=== PATIENT | male | born 1945 | race Caucasian/White ===

== ENCOUNTER 2017-04-23 07:45 | Day surgery (SDC) | payer MEDICARE, OTHER ==
[~2017-04-23] VITALS: Ht 177.8 cm; Wt 103.9 kg
[~2017-04-23 07:45] MED LIST: ADDE20XR PO; CLON1 PO; CYAN100017 PO; CYCL-36 PO; D31000CA PO; LAMI200T PO; LORTA5 PO; NORT1CAP53 PO; SERT-129 PO; VITA10004 PO
[2017-04-23] MEDS ORDERED: IOHEXOL 350 MG/ML 50 ML BTL (for Cath Lab) OTHER ONE (07:46)
[2017-04-23] MEDS ORDERED: NS 1000P @30 MLS/HR (KVO) IV SCH (08:00)
[2017-04-23 08:51] VITALS: BP 134/82; PULSE 73; RESP 17; TEMP 97.9; O2SAT 98
[2017-04-23] MEDS ORDERED: LAMO200T54 PO (08:59)
[2017-04-23] MEDS ORDERED: CLON1TAB PO (08:59)
[2017-04-23] MEDS ORDERED: AMPH1TAB66 PO (08:59)
[2017-04-23] MEDS ORDERED: SERT-129 PO (08:59)
[2017-04-23] MEDS ORDERED: PRIM50TA5 PO (08:59)
[2017-04-23] MEDS ORDERED: VITA1000 PO (08:59)
[2017-04-23] MEDS ORDERED: PROS5TAB PO (08:59)
[2017-04-23] MEDS ORDERED: OXYB5TAB PO (08:59)
[2017-04-23 09:20] LABS: AUTOMATED NEUTROPHIL # 4.8 TH/MM3 (1.8-7.7); BASOPHIL % 0.4 % (0.0-2.0); EOSINOPHIL # 0.1 TH/MM3 (0-0.4); EOSINOPHIL % 1.6 % (0.0-4.0); HEMATOCRIT 47.6 % (39.0-51.0); HEMO FLAGS DIFF FINAL; LYMPH % 25.9 % (9.0-44.0); LYMPHOCYTE # 1.9 TH/MM3 (1.0-4.8); MEAN CELL VOLUME 92.2 FL (80.0-100.0); MEAN CORPUSCULAR HEMOGLOBIN 30.5 PG (27.0-34.0); MEAN CORPUSCULAR HGB CONC 33.1 % (32.0-36.0); MONO % 7.9 % (0.0-8.0); NEUT % 64.2 % (16.0-70.0); PLATELET COUNT 167 TH/MM3 (150-450); RED BLOOD COUNT 5.16 MIL/MM3 (4.50-5.90); RED CELL DISTRIBUTION WIDTH 13.5 % (11.6-17.2); WHITE BLOOD COUNT 7.4 TH/MM3 (4.0-11.0)
[2017-04-23 09:37] LABS: APTT (PATIENT) 25.4 SEC (24.3-30.1); INTERNATIONAL NORMALIZED RATIO 0.9 RATIO; PROTHROMBIN TIME - PATIENT 10.2 SEC (9.8-11.6)
[2017-04-23] MEDS ORDERED: HEPARIN-NS/PF INJ 1,000 ML ONE (09:48)
[2017-04-23] MEDS ORDERED: MIDAZOLAM HCL 2 MG/2 ML VIAL ONE ×2 (09:54→10:20)
[2017-04-23] MEDS ORDERED: HEPARIN SODIUM - IV 10,000 UNITS/10 ML VIAL ONE (09:55)
[2017-04-23 10:01] LABS: BICARBONATE 27.9 MEQ/L (21.0-32.0); POTASSIUM 4.1 MEQ/L (3.5-5.1)
[2017-04-23] MEDS ORDERED: oxyCODONE/ACETAMINOPHEN 5 MG/325 MG TAB PO PRN ×2 (10:30)
--- NOTE | 2017-04-23 10:33 | CATHPROC ---
ExtendEvent HIS Report Study Information Study Number Admission Scheduled Start Study Start [id number] Apr 23 2017 7:45AM 04/23/2017 Apr 23 2017 9:39AM [place] Service Cardiac Catheterization Admit Source Facility Department Emergency department [facility] - Pharmacy Billing Adjudicator Physician and Clinical Staff Initial Froy Estrella Hydrodynamics Teacher Guy Harris,STANLEY Hydrodynamics Teacher Kylee Medina RN Recorder Sky French,RT(R) ScrGisela NorrisRT(R) (BS) Procedures Performed Procedure Location (Site) Vessel Name Coronary Angiograms RCA Right Coronary Equipment Time Mail Processing Associate Description Size Mfg Part Number Used/Scraped [id number] 10:13 [employer] MEDICAL WIRE, NITONOL 80CM 80CM Used *[id number] TRANSDUCER, TRUWAVE [id number] 10:15 CESPEDES ROE * Used W/STOCKCOCK *[id number] *[id number] [id number] *[id number] 10:15 [employer] PACK, CCL CUSTOM * Used *[id number] 10:15 [employer] SUPPORT, ARTERIAL ADULT 40546 *[id number] Used [id number] 10:15 Marqui PACER PEN, SKIN DUAL W/ RULER * Used *[id number] BAND, RADIAL COMPRESSION TR [id number] 10:30 Medialive 29CM Used LARGE 29 *[id number] SHEATH, FR6 RADIAL PRELUDE 10:15 Medialive FR 6 [id number] Used EASE 11CM [id number] 10:15 Medialive WIRE, EXCHANGE 260CM 3MMJ 260CM Used *[id number] 10:15 [employer] OMNIPAQUE, 350 MG, 150ML 150ML [id number] Used [id number] 10:15 [employer] BLANKET,WARM AIR CCL * Used *[id number] Equipment Model, Serial, Lot Number and Expiration Data Description Model Number Serial Number Lot Number Expiration Date WIRE, NITONOL 80CM [id number] 07-07-2021 History: Allergies Allergy Reaction No Known Allergies History: Risk Factors Family History of Hypertension Dyslipidemia Previous OK Previous Heart Failure Premature CAD No No No No No Prior Valve Prior PCI Prior CABG Surgery No No No Cerebrovascular Peripheral Artery Chronic Lung On Dialysis Diabetes Diabetes Therapy Disease Disease Disease No No No No Yes Oral History: Stress Tests Stress or Imaging Studies Performed Yes Standard Exercise Stress Test No Stress Echo No Stress Test SPECT Stress Test SPECT Result Stress Test SPECT Ischemia Risk/Extent Yes Positive High Stress Test CMR No Cardiac CTA Coronary Calcium Score No No History: Other Current Smoker No Labs Hgb (g/dl) Hct (%) WBC (l/cumm) Platelets (thousands) 11.60-17.00 35.00-51.00 4.00-11.00 150.00-450.00 15.8 47.6 7.4 167 Glucose (mg/dl) BUN (mg/dl) Creatinine (mg/dl) BUN:Creatinine (1:x) 74.00-106.00 7.00-18.00 0.50-1.30 10.00-20.00 141 15 0.9 16.7 Na (meq/l) K (meq/l) 136.00-145.00 3.50-5.10 139 4.1 INR (PTT:PT) 0.90-1.10 0.9 CPK-MB (ng/ML) 0.50-3.60 Not Drawn Medication Medication Total Dose (Bolus/Oral) Medication Total Dosage/Unit 1% XYLOCAINE 5 mL FENTANYL 50 mcg HEPARIN 3000 units NTG (IC) 200 mcg OXYGEN 2 l/min VERSED 3 mg Medications (Bolus/Oral) Medication Time Given Dosage/Unit Administered By Reason VERSED 04/23/2017 10:08:45 AM 2 mg Froy Garza 2 mg VERSED given in lab by Froy Garza in Left Forearm via Peripheral IV. Ordered by Alice Garza. FENTANYL 04/23/2017 10:09:45 AM 50 mcg Froy Garza 50 mcg FENTANYL given in lab by Froy Garza in Left Forearm via Peripheral IV. Ordered by Yariel Garza. 1% XYLOCAINE 04/23/2017 10:13:27 AM 5 mL Froy Garza 5 mL 1% XYLOCAINE given in lab by Froy Garza in Right Radial via Subcutaneous. Ordered by Froy Garza. NTG (IC) 04/23/2017 10:15:07 AM 200 mcg Froy Garza 200 mcg NTG (IC) given in lab by Froy Garza via Intra-arterial. Ordered by Froy Garza. HEPARIN 04/23/2017 10:15:20 AM 3000 units Froy Garza 3000 units HEPARIN given in lab by Froy Garza in Left Forearm via Peripheral IV. Ordered by Froy Garza. OXYGEN 04/23/2017 10:17:27 AM 2 l/min Froy Garza 2 l/min OXYGEN given in lab by Froy Garza via Nasal. Ordered by Froy Garza. VERSED 04/23/2017 10:21:11 AM 1 mg Froy Garza 1 mg VERSED given in lab by Froy Garza in Left Forearm via Peripheral IV. Ordered by Alice Garza enYakelin Medication (Drip) Medication Time Given Dosage/Unit Concentration/Unit Diluent (ml) Solution IV Solutions 04/23/2017 9:46:21 AM 0 mL (IV) 500 NaCl .9 Patient arrived on IV Solutions given by Froy Garza in Left Forearm via Peripheral IV. Pump/Drip Flow = 20 ml/hr using NaCl .9. Ordered by Froy Garza. Initial Case Assessment Cardiovascular HR Rhythm NIBP Chest Pain 80 sr 132/66 0 Edema Present Skin color Skin None Normal Warm Dry Circulatory - Right Pulses Dorsalis Pedis Femoral Radial 2 2 2 Scale (0,1,2,3,4,d) Scale (0,1,2,3,4,d) Neurological State Oriented to time-place- Alert Moves all extremities person Respiration - General Respiration Rate SpO2 (%) O2 (lpm) (B/min) 18 96 0 Final Case Assessment Cardiovascular HR Rhythm NIBP Chest Pain 65 sr 133/70 0 Edema Present Skin color Skin None Normal Warm Dry Circulatory - Right Pulses Dorsalis Pedis Femoral Radial 2 2 2 Scale (0,1,2,3,4,d) Scale (0,1,2,3,4,d) Neurological State Oriented to time-place- Alert Moves all extremities person Respiration - General Respiration Rate SpO2 (%) O2 (lpm) (B/min) 18 99 2 Chronological Log Time Study Chronological Log 9:40:06 Patient arrived via Bed. 9:40:08 Consent signed by the physician and the patient and verified by the Pharmacy Billing Adjudicator staff. 9:40:09 Pre-op and post- op instructions given; patient acknowledges understanding of instructions. 9:40:11 Verbal Stimulation=2 Physical Stimulation=2 Airway=2 Respiration=2 TOTAL=8. (0=absent, 1=martin ited, 2=present) 9:40:32 Presedation assessment performed by Pharmacy Billing Adjudicator RN. 9:40:34 Patient has been NPO for More than 6Hrs. 9:40:53 Skin Breakdown-bilateral scabs on lower legs. 9:45:32 A # 20 IV was noted in the Forearm (left). Grade = 0 Patient arrived on IV Solutions given by Froy Garza in Left Forearm via Peripheral IV. Pump /Drip Flow = 20 ml/hr 9:46:21 using NaCl .9. Ordered by Froy Garza. 9:46:40 History and physical on the chart or being dictated. Vitals capture started with the following parameters, Patient=Adult, Interval=5 min, Initial Pr bztmzw=278 mmHg, 9:46:42 Deflation Rate=5 mmHg, Cuff placed on Left Arm 9:47:27 [place]=189 bpm, QOAA=516/66 mmhg, SpO2=92.0 %, Resp=12 B/min, Briseno=2 9:47:51 Reference ECG taken Assessment: Initial Case, HR=80 BPM, Rhythm=sr, OYQP=772/66 mmhg, Chest Pain=0, Edema=None, Col or=Normal, Skin = Warm, Dry 9:47:53 Right Pulses: Van Ped=2, Femoral=2, Radial=2 Neurological: State=Alert, Ox3, [place] Respiration: Resp=18 B/min, SpO2=96 %, O2=0 lpm 9:52:20 HR=71 bpm, MFEO=854/74 mmhg, SpO2=92.0 %, Resp=21 B/min 9:58:00 HR=73 bpm, FOAA=047/75 mmhg, SpO2=96.0 %, Resp=19 B/min, Briseno=2 10:00:45 MD paged 10:02:22 HR=69 bpm, UCMI=612/69 mmhg, SpO2=92.0 %, Resp=24 B/min, Briseno=2 10:02:49 Pressure channel 1 zeroed. 10:06:51 MD arrived. 10:07:21 HR=71 bpm, PWPU=168/71 mmhg, SpO2=91.0 %, Resp=22 B/min, Briseno=2 10:08:45 2 mg VERSED given in lab by Froy Garza in Left Forearm via Peripheral IV. Ordered by Froy Rutledge. 10:09:45 50 mcg FENTANYL given in lab by Froy Garza in Left Forearm via Peripheral IV. Ordered b Froy Quinteros. Time Out. Correct patient, correct procedure,correct physician, ,power injector not loaded with contrast with surgical 10:10:54 team present. Time Out Concurred by MD, individual staff and CATERING CHEF in procedure 10:12:22 HR=71 bpm, KIYS=555/72 mmhg, SpO2=90.0 %, Resp=20 B/min, Briseno=2 10:13:17 Presedation re-assessment performed by Pharmacy Billing Adjudicator RN. 10:13:18 Case Start 10:13:20 Verbal Stimulation=2 Physical Stimulation=2 Airway=2 Respiration=2 TOTAL=8. (0=absent, 1=li mited, 2=present) 10:13:27 5 mL 1% XYLOCAINE given in lab by Froy Garza in Right Radial via Subcutaneous. Ordered by Froy Garza. 10:14:00 Access site was Radial Artery. right radial A SHEATH, FR6 RADIAL PRELUDE EASE 11CM FR 6 was advanced into the Radial (right) using the Perc utaneous 10:14:46 technique. 10:15:07 200 mcg NTG (IC) given in lab by Froy Garza via Intra-arterial. Ordered by Alice Garza en. 10:15:20 3000 units HEPARIN given in lab by Froy Garza in Left Forearm via Peripheral IV. Ordere d by Froy Garza. 10:17:24 HR=71 bpm, SSWK=133/76 mmhg, SpO2=89.0 %, Resp=32 B/min, Briseno=2 10:17:27 2 l/min OXYGEN given in lab by Froy Garza via Nasal. Ordered by Froy Garza. A JR 5.0 INFINITI CATHETER FR 6 was advanced over a wire. OMNIPAQUE, 350 MG, 150ML 150ML was us ed for 10:17:42 injections. Recorded Pressure: LV, HR=73, Condition=Condition 1 10:19:00 (Left Ventricle) LV 118/11/18 Recorded Pressure: LV, Ao, HR=76, Condition=Condition 1 10:19:09 (Left Ventricle) LV 128/11/16, (Aorta) Ao 122/68/91 10:19:28 The RCA was injected and visualized at various angles. OMNIPAQUE, 350 MG, 150ML 150ML use d. After removing the current catheter a JL 3.5 INFINITI CATHETER FR 6 was advanced over a WIRE, EXCHANGE 260CM 10:20:05 3MMJ 260CM. 10:21:11 1 mg VERSED given in lab by Froy Garza in Left Forearm via Peripheral IV. Ordered by Froy Reeves. Recorded Pressure: Ao, HR=69, Condition=Condition 1 10:21:59 (Aorta) Ao 129/72/96 10:23:08 HR=70 bpm, MSRK=947/65 mmhg, SpO2=93.0 %, Resp=27 B/min, Briseno=2 10:23:53 Catheter was removed otw. 10:26:12 Case End 10:27:26 HR=70 bpm, ZLVD=927/70 mmhg, SpO2=93.0 %, Resp=55 B/min, Briseno=2 Assessment: Final Case, HR=65 BPM, Rhythm=sr, TNPZ=206/70 mmhg, Chest Pain=0, Edema=None, [place] r=Normal, Skin = Warm, Dry 10:29:26 Right Pulses: Van Ped=2, Femoral=2, Radial=2 Neurological: State=Alert, Ox3, [place] Respiration: Resp=18 B/min, SpO2=99 %, O2=2 lpm 10:29:47 Vitals capture stopped. 10:29:50 Catheter(s) removed without difficulty Radial Compression Device Used. 11 mLs of air placed in BAND, RADIAL COMPRESSION TR LARGE 29 2 9CM. Affected 10:29:56 hand 94 % O2 saturation. 10:30:19 No case complications noted. 10:30:21 Cine recording checked. 10:30:33 Contrast Scanned 10:31:39 Patient moved to stretcher End Study - Contrast Media Used In Study Contrast Total Opened (mL) Total Used (mL) Total Wasted (mL) Omnipaque 45 45 0 End Study - Maximum Contrast Load Max Contrast Load (mL) 577.3 End Study - Radiation Exposure Fluoro Time (minutes) 2.0 End Study - Patient Disposition Complications Transferred To No Outpatient Bed
[2017-04-23] MEDS ORDERED: CARV3.125 PO (10:37)
--- NOTE | 2017-04-23 11:25 | MA ---
cc: TEAGAN AVILEZ DATE 04/23/2017 PROCEDURE PERFORMED 1. Fluoroscopy with interpretation 2. Left heart catheterization 3. Coronary angiography METHOD The risks, benefits and alternatives discussed with the patient. The patient understood and consented to the procedure. PROCEDURE The patient brought into the catheterization lab, placed on the catheterization table. The right wrist was prepped and draped in a sterile fashion. The right wrist was anesthetized with 2% lidocaine. The right radial artery was cannulated. A 6-Scottish 7 cm sheath was placed without difficulty. 2.0 mcg intra-arterial nitroglycerin, 3000 inches of intravenous heparin was administered. Left heart catheterization; 6-Scottish JR-5 catheter was advanced across the aortic valve without difficulty. Intraventricular hemodynamics measured at 120/10 mmHg. No aortic stenosis by transaortic valve or pullback gradient. Coronary angiography: 1. Left main coronary angiographically normal. 2. Left anterior descending coronary has mild calcium present, but no significant obstruction. There is a small diagonal branch that has minor luminal irregularities. 3. Left circumflex gives rise to a large first obtuse marginal branches. There is a subbranch bursa which had minor luminal irregularities. 4. Right coronary artery is a dominant vessel giving rise to a posterior descending coronary. The right coronary has 30% stenosis ostially and in the mid to distal segment. CONCLUSIONS 1. Mild nonobstructive coronary disease. 2. Normal left-sided filling pressures. PLAN The patient will be monitored closely for any post procedural complications. The patient does have some PVCs and chest pains. The stress test showed a reduced ejection fraction. We will start on a low dose of Coreg. Blood pressure likely will tolerate PRAKASH inhibitor in addition to that. We will have to have a follow-up echocardiogram for his nonischemic cardiomyopathy to see if it shows improvement. If not, then he may be a consideration for a defibrillator. MD CONNIE Landis/PATRICK /10:44 AM /11:14 AM
[2017-04-23] MEDS ORDERED: BACITRACIN OINT 0.9 GM PKT TOP ONE (11:30)
[2017-04-23] MEDS ORDERED: MISC INFORMATION XX ONE (11:30)
[2017-04-23] MEDS ORDERED: CARVEDILOL 3.125 MG TAB PO SCH (21:00)
== END 2017-04-23 14:55 | disposition home or self-care (01) ==
LOC: HDOC 07:45 → HDIC 07:45 → HDOC 14:55
PROVIDERS: ATTEND Internal Medicine
DX: I25.10 Atherosclerotic heart disease of native coronary artery without angina pectoris (principal); I25.5 Ischemic cardiomyopathy; I49.3 Ventricular premature depolarization; R07.9 Chest pain, unspecified; R53.82 Chronic fatigue, unspecified; F33.1 Major depressive disorder, recurrent, moderate; E11.9 Type 2 diabetes mellitus without complications; N40.0 Benign prostatic hyperplasia without lower urinary tract symptoms; L40.0 Psoriasis vulgaris; E55.9 Vitamin D deficiency, unspecified; Z79.899 Other long term (current) drug therapy
CPT/HCPCS: 80048; 85025; 85610; 85730; 86850; 86900; 86901; 93458; C1769; C1893; J1644; J2250; J3010; 93454; Q9967

== ENCOUNTER 2017-09-10 04:22 | Emergency (ER) | payer MEDICARE, OTHER ==
[~2017-09-10] VITALS: Ht 167.6 cm; Wt 90.0 kg
[~2017-09-10 04:22] MED LIST changes: -ADDE20XR PO; +AMPH1TAB66 PO; +CARV3.125 PO; -CLON1 PO; +CLON1TAB PO; -CYAN100017 PO; -CYCL-36 PO; -D31000CA PO; -LAMI200T PO; +LAMO200T54 PO; -LORTA5 PO; -NORT1CAP53 PO; +OXYB5TAB PO; +PRIM50TA5 PO; +PROS5TAB PO; +VITA1000 PO; -VITA10004 PO
[2017-09-10 04:25] VITALS: BP 141/70; PULSE 85; RESP 18; TEMP 99.1; O2SAT 97
[2017-09-10] MEDS ORDERED: ACETAMINOPHEN 500 MG CPLT PO ONE (04:45)
[2017-09-10] MEDS ORDERED: FURO20TA PO (04:51)
[2017-09-10] MEDS ORDERED: LISI2.5T3 PO (04:51)
[2017-09-10] MEDS ORDERED: METF500T PO (04:51)
--- NOTE | 2017-09-10 04:51 | PD ---
HPI Chief Complaint: Fall Time Seen by Provider: 04:42 Travel History International Travel<30 days: No Contact w/Intl Traveler<30days: No Traveled to known affect area: No History of Present Illness HPI Patient is a 72-year-old male presents emergency department for a fall yesterday which left him with left hip pain which is been gradually worsening since the fall yesterday. Patient states he tripped and fell forwards and landed on his left side. He states his been able to ambulate after his daughter helped into his feet yesterday. Patient states he has a history of cardiomyopathy and constantly feels weak. He states that he has fallen several times in the past always backwards and hitting his head but adamantly denies hitting his head with this episode. Denies any chest pain shortness of breath abdominal pain nausea vomiting or other extremity pain. He states the pain is Severe to the Point Where It Is Keeping Him from Getting up Out Of Bed. Has Not Taken Anything to Try and Relieve His Pain. He Is Also Trying to Get Placed into an Assisted Living Facility in the near Future. [facility] Past Medical History Anxiety: Yes Depression: Yes Cancer: Yes (SKIN) Chest Pain: No Diabetes: Yes (BOARDERLINE) Patient Takes Glucophage: No Diminished Hearing: No Gastrointestinal Disorders: No Glaucoma: No Hepatitis: No Hiatal Hernia: No Hypertension: No Kidney Stones: Yes Respiratory: Yes (SOB) Integumentary: No Immunizations Current: Yes Thyroid Disease: No ?: Not Past Surgical History Genitourinary Surgery: Yes (LITHOTRIPSY X 2) Other Surgery: Yes (SEPTOPLASTY) Social History Alcohol Use: Yes (SEVERAL X WEEKLY) Tobacco Use: No (NEVER) Substance Use: No Allergies-Medications (Allergen,Severity, Reaction): Coded Allergies: No Known Allergies (Verified Adverse Reaction, Unknown, 09/10/17) Reported Meds & Prescriptions Reported Meds & Active Scripts Active Reported Lisinopril 2.5 Mg Tab 2.5 Mg PO DAILY Metformin (Metformin HCl) 500 Mg Tab 500 Mg PO BIDPC Furosemide 20 Mg Tab 20 Mg PO DAILY Sertraline (Sertraline HCl) 100 Mg Tab 100 Mg PO DAILY Primidone 50 Mg Tab 200 Mg PO BID Oxybutynin ER 24 HR (Oxybutynin Chloride) 5 Mg Tab 5 Mg PO DAILY Lamotrigine ER (Lamotrigine) 200 Mg Anatoly 200 Mg PO DAILY Proscar (Finasteride) 5 Mg Tab 5 Mg PO DAILY Do not crush. Clonazepam 1 Mg Tab 1 Mg PO BID Amphetamine-Dextroamphetamine 20 Mg Tab 20 Mg PO BID Avoid late evening doses. Space doses at least 4 to 6 hours if more than once/day dosing. Review of Systems Except as stated in HPI: all other systems reviewed are Neg Physical Exam Narrative GENERAL: Well-developed well-nourished elderly male in no obvious distress. SKIN: Focused skin assessment warm/dry. HEAD: Atraumatic. Normocephalic. EYES: Pupils equal and round. No scleral icterus. No injection or drainage. ENT: No nasal bleeding or discharge. Mucous membranes pink and moist. NECK: Trachea midline. No JVD. CARDIOVASCULAR: Regular rate and rhythm. No murmur appreciated. RESPIRATORY: No accessory muscle use. Clear to auscultation. Breath sounds equal bilaterally. GASTROINTESTINAL: Abdomen soft, non-tender, nondistended. Hepatic and splenic margins not palpable. MUSCULOSKELETAL: No obvious deformities. No clubbing. No cyanosis. No edema. There is no tenderness with internal/external rotation of the hip, patient is able to range his hip in flexion and extension and internal and external rotation. No tenderness at the knee or ankle. The remainder of the extremity exams are unremarkable. 2+ bilateral equal pulses in all 4 extremities, pulse motor and sensory intact distally in all 4 extremities, pulses are soft. No contusions or bruises seen on his person.. NEUROLOGICAL: Awake and alert. No obvious cranial nerve deficits. Motor grossly within normal limits. Normal speech. PSYCHIATRIC: Appropriate mood and affect; insight and judgment normal. Data Data Last Documented VS Vital Signs Date Time Temp Pulse Resp B/P (MAP) Pulse Ox O2 Delivery O2 Flow Rate FiO2 09/10/17 06:27 82 18 109/65 (80) 93 09/10/17 05:29 Room Air 09/10/17 04:25 99.1 Orders Orders Acetaminophen (Tylenol) (09/10/17 04:45) Hip, Uni(Ap&Lat) W Ap Pelvis (09/10/17 ) Ed Discharge Order (09/10/17 06:29) [facility] Medical Decision Making Medical Screen Exam Complete: Yes Emergency Medical Condition: Yes Differential Diagnosis Hip contusion, hip fracture, hip strain, sprain, fall. Narrative Course Patient roomed emergency department, x-rays negative. Is able to ambulate in the emergency department, he is currently pursuing placement into assisted living facility. He was offered pain medicine and declined but ultimately accepted dose of Tylenol. This time is no indication further workup. He has safe ride home and some checks up on him fairly regularly at home. He stable for discharge. Diagnosis Primary Impression: Left hip pain Patient Instructions: General Instructions, Musculoskeletal Pain (ED) Disposition: 01 DISCHARGE HOME Condition: Stable Lucien Delaney MD Sep 10, 2017 04:51
--- NOTE | 2017-09-10 05:28 | RADRPT ---
EXAM DATE/TIME: 09/10/2017 04:57 [facility] COMPARISON: No previous studies available for comparison. INDICATIONS : Left hip pain post fall yesterday MEDICAL HISTORY : None. SURGICAL HISTORY : None. ENCOUNTER: Initial ACUITY: 1 day PAIN SCORE: 5/10 LOCATION: Left entire hip FINDINGS: Examination of the left hip was performed with AP Pelvis. The primary and secondary trabecular patte rn of the femoral neck is intact. The hip joint is of normal width without significant sclerosis or bony hypertrophy. The acetabulum is grossly intact. CONCLUSION: No acute fracture or joint dislocation. Chava Graham MD on September 10, 2017 at 5:25 Board Certified Radiologist. This report was verified electronically.
[2017-09-10 05:29] VITALS: BP 135/65; PULSE 83; RESP 18; O2SAT 98
[2017-09-10 06:26] VITALS: RESP 18
[2017-09-10 06:27] VITALS: BP 109/65
== END 2017-09-10 06:45 | disposition home or self-care (01) ==
LOC: PHED 04:22
DX: M25.552 Pain in left hip (principal); R73.03 Prediabetes; F41.8 Other specified anxiety disorders; Z79.84 Long term (current) use of oral hypoglycemic drugs; Z87.442 Personal history of urinary calculi; Z85.828 Personal history of other malignant neoplasm of skin; W01.0XXA Fall on same level from slipping, tripping and stumbling without subsequent striking against object, initial encounter
CPT/HCPCS: 73502

== ENCOUNTER 2017-10-07 19:35 | Inpatient (IN) | payer MEDICARE, OTHER ==
[~2017-10-07 19:35] MED LIST changes: -CARV3.125 PO; +FURO20TA PO; +LISI2.5T3 PO; +METF500T PO; -VITA1000 PO
[2017-10-07 20:45] VITALS: BP 139/82; PULSE 70; RESP 16
[2017-10-07] MEDS ORDERED: SODIUM CHLORIDE 0.9% FLUSH 10 ML FLUSH IVF PRN (20:45)
[2017-10-07 20:50] VITALS: O2SAT 100
[2017-10-07 20:58] VITALS: BP_SYST 134; BP_SYST 139; BP_DIAS 79; BP_DIAS 82
--- NOTE | 2017-10-07 21:23 | RADRPT ---
EXAM DATE/TIME: 10/07/2017 21:11 [facility] COMPARISON: No previous studies available for comparison. INDICATIONS : General weakness for 1 month. MEDICAL HISTORY : Hypertension. Diabetes mellitus type II. SURGICAL HISTORY : None. ENCOUNTER: Initial ACUITY: 1 month PAIN SCORE: 0/10 LOCATION: Bilateral chest FINDINGS: A single view of the chest demonstrates the lungs to be symmetrically aerated without evidence of mas s, infiltrate or effusion. The cardiomediastinal contours are unremarkable. Osseous structures are intact. CONCLUSION: No evidence of acute cardiopulmonary disease. Samuel Clemons MD on October 07, 2017 at 21:21 Board Certified Radiologist. This report was verified electronically.
[2017-10-07 22:04] LABS: INTERNATIONAL NORMALIZED RATIO 1.1 RATIO; PROTHROMBIN TIME - PATIENT 10.7 SEC (9.8-11.6)
[2017-10-07 22:06] LABS: ALBUMIN 3.8 GM/DL (3.4-5.0); AST (GOT) 20 U/L (15-37); BICARBONATE 23.8 MEQ/L (21.0-32.0); BLOOD UREA NITROGEN 17 MG/DL (7-18); CALCIUM 8.5 MG/DL (8.5-10.1); CHLORIDE 104 MEQ/L (98-107); CREATININE 0.69 MG/DL (0.60-1.30); GLOMERULAR FILTRATION RATE 113 ML/MIN (>89); GLUCOSE,RANDOM 81 MG/DL (74-106); MAGNESIUM 1.7 MG/DL (1.5-2.5); SODIUM (NA) 137 MEQ/L (136-145)
[2017-10-07 22:07] LABS: ALKALINE PHOSPHATASE 102 U/L (45-117); ALT (GPT) 17 U/L (12-78); TOTAL BILIRUBIN ADULT 0.4 MG/DL (0.2-1.0); TOTAL PROTEIN 6.7 GM/DL (6.4-8.2); TROPONIN I LESS THAN 0.02 NG/ML (0.02-0.05)
[2017-10-07 22:29] LABS: BASOPHIL % 0.5 % (0.0-2.0); EOSINOPHIL # 0.1 TH/MM3 (0-0.4); HEMATOCRIT 42.3 % (39.0-51.0); HEMOGLOBIN 15.6 GM/DL (13.0-17.0); LYMPHOCYTE # 1.3 TH/MM3 (1.0-4.8); MEAN CELL VOLUME 89.5 FL (80.0-100.0); MEAN PLATELET VOLUME 8.6 FL (7.0-11.0); MONO % 6.5 % (0.0-8.0); MONOCYTE # 0.5 TH/MM3 (0-0.9); PLATELET COUNT 155 TH/MM3 (150-450); RED BLOOD COUNT 4.73 MIL/MM3 (4.50-5.90); RED CELL DISTRIBUTION WIDTH 13.3 % (11.6-17.2); WHITE BLOOD COUNT 7.9 TH/MM3 (4.0-11.0)
[2017-10-07 22:36] LABS: MEAN CORPUSCULAR HGB CONC 36.9 % (32.0-36.0)
[2017-10-08] VITALS (7 sets, daily range): BP systolic 120–158; BP diastolic 62–79; PULSE 67–82; RESP 16–20; TEMP 97.2–98.4; O2SAT 96–100
--- NOTE | 2017-10-08 01:02 | RADRPT ---
EXAM DATE/TIME: 10/08/2017 00:33 [facility] COMPARISON: No previous studies available for comparison. INDICATIONS : Weakness. Repeated head trauma. RADIATION DOSE: 56.35 CTDIvol (mGy) MEDICAL HISTORY : Hypertension. Normal pressure hydrocephalus. SURGICAL HISTORY : None. ENCOUNTER: Initial ACUITY: 1 day PAIN SCALE: 0/10 LOCATION: cranial TECHNIQUE: Multiple contiguous axial images were obtained of the head. Using automated exposure control and adj ustment of the mA and/or kV according to patient size, radiation dose was kept as low as reasonably a chievable to obtain optimal diagnostic quality images. DICOM format image data is available electro nically for review and comparison. FINDINGS: CEREBRUM: The ventricles are normal for age. No evidence of midline shift, mass lesion, hemorrhage or acute in farction. No extra-axial fluid collections are seen. POSTERIOR FOSSA: The cerebellum and brainstem are intact. The 4th ventricle is midline. The cerebellopontine angle i s unremarkable. EXTRACRANIAL: The visualized portion of the orbits is intact. SKULL: The calvaria is intact. No evidence of skull fracture. CONCLUSION: 1. No acute intracranial abnormalities. Kenneth Carlos MD on October 08, 2017 at 0:57 Board Certified Radiologist. This report was verified electronically.
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
[2017-10-08] MEDS ORDERED: ONDANSETRON HCL 4 MG/2 ML VIAL IVP PRN (03:45)
[2017-10-08] MEDS ORDERED: LACTULOSE SYRUP 20 GM/30 ML CUP PO PRN (03:45)
[2017-10-08] MEDS ORDERED: SODIUM CHLORIDE 0.9% FLUSH 10 ML FLUSH IV FLUSH PRN ×2 (03:45→15:45)
[2017-10-08] MEDS ORDERED: BISACODYL 10 MG SUPP RECTAL PRN (03:45)
[2017-10-08] MEDS ORDERED: NALOXONE HCL 0.4 MG/ML AMP IV PUSH PRN (03:45)
[2017-10-08] MEDS ORDERED: SENNOSIDES 8.6 MG TAB PO PRN (03:45)
[2017-10-08] MEDS ORDERED: ACETAMINOPHEN 325 MG TAB PO PRN (03:45)
[2017-10-08] MEDS ORDERED: MAGNESIUM HYDROXIDE SUSP 30 ML CUP PO PRN (03:45)
[2017-10-08] MEDS ORDERED: GLUCAGON 1 MG/ML VIAL OTHER PRN ×2 (04:00→15:45)
[2017-10-08] MEDS ORDERED: DEXTROSE 50% IN WATER 50 ML VIAL(D50) IV PUSH PRN ×2 (04:00→15:45)
--- NOTE | 2017-10-08 04:02 | HHI.HP ---
[facility] Primary Care Physician Sherita Ramos MD Admission Diagnosis Weakness Diagnoses: Travel History International Travel<30 Days: No Contact w/Intl Traveler <30 Da: No Traveled to Known Affected Are: No History of Present Illness 72-year-old male with a past medical history significant for diabetes mellitus, depression, BPH and essential tremor presents to the emergency department complaining of a 6 month - 1 year history of progressive weakness. The patient reports that he has had an unsteady gait that waxes and wanes. He complains of weekly falls and difficulty getting out of bed and chairs. Patient reports on Wednesday he fell in his kitchen and spent 6 hours on the ground before his [id number] was able to come help him get up. He is very concerned about his safety. He denies any chest pain or shortness of breath. Denies any focal or lateralizing weakness. Denies any dysarthria or slurred speech. No nausea/ vomiting/diarrhea. Review of Systems Except as stated in HPI: all other systems reviewed are Neg Past Family Social History Past Medical History Diabetes mellitus Depression BPH Essential tremor Past Surgical History Right knee replacement Laminectomy Lithotripsy Trigger finger release Reported Medications Reported Meds & Active Scripts Active Reported Lisinopril 2.5 Mg Tab 2.5 Mg PO DAILY Metformin (Metformin HCl) 500 Mg Tab 500 Mg PO BIDPC Furosemide 20 Mg Tab 20 Mg PO DAILY Sertraline (Sertraline HCl) 100 Mg Tab 100 Mg PO DAILY Primidone 50 Mg Tab 200 Mg PO BID Oxybutynin ER 24 HR (Oxybutynin Chloride) 5 Mg Tab 5 Mg PO DAILY Lamotrigine ER (Lamotrigine) 200 Mg Anatoly 200 Mg PO DAILY Proscar (Finasteride) 5 Mg Tab 5 Mg PO DAILY Do not crush. Clonazepam 1 Mg Tab 1 Mg PO BID Amphetamine-Dextroamphetamine 20 Mg Tab 20 Mg PO BID Avoid late evening doses. Space doses at least 4 to 6 hours if more than once/day dosing. Allergies: Coded Allergies: No Known Allergies (Verified Adverse Reaction, Unknown, 10/07/17) Family History Negative for CAD/DM Social History Denies tobacco. Drinks approximately 1 drink per day. Denies illicit drugs. Physical Exam Vital Signs Vital Signs Date Time Temp Pulse Resp B/P (MAP) Pulse Ox O2 Delivery O2 Flow Rate FiO2 10/07/17 21:00 16 100 Room Air 10/07/17 20:58 139/82 (101) 134/79 (97) 10/07/17 20:50 100 Room Air 10/07/17 20:45 70 16 139/82 (101) Physical Exam GENERAL: male lying in bed SKIN: No rashes, ecchymoses or lesions. Cool and dry. HEAD: Atraumatic. Normocephalic. No temporal or scalp tenderness. EYES: Pupils equal round and reactive. Extraocular motions intact. No scleral icterus. No injection or drainage. ENT: Nose without bleeding, purulent drainage or septal hematoma. Throat without erythema, tonsillar hypertrophy or exudate. Uvula midline. Airway patent. NECK: Trachea midline. No JVD or lymphadenopathy. Supple, nontender, no meningeal signs. CARDIOVASCULAR: Regular rate and rhythm without murmurs, gallops, or rubs. RESPIRATORY: Clear to auscultation. Breath sounds equal bilaterally. No wheezes , rales, or rhonchi. GASTROINTESTINAL: Abdomen soft, non-tender, nondistended. No hepato-splenomegaly , or palpable masses. No guarding. MUSCULOSKELETAL: Extremities without clubbing, cyanosis, or edema. No joint tenderness, effusion, or edema noted. No calf tenderness. Negative Homans sign bilaterally. NEUROLOGICAL: Awake and alert. Cranial nerves II through XII intact. Motor and sensory grossly within normal limits. Five out of 5 muscle strength in all muscle groups. Normal speech. Alert and oriented 4. Laboratory Laboratory Tests Test 10/07/17 21:00 White Blood Count 7.9 Red Blood Count 4.73 Hemoglobin 15.6 Hematocrit 42.3 Mean Corpuscular Volume 89.5 Mean Corpuscular Hemoglobin 33.0 Mean Corpuscular Hemoglobin Concent 36.9 Red Cell Distribution Width 13.3 Platelet Count 155 Mean Platelet Volume 8.6 Neutrophils (%) (Auto) 75.0 Lymphocytes (%) (Auto) 17.0 Monocytes (%) (Auto) 6.5 Eosinophils (%) (Auto) 1.0 Basophils (%) (Auto) 0.5 Neutrophils # (Auto) 6.0 Lymphocytes # (Auto) 1.3 Monocytes # (Auto) 0.5 Eosinophils # (Auto) 0.1 Basophils # (Auto) 0.0 CBC Comment AUTO DIFF Differential Comment AUTO DIFF CONFIRMED Platelet Estimate NORMAL Platelet Morphology Comment NORMAL Red Cell Morphology Comment NORMAL Prothrombin Time 10.7 Prothromb Time International Ratio 1.1 Activated Partial Thromboplast Time 22.2 Blood Urea Nitrogen 17 Creatinine 0.69 Random Glucose 81 Total Protein 6.7 Albumin 3.8 Calcium Level 8.5 Magnesium Level 1.7 Alkaline Phosphatase 102 Aspartate Amino Transf (AST/SGOT) 20 Alanine Aminotransferase (ALT/SGPT) 17 Total Bilirubin 0.4 Sodium Level 137 Potassium Level 4.0 Chloride Level 104 Carbon Dioxide Level 23.8 Anion Gap 9 Estimat Glomerular Filtration Rate 113 Total Creatine Kinase 60 Troponin I LESS THAN 0.02 Result Diagram: 10/07/17209910/07/172099 Rebecca VTE Risk Assessment Rebecca VTE Risk Assessment: Mod/High Risk (score >= 2) Caprini Risk Assessment Model Point Value = 1 Point Value = 2 Point Value = 3 Point Value = 5 Age 41-60 Minor surgery BMI > 25 kg/m2 Swollen legs Varicose veins or History of unexplained or recurrent spontaneous Oral contraceptives or hormone replacement Sepsis (< 1 month) Serious lung disease, including pneumonia (< 1 month) Abnormal pulmonary function Acute myocardial infarction Congestive heart failure (< 1 month) History of inflammatory bowel disease Medical patient at bed rest Age 61-74 Arthroscopic surgery Major open surgery (> 45 min) Laparoscopic surgery (> 45 min) Malignancy Confined to bed (> 72 hours) Immobilizing plaster cast Central venous access Age >= 75 History of VTE Family history of VTE Factor V Leiden Prothrombin [id number] Lupus anticoagulant Anticardiolipin antibodies Elevated serum homocysteine Heparin-induced thrombocytopenia Other congenital or acquired thrombophilia Stroke (< 1 month) Elective arthroplasty Hip, pelvis, or leg fracture Acute spinal cord injury (< 1 month) Prophylaxis Regimen Total Risk Factor Score Risk Level Prophylaxis Regimen 0-1 Low Early ambulation 2 Moderate Order ONE of the following: *Sequential Compression Device (SCD) *Heparin 5000 units SQ BID 3-4 Higher Order ONE of the following medications: *Heparin 5000 units SQ TID *Enoxaparin/Lovenox 40 mg SQ daily (WT < 150 kg, CrCl > 30 mL/min) *Enoxaparin/Lovenox 30 mg SQ daily (WT < 150 kg, CrCl > 10-29 mL/min) *Enoxaparin/Lovenox 30 mg SQ BID (WT < 150 kg, CrCl > 30 mL/min) AND/OR *Sequential Compression Device (SCD) 5 or more Highest Order ONE of the following medications: *Heparin 5000 units SQ TID (Preferred with Epidurals) *Enoxaparin/Lovenox 40 mg SQ daily (WT < 150 kg, CrCl > 30 mL/min) *Enoxaparin/Lovenox 30 mg SQ daily (WT < 150 kg, CrCl > 10-29 mL/min) *Enoxaparin/Lovenox 30 mg SQ BID (WT < 150 kg, CrCl > 30 mL/min) AND *Sequential Compression Device (SCD) Assessment and Plan Assessment and Plan Assessment/plan: 1. Generalized weakness Unclear etiology No deficits on physical exam Head CT negative for acute intracranial process May be component of malingering Physical therapy consulted, appreciate recommendations Case management consulted to assist in discharge planning 2. Essential tremor Neurologist is Dr. Prabhakar Continue primidone 3. Diabetes mellitus Holding home metformin Sliding scale insulin Monitor blood glucose 4. Hypertension Continue home lisinopril and Lasix 5. Depression Continue home Zoloft and Lamictal 6. BPH Continue oxybutynin and Proscar FEN Heart healthy diet Electrolytes: Replete when necessary Heparin Anticipate discharge later today after physical therapy evaluation Bindu Quinones MD Oct 08, 2017 04:02
[2017-10-08] MEDS: INSULIN ASPART SUPPLEMENTAL SCALE SQ SCH ×6 (08:00→21:00)
[2017-10-08] MEDS ORDERED: LAMICTAL 200 MG PO SCH (09:00)
[2017-10-08] MEDS: DOCUSATE SODIUM 50 MG/SENNA 8.6 MG TAB PO SCH ×3 (09:00→22:23)
[2017-10-08] MEDS: SERTRALINE HCL 100 MG TAB PO SCH (09:31)
[2017-10-08] MEDS: LISINOPRIL 5 MG TAB PO SCH (09:31)
[2017-10-08] MEDS: FUROSEMIDE 20 MG TAB PO SCH (09:31)
[2017-10-08] MEDS: FINASTERIDE 5 MG TAB PO SCH (09:31)
[2017-10-08] MEDS: TOLTERODINE TARTRATE 2 MG CAP LA PO SCH (09:31)
[2017-10-08] MEDS: SODIUM CHLORIDE 0.9% FLUSH 10 ML FLUSH IV FLUSH SCH ×3 (09:32→22:03)
--- NOTE | 2017-10-08 12:00 | HHI.PR ---
Subjective Remarks 72-year-old male with a past medical history significant for diabetes mellitus, depression, BPH and essential tremor presents to the emergency department complaining of a 6 month - 1 year history of progressive weakness. The patient reports that he has had an unsteady gait that waxes and wanes. He complains of weekly falls and difficulty getting out of bed and chairs. Patient reports on Wednesday he fell in his kitchen and spent 6 hours on the ground before his [id number] was able to come help him get up. He is very concerned about his safety. He denies any chest pain or shortness of breath. Denies any focal or lateralizing weakness. Denies any dysarthria or slurred speech. No nausea/ vomiting/diarrhea. 2-9 states he's been having diarrhea for the past month had previously been treated with some minocycline Send stool for C. difficile toxin colitis Await PT and OT Both PT and OT recommend SNF versus inpatient rehabilitation Patient is having neuro deficits. Will need neuro checks. We'll need aggressive physical therapy and occupational therapy Objective Vitals Vital Signs Date Time Temp Pulse Resp B/P (MAP) Pulse Ox O2 Delivery O2 Flow Rate FiO2 10/08/17 08:48 98.0 70 16 137/63 (87) 97 10/08/17 04:25 98.4 71 16 158/75 (102) 99 10/08/17 04:23 10/08/17 04:06 82 16 129/79 (96) 100 Room Air 10/07/17 21:00 16 100 Room Air 10/07/17 20:58 139/82 (101) 134/79 (97) 10/07/17 20:50 100 Room Air 10/07/17 20:45 70 16 139/82 (101) I/O 10/07/17 10/07/17 10/07/17 10/08/17 10/08/17 10/08/17 07:00 15:00 23:00 07:00 15:00 23:00 Intake Total 440 ml Balance 440 ml Intake Oral 440 ml Result Diagram: 10/07/17209910/07/172099 Other Results Laboratory Tests Test 10/07/17 21:00 10/08/17 10:05 White Blood Count 7.9 TH/MM3 Red Blood Count 4.73 MIL/MM3 Hemoglobin 15.6 GM/DL Hematocrit 42.3 % Mean Corpuscular Volume 89.5 FL Mean Corpuscular Hemoglobin 33.0 PG Mean Corpuscular Hemoglobin Concent 36.9 % Red Cell Distribution Width 13.3 % Platelet Count 155 TH/MM3 Mean Platelet Volume 8.6 FL Neutrophils (%) (Auto) 75.0 % Lymphocytes (%) (Auto) 17.0 % Monocytes (%) (Auto) 6.5 % Eosinophils (%) (Auto) 1.0 % Basophils (%) (Auto) 0.5 % Neutrophils # (Auto) 6.0 TH/MM3 Lymphocytes # (Auto) 1.3 TH/MM3 Monocytes # (Auto) 0.5 TH/MM3 Eosinophils # (Auto) 0.1 TH/MM3 Basophils # (Auto) 0.0 TH/MM3 CBC Comment AUTO DIFF Differential Comment AUTO DIFF CONFIRMED Platelet Estimate NORMAL Platelet Morphology Comment NORMAL Red Cell Morphology Comment NORMAL Prothrombin Time 10.7 SEC Prothromb Time International Ratio 1.1 RATIO Activated Partial Thromboplast Time 22.2 SEC Blood Urea Nitrogen 17 MG/DL Creatinine 0.69 MG/DL Random Glucose 81 MG/DL Total Protein 6.7 GM/DL Albumin 3.8 GM/DL Calcium Level 8.5 MG/DL Magnesium Level 1.7 MG/DL Alkaline Phosphatase 102 U/L Aspartate Amino Transf (AST/SGOT) 20 U/L Alanine Aminotransferase (ALT/SGPT) 17 U/L Total Bilirubin 0.4 MG/DL Sodium Level 137 MEQ/L Potassium Level 4.0 MEQ/L Chloride Level 104 MEQ/L Carbon Dioxide Level 23.8 MEQ/L Anion Gap 9 MEQ/L Estimat Glomerular Filtration Rate 113 ML/MIN Total Creatine Kinase 60 U/L Troponin I LESS THAN 0.02 NG/ML Imaging Last Impressions Chest X-Ray 10/07/172043 Signed Impressions: Service Date/Time: September 21:11 - CONCLUSION: No evidence of acute cardiopulmonary disease. Samuel Clemons MD Head CT 10/07/17 0000 Signed Impressions: Service Date/Time: Sunday, October 08, 2017 00:33 - CONCLUSION: 1. No acute intracranial abnormalities. Kenneth Carlos MD Objective Remarks GENERAL: Awake alert oriented talkative and cooperative moves all 4 extremities SKIN: Warm and dry. HEAD: Atraumatic. Normocephalic. EYES: Pupils equal and round. No scleral icterus. No injection or drainage. Extraocular muscles intact ENT: No nasal bleeding or discharge. Mucous membranes pink and moist. Tongue is midline NECK: Trachea midline. No JVD. Supple CARDIOVASCULAR: Regular rate and rhythm. S1 and S2 no S3 or S4 RESPIRATORY: No accessory muscle use. Clear to auscultation. Breath sounds equal bilaterally. GASTROINTESTINAL: Abdomen soft, non-tender, nondistended. Hepatic and splenic margins not palpable. MUSCULOSKELETAL: Extremities without clubbing, cyanosis, or edema. No obvious deformities. NEUROLOGICAL: Awake and alert. No obvious cranial nerve deficits. Motor grossly within normal limits. 4 out of 5 muscle strength in the arms and legs. Normal speech. Generalized weakness and lower extremity PSYCHIATRIC: Appropriate mood and affect; insight and judgment normal. Procedures NONE Medications and IVs Current Medications Sodium Chloride (NS Flush) 2 ml UNSCH PRN IVF FLUSH AFTER USING IV ACCESS Last administered on 10/07/17at 22:30; Start 10/07/17 at 20:45; Stop 10/08/17 at 03:52; Status DC Sodium Chloride (NS Flush) 2 ml UNSCH PRN IV FLUSH FLUSH AFTER USING IV ACCESS ; Start 10/08/17 at 03:45 Sodium Chloride (NS Flush) 2 ml BID IV FLUSH Last administered on 10/08/17at 09: 32; Start 10/08/17 at 09:00 Acetaminophen (Tylenol) 650 mg Q4H PRN PO TEMP > 100.4; Start 10/08/17 at 03:45 Ondansetron HCl (Zofran Inj) 4 mg Q6H PRN IVP NAUSEA OR VOMITING; Start at 03:45 Naloxone HCl (Narcan Inj) 0.4 mg UNSCH PRN IV PUSH SEE LABEL COMMENTS; Start at 03:45 Senna/Docusate Sodium (Ivelisse-Colace) 1 tab BID PO ; Start 10/08/17 at 09:00 Magnesium Hydroxide (Milk Of Magnesia Liq) 30 ml Q12H PRN PO Mild constipation ; Start 10/08/17 at 03:45 Sennosides (Senokot) 17.2 mg Q12H PRN PO Moderate constipation; Start 10/08/17 at 03:45 Bisacodyl (Dulcolax Supp) 10 mg DAILY PRN RECTAL SEVERE CONSITIPATION; Start at 03:45 Lactulose (Lactulose Liq) 30 ml DAILY PRN PO SEVERE CONSITIPATION; Start at 03:45 Dextrose (D50w (Vial) Inj) 50 ml UNSCH PRN IV PUSH HYPOGLYCEMIA-SEE COMMENTS; Start 10/08/17 at 04:00 Glucagon (Glucagon Inj) 1 mg UNSCH PRN OTHER HYPOGLYCEMIA-SEE COMMENTS; Start 10/08/17 at 04:00 Insulin Aspart (NovoLOG SUPPLEMENTAL SCALE) 1 ACHS SLIDING SCALE SQ ; Start 10/08/17 at 08:00 Finasteride (Proscar) 5 mg DAILY PO Last administered on 10/08/17at 09:31; Start 10/08/17 at 09:00 Furosemide (Lasix) 20 mg DAILY PO Last administered on 10/08/17at 09:31; Start at 09:00 Primidone (Mysoline) 200 mg BID PO ; Start 10/08/17 at 09:00 Sertraline HCl (Zoloft) 100 mg DAILY PO Last administered on 10/08/17at 09:31; Start 10/08/17 at 09:00 Patient Own Medication PT OWN MED: Tab... DAILY PO ; Start 10/08/17 at 09:00; Status Future hold Lisinopril (Prinivil) 2.5 mg DAILY PO Last administered on 10/08/17at 09:31; Start 10/08/17 at 09:00 Tolterodine Tartrate (Detrol La) 2 mg DAILY PO Last administered on 10/08/17at 09 :31; Start 10/08/17 at 09:00 A/P Assessment and Plan Assessment/plan: 1. Generalized weakness Unclear etiology No deficits on physical exam Head CT negative for acute intracranial process Physical therapy consulted, appreciate recommendations occupational therapy consult with the recommendations Case management consulted to assist in discharge planning PT and OT to eval and treat 2. Essential tremor Neurologist is Dr. Prabhakar Continue primidone 3. Diabetes mellitus Holding home metformin Sliding scale insulin Monitor blood glucose 4. Hypertension Continue home lisinopril and Lasix 5. Depression Continue home Zoloft and Lamictal 6. BPH Continue oxybutynin and Proscar Neuro deficits. Will Continue with neuro checks and check an MRI FEN Heart healthy diet Electrolytes: Replete when necessary Heparin Discuss with physical therapy and occupational therapy as well as case management we'll make patient full admission for at least 2 night stay and will continue aggressive physical therapy and occupational therapy Patient more than likely will need SNF and or inpatient rehabilitation Discharge Planning Pending physical therapy and occupational therapy evaluation needs full admission Pierce Serrano DO Oct 08, 2017 12:00
[2017-10-08] MEDS: PRIMIDONE 50 MG TAB PO SCH ×2 (12:46→22:23)
--- NOTE | 2017-10-08 14:29 | EKG ---
Date Performed: 10/07/2017 Time Performed: 20:48:25 PTAGE: 72 years EKG: Sinus rhythm POSSIBLE LEFT ATRIAL ENLARGEMENT NONSPECIFIC T-WAVE ABNORMALITY BORDERLINE ECG NO PREVIOUS TRACING DOCTOR: Lona Johnson Interpretating Date/Time 10/08/2017 14:26:26
--- NOTE | 2017-10-08 16:19 | HHI.FF ---
Face to Face Verification Diagnosis: (1) Generalized weakness (2) Weakness Physical Therapy Order: Evaluate and Treat, Improve ambulation, Strength and gait training Occupational Therapy Order: Evaluate and Treat, Improve ADL, Gross motor coordination, Fine motor coordination Home Health Nursing Order: Signs/symptoms of disease process Nursing assessment with vital signs Home Health Aide Order: To Assist In: Bathing and personal care, rouge mixer and meal prep I have seen patient Lucien Berry on 10/08/17. My clinical findings support the need for the requested home health care services because: Ltd mobility - disease progression Deconditioned w/ increased weakness Limited ability to care for self High risk of falls I certify that my clinical findings support that this patient is homebound because: Unsteady gait/balance Unsafe to leave home unassisted Pierce Serrano DO Oct 08, 2017 16:19
[2017-10-08] MEDS: ENOXAPARIN SODIUM 40 MG/0.4 ML SYRINGE SQ SCH (18:07)
[2017-10-08] MEDS ORDERED: LAMO100T PO (18:36)
[2017-10-08 19:50] LABS: TROPONIN I 0.02 NG/ML (0.02-0.05)
--- NOTE | 2017-10-08 21:00 | RADRPT ---
EXAM DATE/TIME: 10/08/2017 19:30 [facility] COMPARISON: No previous studies available for comparison. INDICATIONS : Cerebrovascular accident. MEDICAL HISTORY : Hypertension. Glasses. Kidney stones. SURGICAL HISTORY : Lumbar kyphoplasty x2. Lithotripsy. Laminectomy. Right knee arthroscopy. Bilateral hadn surgery. ENCOUNTER: Initial ACUITY: 1 day PAIN SCORE: 0/10 LOCATION: Bilateral neck PEAK SYSTOLIC VELOCITIES (cm/sec): ICA/CCA RATIO: Right: 0.9 Left: 0.8 ICA: Right: 82.5 Left: 78.7 CCA: Right: 96.5 Left: 96.8 ECA: Right: 90.5 Left: 76.2 VERTEBRAL: Right: 59.2 antegrade Left: 57.8 antegrade Elevated flow velocities and ICA/CCA ratios have been found to correlate with increased degrees of vessel stenosis, calculated as percentage of diameter relative to a normal segment of distal ICA/CCA FINDINGS: RIGHT CAROTID: Mild atherosclerotic plaquing at the bifurcation. No significant stenosis is visualized. The wavefor ms are within normal limits. LEFT CAROTID: Mild atherosclerotic plaquing at the bifurcation. No significant stenosis is visualized. The wavefor ms are within normal limits. VERTEBRAL ARTERIES: Antegrade flow is seen in both vertebral arteries. MISCELLANEOUS: None. CONCLUSION: Mild bilateral atherosclerotic plaquing at the bifurcations. Otherwise, no focal high-grade or hemody namically significant stenosis. Chava Graham MD on October 08, 2017 at 20:56 Board Certified Radiologist. This report was verified electronically.
[2017-10-09] VITALS: BP 144/67; PULSE 68; RESP 18; TEMP 97.1; O2SAT 100
[2017-10-09 02:16] LABS: TROPONIN I 0.02 NG/ML (0.02-0.05)
[2017-10-09 04:00] VITALS: BP 149/63; PULSE 60; RESP 17; TEMP 95.9; O2SAT 95
[2017-10-09 07:24] LABS: AUTOMATED NEUTROPHIL # 3.7 TH/MM3 (1.8-7.7); BASOPHIL % 0.6 % (0.0-2.0); EOSINOPHIL # 0.1 TH/MM3 (0-0.4); HEMATOCRIT 43.6 % (39.0-51.0); HEMOGLOBIN 15.4 GM/DL (13.0-17.0); LYMPH % 31.7 % (9.0-44.0); LYMPHOCYTE # 2.1 TH/MM3 (1.0-4.8); MEAN CELL VOLUME 90.9 FL (80.0-100.0); MEAN CORPUSCULAR HGB CONC 35.2 % (32.0-36.0); MEAN PLATELET VOLUME 8.7 FL (7.0-11.0); MONO % 8.9 % (0.0-8.0); MONOCYTE # 0.6 TH/MM3 (0-0.9); NEUT % 56.8 % (16.0-70.0); PLATELET COUNT 173 TH/MM3 (150-450); RED CELL DISTRIBUTION WIDTH 13.3 % (11.6-17.2); WHITE BLOOD COUNT 6.5 TH/MM3 (4.0-11.0)
[2017-10-09 07:41] LABS: BICARBONATE 28.7 MEQ/L (21.0-32.0); CREATININE 0.85 MG/DL (0.60-1.30)
[2017-10-09 07:45] LABS: CHOLESTEROL/ HDL RATIO 9.27 RATIO; HDL CHOLESTEROL 28.8 MG/DL (40.0-60.0)
[2017-10-09 07:46] LABS: TROPONIN I 0.03 NG/ML (0.02-0.05)
[2017-10-09 08:00] VITALS: BP 113/59; PULSE 64; RESP 17; TEMP 95.8; O2SAT 96
[2017-10-09] MEDS: INSULIN ASPART SUPPLEMENTAL SCALE SQ SCH ×8 (08:00→21:17)
[2017-10-09] MEDS: SODIUM CHLORIDE 0.9% FLUSH 10 ML FLUSH IV FLUSH SCH ×4 (09:00→21:13)
[2017-10-09] MEDS: FUROSEMIDE 20 MG TAB PO SCH (10:04)
[2017-10-09] MEDS: SERTRALINE HCL 100 MG TAB PO SCH (10:04)
[2017-10-09] MEDS: FINASTERIDE 5 MG TAB PO SCH (10:05)
[2017-10-09] MEDS: DOCUSATE SODIUM 50 MG/SENNA 8.6 MG TAB PO SCH ×2 (10:05→21:11)
[2017-10-09] MEDS: LISINOPRIL 5 MG TAB PO SCH (10:05)
--- NOTE | 2017-10-09 10:31 | RADRPT ---
EXAM DATE/TIME: 10/09/2017 09:35 [facility] COMPARISON: MRI BRAIN W/O CONTRAST, October 09, 2017, 9:35. INDICATIONS : Frequent falls. Generalized weakness. MEDICAL HISTORY : Hypertension. Diabetes mellitus type 2. SURGICAL HISTORY : Discectomy, lumbar. Total knee replacement, right. Bilateral hand tendon release. ENCOUNTER: Initial ACUITY: 2 weeks PAIN SCORE: 0/10 LOCATION: cranial Please note a normal MRA of the brain does not entirely exclude the possibility of a small aneurysm, nor the possibility of distal intracranial vessel disease. TECHNIQUE: 3D time of flight MRA was performed. Source images, multiplanar STS MIP, and 3D volume MIP reconstru ctions were reviewed. FINDINGS: There is excellent visualization of the major intracranial arteries out to the second-order branch ve ssels. There is no evidence for aneurysm, vessel truncation or stenosis, and no evidence for vascula r malformation. CONCLUSION: Normal examination. Olinda Ortega MD on October 09, 2017 at 10:24 Board Certified Radiologist. This report was verified electronically.
--- NOTE | 2017-10-09 10:34 | RADRPT ---
EXAM DATE/TIME: 10/09/2017 09:35 [facility] COMPARISON: CT BRAIN W/O CONTRAST, October 08, 2017, 0:33. INDICATIONS : Frequent falls. Generalized weakness. MEDICAL HISTORY : Hypertension. Diabetes mellitus type 2. SURGICAL HISTORY : Discectomy, lumbar. Total knee replacement, right. Bilateral hand tendon release. ENCOUNTER: Initial ACUITY: 1 day PAIN SCORE: 0/10 LOCATION: cranial TECHNIQUE: Multiplanar, multisequence MRI of the brain was performed without contrast. FINDINGS: CEREBRUM: There is dominance of the bilateral lateral ventricles greater than expected for the patient's age. T here is widening of the sulci identified within the left parietal lobe as compared to the right and t hinning of the left external capsule. There is no evidence of intra-axial or extra axial fluid collec tion. No mass effect or midline shift. WHITE MATTER: There is abnormal heterogeneous increased T2 signal identified within the midbrain and joy as well a s periventricular areas of increased T2 signal. The periventricular areas are consistent with chronic small vessel ischemic change. POSTERIOR FOSSA: The cerebellum and brainstem are intact. The 4th ventricle is midline. The cerebellopontine angle is unremarkable. The cerebellar tonsils are normal in position. DIFFUSION IMAGING: No focal areas of restricted diffusion are seen. No evidence of acute infarction. EXTRACRANIAL: The visualized portions of the orbits and paranasal sinuses are unremarkable. CONCLUSION: Diffuse white matter atrophic change is identified anomaly within the left parietal l obe. The abnormal increased T2 signal identified within the joy and midbrain may be secondary to the encephalomalacia seen within the left parietal lobe versus secondary to a metabolic disorder. Olinda Ortega MD on October 09, 2017 at 10:29 Board Certified Radiologist. This report was verified electronically.
--- NOTE | 2017-10-09 11:10 | MB ---
cc: RALPH SOTO M.D. DATE OF CONSULTATION: 10/09/2017. REASON FOR CONSULTATION: Trouble with gait, weakness. HISTORY OF PRESENT ILLNESS: This is a 72-year-old man with history diabetes, depression, benign prostate hypertrophy, tremor essential type who has been having trouble walking for at least the year to the point where he stumbles and falls and always falls backwards, it sounds like retropulsion and hits his head but has not ever passed out. He may be a little dizzy at times. He apparently fell in the kitchen recently and was on the ground for six hours before somebody found him. He does not have any overt weakness in the arms. His legs just will not support him. He has chronic back issues with a laminectomy in the past. CURRENT MEDICATIONS: 1. Lisinopril. 2. Metformin. 3. Furosemide. 4. Sertraline. 5. Primidone. 6. Oxybutynin. 7. Lamotrigine. 8. Proscar. 9. Clonazepam. 10. Amphetamines / dextra-amphetamine. ALLERGIES: None reported. FAMILY HISTORY: Negative. SOCIAL HISTORY: Drinks maybe one drink per day. No illicit drugs. Apparently lives alone. PHYSICAL EXAMINATION: VITAL SIGNS: Temperature 95.8, pulse 64, respiratory rate 17, blood pressure 113/59. NECK: The neck is supple. No appreciable bruits. HEART: Regular. NEUROLOGICAL EXAMINATION: He is awake and alert. Fluent. Pupils reactive. Face symmetrical. Tongue midline. Motor-katz the upper extremities are fairly intact, maybe a little bit of increased tone at the elbows. Mild tremor but not at rest with intention. Lower extremity strength at best is a 4/5. He has right knee surgery. Cannot elicit any reflexes in the right patellar nor can I elicit any in the left. He has some diffuse muscle atrophy in the legs. Sensory - position sense is normal. Pain is intact as well. Toes - withdraws bilaterally. Gait is withheld. I am going to defer to physical therapy. LABS: Reviewed. C. difficile is negative. Coag panel - PTT 22.2. Chemistries: Triglycerides 242, cholesterol 267, LDL 190, HDL 28.8. His CK is low at 35. CBC is really unremarkable today. RADIOLOGICAL STUDIES: He just came back from MRI. The report for the MRI just came back. There is no acute stroke but he has diffuse white matter atrophic change, abnormal signal in the joy, midbrain may be due to encephalomalacia. There may be an anomaly in the left parietal lobe. MRA [place] normal. Carotid ultrasound shows some mild disease but nothing significant. IMPRESSION: Diffuse leg weakness, unsteady gait. At this point, let me get some enzymes, vitamin levels B1, B6, B12, check his thyroid as well. Have physical therapy work with him. He is going to need evaluation by physical therapy for his gait. He is going to need some strengthening as well. He will also need to be placed on a statin as well as a baby aspirin and likely will need at some point an outpatient EMG. Further recommendations to be made. MD LULY Goodson/KAYLENE /10:39 AM /10:49 AM
[2017-10-09 11:11] LABS: HEMOGLOBIN A1C 5.7 % (4.3-6.0)
[2017-10-09] MEDS: PRIMIDONE 50 MG TAB PO SCH ×2 (11:23→21:14)
--- NOTE | 2017-10-09 11:54 | HHI.PR ---
Subjective Remarks In the bed, says she is still weak in his legs however able to ambulate with a walker. No pain . NO focal deficit. No n/v/d/c. Objective Vitals Vital Signs Date Time Temp Pulse Resp B/P (MAP) Pulse Ox O2 Delivery O2 Flow Rate FiO2 10/09/17 08:00 95.8 64 17 113/59 (77) 96 10/09/17 04:00 95.9 60 17 149/63 (91) 95 10/09/17 00:00 97.1 68 18 144/67 (92) 100 10/08/17 22:45 97.2 67 16 143/66 (91) 100 10/08/17 19:55 98.0 70 18 131/69 (89) 97 10/08/17 18:08 97.8 75 18 127/71 (89) 96 I/O 10/08/17 10/08/17 10/08/17 10/09/17 10/09/17 10/09/17 07:00 15:00 23:00 07:00 15:00 23:00 Intake Total 440 ml 1335 ml Balance 440 ml 1335 ml Intake Oral 440 ml 1335 ml # Voids 8 1 # Bowel Movements 2 Result Diagram: 10/09/17 0633 10/09/17 0633 Imaging Last Impressions Head Magnetic Resonance Angiography 10/09/17 0000 Signed Impressions: Service Date/Time: Monday, October 09, 2017 09:35 - CONCLUSION: Normal examination. Olinda Ortega MD Brain MRI 10/09/17 0000 Signed Impressions: Service Date/Time: Monday, October 09, 2017 09:35 - CONCLUSION: Diffuse white matter atrophic change is identified anomaly within the left parietal lobe. The abnormal increased T2 signal identified within the joy and midbrain may be secondary to the encephalomalacia seen within the left parietal lobe versus secondary to a metabolic disorder. Olinda Ortega MD Carotid Artery Ultrasound 10/08/17 0000 Signed Impressions: Service Date/Time: Sunday, October 08, 2017 19:30 - CONCLUSION: Mild bilateral atherosclerotic plaquing at the bifurcations. Otherwise, no focal high-grade or hemodynamically significant stenosis. Chava Graham MD Chest X-Ray 10/07/172043 Signed Impressions: Service Date/Time: September 21:11 - CONCLUSION: No evidence of acute cardiopulmonary disease. Samuel Clemons MD Head CT 10/07/17 0000 Signed Impressions: Service Date/Time: Sunday, October 08, 2017 00:33 - CONCLUSION: 1. No acute intracranial abnormalities. Kenneth Carlos MD Objective Remarks GENERAL: Awake alert oriented talkative and cooperative moves all 4 extremities CARDIOVASCULAR: Regular rate and rhythm. S1 and S2 no S3 or S4 RESPIRATORY: No accessory muscle use. Clear to auscultation. Breath sounds equal bilaterally. GASTROINTESTINAL: Abdomen soft, non-tender, nondistended. Hepatic and splenic margins not palpable. MUSCULOSKELETAL: Extremities without clubbing, cyanosis, or edema. No obvious deformities. NEUROLOGICAL: Awake and alert. No obvious cranial nerve deficits. Motor grossly within normal limits. 4 out of 5 muscle strength in the arms and legs. Normal speech. Generalized weakness and lower extremity PSYCHIATRIC: Appropriate mood and affect; insight and judgment normal. Procedures NONE A/P Assessment and Plan 1. Generalized weakness Unclear etiology No deficits on physical exam Head CT negative for acute intracranial process Neurology ff Plan for MRI Will also check B12 Physical therapy consulted, appreciate recommendations occupational therapy consult with the recommendations Case management consulted to assist in discharge planning PT and OT to eval and treat 2. Essential tremor Neurologist is Dr. Prabhakar Continue primidone 3. Diabetes mellitus Holding home metformin Sliding scale insulin Monitor blood glucose 4. Hypertension Continue home lisinopril and Lasix 5. Depression Continue home Zoloft and Lamictal 6. BPH Continue oxybutynin and Proscar Neuro deficits. Will Continue with neuro checks and check an MRI FEN Heart healthy diet Electrolytes: Replete when necessary Heparin Discuss with physical therapy and occupational therapy as well as case management we'll make patient full admission for at least 2 night stay and will continue aggressive physical therapy and occupational therapy Patient more than likely will need SNF and or inpatient rehabilitation Discharge Planning Pending physical therapy and occupational therapy evaluation needs full admission, leann kurtz in 1-2 days Em Guerra MD Oct 09, 2017 11:53
[2017-10-09 11:56] VITALS: BP 150/65; PULSE 61; RESP 17; TEMP 97.3; O2SAT 96; O2SAT 98
[2017-10-09] MEDS: TOLTERODINE TARTRATE 2 MG CAP LA PO SCH (12:47)
[2017-10-09 14:15] LABS: FREE T4 0.77 NG/DL (0.76-1.46)
[2017-10-09 16:00] VITALS: BP 137/65; PULSE 66; RESP 17; TEMP 95.7; O2SAT 98
[2017-10-09] MEDS: ENOXAPARIN SODIUM 40 MG/0.4 ML SYRINGE SQ SCH (16:55)
[2017-10-09 19:15] VITALS: BP 121/66; PULSE 82; RESP 22; TEMP 97.6; O2SAT 96
[2017-10-10] MEDS ORDERED: SERT-129 PO (06:57)
[2017-10-10 07:28] VITALS: BP 133/71; PULSE 64; RESP 18; TEMP 96; O2SAT 98
[2017-10-10] MEDS: INSULIN ASPART SUPPLEMENTAL SCALE SQ SCH ×6 (08:00→21:00)
[2017-10-10] MEDS: lamoTRIgine 100 MG TAB PO SCH (08:06)
[2017-10-10] MEDS: SERTRALINE HCL 100 MG TAB PO SCH (08:06)
[2017-10-10] MEDS: TOLTERODINE TARTRATE 2 MG CAP LA PO SCH (08:06)
[2017-10-10] MEDS: FUROSEMIDE 20 MG TAB PO SCH (08:06)
[2017-10-10] MEDS: DOCUSATE SODIUM 50 MG/SENNA 8.6 MG TAB PO SCH ×2 (08:07→21:00)
[2017-10-10] MEDS: PRIMIDONE 50 MG TAB PO SCH ×2 (08:07→21:09)
[2017-10-10] MEDS: LISINOPRIL 5 MG TAB PO SCH (08:07)
[2017-10-10] MEDS: FINASTERIDE 5 MG TAB PO SCH (08:07)
[2017-10-10] MEDS: SODIUM CHLORIDE 0.9% FLUSH 10 ML FLUSH IV FLUSH SCH ×3 (08:07→16:35)
--- NOTE | 2017-10-10 10:22 | ECHRPT ---
Indication: CVA/TIA CONCLUSIONS The left ventricular systolic function is severely reduced with an estimated ejection fraction in th e range of 25-30%. Normal left ventricular size. Wall thickness is normal. There is global left ventricular dysfunction. Trace mitral valve regurgitation. Trace aortic valve regurgitation. There is trace tricuspid valve regurgitation. The estimated pulmonary arterial pressure is 35 mmHg. The pulmonary valve is not well visualized. BP: 149 / 63 HR: 91 Rhythm: Sinus MEASUREMENTS (Male / Female) Normal Values Technical Quality:Fair 2D ECHO LV Diastolic Diameter PLAX 5.1 cm 4.2 - 5.9 / 3.9 - 5.3 cm LV Systolic Diameter PLAX 4.3 cm IVS Diastolic Thickness 1.1 cm 0.6 - 1.0 / 0.6 - 0.9 cm LVPW Diastolic Thickness 1.2 cm 0.6 - 1.0 / 0.6 - 0.9 cm LV Relative Wall Thickness 0.5 RV Internal Dim ED PLAX 3.1 cm LVOT Diameter 2.1 cm LA Systolic Diameter LX 3.9 cm 3.0 - 4.0 / 2.7 - 3.8 cm LV Ejection Fraction MOD 4C 28.5 % LV Cardiac Index MOD 4C 2913.5 cm/minm LV Ejection Fraction 4C AL 28.0 % LV Cardiac Index 4C AL 2973.2 cm/minm M-MODE LV Diastolic Diameter MM 5.5 cm 4.2 - 5.9 / 3.9 - 5.3 cm LV Systolic Diameter MM 5.0 cm LV Ejection Fraction MM Teich 19.6 % LV Cardiac Index MM Teich 1191.7 cm/minm IVS Diastolic Thickness MM 1.0 cm 0.6 - 1.0 / 0.6 - 0.9 cm LVPW Diastolic Thickness MM 0.9 cm 0.6 - 1.0 / 0.6 - 0.9 cm LV Relative Wall Thickness MM 0.3 0.24 - 0.42 / 0.22 - 0.42 LV Mass Index MM 90.5 g/m 49 - 115 / 43 - 95 g/m Aortic Root Diameter MM 2.9 cm LA Systolic Diameter MM 3.4 cm LA Ao Ratio MM 1.2 AV Cusp Separation MM 1.6 cm DOPPLER AV Peak Velocity 105.0 cm/s AV Peak Gradient 4.4 mmHg LVOT Peak Velocity 82.9 cm/s LVOT Peak Gradient 2.7 mmHg AV Area Cont Eq pk 2.7 cm MV Area PHT 2.7 cm Mitral E Point Velocity 53.3 cm/s Mitral A Point Velocity 68.1 cm/s Mitral E to A Ratio 0.8 LV E' Lateral Velocity 6.8 cm/s Mitral E to LV E' Lateral Ratio 7.8 LV E' Septal Velocity 4.8 cm/s Mitral E to LV E' Septal Ratio 11.2 TR Peak Velocity 250.0 cm/s TR Peak Gradient 25.0 mmHg Right Atrial Pressure 10.0 mmHg Pulmonary Artery Systolic Pressu 35.0 mmHg Right Ventricular Systolic Press 35.0 mmHg PV Peak Velocity 115.0 cm/s PV Peak Gradient 5.3 mmHg FINDINGS LEFT VENTRICLE The left ventricular systolic function is severely reduced with an estimated ejection fraction in th e range of 25-30%. Normal left ventricular size. Wall thickness is normal. There is global left ventricular dysfunction. RIGHT VENTRICLE Normal right ventricular size and systolic function. LEFT ATRIUM The left atrial size is normal. RIGHT ATRIUM The right atrial size is normal. ATRIAL SEPTUM Normal atrial septal thickness without atrial level shunting by limited color doppler interrogation. AORTA The aortic root and proximal ascending aorta are normal in size on limited imaging. MITRAL VALVE Structurally normal mitral valve. Trace mitral valve regurgitation. AORTIC VALVE Trileaflet aortic valve. Trace aortic valve regurgitation. TRICUSPID VALVE Structurally normal tricuspid valve. There is trace tricuspid valve regurgitation. The estimated pulmonary arterial pressure is 35 mmHg. PULMONARY VALVE The pulmonary valve is not well visualized. VESSELS The inferior vena cava was not well visualized. PERICARDIUM No pericardial effusion. Pamela Maurer MD (Electronically Signed) Final Date:10 October 2017 10:21
[2017-10-10 12:00] VITALS: BP 131/57; PULSE 54; RESP 18; TEMP 96.7; O2SAT 94
--- NOTE | 2017-10-10 12:38 | HHI.PR ---
Subjective Remarks In the chair, says he feels tired. No cp or sob. With generalized weakness. No focal deficit. EF of 20-25 % follows with Dr Araujoor will consult Dr Garza. Objective Vitals Vital Signs Date Time Temp Pulse Resp B/P (MAP) Pulse Ox O2 Delivery O2 Flow Rate FiO2 10/10/17 12:00 96.7 54 18 131/57 (81) 94 10/10/17 07:28 96.0 64 18 133/71 (91) 98 10/09/17 19:15 97.6 82 22 121/66 (84) 96 10/09/17 16:00 95.7 66 17 137/65 (89) 98 I/O 10/09/17 10/09/17 10/09/17 10/10/17 10/10/17 10/10/17 07:00 15:00 23:00 07:00 15:00 23:00 Intake Total 480 ml 480 ml 480 ml Balance 480 ml 480 ml 480 ml Intake Oral 480 ml 480 ml 480 ml # Voids 1 4 2 1 # Bowel Movements 2 1 0 Result Diagram: 10/09/1733 10/09/17 0633 Objective Remarks GENERAL: Awake alert oriented talkative and cooperative moves all 4 extremities CARDIOVASCULAR: Regular rate and rhythm. S1 and S2 no S3 or S4 RESPIRATORY: No accessory muscle use. Clear to auscultation. Breath sounds equal bilaterally. GASTROINTESTINAL: Abdomen soft, non-tender, nondistended. Hepatic and splenic margins not palpable. MUSCULOSKELETAL: Extremities without clubbing, cyanosis, or edema. No obvious deformities. NEUROLOGICAL: Awake and alert. No obvious cranial nerve deficits. Motor grossly within normal limits. 4 out of 5 muscle strength in the arms and legs. Normal speech. Generalized weakness and lower extremity PSYCHIATRIC: Appropriate mood and affect; insight and judgment normal. Procedures NONE A/P Assessment and Plan Generalized weakness Likely 2/2 CHF with low EF 20-25 % No deficits on physical exam Head CT negative for acute intracranial process Neurology ff Had MRI reviewed check B12 Physical therapy consulted, appreciate recommendations occupational therapy consult with the recommendations Case management consulted to assist in discharge planning PT and OT to eval and treat ECHO reviewed with EF 20-25 % consult his cardiology Dr Garza CHF with low EF 20-25 % patient not sure if he has a h/o CHF, say she follows with Dr Garza. Consut Dr Dye his cardiology Dr Garza. Continue lisinopril, add small dose of metoprolol, add statin Essential tremor Neurologist is Dr. Prabhakar Continue primidone Diabetes mellitus Holding home metformin Sliding scale insulin Monitor blood glucose Hypertension Continue home lisinopril and Lasix Depression Continue home Zoloft and Lamictal BPH Continue oxybutynin and Proscar Neuro deficits. Will Continue with neuro checks and check an MRI FEN Heart healthy diet Electrolytes: Replete when necessary Heparin Discuss with physical therapy and occupational therapy as well as case management we'll make patient full admission for at least 2 night stay and will continue aggressive physical therapy and occupational therapy Patient more than likely will need SNF and or inpatient rehabilitation Discharge Planning With low Ef 20-25 % consult cardiology Pending work up and improvement Em Guerra MD Oct 10, 2017 12:37
[2017-10-10] MEDS ORDERED: PILL SPLITTER OTHER PRN (13:15)
[2017-10-10 16:00] VITALS: BP 100/66; PULSE 68; RESP 18; TEMP 96; O2SAT 94
[2017-10-10] MEDS: ENOXAPARIN SODIUM 40 MG/0.4 ML SYRINGE SQ SCH (17:00)
[2017-10-10 19:10] VITALS: BP 143/62; PULSE 70; RESP 18; TEMP 96.7; O2SAT 97
[2017-10-10] MEDS ORDERED: ATORVASTATIN 40 MG TAB PO SCH (21:00)
[2017-10-10] MEDS: METOPROLOL TARTRATE 25 MG TAB PO SCH (21:10)
[2017-10-10 23:00] VITALS: BP 125/61; PULSE 64; RESP 17; TEMP 97.2; O2SAT 97
[2017-10-11 02:20] VITALS: O2SAT 97
--- NOTE | 2017-10-11 07:50 | PD.CONS ---
HPI Consult Requested By Primary Care Physician Sherita Ramos MD History of Present Illness 72-year-old male with past medical history of CHF EF 30%, DM, depression, BPH, essential tremor who presented with progressive generalized weakness. The patient follows with us in our office, most recently last month when he was there to discuss possible AICD placement with EF persistently 30%. The patient denies any chest pain, shortness breath, palpitations, lower extremity swelling. His only complaint at this time is feeling generally weak and primary team is arranging for home PT versus rehabilitation. (Nader Lara) Consult Requested By (Greg,Froy Clarke MD) Review of Systems Negative except as stated in history of present illness (Nader Lara) Past Family Social History Allergies: Coded Allergies: No Known Allergies (Verified Adverse Reaction, Unknown, 10/07/17) Past Medical History Chronic systolic CHF Diabetes mellitus Depression BPH Essential tremor Past Surgical History Right knee replacement Laminectomy Lithotripsy Trigger finger release Reported Medications Reported Meds & Active Scripts Active Reported Sertraline (Sertraline HCl) 100 Mg Tab 100 Mg PO BID Lamotrigine 100 Mg Tab 100 Mg PO DAILY Lisinopril 2.5 Mg Tab 2.5 Mg PO DAILY Metformin (Metformin HCl) 500 Mg Tab 500 Mg PO BIDPC Furosemide 20 Mg Tab 20 Mg PO DAILY Primidone 50 Mg Tab 200 Mg PO BID Oxybutynin ER 24 HR (Oxybutynin Chloride) 5 Mg Tab 5 Mg PO DAILY Proscar (Finasteride) 5 Mg Tab 5 Mg PO DAILY Do not crush. Clonazepam 1 Mg Tab 1 Mg PO BID Amphetamine-Dextroamphetamine 20 Mg Tab 20 Mg PO BID Avoid late evening doses. Space doses at least 4 to 6 hours if more than once/day dosing. Active Ordered Medications Current Medications Medications (Trade) Dose Ordered Sig/Regino Route Start Time Stop Time Status Last Admin (Tylenol) 650 mg Q4H PRN PO 10/08/17 03:45 (Zofran Inj) 4 mg Q6H PRN IVP 10/08/17 03:45 (Narcan Inj) 0.4 mg UNSCH PRN IV PUSH 10/08/17 03:45 (Ivelisse-Colace) 1 tab BID PO 10/08/17 09:00 10/09/17 10:05 (Milk Of Magnesia Liq) 30 ml Q12H PRN PO 10/08/17 03:45 (Senokot) 17.2 mg Q12H PRN PO 10/08/17 03:45 (Dulcolax Supp) 10 mg DAILY PRN RECTAL 10/08/17 03:45 (Lactulose Liq) 30 ml DAILY PRN PO 10/08/17 03:45 (Proscar) 5 mg DAILY PO 10/08/17 09:00 10/10/17 08:07 (Lasix) 20 mg DAILY PO 10/08/17 09:00 10/10/17 08:06 (Mysoline) 200 mg BID PO 10/08/17 09:00 10/10/17 21:09 (Zoloft) 100 mg DAILY PO 10/08/17 09:00 10/10/17 08:06 Patient Own Medication PT OWN MED: Tab... DAILY PO 10/08/17 09:00 Future hold (Prinivil) 2.5 mg DAILY PO 10/08/17 09:00 10/10/17 08:07 (Detrol La) 2 mg DAILY PO 10/08/17 09:00 10/10/17 08:06 (NS Flush) 2 ml BID IV FLUSH 10/08/17 21:00 (NS Flush) 2 ml UNSCH PRN IV FLUSH 10/08/17 15:45 (NovoLOG SUPPLEMENTAL SCALE) 1 ACHS SQ 10/08/17 17:00 (D50w (Vial) Inj) 50 ml UNSCH PRN IV PUSH 10/08/17 15:45 (Glucagon Inj) 1 mg UNSCH PRN OTHER 10/08/17 15:45 (Lovenox Inj) 40 mg Q24H SQ 10/08/17 16:00 10/10/17 17:00 (LaMICtal) 100 mg DAILY PO 10/10/17 09:00 10/10/17 08:06 (Lopressor) 12.5 mg Q12HR PO 10/10/17 21:00 10/10/17 21:10 (Lipitor) 40 mg HS PO 10/10/17 21:00 10/10/17 21:10 (Pill Splitter) 1 ea UNSCH PRN OTHER 10/10/17 13:15 Family History Negative for CAD/DM Social History Denies tobacco. Drinks approximately 1 drink per day. Denies illicit drugs. (Nader Lara) Physical Exam Vital Signs Vital Signs Date Time Temp Pulse Resp B/P (MAP) Pulse Ox O2 Delivery O2 Flow Rate FiO2 10/11/17 02:20 97 10/10/17 23:00 97.2 64 17 125/61 (82) 97 10/10/17 19:10 96.7 70 18 143/62 (89) 97 10/10/17 16:00 96.0 68 18 100/66 (77) 94 10/10/17 12:00 96.7 54 18 131/57 (81) 94 Physical Exam GENERAL: Well-developed well-nourished. In no acute distress. NECK: No carotid bruits. No JVD. CARDIOVASCULAR: Regular rate and rhythm. No murmur appreciated. RESPIRATORY: No accessory muscle use. Clear to auscultation. Breath sounds equal bilaterally. MUSCULOSKELETAL: No clubbing or cyanosis. No edema. NEUROLOGICAL: Awake and alert. Normal speech. Laboratory Date/Time Source Procedure Growth Status 10/08/17 10:05 Stool Stool Stool Occult Blood (CHIQUITA) - Final HEMOCCULT NEGATIVE Complete (Nader Lara) Result Diagram: 10/09/1733 10/09/1733 Imaging Last Impressions Head Magnetic Resonance Angiography 10/09/17 0000 Signed Impressions: Service Date/Time: Monday, October 09, 2017 09:35 - CONCLUSION: Normal examination. Olinda Ortega MD Brain MRI 10/09/17 0000 Signed Impressions: Service Date/Time: Monday, October 09, 2017 09:35 - CONCLUSION: Diffuse white matter atrophic change is identified anomaly within the left parietal lobe. The abnormal increased T2 signal identified within the joy and midbrain may be secondary to the encephalomalacia seen within the left parietal lobe versus secondary to a metabolic disorder. Olinda Ortega MD Carotid Artery Ultrasound 10/08/17 0000 Signed Impressions: Service Date/Time: Sunday, October 08, 2017 19:30 - CONCLUSION: Mild bilateral atherosclerotic plaquing at the bifurcations. Otherwise, no focal high-grade or hemodynamically significant stenosis. Chava Graham MD Chest X-Ray 10/07/172043 Signed Impressions: Service Date/Time: September 21:11 - CONCLUSION: No evidence of acute cardiopulmonary disease. Samuel Clemons MD Head CT 10/07/17 0000 Signed Impressions: Service Date/Time: Sunday, October 08, 2017 00:33 - CONCLUSION: 1. No acute intracranial abnormalities. Kenneth Carlos MD (Nader Lara) Assessment and Plan Assessment and Plan 72-year-old male with past medical history of CHF EF 30%, DM, depression, BPH, essential tremor who presented with progressive generalized weakness. The patient follows with us in our office, most recently last month when he was there to discuss possible AICD placement with EF persistently 30%. The patient denies any chest pain, shortness breath, palpitations, lower extremity swelling. His only complaint at this time is feeling generally weak. Chronic systolic CHF: EF 30% at baseline, stable on echocardiogram done during this admission. Patient currently not interested in AICD as it will not improve his weakness. Appears well compensated at this time. Continue lisinopril. (Ndaer Lara) Assessment and Plan Known cardiomyopathy generalized weakness Not interested in ICD DC BB to allow higher HR and may be contributing to fatigue. cont PRAKASH and lasix DC planning will sign off call with further questions (Froy Garza MD) Nader Lara Oct 11, 2017 07:50 Froy Garza MD Oct 11, 2017 11:25
[2017-10-11 08:00] VITALS: BP 136/87; PULSE 55; RESP 18; TEMP 96.5; O2SAT 99
[2017-10-11] MEDS: INSULIN ASPART SUPPLEMENTAL SCALE SQ SCH ×2 (08:00→12:00)
[2017-10-11] MEDS: DOCUSATE SODIUM 50 MG/SENNA 8.6 MG TAB PO SCH (09:00)
[2017-10-11] MEDS: SODIUM CHLORIDE 0.9% FLUSH 10 ML FLUSH IV FLUSH SCH (09:49)
[2017-10-11] MEDS: SERTRALINE HCL 100 MG TAB PO SCH (09:50)
[2017-10-11] MEDS: METOPROLOL TARTRATE 25 MG TAB PO SCH (09:50)
[2017-10-11] MEDS: LISINOPRIL 5 MG TAB PO SCH (09:50)
[2017-10-11] MEDS: FUROSEMIDE 20 MG TAB PO SCH (09:50)
[2017-10-11] MEDS: FINASTERIDE 5 MG TAB PO SCH (09:50)
[2017-10-11] MEDS: PRIMIDONE 50 MG TAB PO SCH (10:32)
[2017-10-11] MEDS: TOLTERODINE TARTRATE 2 MG CAP LA PO SCH (10:33)
[2017-10-11] MEDS: lamoTRIgine 100 MG TAB PO SCH (10:33)
[2017-10-11 12:00] VITALS: BP 105/57; PULSE 64; RESP 18; TEMP 96.9; O2SAT 94
--- NOTE | 2017-10-11 13:50 | HHI.DS ---
Discharge Summary Admission Date Oct 08, 2017 at 15:34 Discharge Date: Oct 11, 2017 Admitting Diagnosis Weakness (1) Generalized weakness ICD Code: R53.1 - Weakness (2) CHF (congestive heart failure) ICD Code: I50.9 - Heart failure, unspecified (3) Hyperlipidemia ICD Code: E78.5 - Hyperlipidemia, unspecified (4) Weakness ICD Code: R53.1 - Weakness Status: Acute (5) Hypertension ICD Code: I10 - Essential (primary) hypertension Procedures NONE Brief History - From Admission 72-year-old male with a past medical history significant for diabetes mellitus, depression, BPH and essential tremor presents to the emergency department complaining of a 6 month - 1 year history of progressive weakness. The patient reports that he has had an unsteady gait that waxes and wanes. He complains of weekly falls and difficulty getting out of bed and chairs. Patient reports on Wednesday he fell in his kitchen and spent 6 hours on the ground before his [id number] was able to come help him get up. He is very concerned about his safety. He denies any chest pain or shortness of breath. Denies any focal or lateralizing weakness. Denies any dysarthria or slurred speech. No nausea/ vomiting/diarrhea. CBC/BMP: 10/09/17 0633 10/09/17 0633 Significant Findings Laboratory Tests Test 10/08/17 18:00 10/09/17 01:12 10/09/17 06:33 10/09/17 13:01 Total Creatine Kinase 37 U/L (39-308) 34 U/L (39-308) 35 U/L (39-308) Monocytes (%) (Auto) 8.9 % (0.0-8.0) Triglycerides Level 242 MG/DL (42-150) Cholesterol Level 267 MG/DL (120-200) LDL Cholesterol 190 MG/DL (0-99) HDL Cholesterol 28.8 MG/DL (40.0-60.0) Imaging Last Impressions Head Magnetic Resonance Angiography 10/09/17 0000 Signed Impressions: Service Date/Time: Monday, October 09, 2017 09:35 - CONCLUSION: Normal examination. Olinda Ortega MD Brain MRI 10/09/17 0000 Signed Impressions: Service Date/Time: Monday, October 09, 2017 09:35 - CONCLUSION: Diffuse white matter atrophic change is identified anomaly within the left parietal lobe. The abnormal increased T2 signal identified within the joy and midbrain may be secondary to the encephalomalacia seen within the left parietal lobe versus secondary to a metabolic disorder. Olinda Ortega MD Carotid Artery Ultrasound 10/08/17 0000 Signed Impressions: Service Date/Time: Sunday, October 08, 2017 19:30 - CONCLUSION: Mild bilateral atherosclerotic plaquing at the bifurcations. Otherwise, no focal high-grade or hemodynamically significant stenosis. Chava Graham MD Chest X-Ray 10/07/172043 Signed Impressions: Service Date/Time: September 21:11 - CONCLUSION: No evidence of acute cardiopulmonary disease. Samuel Clemons MD Head CT 10/07/17 Signed Impressions: Service Date/Time: Sunday, October 08, 2017 00:33 - CONCLUSION: 1. No acute intracranial abnormalities. Kenneth Carlos MD PE at Discharge GENERAL: Awake alert oriented talkative and cooperative moves all 4 extremities CARDIOVASCULAR: Regular rate and rhythm. S1 and S2 no S3 or S4 RESPIRATORY: No accessory muscle use. Clear to auscultation. Breath sounds equal bilaterally. GASTROINTESTINAL: Abdomen soft, non-tender, nondistended. Hepatic and splenic margins not palpable. MUSCULOSKELETAL: Extremities without clubbing, cyanosis, or edema. No obvious deformities. NEUROLOGICAL: Awake and alert. No obvious cranial nerve deficits. Motor grossly within normal limits. 4 out of 5 muscle strength in the arms and legs. Normal speech. Generalized weakness and lower extremity PSYCHIATRIC: Appropriate mood and affect; insight and judgment normal. Hospital Course Generalized weakness Likely 2/2 CHF with low EF 20-25 % No deficits on physical exam Head CT negative for acute intracranial process Neurology ff Had MRI reviewed check B12 Physical therapy consulted, appreciate recommendations occupational therapy consult with the recommendations Case management consulted to assist in discharge planning PT and OT to eval and treat ECHO reviewed with EF 20-25 % consult his cardiology Dr Garza CHF with low EF 20-25 % patient not sure if he has a h/o CHF, say she follows with Dr Garza. Consult Dr Garza his cardiology Dr Garza. Continue lisinopril, add small dose of metoprolol, add statin. However patient with low HR and DC BB. Patient was on BB before and did not tolerate BB. Essential tremor Neurologist is Dr. Prabhakar Continue primidone Diabetes mellitus Holding home metformin Sliding scale insulin Monitor blood glucose Hypertension Continue home lisinopril and Lasix Depression Continue home Zoloft and Lamictal BPH Continue oxybutynin and Proscar Neuro deficits. Will Continue with neuro checks and check an MRI FEN Heart healthy diet Electrolytes: Replete when necessary Heparin Discuss with physical therapy and occupational therapy as well as case management we'll make patient full admission for at least 2 night stay and will continue aggressive physical therapy and occupational therapy. Patient wants to go home with home health and not to rehab. However will sign [id number] if patient will not do good at home he might hgo to rehab. Also to follow up as OO with PCP, cardio and neurology. Pt Condition on Discharge: Stable Discharge Disposition: Disch w/ Home Health Serv Discharge Time: > 30 minutes Discharge Instructions DIET: Follow Instructions for: Heart Healthy Diet, Diabetic Diet Activities you can perform: Regular-No Restrictions Follow up Referrals: Cardiology - 1 Week with Froy Garza MD Neurology - 2 Weeks with Jo-Ann Davidson MD PCP Follow-up - 2-3 Days New Medications: Atorvastatin (Atorvastatin) 40 Mg Tab 40 MG PO HS for Cholesterol Management, #30 TAB Sennosides-Docusate Sodium (Gnp Senna Plus 8.6-50 mg) 8.6 Mg-50 Mg Tab 1 TAB PO BID for Constipation, #60 TAB Continued Medications: Amphetamine-Dextroamphetamine (Amphetamine-Dextroamphetamine) 20 Mg Tab 20 MG PO BID for Hyperactivity Control, #60 TAB 0 Refills Avoid late evening doses. Space doses at least 4 to 6 hours if more than once/day dosing. Clonazepam (Clonazepam) 1 Mg Tab 1 MG PO BID, #60 TAB 0 Refills Finasteride (Proscar) 5 Mg Tab 5 MG PO DAILY for Manage Prostate Problems, #30 TAB 0 Refills Do not crush. Furosemide (Furosemide) 20 Mg Tab 20 MG PO DAILY, #30 TAB 0 Refills Lamotrigine (Lamotrigine) 100 Mg Tab 100 MG PO DAILY for Control Seizures, #30 TAB 0 Refills Lisinopril (Lisinopril) 2.5 Mg Tab 2.5 MG PO DAILY, #30 TAB 0 Refills Metformin (Metformin) 500 Mg Tab 500 MG PO BIDPC for Blood Sugar Management, #60 TAB 0 Refills Oxybutynin ER 24 HR (Oxybutynin ER 24 HR) 5 Mg Tab 5 MG PO DAILY for Overactive Bladder, TAB 0 Refills Primidone (Primidone) 50 Mg Tab 200 MG PO BID for Control Seizures, #120 TAB 0 Refills Sertraline (Sertraline) 100 Mg Tab 100 MG PO BID, #30 TAB 0 Refills Em Guerra MD Oct 11, 2017 13:50
[2017-10-11] MEDS ORDERED: ATOR40TA16 PO (13:53)
[2017-10-11] MEDS ORDERED: PERI PO (13:53)
--- NOTE | 2017-10-11 13:58 | HHI.FF ---
Face to Face Verification Diagnosis: (1) Hyperlipidemia (2) Hypertension (3) Generalized weakness (4) CHF (congestive heart failure) (5) Weakness Physical Therapy Order: Evaluate and Treat Occupational Therapy Order: Evaluate and Treat Home Health Nursing Order: Medical education Signs/symptoms of disease process CHF education Medication education-adverse effect Nursing assessment with vital signs I have seen patient Lucien Berry on 10/11/17. My clinical findings support the need for the requested home health care services because: Ltd mobility - disease progression Patient has SOB Deconditioned w/ increased weakness I certify that my clinical findings support that this patient is homebound because: Post-op weakness Unsteady gait/balance Em Guerra MD Oct 11, 2017 13:58
--- NOTE | 2017-10-11 14:10 | HHI.PR ---
Subjective Remarks In the bed appears in nad. Says she was walking with PT feel tired. No cp, sob, n/v/d/c. Says she wants to go home and not to the rehab say she has PT at home. Objective Vitals Vital Signs Date Time Temp Pulse Resp B/P (MAP) Pulse Ox O2 Delivery O2 Flow Rate FiO2 10/11/17 12:00 96.9 64 18 105/57 (73) 94 10/11/17 08:00 96.5 55 18 136/87 (103) 99 10/11/17 02:20 97 10/10/17 23:00 97.2 64 17 125/61 (82) 97 10/10/17 19:10 96.7 70 18 143/62 (89) 97 10/10/17 16:00 96.0 68 18 100/66 (77) 94 I/O 10/10/17 10/10/17 10/10/17 10/11/17 10/11/17 10/11/17 06:59 14:59 22:59 06:59 14:59 22:59 Intake Total 480 ml 600 ml 360 ml 480 ml Balance 480 ml 600 ml 360 ml 480 ml Intake Oral 480 ml 600 ml 360 ml 480 ml # Voids 1 2 2 3 # Bowel Movements 0 1 0 0 Result Diagram: 10/09/1763210/09/1733 Imaging Last Impressions Head Magnetic Resonance Angiography 10/09/17 0000 Signed Impressions: Service Date/Time: Monday, October 09, 2017 09:35 - CONCLUSION: Normal examination. Olinda Ortega MD Brain MRI 10/09/17 0000 Signed Impressions: Service Date/Time: Monday, October 09, 2017 09:35 - CONCLUSION: Diffuse white matter atrophic change is identified anomaly within the left parietal lobe. The abnormal increased T2 signal identified within the joy and midbrain may be secondary to the encephalomalacia seen within the left parietal lobe versus secondary to a metabolic disorder. Olinda Ortega MD Carotid Artery Ultrasound 10/08/17 0000 Signed Impressions: Service Date/Time: Sunday, October 08, 2017 19:30 - CONCLUSION: Mild bilateral atherosclerotic plaquing at the bifurcations. Otherwise, no focal high-grade or hemodynamically significant stenosis. Chava Graham MD Chest X-Ray 10/07/172043 Signed Impressions: Service Date/Time: September 21:11 - CONCLUSION: No evidence of acute cardiopulmonary disease. Samuel Clemons MD Head CT 10/07/17 0000 Signed Impressions: Service Date/Time: Sunday, October 08, 2017 00:33 - CONCLUSION: 1. No acute intracranial abnormalities. Kenneth Carlos MD Objective Remarks GENERAL: Awake alert oriented talkative and cooperative moves all 4 extremities CARDIOVASCULAR: Regular rate and rhythm. S1 and S2 no S3 or S4 RESPIRATORY: No accessory muscle use. Clear to auscultation. Breath sounds equal bilaterally. GASTROINTESTINAL: Abdomen soft, non-tender, nondistended. Hepatic and splenic margins not palpable. MUSCULOSKELETAL: Extremities without clubbing, cyanosis, or edema. No obvious deformities. NEUROLOGICAL: Awake and alert. No obvious cranial nerve deficits. Motor grossly within normal limits. 4 out of 5 muscle strength in the arms and legs. Normal speech. Generalized weakness and lower extremity PSYCHIATRIC: Appropriate mood and affect; insight and judgment normal. Procedures NONE A/P Assessment and Plan Generalized weakness Likely 2/2 CHF with low EF 20-25 % No deficits on physical exam Head CT negative for acute intracranial process Neurology ff Had MRI reviewed check B12 Physical therapy consulted, appreciate recommendations occupational therapy consult with the recommendations Case management consulted to assist in discharge planning PT and OT to eval and treat ECHO reviewed with EF 20-25 % consult his cardiology Dr Garza CHF with low EF 20-25 % patient not sure if he has a h/o CHF, say she follows with Dr Garza. Consult Dr Garza his cardiology Dr Garza. Continue lisinopril, add small dose of metoprolol, add statin. However patient with low HR and DC BB. Patient was on BB before and did not tolerate BB. Essential tremor Neurologist is Dr. Prabhakar Continue primidone Diabetes mellitus Holding home metformin Sliding scale insulin Monitor blood glucose Hypertension Continue home lisinopril and Lasix Depression Continue home Zoloft and Lamictal BPH Continue oxybutynin and Proscar Neuro deficits. Will Continue with neuro checks and check an MRI FEN Heart healthy diet Electrolytes: Replete when necessary Heparin Discuss with physical therapy and occupational therapy as well as case management we'll make patient full admission for at least 2 night stay and will continue aggressive physical therapy and occupational therapy. Patient wants to go home with home health and not to rehab. However will sign [id number] if patient will not do good at home he might hgo to rehab. Also to follow up as OO with PCP, cardio and neurology. Em Guerra MD Oct 11, 2017 14:10
[2017-10-11 16:00] VITALS: BP 108/56; PULSE 53; RESP 18; TEMP 97.5; O2SAT 93
== END 2017-10-11 16:41 | disposition home health service (06) | DRG 293 ==
LOC: NEPE 19:35 → NEDA 10-08 03:23 → NEPGCP 10-08 04:35 → OBSVTOIN 10-08 15:34 → N06A 10-08 22:46
PROVIDERS: ADMIT Hospitalist; ATTEND Hospitalist
DX: I11.0 Hypertensive heart disease with heart failure (principal); I42.9 Cardiomyopathy, unspecified; E11.9 Type 2 diabetes mellitus without complications; F32.9 Major depressive disorder, single episode, unspecified; G25.0 Essential tremor; I50.22 Chronic systolic (congestive) heart failure; Z96.651 Presence of right artificial knee joint; R29.6 Repeated falls; N40.0 Benign prostatic hyperplasia without lower urinary tract symptoms; R53.1 Weakness; E78.5 Hyperlipidemia, unspecified; F41.9 Anxiety disorder, unspecified; R19.7 Diarrhea, unspecified; Z79.84 Long term (current) use of oral hypoglycemic drugs; Z91.81 History of falling
CPT/HCPCS: 70450; 70544; 70551; 71045; 80048; 80053; 80061; 82272; 82550; 82607; 82948; 83036; 83735; 84207; 84425; 84439; 84443; 84484; 85025; 85610; 85730; 87493; 93005; 93306; 93880; 94150; G8987-GO; G8987-GP; G8988-GO; G8988-GP; J1650

== ENCOUNTER 2017-10-30 12:42 | Emergency (ER) | payer MEDICARE, OTHER ==
[~2017-10-30 12:42] MED LIST changes: +ATOR40TA16 PO; +LAMO100T PO; -LAMO200T54 PO; +PERI PO
[2017-10-30 12:56] VITALS: BP 122/58; PULSE 62; RESP 16; TEMP 97.7; O2SAT 98
[2017-10-30 13:23] LABS: AUTOMATED NEUTROPHIL # 3.7 TH/MM3 (1.8-7.7); BASOPHIL % 0.5 % (0.0-2.0); EOSINOPHIL # 0.1 TH/MM3 (0-0.4); EOSINOPHIL % 1.8 % (0.0-4.0); HEMATOCRIT 41.3 % (39.0-51.0); LYMPH % 22.6 % (9.0-44.0); LYMPHOCYTE # 1.2 TH/MM3 (1.0-4.8); MEAN CELL VOLUME 90.9 FL (80.0-100.0); MEAN PLATELET VOLUME 8.2 FL (7.0-11.0); MONO % 7.1 % (0.0-8.0); MONOCYTE # 0.4 TH/MM3 (0-0.9); PLATELET COUNT 169 TH/MM3 (150-450); RED BLOOD COUNT 4.54 MIL/MM3 (4.50-5.90); RED CELL DISTRIBUTION WIDTH 13.1 % (11.6-17.2); WHITE BLOOD COUNT 5.4 TH/MM3 (4.0-11.0)
[2017-10-30 13:26] LABS: MEAN CORPUSCULAR HGB CONC 36.3 % (32.0-36.0)
[2017-10-30 13:34] LABS: BICARBONATE 27.4 MEQ/L (21.0-32.0); BLOOD UREA NITROGEN 12 MG/DL (7-18); CALCIUM 8.8 MG/DL (8.5-10.1); CHLORIDE 105 MEQ/L (98-107); CREATININE 0.68 MG/DL (0.60-1.30); GLOMERULAR FILTRATION RATE 115 ML/MIN (>89); GLUCOSE,RANDOM 109 MG/DL (74-106); SODIUM (NA) 139 MEQ/L (136-145)
[2017-10-30 13:38] LABS: TROPONIN I LESS THAN 0.02 NG/ML (0.02-0.05)
[2017-10-30 13:42] VITALS: BP 122/58; PULSE 56; RESP 18; O2SAT 99
--- NOTE | 2017-10-30 13:52 | RADRPT ---
EXAM DATE/TIME: 10/30/2017 13:37 [facility] COMPARISON: CHEST SINGLE AP, October 07, 2017, 21:11. INDICATIONS : General weakness and chest pain. MEDICAL HISTORY : Hypertension. Diabetes mellitus type 2. SURGICAL HISTORY : Discectomy, lumbar. Total knee replacement, right. Bilateral hand tendon release. ENCOUNTER: Initial ACUITY: >1 year PAIN SCORE: 0/10 LOCATION: Bilateral chest FINDINGS: A single view of the chest demonstrates the lungs to be symmetrically aerated without evidence of mas s, infiltrate or effusion. The cardiomediastinal contours are unremarkable. Osseous structures are intact. CONCLUSION: Normal examination. Froy Feliciano MD on October 30, 2017 at 13:51 Board Certified Radiologist. This report was verified electronically.
--- NOTE | 2017-10-30 14:02 | PD ---
HPI Chief Complaint: General Weakness Time Seen by Provider: 13:35 Travel History International Travel<30 days: No Contact w/Intl Traveler<30days: No Traveled to known affect area: No History of Present Illness HPI 72-year-old male presents emergency department with recent hospitalization for generalized weakness, with full workup including cardiac and patient reports neuro as well. Patient was offered to go to in-house rehab facility but declined. Patient states that she was discharged on Wednesday he is gotten progressively more weak, and unsteady. Patient states he was so weak last evening he could not roll over in his bed. Patient is normally able to ambulate with a walker but is unable to today. Patient denies fever, chills, pain, or other constitutional symptoms. Patient states she has has a history of this over the past 3 years. He was seen by his light coil winder on Wednesday, as he was diagnosed with a cardio myositis, but Dr. King did not feel that was the cause of his weakness at that time. Patient denies shortness of breath or chest pain or chest pressure. He denies any abdominal complaints. Patient has no known drug allergies. PFSH Past Medical History Asthma: No Blood Disorders: No Anxiety: No Depression: No Heart Rhythm Problems: No Cancer: No Cardiovascular Problems: No High Cholesterol: No Chemotherapy: No Chest Pain: No Congestive Heart Failure: No COPD: No Diabetes: No Diminished Hearing: No Endocrine: No Gastrointestinal Disorders: No Glaucoma: No Genitourinary: No Hepatitis: No Hiatal Hernia: No Hypertension: Yes Immune Disorder: No Implanted Vascular Access Dvce: Yes Kidney Stones: Yes Musculoskeletal: Yes (FALLS HX DIZZINESS AND WEAKNESS IN LEGS, RIGHT KNEE SURGERY) Neurologic: Yes (LUMBAR KYPHOPLASTY TWICE) Psychiatric: No Reproductive: No Respiratory: No Integumentary: No Immunizations Current: Yes Radiation Therapy: No Sleep Apnea: No Thyroid Disease: No Past Surgical History Body Medical Devices: WALKER, SPINAL SURGERY IN LUMBAR REGION TWICE Genitourinary Surgery: Yes (LITHOTRIPSY X 2) Other Surgery: Yes (BOTH HANDS TRIGGER FINGER SURGERY) Social History Alcohol Use: Yes (SEVERAL X WEEKLY) Tobacco Use: No (NEVER) Substance Use: No Allergies-Medications (Allergen,Severity, Reaction): Coded Allergies: No Known Allergies (Verified Adverse Reaction, Unknown, 10/07/17) Reported Meds & Prescriptions Reported Meds & Active Scripts Active Gnp Senna Plus 8.6-50 mg (Sennosides-Docusate Sodium) 8.6 Mg-50 Mg Tab 1 Tab PO BID Atorvastatin (Atorvastatin Calcium) 40 Mg Tab 40 Mg PO HS Reported Sertraline (Sertraline HCl) 100 Mg Tab 100 Mg PO BID Lamotrigine 100 Mg Tab 100 Mg PO DAILY Lisinopril 2.5 Mg Tab 2.5 Mg PO DAILY Metformin (Metformin HCl) 500 Mg Tab 500 Mg PO BIDPC Furosemide 20 Mg Tab 20 Mg PO DAILY Primidone 50 Mg Tab 200 Mg PO BID Oxybutynin ER 24 HR (Oxybutynin Chloride) 5 Mg Tab 5 Mg PO DAILY Proscar (Finasteride) 5 Mg Tab 5 Mg PO DAILY Do not crush. Review of Systems Except as stated in HPI: all other systems reviewed are Neg General / Constitutional: No: Fever Eyes: No: Visual changes HENT: No: Headaches Cardiovascular: No: Chest Pain or Discomfort Respiratory: No: Shortness of Breath Gastrointestinal: No: Abdominal Pain Genitourinary: No: Dysuria Musculoskeletal: No: Pain Skin: No Rash Neurologic: Positive: Weakness, Tremor (Mild right-handed tremor which is familial pain), No: Dizziness, Syncope, Focal Abnormalities, Coordination Problem, Ataxia, Headache, Change in Mentation, Slurred Speech, Paresthesia, Incontinence, Seizures, Sensory Disturbance Psychiatric: No: Depression Endocrine: No: Polydipsia Hematologic/Lymphatic: No: Easy Bruising Physical Exam Narrative GENERAL: Patient appears in no obvious distress per SKIN: Warm and dry. Normal color. Normal turgor. No rash HEAD: Atraumatic. Normocephalic. EYES: Pupils equal and round. No scleral icterus. No injection or drainage. ENT: No nasal bleeding or discharge. Mucous membranes pink and moist. Pharynx is clear. Airways patent NECK: Trachea midline. Supple and nontender. CARDIOVASCULAR: Regular rate and rhythm. No murmurs gallops or rubs. RESPIRATORY: No accessory muscle use. Clear to auscultation. Breath sounds equal bilaterally. GASTROINTESTINAL: Abdomen soft, non-tender, nondistended. Hepatic and splenic margins not palpable. MUSCULOSKELETAL: Extremities without clubbing, cyanosis, or edema. No obvious deformities. Patient has somewhat slow movements, but muscle strength seems to be intact by confrontation. It is maybe 4 out of 5 strength. He denies any numbness or tingling. Patient is not however able to ambulate NEUROLOGICAL: Awake and alert. No obvious cranial nerve deficits. Motor grossly within normal limits. 4 out of 5 muscle strength in the arms and legs. No ptosis, or facial droop. Normal speech. PSYCHIATRIC: Appropriate mood and affect; insight and judgment normal. Data Data Last Documented VS Vital Signs Date Time Temp Pulse Resp B/P (MAP) Pulse Ox O2 Delivery O2 Flow Rate FiO2 10/30/17 13:42 99 Room Air 10/30/17 13:42 56 18 122/58 (79) 10/30/17 12:56 97.7 Orders Orders Electrocardiogram (10/30/17 12:58) Complete Blood Count With Diff (10/30/17 12:58) Basic Metabolic Panel (Bmp) (10/30/17 12:58) Ckmb (Isoenzyme) Profile (10/30/17 12:58) Troponin I (10/30/17 12:58) Chest, Single Ap (10/30/17 12:58) Iv Access Insert/Monitor (10/30/17 12:58) Ecg Monitoring (10/30/17 12:58) Oxygen Administration (10/30/17 12:58) Oximetry (10/30/17 12:58) Diet Heart Healthy (10/30/17 Dinner) Labs Laboratory Tests Test 10/30/17 13:00 White Blood Count 5.4 TH/MM3 Red Blood Count 4.54 MIL/MM3 Hemoglobin 15.0 GM/DL Hematocrit 41.3 % Mean Corpuscular Volume 90.9 FL Mean Corpuscular Hemoglobin 33.0 PG Mean Corpuscular Hemoglobin Concent 36.3 % Red Cell Distribution Width 13.1 % Platelet Count 169 TH/MM3 Mean Platelet Volume 8.2 FL Neutrophils (%) (Auto) 68.0 % Lymphocytes (%) (Auto) 22.6 % Monocytes (%) (Auto) 7.1 % Eosinophils (%) (Auto) 1.8 % Basophils (%) (Auto) 0.5 % Neutrophils # (Auto) 3.7 TH/MM3 Lymphocytes # (Auto) 1.2 TH/MM3 Monocytes # (Auto) 0.4 TH/MM3 Eosinophils # (Auto) 0.1 TH/MM3 Basophils # (Auto) 0.0 TH/MM3 CBC Comment AUTO DIFF Differential Comment AUTO DIFF CONFIRMED Blood Urea Nitrogen 12 MG/DL Creatinine 0.68 MG/DL Random Glucose 109 MG/DL Calcium Level 8.8 MG/DL Sodium Level 139 MEQ/L Potassium Level 3.9 MEQ/L Chloride Level 105 MEQ/L Carbon Dioxide Level 27.4 MEQ/L Anion Gap 7 MEQ/L Estimat Glomerular Filtration Rate 115 ML/MIN Total Creatine Kinase 40 U/L Troponin I LESS THAN 0.02 NG/ML MDM Medical Decision Making Medical Screen Exam Complete: Yes Emergency Medical Condition: Yes Medical Record Reviewed: Yes Differential Diagnosis Worsening generalized weakness. Inability to ambulate. Question myasthenia gravis. Narrative Course Patient is medically stable at time of exam. Labs ordered and all are within normal limits. EKG is normal Chest x-ray is normal. Patient is evaluated by Dr. Saba and myself. Due to the patient's inability to get up out of bed or ambulate I feel this is a unsafe discharge as he only has 4 hours of in-house care. I feel workup for myasthenia gravis may be warranted. Calls placed to the hospitalist for admission. Patient was discussed with the hospitalist, who recommends trying to get the patient placed in a snf facility through case management, as he was just discharged with same complaints after 3 weeks in the hospital. Patient was discussed with emergency department case management, and they are trying to place the patient. Patient was accepted by local sn[facility]. Transition orders were written by Dr. Saba. Patient will follow up with the [facility] physicians. Diagnosis Primary Impression: Generalized weakness Additional Impression: Recurrent falls while walking Admitting Information Admitting Physician Requests: Observation Patient Instructions: General Instructions Additional Instructions: Labs ordered and all are within normal limits. EKG is normal Chest x-ray is normal. Patient is evaluated by Dr. aSba and myself. Due to the patient's inability to get up out of bed or ambulate I feel this is a unsafe discharge as he only has 4 hours of in-house care. I feel workup for myasthenia gravis may be warranted. Calls placed to the hospitalist for admission. Patient was discussed with the hospitalist, who recommends trying to get the patient placed in a snf facility through case management, as he was just discharged with same complaints after 3 weeks in the hospital. Patient was discussed with emergency department case management, and they are trying to place the patient. Patient was accepted by local sn[facility]. Transition orders were written by Dr. Saba. Patient will follow up with the [facility] physicians. Med/Other Pt SpecificInfo: No Change to Meds Disposition: 70 TRANSFER TO OTHER FACILITY Condition: Stable Marcos Marrero Oct 30, 2017 14:02
--- NOTE | 2017-10-30 14:28 | PD ---
Physical Exam Narrative I, Dr. Saba, have reviewed the advance practice practitioner's documentation and am in agreement, met with the patient face to face, made the diagnosis, and the medical decision making was done by me. *My assessment and Findings: Parkinson vs. myositis vs. failure to thrive 72yo M with generalized weakness for 3 years but worsen over last 1-2 days. Said he is unable to even turn in his bed. Pt has no focal neurologic deficits. Pt has extensive outpatient neurology work up with Dr. Prabhakar and they could not figure out the cause of his weakness. Pt only gets 4 hours of in house aid and lives by himself. Labs reviewed, no leukocytosis. H/H normal. Troponin negative. CK normal. Case management was consulted and found a fci that pt can go to since he will be an unsafe discharge. Data Data Last Documented VS Vital Signs Date Time Temp Pulse Resp B/P (MAP) Pulse Ox O2 Delivery O2 Flow Rate FiO2 10/30/17 13:42 99 Room Air 10/30/17 13:42 56 18 122/58 (79) 10/30/17 12:56 97.7 Orders Orders Electrocardiogram (10/30/17 12:58) Complete Blood Count With Diff (10/30/17 12:58) Basic Metabolic Panel (Bmp) (10/30/17 12:58) Ckmb (Isoenzyme) Profile (10/30/17 12:58) Troponin I (10/30/17 12:58) Chest, Single Ap (10/30/17 12:58) Iv Access Insert/Monitor (10/30/17 12:58) Ecg Monitoring (10/30/17 12:58) Oxygen Administration (10/30/17 12:58) Oximetry (10/30/17 12:58) Diet Heart Healthy (10/30/17 Dinner) Ed Discharge Order (10/30/17 18:28) Labs Laboratory Tests Test 10/30/17 13:00 White Blood Count 5.4 TH/MM3 Red Blood Count 4.54 MIL/MM3 Hemoglobin 15.0 GM/DL Hematocrit 41.3 % Mean Corpuscular Volume 90.9 FL Mean Corpuscular Hemoglobin 33.0 PG Mean Corpuscular Hemoglobin Concent 36.3 % Red Cell Distribution Width 13.1 % Platelet Count 169 TH/MM3 Mean Platelet Volume 8.2 FL Neutrophils (%) (Auto) 68.0 % Lymphocytes (%) (Auto) 22.6 % Monocytes (%) (Auto) 7.1 % Eosinophils (%) (Auto) 1.8 % Basophils (%) (Auto) 0.5 % Neutrophils # (Auto) 3.7 TH/MM3 Lymphocytes # (Auto) 1.2 TH/MM3 Monocytes # (Auto) 0.4 TH/MM3 Eosinophils # (Auto) 0.1 TH/MM3 Basophils # (Auto) 0.0 TH/MM3 CBC Comment AUTO DIFF Differential Comment AUTO DIFF CONFIRMED Blood Urea Nitrogen 12 MG/DL Creatinine 0.68 MG/DL Random Glucose 109 MG/DL Calcium Level 8.8 MG/DL Sodium Level 139 MEQ/L Potassium Level 3.9 MEQ/L Chloride Level 105 MEQ/L Carbon Dioxide Level 27.4 MEQ/L Anion Gap 7 MEQ/L Estimat Glomerular Filtration Rate 115 ML/MIN Total Creatine Kinase 40 U/L Troponin I LESS THAN 0.02 NG/ML MDM Supervised Visit with ANALI: Yes Diagnosis Primary Impression: Generalized weakness Janki Saba DO Oct 30, 2017 14:28
--- NOTE | 2017-10-31 11:13 | EKG ---
Date Performed: 10/30/2017 Time Performed: 13:07:55 PTAGE: 72 years EKG: Sinus rhythm WITH OCCASIONAL VENTRICULAR PREMATURE COMPLEXES NONSPECIFIC ST & T-WAVE ABNORMALITY BORDERLINE ECG PREVIOUS TRACING : 10/07/2017 20.48 DOCTOR: Froy Garza Interpretating Date/Time 10/31/2017 11:12:07
== END 2017-10-30 19:40 | disposition short-term general hospital (02) ==
LOC: NEPD 12:42
DX: R53.1 Weakness (principal); I10 Essential (primary) hypertension; R94.31 Abnormal electrocardiogram [ECG] [EKG]; Z79.899 Other long term (current) drug therapy
CPT/HCPCS: 71045; 80048; 82550; 84484; 85025; 93005; 99285

== ENCOUNTER 2017-12-03 20:10 | Inpatient (IN) | payer MEDICARE, OTHER ==
[~2017-12-03] VITALS: Ht 182.9 cm; Wt 78.5 kg
[~2017-12-03 20:10] MED LIST changes: -AMPH1TAB66 PO; -CLON1TAB PO
[2017-12-03 20:15] VITALS: BP 118/76; PULSE 84; RESP 16; TEMP 98.1; O2SAT 97
--- NOTE | 2017-12-03 20:46 | PD ---
HPI Chief Complaint: Back/ Neck Pain or Injury Time Seen by Provider: 20:46 Travel History International Travel<30 days: No Contact w/Intl Traveler<30days: No Traveled to known affect area: No History of Present Illness HPI 72-year-old male came to the emergency room with history of neck pain since this morning. Patient denies any trauma history. He cannot think of any cause of this pain. He says he woke up and noticed that he had neck pain which worsened anytime he tried to move his head either direction but more so on the left. As the day progressed the pain kept getting worse. Patient lives in an assisted living facility and when he mentioned about the pain to the staff patient was sent to the emergency room to be evaluated. He has never had this kind of pain in the past. Vital signs otherwise stable. Denies any fever or chills. He is awake and answering questions otherwise appropriately. Patient recently for past month or so has been having trouble ambulating. He has had extensive workup for that and so far he has not been given any specific diagnosis for this. Currently he ambulates with a walker. His pain radiates to the back of his head and causing some headache as well. [facility] Past Medical History Narrative Medical List of his past medical, surgical, social and family history reviewed from the nursing note. Asthma: No Blood Disorders: No Anxiety: No Depression: No Heart Rhythm Problems: No Cancer: No Cardiovascular Problems: No High Cholesterol: No Chemotherapy: No Chest Pain: No Congestive Heart Failure: No COPD: No Diabetes: No Diminished Hearing: No Endocrine: No Gastrointestinal Disorders: No Glaucoma: No Genitourinary: No Hepatitis: No Hiatal Hernia: No Hypertension: Yes Immune Disorder: No Implanted Vascular Access Dvce: Yes Kidney Stones: Yes Musculoskeletal: Yes (FALLS HX DIZZINESS AND WEAKNESS IN LEGS, RIGHT KNEE SURGERY) Neurologic: Yes (LUMBAR KYPHOPLASTY TWICE) Psychiatric: No Reproductive: No Respiratory: No Integumentary: No Immunizations Current: Yes Radiation Therapy: No Sleep Apnea: No Thyroid Disease: No Past Surgical History Body Medical Devices: WALKER, SPINAL SURGERY IN LUMBAR REGION TWICE Genitourinary Surgery: Yes (LITHOTRIPSY X 2) Other Surgery: Yes (BOTH HANDS TRIGGER FINGER SURGERY) Social History Alcohol Use: Yes (SEVERAL X WEEKLY) Tobacco Use: No (NEVER) Substance Use: No Allergies-Medications (Allergen,Severity, Reaction): Coded Allergies: No Known Allergies (Verified Adverse Reaction, Unknown, 10/07/17) Comments No known drug allergies. Reported Meds & Prescriptions Reported Meds & Active Scripts Active Gnp Senna Plus 8.6-50 mg (Sennosides-Docusate Sodium) 8.6 Mg-50 Mg Tab 1 Tab PO BID Atorvastatin (Atorvastatin Calcium) 40 Mg Tab 40 Mg PO HS Reported Sertraline (Sertraline HCl) 100 Mg Tab 100 Mg PO BID Lamotrigine 100 Mg Tab 100 Mg PO DAILY Lisinopril 2.5 Mg Tab 2.5 Mg PO DAILY Metformin (Metformin HCl) 500 Mg Tab 500 Mg PO BIDPC Furosemide 20 Mg Tab 20 Mg PO DAILY Primidone 50 Mg Tab 200 Mg PO BID Proscar (Finasteride) 5 Mg Tab 5 Mg PO DAILY Do not crush. Narrative Medication List of his home medications reviewed from the nursing note. Review of Systems Except as stated in HPI: all other systems reviewed are Neg Musculoskeletal: Positive: Pain Physical Exam Narrative GENERAL: Awake, alert, moderate distress SKIN: Focused skin assessment warm/dry. HEAD: Atraumatic. Normocephalic. EYES: Pupils equal and round. No scleral icterus. No injection or drainage. ENT: No nasal bleeding or discharge. Mucous membranes pink and moist. NECK: Trachea midline. No JVD. Decreased range of neck motion limited because of the pain. Left lateral flexion is worse than the right. CARDIOVASCULAR: Regular rate and rhythm. No murmur appreciated. RESPIRATORY: No accessory muscle use. Clear to auscultation. Breath sounds equal bilaterally. GASTROINTESTINAL: Abdomen soft, non-tender, nondistended. Hepatic and splenic margins not palpable. MUSCULOSKELETAL: No obvious deformities. No clubbing. No cyanosis. No edema. Some muscle dystrophy noted on the hand muscles. NEUROLOGICAL: Awake and alert. No obvious cranial nerve deficits. Motor grossly within normal limits. Normal speech. PSYCHIATRIC: Appropriate mood and affect; insight and judgment normal. Data Data Last Documented VS Vital Signs Date Time Temp Pulse Resp B/P (MAP) Pulse Ox O2 Delivery O2 Flow Rate FiO2 12/03/17 20:15 98.1 84 16 118/76 (90) [address] Brain W/O Iv Contrast(Rout) (12/03/17 ) Ct Cerv Spine W/O Contrast (12/03/17 ) Morphine Inj (Morphine Inj) (12/03/17 21:00) Ketorolac Inj (Toradol Inj) (12/03/17 21:00) Orphenadrine Inj (Norflex Inj) (12/03/17 21:00) Mri C Spine W/O Contrast (12/03/17 ) Complete Blood Count With Diff (12/03/17 21:52) Basic Metabolic Panel (Bmp) (12/03/17 21:52) ^ Saline Lock (12/03/17 21:52) Consult Neurosurgery (12/03/17 ) Place In Observation (12/03/17 ) Vital Signs (Adult) Q4H (12/03/17 21:59) Activity Oob With Assistance (12/03/17 21:59) Diet Regular Basic (12/04/17 Breakfast) Sodium Chloride 0.9% Flush (Ns Flush) (12/03/17 22:00) Sodium Chloride 0.9% Flush (Ns Flush) (12/04/17 09:00) Ondansetron Inj (Zofran Inj) (12/03/17 22:00) Comprehensive Metabolic Panel (12/04/17 06:00) Complete Blood Count With Diff (12/04/17 06:00) Pt Request For Service (12/03/17 21:59) Case Management Consult (12/03/17 21:59) Scd Bilateral/Knee High ANDER.BID (12/03/17 21:59) Emir Bilateral/Knee High ANDER.QSHIFT (12/03/17 22:00) Acetaminophen (Tylenol) (12/03/17 22:00) Acetamin-Hydrocod 325-5 Mg ([place] 5-325 (12/03/17 22:00) Morphine Inj (Morphine Inj) (12/03/17 22:00) Docusate Sodium-Senna (Ivelisse-Colace) (12/04/17 09:00) Magnesium Hydroxide Liq (Milk Of Magnesi (12/03/17 22:00) Sennosides (Senokot) (12/03/17 22:00) Bisacodyl Supp (Dulcolax Supp) (12/03/17 22:00) Lactulose Liq (Lactulose Liq) (12/03/17 22:00) Admit Order (Ed Use Only) (12/03/17 22:06) MDM Medical Decision Making Medical Screen Exam Complete: Yes Emergency Medical Condition: Yes Medical Record Reviewed: Yes Differential Diagnosis Torticollis, cervical radiculopathy, muscle spasm Narrative Course 9:[address] PM [address] CT to be done and resulted. Patient has been medicated for pain and muscle relaxation. I will reassess him in a bit. 9:54 PM there has been some interesting findings on the CAT scan of his brain and cervical spine. The CT head was read by the radiologist as enlarged ventricles, consider NPH. CT C-spine as per the radiologist shows severe cervical spinal stenosis from C4-C7 and he has recommended an MRI. I have ordered the MRI for this patient. However the possibility of NPH could explain his repeated falling and gait issues. At this point I would like to admit this patient so that he can be seen by neurologist and neurosurgeon for these issues. I have ordered some basic blood test as well. Awaiting for the hospitalist to call back. Procedures EKG Prior to Arrival: No Diagnosis Primary Impression: Cervical spinal stenosis Additional Impressions: Neck pain, acute NPH (normal pressure hydrocephalus) Recurrent falls Admitting Information Admitting Physician Requests: Admit Rani Vega MD Dec 03, 2017 20:46
[2017-12-03] MEDS ORDERED: MORPHINE SULFATE 8 MG/ML INJ IM ONE (21:00)
[2017-12-03] MEDS ORDERED: ORPHENADRINE INJ 60 MG/2 ML AMP IM ONE (21:00)
[2017-12-03] MEDS ORDERED: KETOROLAC TROMETHAMINE 60 MG/2 ML (IM) VIAL IM ONE (21:00)
--- NOTE | 2017-12-03 21:39 | RADRPT ---
EXAM DATE/TIME: 12/03/2017 21:19 [facility] COMPARISON: MRI BRAIN W/O CONTRAST, October 09, 2017, 9:35. CT BRAIN W/O CONTRAST, October 08, 2017, 0:33. INDICATIONS : Cephalgia. RADIATION DOSE: 66.34 CTDIvol (mGy) MEDICAL HISTORY : Hypertension. Diabetes mellitus type 2. SURGICAL HISTORY : None. ENCOUNTER: Initial ACUITY: 1 day PAIN SCALE: 5/10 LOCATION: cranial TECHNIQUE: Multiple contiguous axial images were obtained of the head. Using automated exposure control and adj ustment of the mA and/or kV according to patient size, radiation dose was kept as low as reasonably a chievable to obtain optimal diagnostic quality images. DICOM format image data is available electro nically for review and comparison. FINDINGS: Ventricles are prominent but stable. The amount of ventricular dilatation appears more prominent samir n one would suggest with cortical atrophy. Normal pressure hydrocephalus cannot be excluded. There is no palpable hemorrhage or acute infarction The posterior fossa is unremarkable Orbits and nasal sinuses appear normal. CONCLUSION: Prominent but stable ventricles. Normal pressure hydrocephalus should be excluded cl inically. Pierce Roche MD FACR on December 03, 2017 at 21:35 Board Certified Radiologist. This report was verified electronically.
--- NOTE | 2017-12-03 21:46 | RADRPT ---
EXAM DATE/TIME: 12/03/2017 21:19 [facility] COMPARISON: No previous studies available for comparison. INDICATIONS : Neck pain. RADIATION DOSE: 21.23 CTDIvol (mGy) MEDICAL HISTORY : Hypertension. Diabetes mellitus type 2. SURGICAL HISTORY : None. ENCOUNTER: Initial ACUITY: 1 day PAIN SCALE: 5/10 LOCATION: neck TECHNIQUE: Volumetric scanning of the cervical spine was performed. Multiplanar reconstructions in the sagittal, coronal and oblique axial planes were performed. Using automated exposure control and adjustment o f the mA and/or kV according to patient size, radiation dose was kept as low as reasonably achievable to obtain optimal diagnostic quality images. DICOM format image data is available electronically f or review and comparison. FINDINGS: VERTEBRAE: Normal vertebral body height. ALIGNMENT: No evidence of subluxation. C2-C3: Moderate facet disease is present with minimal bilateral neuroforamina encroachment. C3-C4: Moderate uncinate ridging with bilateral neural foramina encroachment. C4-C5: Moderate Spinal stenosis from significant uncinate ridging. Bilateral neural femoral stenosis. C5-C6: Moderately ridging is present the bilateral neural foramina encroachment. Small stenosis is moderate to severe. C6-C7: Moderate uncinate ridging is present with moderate to severe spinal stenosis. Bilateral foraminal en croachment. C7-T1: The bony spinal canal is normal in size. No evidence of disc bulge or herniation. The neural forami na are bilaterally patent. CONCLUSION: Significant degenerative changes and uncinate ridging. Spinal stenosis is severe fro m C4-C7. MRI may be of benefit. Pierce Roche MD FACR on December 03, 2017 at 21:41 Board Certified Radiologist. This report was verified electronically.
[2017-12-03] MEDS ORDERED: MAGNESIUM HYDROXIDE SUSP 30 ML CUP PO PRN (22:00)
[2017-12-03] MEDS ORDERED: SODIUM CHLORIDE 0.9% FLUSH 10 ML FLUSH IV FLUSH PRN (22:00)
[2017-12-03] MEDS ORDERED: ONDANSETRON HCL 4 MG/2 ML VIAL IVP PRN (22:00)
[2017-12-03] MEDS ORDERED: BISACODYL 10 MG SUPP RECTAL PRN (22:00)
[2017-12-03] MEDS ORDERED: SENNOSIDES 8.6 MG TAB PO PRN (22:00)
[2017-12-03] MEDS ORDERED: ACETAMINOPHEN 325 MG TAB PO PRN (22:00)
[2017-12-03] MEDS ORDERED: LACTULOSE SYRUP 20 GM/30 ML CUP PO PRN (22:00)
--- NOTE | 2017-12-03 22:04 | HHI.HP ---
HPI Service [facility] Primary Care Physician Sherita Ramos MD Admission Diagnosis Diagnoses: (1) Intractable pain Diagnosis: Principal (2) Hydrocephalus Diagnosis: Principal (3) Cervical spinal stenosis Diagnosis: Principal (4) DM (diabetes mellitus) Diagnosis: Principal Travel History International Travel<30 Days: No Contact w/Intl Traveler <30 Da: No Traveled to Known Affected Are: No History of Present Illness This is a 72-year-old male with a PMH of HTN, DM, CHF (Echo 10/10/2017 w/ EF 25- 30%) and Seizure Disorder who was sent to the ER from [facility] with complaints of neck pain starting earlier today. Denies any injury/trauma. Pain is severe, 10 /10, constant, non-radiating, no associated numbness or weakness. Of note, pt reports some gait instability and recurrent falls for which he is being evaluated, however no etiology uncovered. States he ambulates w/ walker at baseline, no recent changes. On arrival, BP 118/76, HR 84, O2 sat 97% on RA, Afebrile. CBC unremarkable. Chemistry essentially unremarkable. CT Head with prominent but stable ventricles, normal pressure hydrocephalus should be excluded. CT Cervical spine with significant degenerative changes, spinal stenosis severe from C4-C7, recommendation for MRI. MRI C-spine with moderate spinal stenosis, worse at C3-C4 and C4-C5. S/p Toradol, Morphine x2, Norflex and Zofran in ER w/ minimal improvement. Review of Systems Except as stated in HPI: all other systems reviewed are Neg ROS: 14 point review of systems otherwise negative. Past Family Social History Past Medical History PMH: HTN, DM, CHF (Echo 10/10/2017 w/ EF 25-30%) and Seizure Disorder Past Surgical History PAST SURGICAL HISTORY: Spinal Surgery, Lithotripsy, Trigger Finger Surgery Allergies: Coded Allergies: No Known Allergies (Verified Adverse Reaction, Unknown, 10/07/17) Family History PAST FAMILY HISTORY: Reviewed. No h/o DM or CAD Social History PAST SOCIAL HISTORY: Occasional alcohol. Negative for tobacco or drugs. Physical Exam Vital Signs Vital Signs Date Time Temp Pulse Resp B/P (MAP) Pulse Ox O2 Delivery O2 Flow Rate FiO2 18 20:15 98.1 84 16 118/76 (90 97 Physical Exam PE: GENERAL: Pleasant elderly male in no acute distress. HEENT: PERRLA, EOMI. No scleral icterus or conjunctival pallor. No lid lag or facial droop. CARDIOVASCULAR: Regular rate and rhythm. No obvious murmurs to auscultation. No chest tenderness to palpation. RESPIRATORY: No obvious rhonchi or wheezing. Clear to auscultation. Breath sounds equal bilaterally. GASTROINTESTINAL: Abdomen soft, non-tender, nondistended. BS normal. MUSCULOSKELETAL: Extremities without clubbing, cyanosis, or edema. No obvious deformities. Decreased ROM of c-spine due to pain. NEUROLOGICAL: Awake, alert and oriented x4. No focal neurologic deficits. Moving both upper and lower extremities spontaneously. Caprini VTE Risk Assessment Caprini VTE Risk Assessment: No/Low Risk (score <= 1) Caprini Risk Assessment Model Point Value = 1 Point Value = 2 Point Value = 3 Point Value = 5 Age 41-60 Minor surgery BMI > 25 kg/m2 Swollen legs Varicose veins or History of unexplained or recurrent spontaneous Oral contraceptives or hormone replacement Sepsis (< 1 month) Serious lung disease, including pneumonia (< 1 month) Abnormal pulmonary function Acute myocardial infarction Congestive heart failure (< 1 month) History of inflammatory bowel disease Medical patient at bed rest Age 61-74 Arthroscopic surgery Major open surgery (> 45 min) Laparoscopic surgery (> 45 min) Malignancy Confined to bed (> 72 hours) Immobilizing plaster cast Central venous access Age >= 75 History of VTE Family history of VTE Factor V Leiden Prothrombin [id number] Lupus anticoagulant Anticardiolipin antibodies Elevated serum homocysteine Heparin-induced thrombocytopenia Other congenital or acquired thrombophilia Stroke (< 1 month) Elective arthroplasty Hip, pelvis, or leg fracture Acute spinal cord injury (< 1 month) Prophylaxis Regimen Total Risk Factor Score Risk Level Prophylaxis Regimen 0-1 Low Early ambulation 2 Moderate Order ONE of the following: *Sequential Compression Device (SCD) *Heparin 5000 units SQ BID 3-4 Higher Order ONE of the following medications: *Heparin 5000 units SQ TID *Enoxaparin/Lovenox 40 mg SQ daily (WT < 150 kg, CrCl > 30 mL/min) *Enoxaparin/Lovenox 30 mg SQ daily (WT < 150 kg, CrCl > 10-29 mL/min) *Enoxaparin/Lovenox 30 mg SQ BID (WT < 150 kg, CrCl > 30 mL/min) AND/OR *Sequential Compression Device (SCD) 5 or more Highest Order ONE of the following medications: *Heparin 5000 units SQ TID (Preferred with Epidurals) *Enoxaparin/Lovenox 40 mg SQ daily (WT < 150 kg, CrCl > 30 mL/min) *Enoxaparin/Lovenox 30 mg SQ daily (WT < 150 kg, CrCl > 10-29 mL/min) *Enoxaparin/Lovenox 30 mg SQ BID (WT < 150 kg, CrCl > 30 mL/min) AND *Sequential Compression Device (SCD) Assessment and Plan Problem List: (1) Intractable pain ICD Code: R52 - Pain, unspecified (2) Cervical spinal stenosis ICD Code: M48.02 - Spinal stenosis, cervical region Status: Acute (3) Hydrocephalus ICD Code: G91.9 - Hydrocephalus, unspecified (4) DM (diabetes mellitus) ICD Code: E11.9 - Type 2 diabetes mellitus without complications Assessment and Plan A/P: 1. Intractable Pain: c/o severe neck pain, s/p Toradol, Morphine IV x2, Norflex and Zofran in ER w/ minimal improvement. Continue w/ analgesics/ antiemetics as needed. 2. Cervical Spine Stenosis: CT C-spine w/ significant spinal stenosis C4-C7, MRI C-spine with similar findings, stenosis most significant at C3-C4 and C4-C5 , images reviewed by me. In light of severe stenosis and intractable pain, will consult Neurosurgery for further evaluation/intervention. Analgesics/ antiemetics as needed. 3. Hydrocephalus: CT Head w/ prominent ventricles, possible normal pressure hydrocephalus, images reviewed by me. Does report gait instability w/ recurrent falls in the last few weeks. Consult NxSx as above. PT for eval/tx. 4. DM: Sliding scale w/ Accu-Cheks. 5. DVT Prophylaxis: SCD/Teds. 6. Social work for d/c planning as needed. 7. Case discussed w/ ER physician at length, labs/records/imaging reviewed by me. Arlene Russell MD Dec 03, 2017 22:04
[2017-12-03 22:37] LABS: AUTOMATED NEUTROPHIL # 5.8 TH/MM3 (1.8-7.7); BASOPHIL % 0.5 % (0.0-2.0); EOSINOPHIL % 0.6 % (0.0-4.0); HEMATOCRIT 41.6 % (39.0-51.0); HEMOGLOBIN 14.5 GM/DL (13.0-17.0); LYMPH % 14.4 % (9.0-44.0); LYMPHOCYTE # 1.1 TH/MM3 (1.0-4.8); MEAN CELL VOLUME 90.4 FL (80.0-100.0); MEAN CORPUSCULAR HEMOGLOBIN 31.6 PG (27.0-34.0); MEAN CORPUSCULAR HGB CONC 34.9 % (32.0-36.0); MEAN PLATELET VOLUME 8.3 FL (7.0-11.0); MONO % 8.2 % (0.0-8.0); MONOCYTE # 0.6 TH/MM3 (0-0.9); NEUT % 76.3 % (16.0-70.0); PLATELET COUNT 179 TH/MM3 (150-450); RED CELL DISTRIBUTION WIDTH 12.8 % (11.6-17.2); WHITE BLOOD COUNT 7.6 TH/MM3 (4.0-11.0)
[2017-12-03 22:51] LABS: BICARBONATE 26.6 MEQ/L (21.0-32.0); CALCIUM 8.5 MG/DL (8.5-10.1); CREATININE 0.71 MG/DL (0.60-1.30)
--- NOTE | 2017-12-03 23:14 | RADRPT ---
EXAM DATE/TIME: 12/03/2017 22:34 [facility] COMPARISON: No previous studies available for comparison. INDICATIONS : Pain. Abnormal CT scan. MEDICAL HISTORY : Renal calculi. SURGICAL HISTORY : Total knee replacement, right. Discectomy, lumbar. Lithotripsy ENCOUNTER: Initial ACUITY: 1 day PAIN SCORE: 10/10 LOCATION: Bilateral neck region. TECHNIQUE: Multiplanar, multisequence MRI examination of the cervical spine was performed. FINDINGS: VERTEBRAE: Normal vertebral body height. Homogeneous marrow signal. ALIGNMENT: No evidence of subluxation. CORD: Normal configuration and signal. POST FOSSA: The cerebellar tonsils are normal in position. C2-C3: The thecal sac has a normal configuration. There is no evidence of disc herniation or spinal canal s tenosis. The neural foramina are patent bilaterally. C3-C4: Moderate interspace ridging is present with minimal spinal stenosis and mild bilateral neural foramin a encroachment. C4-C5: Moderate interspace ridging is present obliterating the anterior thecal space compression or cord. T here is moderate bilateral neural foramina encroachment. This is worse on the right than the left. C5-C6: Mild to moderate uncinate ridging is present with moderate bilateral neural foramen encroachment. C6-C7: Moderate uncinate ridging is present with obliteration of the thecal space and bilateral neural kendra cami encroachment. C7-T1: The thecal sac has a normal configuration. There is no evidence of disc herniation or spinal canal s tenosis. The neural foramina are patent bilaterally. CONCLUSION: Moderate spinal stenosis as described above. The signal intensity in the cervical cord is normal. Th e most significant stenosis is at the C3-C4 and C4-C5 levels. Pierce Roche MD FACR on December 03, 2017 at 23:09 Board Certified Radiologist. This report was verified electronically.
[2017-12-04] MEDS ORDERED: DEXTROSE 50% IN WATER 50 ML VIAL(D50) IV PUSH PRN (00:15)
[2017-12-04] MEDS ORDERED: GLUCAGON 1 MG/ML VIAL OTHER PRN (00:15)
[2017-12-04 00:20] VITALS: BP 110/58; PULSE 66; RESP 16; TEMP 96.1; O2SAT 95
[2017-12-04] MEDS: ACETAMINOPHEN/HYDROcodone 325 MG/5 MG TAB PO PRN ×3 (01:00→23:51)
[2017-12-04 03:07] VITALS: BP 110/60; PULSE 65; RESP 17; TEMP 97.9; O2SAT 95
[2017-12-04 07:55] VITALS: BP 119/61; PULSE 52; RESP 16; TEMP 97.5; O2SAT 95
[2017-12-04] MEDS: INSULIN ASPART SUPPLEMENTAL SCALE SQ SCH ×2 (08:00→12:00)
[2017-12-04 08:22] LABS: AUTOMATED NEUTROPHIL # 3.9 TH/MM3 (1.8-7.7); BASOPHIL % 0.4 % (0.0-2.0); EOSINOPHIL # 0.1 TH/MM3 (0-0.4); EOSINOPHIL % 1.3 % (0.0-4.0); HEMATOCRIT 40.1 % (39.0-51.0); HEMOGLOBIN 14.1 GM/DL (13.0-17.0); LYMPH % 24.3 % (9.0-44.0); LYMPHOCYTE # 1.4 TH/MM3 (1.0-4.8); MEAN CELL VOLUME 90.6 FL (80.0-100.0); MEAN CORPUSCULAR HEMOGLOBIN 31.8 PG (27.0-34.0); MEAN CORPUSCULAR HGB CONC 35.1 % (32.0-36.0); MEAN PLATELET VOLUME 8.4 FL (7.0-11.0); MONO % 8.9 % (0.0-8.0); MONOCYTE # 0.5 TH/MM3 (0-0.9); NEUT % 65.1 % (16.0-70.0); PLATELET COUNT 169 TH/MM3 (150-450); RED BLOOD COUNT 4.43 MIL/MM3 (4.50-5.90); RED CELL DISTRIBUTION WIDTH 12.7 % (11.6-17.2); WHITE BLOOD COUNT 5.9 TH/MM3 (4.0-11.0)
[2017-12-04 08:49] LABS: ALBUMIN 3.2 GM/DL (3.4-5.0); ALT (GPT) 18 U/L (12-78); AST (GOT) 19 U/L (15-37); BICARBONATE 26.2 MEQ/L (21.0-32.0); BLOOD UREA NITROGEN 17 MG/DL (7-18); CALCIUM 8.7 MG/DL (8.5-10.1); CHLORIDE 105 MEQ/L (98-107); CREATININE 0.64 MG/DL (0.60-1.30); GLOMERULAR FILTRATION RATE 123 ML/MIN (>89); GLUCOSE,RANDOM 93 MG/DL (74-106); SODIUM (NA) 141 MEQ/L (136-145)
[2017-12-04 08:51] LABS: ALKALINE PHOSPHATASE 98 U/L (45-117); TOTAL BILIRUBIN ADULT 0.4 MG/DL (0.2-1.0); TOTAL PROTEIN 6.3 GM/DL (6.4-8.2)
[2017-12-04] MEDS: DOCUSATE SODIUM 50 MG/SENNA 8.6 MG TAB PO SCH ×2 (09:37→21:00)
[2017-12-04] MEDS: FUROSEMIDE 20 MG TAB PO SCH (09:37)
[2017-12-04] MEDS: FINASTERIDE 5 MG TAB PO SCH (09:37)
[2017-12-04] MEDS: lamoTRIgine 100 MG TAB PO SCH (09:38)
[2017-12-04] MEDS: PRIMIDONE 50 MG TAB PO SCH ×2 (09:38→23:30)
[2017-12-04] MEDS: TOLTERODINE TARTRATE 2 MG CAP LA PO SCH (09:38)
[2017-12-04] MEDS: SODIUM CHLORIDE 0.9% FLUSH 10 ML FLUSH IV FLUSH SCH ×2 (09:39→23:25)
[2017-12-04] MEDS: SERTRALINE HCL 100 MG TAB PO SCH ×2 (09:40→23:31)
[2017-12-04 11:31] VITALS: BP 117/57; PULSE 54; RESP 16; TEMP 97.7; O2SAT 94
--- NOTE | 2017-12-04 14:10 | PD.CONS ---
History of Present Illness Service Neurosurgery Consult Requested By [facility] Reason for Consult Possible normal-pressure hydrocephalus and cervical stenosis Primary Care Physician Sherita Ramos MD Diagnoses: History of Present Illness 72-year-old gentleman with a two-year history of unsteady gait with frequent falls along with the urinary urgency and incontinence. He denies any significant short-term memory loss her dementia. He relates that he was admitted a month ago for his unsteadiness and falls and went to rehabilitation and has been in assisted living facility for the last 3 days. Yesterday he had the severe neck pain and spasms prompting him to come to the emergency room for further evaluation. He has a chronic neck pain and low back pain with a remote history of a 2 lumbar laminectomies when he states his L3 to L5 levels. Workup included a CT scan of the head which reveals a moderate ventriculomegaly and concern for normal-pressure hydrocephalus. He also had a CT of cervical spine a subsequent MRI scan which reveals moderate cervical stenosis involving C3-4 and C4-5 level although no cord compression along with multilevel degenerative changes. Review of Systems Constitutional: DENIES: Diaphoretic episodes, Fatigue, Fever, Weight gain, Weight loss, Chills, Dizziness, Change in appetite, Night Sweats Endocrine: DENIES: Heat/cold intolerance, Polydipsia, Polyuria, Polyphagia Eyes: DENIES: Blurred vision, Diplopia, Eye inflammation, Eye pain, Vision loss , Photosensitivity, Double Vision Ears, nose, mouth, throat: DENIES: Tinnitus, Hearing loss, Vertigo, Nasal discharge, Oral lesions, Throat pain, Hoarseness, Ear Pain, Running Nose, Epistaxis, Sinus Pain, Toothache, Odynophagia Respiratory: DENIES: Apneas, Cough, Snoring, Wheezing, Hemoptysis, Sputum production, Shortness of breath Cardiovascular: DENIES: Chest pain, Palpitations, Syncope, Dyspnea on Exertion , PND, Lower Extremity Edema, Orthopnea, Claudication Gastrointestinal: DENIES: Abdominal pain, Black stools, Bloody stools, Constipation, Diarrhea, Nausea, Vomiting, Difficulty Swallowing, Anorexia Genitourinary: COMPLAINS OF: Urinary frequency, Urinary incontinence, Urgency, DENIES: Sexual dysfunction, Hematuria, Dysuria, Nocturia, Penile Discharge, Testicular Pain, Testicular Swelling Musculoskeletal: COMPLAINS OF: Joint pain, Muscle aches, Stiffness, Back pain, Neck pain, DENIES: Joint Swelling Integumentary: DENIES: Abnormal pigmentation, Nail changes, Pruritus, Rash Hematologic/lymphatic: DENIES: Bruising, Lymphadenopathy Immunologic/allergic: DENIES: Eczema, Urticaria Neurologic: COMPLAINS OF: Abnormal gait, Poor Balance, DENIES: Headache, Localized weakness, Paresthesias, Seizures, Speech Problems, Tremor Psychiatric: DENIES: Anxiety, Confusion, Mood changes, Depression, Hallucinations, Agitation, Suicidal Ideation, Homicidal Ideation, Delusions Except as stated in HPI: all other systems reviewed are Neg Past Family Social History Allergies: Coded Allergies: No Known Allergies (Verified Adverse Reaction, Unknown, 10/07/17) Past Medical History HTN, DM, CHF with the 25-30% ejection fraction on recent echocardiogram and followed by Dr. Garza from a cardiology, and Seizure Disorder Past Surgical History Right knee surgery, Spinal Surgeryx2 involving L3-5 laminectomies initially in the 1970s and subsequently , Lithotripsy, Trigger Finger Surgery bilaterally for Dupuytren's contractures Reported Medications Gnp Senna Plus 8.6-50 mg (Sennosides-Docusate Sodium) 8.6 Mg-50 Mg Tab 1 Tab PO BID Atorvastatin (Atorvastatin Calcium) 40 Mg Tab 40 Mg PO HS Sertraline (Sertraline HCl) 100 Mg Tab 100 Mg PO BID Lamotrigine 100 Mg Tab 100 Mg PO DAILY Lisinopril 2.5 Mg Tab 2.5 Mg PO DAILY Metformin (Metformin HCl) 500 Mg Tab 500 Mg PO BIDPC Furosemide 20 Mg Tab 20 Mg PO DAILY Primidone 50 Mg Tab 200 Mg PO BID Oxybutynin ER 24 HR (Oxybutynin Chloride) 5 Mg Tab 5 Mg PO DAILY Proscar (Finasteride) 5 Mg Tab 5 Mg PO DAILY Family History Noncontributory Social History He is and resides in assisted living facility. No smoking history and drinks alcohol on an occasional basis. Physical Exam Vital Signs Vital Signs Date Time Temp Pulse Resp B/P (MAP) Pulse Ox O2 Delivery O2 Flow Rate FiO2 12/04/17 11:31 97.7 54 16 117/57 (77) 94 12/04/17 07:55 97.5 52 16 119/61 (80) 95 12/04/17 03:07 97.9 65 17 110/60 (77) 95 12/04/17 00:20 96.1 66 16 110/58 (75) 95 12/03/17 20:15 98.1 84 16 118/76 (90) 97 Physical Exam GENERAL: This is a well-nourished, well-developed patient, in no apparent distress laying in stretcher in the emergency room eating lunch. SKIN: No rashes, ecchymoses or lesions. Cool and dry. HEAD: Atraumatic. Normocephalic. No temporal or scalp tenderness. EYES: Pupils equal round and reactive. Extraocular motions intact. No scleral icterus. No injection or drainage. ENT: Nose without bleeding, purulent drainage or septal hematoma. Throat without erythema, tonsillar hypertrophy or exudate. Uvula midline. Airway patent. NECK: Trachea midline. No JVD or lymphadenopathy. Restriction in range of motion especially with extension and rotation. CARDIOVASCULAR: Regular rate and rhythm without murmurs, gallops, or rubs. RESPIRATORY: Clear to auscultation. Breath sounds equal bilaterally. No wheezes , rales, or rhonchi. GASTROINTESTINAL: Abdomen soft, non-tender, nondistended. No hepato-splenomegaly , or palpable masses. No guarding. MUSCULOSKELETAL: Extremities without clubbing, cyanosis, or edema. No joint tenderness, effusion, or edema noted. No calf tenderness. Negative Homans sign bilaterally. He has Dupuytren's contractures in his hands bilaterally. NEUROLOGICAL: Awake and alert. Cranial nerves II through XII intact. Motor and sensory grossly within normal limits with contractures from Dinesh Broderick surgery in his hands and generalized weakness. Normal speech. His gait is very magnetic with very short shuffled steps and requires assistance to ambulate. Negative [facility] Laboratory Tests Test 12/03/17 22:20 12/04/17 07:25 White Blood Count 7.6 5.9 Red Blood Count 4.60 4.43 Hemoglobin 14.5 14.1 Hematocrit 41.6 40.1 Mean Corpuscular Volume 90.4 90.6 Mean Corpuscular Hemoglobin 31.6 31.8 Mean Corpuscular Hemoglobin Concent 34.9 35.1 Red Cell Distribution Width 12.8 12.7 Platelet Count 179 169 Mean Platelet Volume 8.3 8.4 Neutrophils (%) (Auto) 76.3 65.1 Lymphocytes (%) (Auto) 14.4 24.3 Monocytes (%) (Auto) 8.2 8.9 Eosinophils (%) (Auto) 0.6 1.3 Basophils (%) (Auto) 0.5 0.4 Neutrophils # (Auto) 5.8 3.9 Lymphocytes # (Auto) 1.1 1.4 Monocytes # (Auto) 0.6 0.5 Eosinophils # (Auto) 0.0 0.1 Basophils # (Auto) 0.0 0.0 CBC Comment DIFF FINAL DIFF FINAL Differential Comment Blood Urea Nitrogen 16 17 Creatinine 0.71 0.64 Random Glucose 114 93 Calcium Level 8.5 8.7 Sodium Level 140 141 Potassium Level 3.8 3.4 Chloride Level 105 105 Carbon Dioxide Level 26.6 26.2 Anion Gap 8 10 Estimat Glomerular Filtration Rate 109 123 Total Protein 6.3 Albumin 3.2 Alkaline Phosphatase 98 Aspartate Amino Transf (AST/SGOT) 19 Alanine Aminotransferase (ALT/SGPT) 18 Total Bilirubin 0.4 Result Diagram: 12/04/17 0725 12/04/17 0725 Imaging Last Impressions Head CT 12/03/17 0000 Signed Impressions: Service Date/Time: Sunday, December 03, 2017 21:19 - CONCLUSION: Prominent but stable ventricles. Normal pressure hydrocephalus should be excluded clinically. Pierce Roche MD FACR Cervical Spine MRI 12/03/17 0000 Signed Impressions: Service Date/Time: Sunday, December 03, 2017 22:34 - CONCLUSION: Moderate spinal stenosis as described above. The signal intensity in the cervical cord is normal. The most significant stenosis is at the C3-C4 and C4-C5 levels. Pierce Roche MD FACR Cervical Spine CT 12/03/17 0000 Signed Impressions: Service Date/Time: Sunday, December 03, 2017 21:19 - CONCLUSION: Significant degenerative changes and uncinate ridging. Spinal stenosis is severe from C4-C7. MRI may be of benefit. Pierce Roche MD FACR Assessment and Plan Assessment and Plan 1. 72 year-old gentleman with a 2 year history of progressively worsening gait with falls and urinary urgency and incontinence. CT scan of the head and clinical exam consistent with the possibility of normal pressure hydrocephalus. 2. Acute and chronic neck pain with a multilevel cervical stenosis and a moderate range although no myelopathy. 3. Congestive heart failure with the limited ejection fraction 25-30%. 4. Diabetes mellitus. 5. Hypertension. I would recommending obtaining cardiology opinion regarding suitability for any surgical intervention prior to undertaking further workup for his possible normal pressure hydrocephalus. If he is cleared from a cardiac standpoint and I would recommend that temporary lumbar spinal drainage per special procedures radiology. And if temporary lumbar spinal drainage does provide improvement particular his gait then he would be a candidate for ventriculoperitoneal shunt placement. Recommend pain management and physical therapy for the cervical spine stenosis and degenerative changes and associated neck pain for now. Tim Acharya MD Dec 04, 2017 14:10
--- NOTE | 2017-12-04 14:27 | HHI.PR ---
Subjective Remarks Deferred entry, the patient was seen earlier at 11:30 AM. Patient c/o neck pain 6/10 in intensity Neck pain started yesterday Denies cp/sob Denies arm or leg weakness states has had urinary incontinence and difficulty ambulating for some time. Objective Vitals Vital Signs Date Time Temp Pulse Resp B/P (MAP) Pulse Ox O2 Delivery O2 Flow Rate FiO2 12/04/17 11:31 97.7 54 16 117/57 (77) 94 12/04/17 07:55 97.5 52 16 119/61 (80) 95 12/04/17 03:07 97.9 65 17 110/60 (77) 95 12/04/17 00:20 96.1 66 16 110/58 (75) 95 12/03/17 20:15 98.1 84 16 118/76 (90) 97 Result Diagram: 12/04/17 0725 12/04/17 0725 Imaging Last Impressions Head CT 12/03/17 0000 Signed Impressions: Service Date/Time: Sunday, December 03, 2017 21:19 - CONCLUSION: Prominent but stable ventricles. Normal pressure hydrocephalus should be excluded clinically. Pierce Roche MD FACR Cervical Spine MRI 12/03/17 0000 Signed Impressions: Service Date/Time: Sunday, December 03, 2017 22:34 - CONCLUSION: Moderate spinal stenosis as described above. The signal intensity in the cervical cord is normal. The most significant stenosis is at the C3-C4 and C4-C5 levels. Pierce Roche MD FACR Cervical Spine CT 12/03/17 0000 Signed Impressions: Service Date/Time: Sunday, December 03, 2017 21:19 - CONCLUSION: Significant degenerative changes and uncinate ridging. Spinal stenosis is severe from C4-C7. MRI may be of benefit. Pierce Roche MD FACR Objective Remarks GENERAL: Pleasant elderly male in no acute distress. HEENT: PERRLA, EOMI. No scleral icterus or conjunctival pallor. No lid lag or facial droop. CARDIOVASCULAR: Regular rate and rhythm. No obvious murmurs to auscultation. No chest tenderness to palpation. RESPIRATORY: No obvious rhonchi or wheezing. Clear to auscultation. Breath sounds equal bilaterally. GASTROINTESTINAL: Abdomen soft, non-tender, nondistended. BS normal. MUSCULOSKELETAL: Extremities without clubbing, cyanosis, or edema. No obvious deformities. Decreased ROM of c-spine due to pain. NEUROLOGICAL: Awake, alert and oriented x4. No focal neurologic deficits. Moving both upper and lower extremities spontaneously. Medications and IVs Current Medications Medications (Trade) Dose Ordered Sig/Regino Route Start Time Stop Time Status Last Admin (NS Flush) 2 ml UNSCH PRN IV FLUSH 12/03/17 22:00 (NS Flush) 2 ml BID IV FLUSH 12/04/17 09:00 12/04/17 09:39 (Zofran Inj) 4 mg Q6H PRN IVP 12/03/17 22:00 (Tylenol) 650 mg Q6H PRN PO 12/03/17 22:00 ([place] 5-325 Mg) 1 tab Q4H PRN PO 12/03/17 22:00 12/04/17 09:38 (Morphine Inj) 2 mg Q3H PRN IV PUSH 12/03/17 22:00 (Ivelisse-Colace) 1 tab BID PO 12/04/17 09:00 12/04/17 09:37 (Milk Of Magnesia Liq) 30 ml Q12H PRN PO 12/03/17 22:00 (Senokot) 17.2 mg Q12H PRN PO 12/03/17 22:00 (Dulcolax Supp) 10 mg DAILY PRN RECTAL 12/03/17 22:00 (Lactulose Liq) 30 ml DAILY PRN PO 12/03/17 22:00 (D50w (Vial) Inj) 50 ml UNSCH PRN IV PUSH 12/04/17 00:15 (Glucagon Inj) 1 mg UNSCH PRN OTHER 12/04/17 00:15 (NovoLOG SUPPLEMENTAL SCALE) 1 ACHS SLIDING SCALE SQ 12/04/17 08:00 (Lipitor) 40 mg HS PO 12/04/17 21:00 (Proscar) 5 mg DAILY PO 12/04/17 09:00 12/04/17 09:37 (Lasix) 20 mg DAILY PO 12/04/17 09:00 12/04/17 09:37 (LaMICtal) 100 mg DAILY PO 12/04/17 09:00 12/04/17 09:38 (Mysoline) 200 mg BID PO 12/04/17 09:00 4/7/18 09:38 (Zoloft) 100 mg BID PO 12/04/17 09:00 12/04/17 09:40 (Detrol La) 2 mg DAILY PO 12/04/17 09:00 12/04/17 09:38 A/P Problem List: (1) Intractable pain ICD Code: R52 - Pain, unspecified (2) Cervical spinal stenosis ICD Code: M48.02 - Spinal stenosis, cervical region Status: Acute (3) Hydrocephalus ICD Code: G91.9 - Hydrocephalus, unspecified (4) DM (diabetes mellitus) ICD Code: E11.9 - Type 2 diabetes mellitus without complications Assessment and Plan 1. Intractable Pain: c/o severe neck pain, s/p Toradol, Morphine IV x2, Norflex and Zofran in ER w/ minimal improvement. Continue w/ analgesics/ antiemetics as needed. 12/04 pain is better controlled. Continue pain control as above. 2. Cervical Spine Stenosis: CT C-spine w/ significant spinal stenosis C4-C7, MRI C-spine with similar findings, stenosis most significant at C3-C4 and C4-C5 , images reviewed by me. In light of severe stenosis and intractable pain, will consult Neurosurgery for further evaluation/intervention. Analgesics/ antiemetics as needed. 12/04 neurosurgery consult pending. 3. Hydrocephalus: CT Head w/ prominent ventricles, possible normal pressure hydrocephalus, images reviewed by me. Does report gait instability w/ recurrent falls in the last few weeks. Consult NxSx as above. PT for eval/tx. 12/04 consult neurology. 4. DM: Sliding scale w/ Accu-Cheks. 5. DVT Prophylaxis: SCD/Teds. 6. Social work for d/c planning as needed. Discharge Planning pending neurosurgery and neurology consult Radames Chow MD Dec 04, 2017 14:27
[2017-12-04] MEDS ORDERED: PILL SPLITTER OTHER PRN (14:45)
[2017-12-04] MEDS ORDERED: POTASSIUM CHLORIDE 10 MEQ CONTROLLED RELEASE TAB PO ONE (15:00)
[2017-12-04 15:57] VITALS: BP 112/58; PULSE 69; RESP 18; TEMP 97.5; O2SAT 96
[2017-12-04 20:00] VITALS: BP 129/60; PULSE 70; RESP 17; TEMP 98; O2SAT 95
[2017-12-04] MEDS: ATORVASTATIN 40 MG TAB PO SCH (23:31)
[2017-12-05 00:08] VITALS: BP 113/67; PULSE 64; RESP 16; TEMP 96; O2SAT 95
[2017-12-05 04:45] VITALS: BP 120/60; PULSE 55; RESP 18; TEMP 97.3; O2SAT 97
[2017-12-05 08:00] VITALS: BP 116/72; PULSE 53; RESP 17; TEMP 97.6; O2SAT 99
[2017-12-05] MEDS: TOLTERODINE TARTRATE 2 MG CAP LA PO SCH (09:16)
[2017-12-05] MEDS: FUROSEMIDE 20 MG TAB PO SCH (09:16)
[2017-12-05] MEDS: lamoTRIgine 100 MG TAB PO SCH (09:17)
[2017-12-05] MEDS: FINASTERIDE 5 MG TAB PO SCH (09:17)
[2017-12-05] MEDS: SERTRALINE HCL 100 MG TAB PO SCH ×2 (09:17→23:30)
[2017-12-05] MEDS: LISINOPRIL 5 MG TAB PO SCH (09:17)
[2017-12-05] MEDS: DOCUSATE SODIUM 50 MG/SENNA 8.6 MG TAB PO SCH ×2 (09:17→23:30)
[2017-12-05] MEDS: SODIUM CHLORIDE 0.9% FLUSH 10 ML FLUSH IV FLUSH SCH ×2 (09:18→23:29)
[2017-12-05] MEDS: PRIMIDONE 50 MG TAB PO SCH ×2 (09:18→23:29)
--- NOTE | 2017-12-05 10:27 | HHI.PR ---
Subjective Remarks Patient states neck pain is better controlled however it is very bad when he moves. Denies upper or lower extremity weakness. vs stable Objective Vitals Vital Signs Date Time Temp Pulse Resp B/P (MAP) Pulse Ox O2 Delivery O2 Flow Rate FiO2 12/05/17 08:00 97.6 53 17 116/72 (87) 99 12/05/17 04:45 97.3 55 18 120/60 (80) 97 12/05/17 00:08 96.0 64 16 113/67 (82) 95 12/04/17 20:00 98.0 70 17 129/60 (83) 95 12/04/17 15:57 97.5 69 18 112/58 (76) 96 12/04/17 11:31 97.7 54 16 117/57 (77) 94 Result Diagram: 12/04/17 0725 12/04/17 0725 Imaging Last Impressions Head CT 12/03/17 0000 Signed Impressions: Service Date/Time: Sunday, December 03, 2017 21:19 - CONCLUSION: Prominent but stable ventricles. Normal pressure hydrocephalus should be excluded clinically. Pierce Roche MD FACR Cervical Spine MRI 12/03/17 0000 Signed Impressions: Service Date/Time: Sunday, December 03, 2017 22:34 - CONCLUSION: Moderate spinal stenosis as described above. The signal intensity in the cervical cord is normal. The most significant stenosis is at the C3-C4 and C4-C5 levels. Pierce Roche MD FACR Cervical Spine CT 12/03/17 0000 Signed Impressions: Service Date/Time: Sunday, December 03, 2017 21:19 - CONCLUSION: Significant degenerative changes and uncinate ridging. Spinal stenosis is severe from C4-C7. MRI may be of benefit. Pierce Roche MD FACR Objective Remarks GENERAL: Pleasant elderly male in no acute distress. HEENT: PERRLA, EOMI. No scleral icterus or conjunctival pallor. No lid lag or facial droop. CARDIOVASCULAR: Regular rate and rhythm. No obvious murmurs to auscultation. No chest tenderness to palpation. RESPIRATORY: No obvious rhonchi or wheezing. Clear to auscultation. Breath sounds equal bilaterally. GASTROINTESTINAL: Abdomen soft, non-tender, nondistended. BS normal. MUSCULOSKELETAL: Extremities without clubbing, cyanosis, or edema. No obvious deformities. Decreased ROM of c-spine due to pain. NEUROLOGICAL: Awake, alert and oriented x4. No focal neurologic deficits. Moving both upper and lower extremities spontaneously. Procedures none Medications and IVs Current Medications Medications (Trade) Dose Ordered Sig/Regino Route Start Time Stop Time Status Last Admin (NS Flush) 2 ml UNSCH PRN IV FLUSH 12/03/17 22:00 (NS Flush) 2 ml BID IV FLUSH 12/04/17 09:00 12/05/17 09:18 (Zofran Inj) 4 mg Q6H PRN IVP 12/03/17 22:00 (Tylenol) 650 mg Q6H PRN PO 12/03/17 22:00 ([place] 5-325 Mg) 1 tab Q4H PRN PO 12/03/17 22:00 12/04/17 23:51 (Morphine Inj) 2 mg Q3H PRN IV PUSH 12/03/17 22:00 (Ivelisse-Colace) 1 tab BID PO 12/04/17 09:00 12/05/17 09:17 (Milk Of Magnesia Liq) 30 ml Q12H PRN PO 12/03/17 22:00 (Senokot) 17.2 mg Q12H PRN PO 12/03/17 22:00 (Dulcolax Supp) 10 mg DAILY PRN RECTAL 12/03/17 22:00 (Lactulose Liq) 30 ml DAILY PRN PO 12/03/17 22:00 (Lipitor) 40 mg HS PO 12/04/17 21:00 12/04/17 23:31 (Proscar) 5 mg DAILY PO 12/04/17 09:00 12/05/17 09:17 (Lasix) 20 mg DAILY PO 12/04/17 09:00 12/05/17 09:16 (LaMICtal) 100 mg DAILY PO 12/04/17 09:00 12/05/17 09:17 (Mysoline) 200 mg BID PO 12/04/17 09:00 12/05/17 09:18 (Zoloft) 100 mg BID PO 12/04/17 09:00 12/05/17 09:17 (Detrol La) 2 mg DAILY PO 12/04/17 09:00 12/05/17 09:16 (Prinivil) 2.5 mg DAILY PO 12/05/17 09:00 12/05/17 09:17 (Pill Splitter) 1 ea UNSCH PRN OTHER 12/04/17 14:45 A/P Problem List: (1) Intractable pain ICD Code: R52 - Pain, unspecified (2) Cervical spinal stenosis ICD Code: M48.02 - Spinal stenosis, cervical region Status: Acute (3) Hydrocephalus ICD Code: G91.9 - Hydrocephalus, unspecified (4) DM (diabetes mellitus) ICD Code: E11.9 - Type 2 diabetes mellitus without complications (5) Hypokalemia ICD Code: E87.6 - Hypokalemia Assessment and Plan 1. Intractable Pain: c/o severe neck pain, s/p Toradol, Morphine IV x2, Norflex and Zofran in ER w/ minimal improvement. Continue w/ analgesics/ antiemetics as needed. 12/05 Pain is better controlled. Continue pain control as above. 2. Cervical Spine Stenosis: CT C-spine w/ significant spinal stenosis C4-C7, MRI C-spine with similar findings, stenosis most significant at C3-C4 and C4-C5 , images reviewed by me. In light of severe stenosis and intractable pain, will consult Neurosurgery for further evaluation/intervention. Analgesics/ antiemetics as needed. 12/05 neurosurgery recommends obtaining a cardiology opinion regarding suitability for any surgical intervention prior to undertaking further workup for his possible normal pressure hydrocephalus. If patient is cleared from medical standpoint then neurosurgery recommends that a temporary lumbar spinal drainage per special procedures radiology be placed. If temporary lumbar spinal drainage provides improvement in particular of his gait then he will be a candidate for ventricular peritoneal shunt placement. Recommend splint management for which the patient will be referred to. Consult PT as per neurosurgery recommendations. Patient sees Dr. Garza as an outpatient. We will consult him. 3. Hydrocephalus: CT Head w/ prominent ventricles, possible normal pressure hydrocephalus, images reviewed by me. Does report gait instability w/ recurrent falls in the last few weeks. Consult NxSx as above. PT for eval/tx. 12/05 as above. 4. DM: Sliding scale w/ Accu-Cheks. 5. DVT Prophylaxis: SCD/Teds. 6. Social work for d/c planning as needed. 10. Hypokalemia: Status post oral replacement. Check BMP. Replace as needed. 11. Hypertension: Continue lisinopril. BP stable. Monitor vital signs. 12. Seizure disorder: No seizures reported. Continue Lamictal. 13 chronic systolic heart failure. Not an exacerbation. Continue PRAKASH inhibitor and diuretics. 14. Depression: Seems to be stable. Continue Zoloft. Discharge Planning Pending cardiology consultation. Radames Chow MD Dec 05, 2017 10:27
[2017-12-05 11:44] LABS: BICARBONATE 28.2 MEQ/L (21.0-32.0); CALCIUM 8.7 MG/DL (8.5-10.1); CREATININE 0.72 MG/DL (0.60-1.30)
[2017-12-05 12:00] VITALS: BP 120/59; PULSE 64; RESP 16; TEMP 98.6; O2SAT 94
--- NOTE | 2017-12-05 12:31 | MB ---
cc: Froy Garza MD DATE: 12/05/2017 INDICATION: Cardiomyopathy. HISTORY OF PRESENT ILLNESS: This is a 72-year-old gentleman, history of hypertension, diabetes, congestive heart failure with reduced ejection fraction of 25% and seizure disorder, came from assisted living facility with neck pain. He also has associated gait disturbance and generalized weakness. Hemodynamically, seemed to do well. CT of the head did show prominent but stable ventricles with a concern for normal pressure hydrocephalus. Neurosurgery was consulted for further workup related to possibility for normal pressure hydrocephalus and wanted us to get involved for clearance for whether or not he would be a candidate for a ventriculoperitoneal shunt placement. PAST MEDICAL HISTORY: Hypertension, diabetes, nonischemic cardiomyopathy, ejection fraction 25%, seizure disorder. ALLERGIES: NO KNOWN DRUG ALLERGIES. FAMILY HISTORY: Denies any family history of early coronary artery disease or sudden cardiac . SOCIAL HISTORY: Denies any tobacco, alcohol or drug use. REVIEW OF SYSTEMS: A 12-point review of system was performed, negative unless otherwise noted in history of present illness. PHYSICAL EXAMINATION: VITAL SIGNS: Temperature 97, pulse of 53, blood pressure 116/72 mmHg. GENERAL: Alert and oriented x 3, no acute distress. HEENT: Shows pupils reactive to light and accomodation. Extraocular movements are intact. NECK: No elevation of jugular venous distention. No thyromegaly, no lymphadenopathy, no carotid bruits. LUNGS: Clear to auscultation bilaterally. CARDIOVASCULAR: Regular rate and rhythm without murmurs, rubs or gallops. ABDOMEN: Nontender, nondistended with good bowel sounds. No hepatosplenomegaly. EXTREMITIES: Show no clubbing, cyanosis or edema. Good peripheral pulses. NEUROLOGIC: Cranial nerves intact. Motor and sensory grossly intact. LABORATORY DATA: WBC 5.9, hemoglobin 14.1, platelet count is 169. Sodium 140, potassium 3.8, BUN is 14, creatinine 0.72. ASSESSMENT: 1. Neck pain, concern for normal pressure hydrocephalus. 2. History of cardiomyopathy. 3. Hypertension. PLAN: The patient from a cardiomyopathy and congestive heart failure standpoint is very well compensated. No signs or symptoms of overt heart failure. He is an intermediate risk, but cleared from a cardiac perspective to proceed with any necessary invasive procedures. Cardiac catheterization performed back in 03/2017 showed mild nonobstructive coronary disease and his cardiomyopathy is consistent with a nonischemic etiology. Monitor fluid balance and try to avoid aggressive hydration. The patient has slightly low heart rate but no AV juan r blocking agents and he is asymptomatic. Any further questions, please feel free to call. We will sign off. MD ASHWINI Mosher/SB , 11:54 AM , 12:30 PM
[2017-12-05] MEDS ORDERED: SODIUM CHLOR 0.45% 1000 ML INJ 1,000 ML IV SCH (12:46)
[2017-12-05] MEDS ORDERED: ceFAZolin 2 GM PREMIX 50 ML IV SCH (13:00)
[2017-12-05 15:48] LABS: PROTHROMBIN TIME - PATIENT 10.4 SEC (9.8-11.6)
[2017-12-05 16:00] VITALS: BP 115/58; PULSE 67; RESP 16; TEMP 98.6; O2SAT 96
--- NOTE | 2017-12-05 16:37 | HHI.NSPN ---
(Aftab Silverio) History Chief Complaint: Unsteady gait urinary urgency with incontinence. (Aftab Silverio) Interval History 72-year-old gentleman with a two-year history of unsteady gait with frequent falls along with the urinary urgency and incontinence. He denies any significant short-term memory loss her dementia. He relates that he was admitted a month ago for his unsteadiness and falls and went to rehabilitation and has been in assisted living facility for the last 3 days. Yesterday he had the severe neck pain and spasms prompting him to come to the emergency room for further evaluation. He has a chronic neck pain and low back pain with a remote history of a 2 lumbar laminectomies when he states his L3 to L5 levels. Workup included a CT scan of the head which reveals a moderate ventriculomegaly and concern for normal-pressure hydrocephalus. He also had a CT of cervical spine a subsequent MRI scan which reveals moderate cervical stenosis involving C3-4 and C4-5 level although no cord compression along with multilevel degenerative changes. 12/05/17: Pt awake and alert. Resting in bed. We discussed a temporary lumbar spinal drain and he agrees with that. He complains of unsteady gait and urinary urgency and incontinence but no terrell incontinence. (Aftab Silverio) Review of Systems General: Negative for: fever, chills, insomnia Respiratory: Negative for: shortness of breath, cough, sputum Cardiovascular: Negative for: chest pain Gastrointestinal: Negative for: nausea, vomitting, diarrhea, constipation ( Aftab Silverio) Exam Results Vital Signs Date Time Temp Pulse Resp B/P (MAP) Pulse Ox O2 Delivery O2 Flow Rate FiO2 12/05/17 16:00 98.6 67 16 115/58 (77) 96 Intake and Output 12/05/17 12/05/17 12/05/17 07:59 15:59 23:59 Output Total 300 ml Balance -300 ml (Aftab Silverio) Physical Examination General: Pt resting in bed in NAD. Eyes: Pupils equal. Sclera anicteric Resp: CTA bilaterally Heart: NSR no murmurs Abd: Soft positive bs. Skin: No cyanosis or erythema. Muscle: Moves all 4 extremities with good strength Neuro: Pt awake and alert. Pupils 3mm bilaterally reactive bilaterally. Follows commands well. Speech clear and appropriate. (Aftab Silverio) Lab, Micro, Other Results Last Impressions Head CT 12/03/17 0000 Signed Impressions: Service Date/Time: Sunday, December 03, 2017 21:19 - CONCLUSION: Prominent but stable ventricles. Normal pressure hydrocephalus should be excluded clinically. Pierce Roche MD FACR Cervical Spine MRI 12/03/17 0000 Signed Impressions: Service Date/Time: Sunday, December 03, 2017 22:34 - CONCLUSION: Moderate spinal stenosis as described above. The signal intensity in the cervical cord is normal. The most significant stenosis is at the C3-C4 and C4-C5 levels. Pierce Roche MD FACR Cervical Spine CT 12/03/17 0000 Signed Impressions: Service Date/Time: Sunday, December 03, 2017 21:19 - CONCLUSION: Significant degenerative changes and uncinate ridging. Spinal stenosis is severe from C4-C7. MRI may be of benefit. Pierce Roche MD FACR Laboratory Tests Test 12/05/17 10:56 12/05/17 15:18 Blood Urea Nitrogen 14 MG/DL Creatinine 0.72 MG/DL Random Glucose 102 MG/DL Calcium Level 8.7 MG/DL Sodium Level 140 MEQ/L Potassium Level 3.8 MEQ/L Chloride Level 105 MEQ/L Carbon Dioxide Level 28.2 MEQ/L Anion Gap 7 MEQ/L Estimat Glomerular Filtration Rate 108 ML/MIN Prothrombin Time 10.4 SEC Prothromb Time International Ratio 1.0 RATIO Activated Partial Thromboplast Time 27.3 SEC 12/05/17 12/05/17 12/06/17 14:59 22:59 06:59 Output Total 300 ml Balance -300 ml Output Urine Total 300 ml (Aftab Silverio) Medical Decision Making Impression and Plan 1. 72 year-old gentleman with a 2 year history of progressively worsening gait with falls and urinary urgency and incontinence. CT scan of the head and clinical exam consistent with the possibility of normal pressure hydrocephalus. 2. Acute and chronic neck pain with a multilevel cervical stenosis and a moderate range although no myelopathy. 3. Congestive heart failure with the limited ejection fraction 25-30%. 4. Diabetes mellitus. 5. Hypertension. P: Temporary lumbar spinal drain placement. Discussed with pt and he understands the procedure. Procedure will be done by radiology special procedures. Order for drain have been written. (Aftab Silverio) Attending Statement The exam, history, and the medical decision-making described in the above note were completed with the assistance of the mid-level provider. I reviewed and agree with the findings presented. I attest that I had a [id number] encounter with the patient on the same day, and personally performed and documented my assessment and findings in the medical record. (Tim Acharya MD) Aftab Silverio Dec 05, 2017 16:37 Tim Acharya MD Dec 05, 2017 21:19
[2017-12-05] MEDS: ATORVASTATIN 40 MG TAB PO SCH (23:30)
[2017-12-05] MEDS: ACETAMINOPHEN/HYDROcodone 325 MG/5 MG TAB PO PRN (23:31)
[2017-12-05 23:49] VITALS: BP 118/61; PULSE 71; RESP 18; TEMP 98.4; O2SAT 93
[2017-12-06] VITALS (8 sets, daily range): BP systolic 116–131; BP diastolic 58–71; PULSE 56–73; RESP 16–20; TEMP 97.4–98; O2SAT 94–99
[2017-12-06] MEDS: PRIMIDONE 50 MG TAB PO SCH ×2 (10:28→20:53)
[2017-12-06] MEDS: SODIUM CHLORIDE 0.9% FLUSH 10 ML FLUSH IV FLUSH SCH ×2 (10:29→21:06)
[2017-12-06] MEDS: TOLTERODINE TARTRATE 2 MG CAP LA PO SCH (10:29)
[2017-12-06] MEDS: DOCUSATE SODIUM 50 MG/SENNA 8.6 MG TAB PO SCH ×2 (10:29→20:54)
[2017-12-06] MEDS: FUROSEMIDE 20 MG TAB PO SCH (10:29)
[2017-12-06] MEDS: lamoTRIgine 100 MG TAB PO SCH (10:29)
[2017-12-06] MEDS: SERTRALINE HCL 100 MG TAB PO SCH ×2 (10:30→20:54)
[2017-12-06] MEDS: FINASTERIDE 5 MG TAB PO SCH (10:30)
[2017-12-06] MEDS: LISINOPRIL 5 MG TAB PO SCH (10:30)
[2017-12-06] MEDS ORDERED: MIDAZOLAM HCL 2 MG/2 ML VIAL ONE (11:23)
--- NOTE | 2017-12-06 12:27 | RADRPT ---
EXAM DATE/TIME: 12/06/2017 11:42 [facility] COMPARISON: No previous studies available for comparison. INDICATIONS : Patient with a history of possible normal pressure hydrocephalus. MEDICAL HISTORY : HTN Diabetic Seizure disorder CHF SURGIAL HISTORY : Spinal surgery Lithotripsy Trigger finger surgery ENCOUNTER: Initial ACUITY: 2 days PAIN SCORE: 8/10 LOCATION: Neck LUMBAR PUNCTURE TIME: 1134 hours FLUORO TIME: 2.1 minutes IMAGE SERIES: 3 SEDATION TIME: 30 minutes LEVEL: Tip of lumbar drain was placed at T10 OPENING PRESSURE: 11.5 cm of water MEDICATION(S): 1.) 2 mg midazolam (Versed) IV 2.) 100 mcg fentanyl (Sublimaze) IV 3.) 2 g cefazolin (Ancef) IV Intra-procedural antibiotics were given as prescribed above. DEVICE(S): 1.) 5 Wolof lumbar drain catheter PROCEDURE : 1. Fluoroscopically guided lumbar drain placement. 2. Conscious sedation with continuous EKG and oximetry monitoring. The risks, benefits and alternatives to the procedure were explained and verbal and written consent w as obtained. The site was prepped in sterile fashion. Full sterile technique was used, including ca p, mask, sterile gloves and gown and a large sterile sheet. Hand hygiene and 2% chlorhexidine and/or betadine/alcohol prep was utilized per protocol for cutaneous antisepsis. The skin and subcutaneous tissues were infiltrated with local anesthetic solution. With fluoroscopic guidance the lumbar thecal sac was punctured with a 14 gauge Touhy needle and a lum bar drain was placed with its tip at the level as described above and the catheter was sutured in mauri ce. CSF was identified returning from the catheter at the termination of the procedure. Conscious sedation was performed with the prescribed dosages and duration as above in the presence of an independent trained radiology nurse to assist in the monitoring of the patient. EKG and oximetry remained stable throughout the procedure. The patient tolerated the procedure well and there were n o complications. The patient was sent to post anesthesia recovery in stable condition. CONCLUSION: 1. Uncomplicated lumbar drain placement as above. 2. Difficulty expressing CSF despite well-positioned needle at the L3-4 level. Suspect spinal stenosi s at this level. Consider lumbar MRI examination as clinically appropriate. Dennis Alegre MD on December 06, 2017 at 12:23 Board Certified Radiologist. This report was verified electronically.
[2017-12-06] MEDS: ACETAMINOPHEN/HYDROcodone 325 MG/5 MG TAB PO PRN ×2 (15:08→20:53)
--- NOTE | 2017-12-06 17:31 | HHI.PR ---
Subjective Remarks sp temporary lumbar drain placement c/o severe neck pain with movement - pain is 5/10 when lying still. Patient still concerned about his neck pain Objective Vitals Vital Signs Date Time Temp Pulse Resp B/P (MAP) Pulse Ox O2 Delivery O2 Flow Rate FiO2 12/06/17 16:18 97.4 64 18 117/58 (77) 98 12/06/17 16:14 18 12/06/17 13:15 57 16 118/63 (81) 95 12/06/17 12:45 56 18 122/63 (82) 94 12/06/17 12:15 58 18 117/62 (80) 94 12/06/17 12:00 64 18 128/71 (90) 96 12/06/17 07:20 97.7 69 16 131/69 (89) 99 12/06/17 03:54 97.4 61 18 116/71 (86) 96 12/05/17 23:49 98.4 71 18 118/61 (80) 93 I/O 12/05/17 12/05/17 12/05/17 12/06/17 12/06/17 12/06/17 07:00 15:00 23:00 07:00 15:00 23:00 Intake Total 50 ml Output Total 700 ml Balance -700 ml 50 ml Intake IV Total 50 ml Output Urine Total 700 ml # Voids 2 1 # Bowel Movements 1 Result Diagram: 12/04/17 0725 12/05/17 1056 Imaging Last Impressions Lumbar Puncture Fluoroscopy 12/06/17 0600 Signed Impressions: Service Date/Time: Wednesday, December 06, 2017 11:42 - CONCLUSION: 1. Uncomplicated lumbar drain placement as above. 2. Difficulty expressing CSF despite well-positioned needle at the L3-4 level. Suspect spinal stenosis at this level. Consider lumbar MRI examination as clinically appropriate. Dennis Alegre MD Head CT 12/03/17 0000 Signed Impressions: Service Date/Time: Sunday, December 03, 2017 21:19 - CONCLUSION: Prominent but stable ventricles. Normal pressure hydrocephalus should be excluded clinically. Pierce Roche MD FACR Cervical Spine MRI 12/03/17 0000 Signed Impressions: Service Date/Time: Sunday, December 03, 2017 22:34 - CONCLUSION: Moderate spinal stenosis as described above. The signal intensity in the cervical cord is normal. The most significant stenosis is at the C3-C4 and C4-C5 levels. Pierce Roche MD FACR Cervical Spine CT 12/03/17 0000 Signed Impressions: Service Date/Time: Sunday, December 03, 2017 21:19 - CONCLUSION: Significant degenerative changes and uncinate ridging. Spinal stenosis is severe from C4-C7. MRI may be of benefit. Pierce Roche MD FACR Objective Remarks GENERAL: Pleasant elderly male in no acute distress. HEENT: PERRLA, EOMI. No scleral icterus or conjunctival pallor. No lid lag or facial droop. CARDIOVASCULAR: Regular rate and rhythm. No obvious murmurs to auscultation. No chest tenderness to palpation. RESPIRATORY: No obvious rhonchi or wheezing. Clear to auscultation. Breath sounds equal bilaterally. GASTROINTESTINAL: Abdomen soft, non-tender, nondistended. BS normal. MUSCULOSKELETAL: Extremities without clubbing, cyanosis, or edema. No obvious deformities. Decreased ROM of c-spine due to pain. NEUROLOGICAL: Awake, alert and oriented x4. No focal neurologic deficits. Moving both upper and lower extremities spontaneously. Procedures none Medications and IVs Current Medications Medications (Trade) Dose Ordered Sig/Regino Route Start Time Stop Time Status Last Admin (NS Flush) 2 ml UNSCH PRN IV FLUSH 12/03/17 22:00 (NS Flush) 2 ml BID IV FLUSH 12/04/17 09:00 12/06/17 10:29 (Zofran Inj) 4 mg Q6H PRN IVP 12/03/17 22:00 (Tylenol) 650 mg Q6H PRN PO 12/03/17 22:00 ([place] 5-325 Mg) 1 tab Q4H PRN PO 12/03/17 22:00 12/06/17 15:08 (Morphine Inj) 2 mg Q3H PRN IV PUSH 12/03/17 22:00 (Ivelisse-Colace) 1 tab BID PO 12/04/17 09:00 12/06/17 10:29 (Milk Of Magnesia Liq) 30 ml Q12H PRN PO 12/03/17 22:00 (Senokot) 17.2 mg Q12H PRN PO 12/03/17 22:00 (Dulcolax Supp) 10 mg DAILY PRN RECTAL 12/03/17 22:00 (Lactulose Liq) 30 ml DAILY PRN PO 12/03/17 22:00 (Lipitor) 40 mg HS PO 12/04/17 21:00 12/05/17 23:30 (Proscar) 5 mg DAILY PO 12/04/17 09:00 12/06/17 10:30 (Lasix) 20 mg DAILY PO 12/04/17 09:00 12/06/17 10:29 (LaMICtal) 100 mg DAILY PO 12/04/17 09:00 12/06/17 10:29 (Mysoline) 200 mg BID PO 12/04/17 09:00 12/06/17 10:28 (Zoloft) 100 mg BID PO 12/04/17 09:00 12/06/17 10:30 (Detrol La) 2 mg DAILY PO 12/04/17 09:00 12/06/17 10:29 (Prinivil) 2.5 mg DAILY PO 12/05/17 09:00 12/06/17 10:30 (Pill Splitter) 1 ea UNSCH PRN OTHER 12/04/17 14:45 Sodium Chloride 1,000 ml @ 0 mls/hr Q0M IV 12/05/17 12:46 Cefazolin Sodium/ Dextrose 50 ml @ 100 mls/hr [employer] IV 12/05/17 13:00 12/09/17 12:59 12/06/17 11:34 A/P Problem List: (1) Intractable pain ICD Code: R52 - Pain, unspecified (2) Cervical spinal stenosis ICD Code: M48.02 - Spinal stenosis, cervical region Status: Acute (3) Hydrocephalus ICD Code: G91.9 - Hydrocephalus, unspecified (4) DM (diabetes mellitus) ICD Code: E11.9 - Type 2 diabetes mellitus without complications (5) Hypokalemia ICD Code: E87.6 - Hypokalemia Assessment and Plan 1. Intractable Pain: c/o severe neck pain, s/p Toradol, Morphine IV x2, Norflex and Zofran in ER w/ minimal improvement. Continue w/ analgesics/ antiemetics as needed. 12/06 Patient still c/o significant neck pain. I will start the patient on a fentanyl patch 25 mcg. Continue [facility] and morphine sulfate as needed. 2. Cervical Spine Stenosis: CT C-spine w/ significant spinal stenosis C4-C7, MRI C-spine with similar findings, stenosis most significant at C3-C4 and C4-C5 , images reviewed by me. In light of severe stenosis and intractable pain, will consult Neurosurgery for further evaluation/intervention. Analgesics/ antiemetics as needed. 12/06 appreciate cardiology consultation recommendations. The patient has been cleared for further procedures needed. The patient underwent temporary lumbar drain placement today. We will follow-up response. Will follow up neurosurgery recommendations. 3. Hydrocephalus: CT Head w/ prominent ventricles, possible normal pressure hydrocephalus, images reviewed by me. Does report gait instability w/ recurrent falls in the last few weeks. Consult NxSx as above. PT for eval/tx. 4. DM: Sliding scale w/ Accu-Cheks. 5. DVT Prophylaxis: SCD/Teds. 6. Social work for d/c planning as needed. 10. Hypokalemia: Status post oral replacement. Check BMP. Replace as needed. 11. Hypertension: Continue lisinopril. BP stable. Monitor vital signs. 12. Seizure disorder: No seizures reported. Continue Lamictal. 13 chronic systolic heart failure. Not an exacerbation. Continue PRAKASH inhibitor and diuretics. 14. Depression: Seems to be stable. Continue Zoloft. Discharge Planning Pending cardiology consultation. Radames Chow MD Dec 06, 2017 17:31
[2017-12-06] MEDS: fentaNYL 25 MCG/HR PATCH T-DERMAL SCH (18:33)
[2017-12-06] MEDS: ATORVASTATIN 40 MG TAB PO SCH (20:54)
[2017-12-07] VITALS: BP 123/67; PULSE 65; RESP 20; TEMP 98.6; O2SAT 97
[2017-12-07 04:00] VITALS: BP 143/67; PULSE 73; RESP 20; TEMP 97.8; O2SAT 96
[2017-12-07] MEDS: ACETAMINOPHEN/HYDROcodone 325 MG/5 MG TAB PO PRN ×2 (04:43→10:40)
[2017-12-07] MEDS: MORPHINE SULFATE 2 MG/ML SYRINGE IV PUSH PRN ×3 (05:42→20:28)
[2017-12-07] MEDS ORDERED: PRIM250T (08:02)
[2017-12-07] MEDS: TOLTERODINE TARTRATE 2 MG CAP LA PO SCH (08:03)
[2017-12-07] MEDS: PRIMIDONE 50 MG TAB PO SCH (08:04)
[2017-12-07] MEDS: SERTRALINE HCL 100 MG TAB PO SCH ×2 (08:04→20:29)
[2017-12-07] MEDS: LISINOPRIL 5 MG TAB PO SCH (08:05)
[2017-12-07] MEDS: lamoTRIgine 100 MG TAB PO SCH (08:05)
[2017-12-07] MEDS: FUROSEMIDE 20 MG TAB PO SCH (08:05)
[2017-12-07] MEDS: FINASTERIDE 5 MG TAB PO SCH (08:05)
[2017-12-07] MEDS: DOCUSATE SODIUM 50 MG/SENNA 8.6 MG TAB PO SCH ×2 (08:09→20:29)
[2017-12-07] MEDS: SODIUM CHLORIDE 0.9% FLUSH 10 ML FLUSH IV FLUSH SCH ×2 (08:11→20:28)
[2017-12-07 08:18] VITALS: BP 121/61; PULSE 78; RESP 18; TEMP 97.6; O2SAT 95
--- NOTE | 2017-12-07 10:52 | HHI.NSPN ---
(Aftab Silverio) History Chief Complaint: Unsteady gait urinary urgency with incontinence. (Aftab Silverio) Interval History 72-year-old gentleman with a two-year history of unsteady gait with frequent falls along with the urinary urgency and incontinence. He denies any significant short-term memory loss her dementia. He relates that he was admitted a month ago for his unsteadiness and falls and went to rehabilitation and has been in assisted living facility for the last 3 days. Yesterday he had the severe neck pain and spasms prompting him to come to the emergency room for further evaluation. He has a chronic neck pain and low back pain with a remote history of a 2 lumbar laminectomies when he states his L3 to L5 levels. Workup included a CT scan of the head which reveals a moderate ventriculomegaly and concern for normal-pressure hydrocephalus. He also had a CT of cervical spine a subsequent MRI scan which reveals moderate cervical stenosis involving C3-4 and C4-5 level although no cord compression along with multilevel degenerative changes. 12/05/17: Pt awake and alert. Resting in bed. We discussed a temporary lumbar spinal drain and he agrees with that. He complains of unsteady gait and urinary urgency and incontinence but no terrell incontinence. 12/07/17: Pt had lumbar spinal drain placed by radiology yesterday. He states he had headache last night but okay this morning. He states he is drinking fluids. No IV maintenance running. (Aftab Silverio) Review of Systems General: Negative for: fever, chills, insomnia Respiratory: Negative for: shortness of breath, cough, sputum Cardiovascular: Negative for: chest pain Gastrointestinal: Negative for: nausea, vomitting, diarrhea, constipation ( Aftab Silverio) Exam Results Vital Signs Date Time Temp Pulse Resp B/P (MAP) Pulse Ox O2 Delivery O2 Flow Rate FiO2 12/07/17 08:18 97.6 78 18 121/61 (81) 95 Intake and Output 12/07/17 12/07/17 12/08/17 08:00 16:00 00:00 Intake Total 60 ml Output Total 430 ml Balance -370 ml (Aftab Silverio) Physical Examination General: Pt resting in bed in NAD. Eyes: Pupils equal. Sclera anicteric Resp: CTA bilaterally Heart: NSR no murmurs Abd: Soft positive bs. Skin: No cyanosis or erythema. Muscle: Moves all 4 extremities with good strength Neuro: Pt awake and alert. Pupils 3mm bilaterally reactive bilaterally. Follows commands well. Speech clear and appropriate. (Aftab Silverio) Lab, Micro, Other Results Last Impressions Lumbar Puncture Fluoroscopy 12/06/17 0600 Signed Impressions: Service Date/Time: Wednesday, December 06, 2017 11:42 - CONCLUSION: 1. Uncomplicated lumbar drain placement as above. 2. Difficulty expressing CSF despite well-positioned needle at the L3-4 level. Suspect spinal stenosis at this level. Consider lumbar MRI examination as clinically appropriate. Dennis Alegre MD Head CT 12/03/17 0000 Signed Impressions: Service Date/Time: Sunday, December 03, 2017 21:19 - CONCLUSION: Prominent but stable ventricles. Normal pressure hydrocephalus should be excluded clinically. Pierce Roche MD FACR Cervical Spine MRI 12/03/17 0000 Signed Impressions: Service Date/Time: Sunday, December 03, 2017 22:34 - CONCLUSION: Moderate spinal stenosis as described above. The signal intensity in the cervical cord is normal. The most significant stenosis is at the C3-C4 and C4-C5 levels. Pierce Roche MD FACR Cervical Spine CT 12/03/17 0000 Signed Impressions: Service Date/Time: Sunday, December 03, 2017 21:19 - CONCLUSION: Significant degenerative changes and uncinate ridging. Spinal stenosis is severe from C4-C7. MRI may be of benefit. Pierce Roche MD FACR (Aftab Silverio) Medical Decision Making Impression and Plan 1. 72 year-old gentleman with a 2 year history of progressively worsening gait with falls and urinary urgency and incontinence. CT scan of the head and clinical exam consistent with the possibility of normal pressure hydrocephalus. 2. Acute and chronic neck pain with a multilevel cervical stenosis and a moderate range although no myelopathy. 3. Congestive heart failure with the limited ejection fraction 25-30%. 4. Diabetes mellitus. 5. Hypertension. P: Continue with lumbar spinal drain Start IVF maintenance at 60ml/hr PT oob assess gait. (Aftab Silverio) Attending Statement The exam, history, and the medical decision-making described in the above note were completed with the assistance of the mid-level provider. I reviewed and agree with the findings presented. I attest that I had a [id number] encounter with the patient on the same day, and personally performed and documented my assessment and findings in the medical record. (Tim Acharya MD) Aftab Silverio Dec 07, 2017 10:52 Tim Acharya MD Dec 07, 2017 13:45
--- NOTE | 2017-12-07 11:13 | HHI.PR ---
Subjective Remarks Follow-up cervical stenosis 12/07/17-patient seen and examined; reports some improvement of DIGGS or neck pain. Afebrile.Lumbar Drain with good output Objective Vitals Vital Signs Date Time Temp Pulse Resp B/P (MAP) Pulse Ox O2 Delivery O2 Flow Rate FiO2 12/07/17 08:18 97.6 78 18 121/61 (81) 95 12/07/17 04:00 97.8 73 20 143/67 (92) 96 12/07/17 00:00 98.6 65 20 123/67 (85) 97 12/07/17 00:00 98.6 65 20 123/67 (85) 97 12/06/17 20:00 98.0 73 20 120/70 (87) 96 12/06/17 20:00 98.0 73 20 120/70 (87) 96 12/06/17 16:18 97.4 64 18 117/58 (77) 98 12/06/17 16:14 18 12/06/17 13:15 57 16 118/63 (81) 95 12/06/17 12:45 56 18 122/63 (82) 94 12/06/17 12:15 58 18 117/62 (80) 94 12/06/17 12:00 64 18 128/71 (90) 96 I/O 12/06/17 12/06/17 12/06/17 12/07/17 12/07/17 12/07/17 07:00 15:00 23:00 07:00 15:00 23:00 Intake Total 50 ml 60 ml Output Total 480 ml 430 ml Balance 50 ml -480 ml -370 ml Intake Oral 60 ml IV Total 50 ml Output Urine Total 400 ml 350 ml Drainage Total 80 ml 80 ml # Voids 1 # Bowel Movements 1 0 Result Diagram: 12/04/17 0725 12/05/17 1056 Imaging Last Impressions Lumbar Puncture Fluoroscopy 12/06/17 0600 Signed Impressions: Service Date/Time: Wednesday, December 06, 2017 11:42 - CONCLUSION: 1. Uncomplicated lumbar drain placement as above. 2. Difficulty expressing CSF despite well-positioned needle at the L3-4 level. Suspect spinal stenosis at this level. Consider lumbar MRI examination as clinically appropriate. Dennis Alegre MD Head CT 12/03/17 0000 Signed Impressions: Service Date/Time: Sunday, December 03, 2017 21:19 - CONCLUSION: Prominent but stable ventricles. Normal pressure hydrocephalus should be excluded clinically. Pierce Roche MD FACR Cervical Spine MRI 12/03/17 0000 Signed Impressions: Service Date/Time: Sunday, December 03, 2017 22:34 - CONCLUSION: Moderate spinal stenosis as described above. The signal intensity in the cervical cord is normal. The most significant stenosis is at the C3-C4 and C4-C5 levels. Pierce Roche MD FACR Cervical Spine CT 12/03/17 0000 Signed Impressions: Service Date/Time: Sunday, December 03, 2017 21:19 - CONCLUSION: Significant degenerative changes and uncinate ridging. Spinal stenosis is severe from C4-C7. MRI may be of benefit. Pierce Roche MD FACR Objective Remarks GENERAL: NAD SKIN: Warm and dry. HEAD: Normocephalic. EYES: No scleral icterus. No injection or drainage. NECK: Supple, trachea midline. No JVD or lymphadenopathy. CARDIOVASCULAR: Regular rate and rhythm without murmurs, gallops, or rubs. RESPIRATORY: Breath sounds equal bilaterally. No accessory muscle use. GASTROINTESTINAL: Abdomen soft, non-tender, nondistended. MUSCULOSKELETAL: No cyanosis, or edema. BACK: Nontender without obvious deformity. No CVA tenderness. lumbar drain in place Procedures none A/P Problem List: (1) Intractable pain ICD Code: R52 - Pain, unspecified (2) Cervical spinal stenosis ICD Code: M48.02 - Spinal stenosis, cervical region Status: Acute (3) Hydrocephalus ICD Code: G91.9 - Hydrocephalus, unspecified (4) DM (diabetes mellitus) ICD Code: E11.9 - Type 2 diabetes mellitus without complications (5) Hypokalemia ICD Code: E87.6 - Hypokalemia Assessment and Plan 72-year-old man with 1. Intractable pain and Cervical Spine Stenosis: CT C-spine w/ significant spinal stenosis C4-C7, MRI C-spine with similar findings, stenosis most significant at C3-C4 and C4-C5, Temporary lumbar drain placement 12/06/17 and monitor output Management per NSG Continue w/ analgesics/antiemetics/pain as needed Continue with IVF hydration 2. Hydrocephalus: CT Head w/ prominent ventricles, possible normal pressure hydrocephalus Management as in above PT for eval/tx. 3. DM: Sliding scale w/ Accu-Cheks. 4. DVT Prophylaxis: SCD/Teds. 5. Hypokalemia:Resolved Status post oral replacement. 6. Hypertension: Continue lisinopril. Monitor vital signs. 7. Seizure disorder: Continue Lamictal. 8 chronic systolic heart failure. Not an exacerbation. Continue PRAKASH inhibitor and diuretics. 9. Depression: Seems to be stable. Continue Zoloft. Aftab Orellana MD Dec 07, 2017 11:13
[2017-12-07] MEDS: SODIUM CHLOR 0.9% 1000 ML INJ 1,000 ML IV SCH (11:23)
[2017-12-07 12:00] VITALS: BP 116/55; PULSE 66; RESP 18; TEMP 97.8; O2SAT 97
[2017-12-07 16:36] VITALS: BP 121/58; PULSE 64; RESP 18; TEMP 97.5; O2SAT 94
[2017-12-07 20:00] VITALS: BP 113/58; PULSE 61; RESP 18; TEMP 98.2; O2SAT 96
[2017-12-07] MEDS: PRIMIDONE 250 MG TAB PO SCH (20:28)
[2017-12-07] MEDS: ATORVASTATIN 40 MG TAB PO SCH (20:28)
[2017-12-08] MEDS: MORPHINE SULFATE 2 MG/ML SYRINGE IV PUSH PRN (00:05)
[2017-12-08 00:15] VITALS: BP 118/59; PULSE 63; RESP 18; TEMP 97.5; O2SAT 99
[2017-12-08] MEDS: SODIUM CHLOR 0.9% 1000 ML INJ 1,000 ML IV SCH ×2 (03:19→20:00)
[2017-12-08 04:00] VITALS: BP 123/57; PULSE 63; RESP 18; TEMP 97.5; O2SAT 96
[2017-12-08] MEDS: DOCUSATE SODIUM 50 MG/SENNA 8.6 MG TAB PO SCH ×2 (09:00→20:02)
[2017-12-08] MEDS: SODIUM CHLORIDE 0.9% FLUSH 10 ML FLUSH IV FLUSH SCH ×2 (09:00→20:02)
[2017-12-08] MEDS: TOLTERODINE TARTRATE 2 MG CAP LA PO SCH (09:06)
[2017-12-08] MEDS: lamoTRIgine 100 MG TAB PO SCH (09:06)
[2017-12-08] MEDS: PRIMIDONE 250 MG TAB PO SCH ×2 (09:07→20:02)
[2017-12-08] MEDS: SERTRALINE HCL 100 MG TAB PO SCH ×2 (09:07→20:02)
[2017-12-08] MEDS: FUROSEMIDE 20 MG TAB PO SCH (09:07)
[2017-12-08] MEDS: FINASTERIDE 5 MG TAB PO SCH (09:07)
[2017-12-08] MEDS: LISINOPRIL 5 MG TAB PO SCH (09:08)
[2017-12-08 09:22] VITALS: BP 119/59; PULSE 62; RESP 20; TEMP 97.3; O2SAT 97
--- NOTE | 2017-12-08 10:04 | HHI.PR ---
Subjective Remarks Follow-up cervical stenosis 12/07/17-patient seen and examined; reports some improvement of DIGGS or neck pain. Afebrile.Lumbar Drain with good output 12/08/17-patient seen and examined, stable and no complaints, and no acute event overnight Objective Vitals Vital Signs Date Time Temp Pulse Resp B/P (MAP) Pulse Ox O2 Delivery O2 Flow Rate FiO2 12/08/17 09:22 97.3 62 20 119/59 (79) 97 12/08/17 04:00 97.5 63 18 123/57 (79) 96 12/08/17 00:15 97.5 63 18 118/59 (78) 99 12/07/17 20:00 98.2 61 18 113/58 (76) 96 12/07/17 16:36 97.5 64 18 121/58 (79) 94 12/07/17 12:00 97.8 66 18 116/55 (75) 97 12/07/17 11:36 16 12/07/17 11:36 16 I/O 12/07/17 12/07/17 12/07/17 12/08/17 12/08/17 12/08/17 07:00 15:00 23:00 07:00 15:00 23:00 Intake Total 60 ml 921 ml Output Total 430 ml 330 ml 550 ml Balance -370 ml -330 ml -550 ml 921 ml Intake Oral 60 ml IV Total 921 ml Output Urine Total 350 ml 250 ml 550 ml Drainage Total 80 ml 80 ml # Bowel Movements 0 0 Result Diagram: 12/04/17 0725 12/05/17 1056 Objective Remarks GENERAL: NAD SKIN: Warm and dry. HEAD: Normocephalic. EYES: No scleral icterus. No injection or drainage. NECK: Supple, trachea midline. No JVD or lymphadenopathy. CARDIOVASCULAR: Regular rate and rhythm without murmurs, gallops, or rubs. RESPIRATORY: Breath sounds equal bilaterally. No accessory muscle use. GASTROINTESTINAL: Abdomen soft, non-tender, nondistended. MUSCULOSKELETAL: No cyanosis, or edema. BACK: Nontender without obvious deformity. No CVA tenderness. lumbar drain in place Procedures none A/P Problem List: (1) Intractable pain ICD Code: R52 - Pain, unspecified (2) Cervical spinal stenosis ICD Code: M48.02 - Spinal stenosis, cervical region Status: Acute (3) Hydrocephalus ICD Code: G91.9 - Hydrocephalus, unspecified (4) DM (diabetes mellitus) ICD Code: E11.9 - Type 2 diabetes mellitus without complications (5) Hypokalemia ICD Code: E87.6 - Hypokalemia Assessment and Plan 72-year-old man with 1. Intractable pain and Cervical Spine Stenosis: CT C-spine w/ significant spinal stenosis C4-C7, MRI C-spine with similar findings, stenosis most significant at C3-C4 and C4-C5, Temporary lumbar drain placement 12/06/17 Management per NSG Continue w/ analgesics/antiemetics/pain as needed Continue with IVF hydration 2. Hydrocephalus: CT Head w/ prominent ventricles, possible normal pressure hydrocephalus Management as in above PT for eval/tx. 3. DM: Sliding scale w/ Accu-Cheks. 4. DVT Prophylaxis: SCD/Teds. 5. Hypokalemia:Resolved Status post oral replacement. 6. Hypertension: Continue lisinopril. Monitor vital signs. 7. Seizure disorder: Continue Lamictal. 8 chronic systolic heart failure. Not an exacerbation. Continue PRAKASH inhibitor and diuretics. 9. Depression: Continue Zoloft. Aftab Orellana MD Dec 08, 2017 10:04
[2017-12-08] MEDS: ACETAMINOPHEN/HYDROcodone 325 MG/5 MG TAB PO PRN (11:25)
[2017-12-08 12:12] VITALS: BP 158/69; PULSE 20; RESP 20; TEMP 98.1; O2SAT 96
[2017-12-08 15:35] VITALS: BP 121/57; PULSE 64; RESP 20; TEMP 98.1; O2SAT 99
--- NOTE | 2017-12-08 17:53 | HHI.NSPN ---
(Aftab Silverio) History Chief Complaint: Unsteady gait urinary urgency with incontinence. (Aftab Silverio) Interval History 72-year-old gentleman with a two-year history of unsteady gait with frequent falls along with the urinary urgency and incontinence. He denies any significant short-term memory loss her dementia. He relates that he was admitted a month ago for his unsteadiness and falls and went to rehabilitation and has been in assisted living facility for the last 3 days. Yesterday he had the severe neck pain and spasms prompting him to come to the emergency room for further evaluation. He has a chronic neck pain and low back pain with a remote history of a 2 lumbar laminectomies when he states his L3 to L5 levels. Workup included a CT scan of the head which reveals a moderate ventriculomegaly and concern for normal-pressure hydrocephalus. He also had a CT of cervical spine a subsequent MRI scan which reveals moderate cervical stenosis involving C3-4 and C4-5 level although no cord compression along with multilevel degenerative changes. 12/05/17: Pt awake and alert. Resting in bed. We discussed a temporary lumbar spinal drain and he agrees with that. He complains of unsteady gait and urinary urgency and incontinence but no terrell incontinence. 12/07/17: Pt had lumbar spinal drain placed by radiology yesterday. He states he had headache last night but okay this morning. He states he is drinking fluids. No IV maintenance running. 12/08/17: Pt with lumbar drain in place. He states he felt a little more steady with walking today with PT. He states his headaches are improved. (Aftab Silverio) Review of Systems General: Negative for: fever, chills, insomnia Respiratory: Negative for: shortness of breath, cough, sputum Cardiovascular: Negative for: chest pain Gastrointestinal: Negative for: nausea, vomitting, diarrhea, constipation ( Aftab Silverio) Exam Results Vital Signs Date Time Temp Pulse Resp B/P (MAP) Pulse Ox O2 Delivery O2 Flow Rate FiO2 12/08/17 15:35 98.1 64 20 121/57 (78) 99 Intake and Output 12/08/17 12/08/17 12/09/17 08:00 16:00 00:00 Intake Total 921 ml 600 ml Output Total 80 ml Balance 921 ml 520 ml (Aftab Silverio) Physical Examination General: Pt resting in bed in NAD. Eyes: Pupils equal. Sclera anicteric Resp: CTA bilaterally Heart: NSR no murmurs Abd: Soft positive bs. Skin: No cyanosis or erythema. Muscle: Moves all 4 extremities with good strength Neuro: Pt awake and alert. Pupils 3mm bilaterally reactive bilaterally. Follows commands well. Speech clear and appropriate. Lumbar spinal drain in place. (Aftab Silverio) Lab, Micro, Other Results Last Impressions Lumbar Puncture Fluoroscopy 12/06/17 0600 Signed Impressions: Service Date/Time: Wednesday, December 06, 2017 11:42 - CONCLUSION: 1. Uncomplicated lumbar drain placement as above. 2. Difficulty expressing CSF despite well-positioned needle at the L3-4 level. Suspect spinal stenosis at this level. Consider lumbar MRI examination as clinically appropriate. Dennis Alegre MD Head CT 12/03/17 0000 Signed Impressions: Service Date/Time: Sunday, December 03, 2017 21:19 - CONCLUSION: Prominent but stable ventricles. Normal pressure hydrocephalus should be excluded clinically. Pierce Roche MD FACR Cervical Spine MRI 12/03/17 0000 Signed Impressions: Service Date/Time: Sunday, December 03, 2017 22:34 - CONCLUSION: Moderate spinal stenosis as described above. The signal intensity in the cervical cord is normal. The most significant stenosis is at the C3-C4 and C4-C5 levels. Pierce Roche MD FACR Cervical Spine CT 12/03/17 0000 Signed Impressions: Service Date/Time: Sunday, December 03, 2017 21:19 - CONCLUSION: Significant degenerative changes and uncinate ridging. Spinal stenosis is severe from C4-C7. MRI may be of benefit. Pierce Roche MD FACR 12/08/17 12/08/17 12/09/17 15:00 23:00 07:00 Intake Total 600 ml Output Total 80 ml Balance -80 ml 600 ml Intake Oral 600 ml Drainage Total 80 ml # Voids 4 # Bowel Movements 0 (Aftab Silverio) Medical Decision Making Impression and Plan 1. 72 year-old gentleman with a 2 year history of progressively worsening gait with falls and urinary urgency and incontinence. CT scan of the head and clinical exam consistent with the possibility of normal pressure hydrocephalus. 2. Acute and chronic neck pain with a multilevel cervical stenosis and a moderate range although no myelopathy. 3. Congestive heart failure with the limited ejection fraction 25-30%. 4. Diabetes mellitus. 5. Hypertension. P: Continue with lumbar spinal drain Continue with IVF maintenance at 60ml/hr PT oob assess gait. (Aftab Silverio) Attending Statement The exam, history, and the medical decision-making described in the above note were completed with the assistance of the mid-level provider. I reviewed and agree with the findings presented. I attest that I had a [id number] encounter with the patient on the same day, and personally performed and documented my assessment and findings in the medical record. Patient relates improvement in his gait with lumbar drain. We'll discontinue drain tomorrow and he prefers to go home with home therapy rather than rehabilitation facility. (Tim Acharya MD) Aftab Silverio Dec 08, 2017 17:53 Tim Acharya MD Dec 08, 2017 18:30
[2017-12-08] MEDS: ATORVASTATIN 40 MG TAB PO SCH (20:02)
[2017-12-08 20:20] VITALS: BP 125/59; PULSE 69; RESP 16; TEMP 98.1; O2SAT 98
[2017-12-09] VITALS: BP 117/67; PULSE 66; RESP 17; TEMP 97; O2SAT 97
[2017-12-09 04:45] VITALS: BP 120/58; PULSE 64; RESP 16; TEMP 98; O2SAT 98
[2017-12-09 08:04] VITALS: BP 124/62; PULSE 61; RESP 20; TEMP 98.1; O2SAT 99
[2017-12-09] MEDS: PRIMIDONE 250 MG TAB PO SCH ×2 (08:27→21:17)
[2017-12-09] MEDS: SERTRALINE HCL 100 MG TAB PO SCH ×2 (08:27→21:17)
[2017-12-09] MEDS: FINASTERIDE 5 MG TAB PO SCH (08:27)
[2017-12-09] MEDS: TOLTERODINE TARTRATE 2 MG CAP LA PO SCH (08:27)
[2017-12-09] MEDS: lamoTRIgine 100 MG TAB PO SCH (08:27)
[2017-12-09] MEDS: DOCUSATE SODIUM 50 MG/SENNA 8.6 MG TAB PO SCH ×2 (08:28→21:00)
[2017-12-09] MEDS: LISINOPRIL 5 MG TAB PO SCH (08:28)
[2017-12-09] MEDS: FUROSEMIDE 20 MG TAB PO SCH (08:28)
[2017-12-09] MEDS: SODIUM CHLORIDE 0.9% FLUSH 10 ML FLUSH IV FLUSH SCH ×2 (08:30→21:00)
--- NOTE | 2017-12-09 10:13 | HHI.PR ---
Subjective Remarks Follow-up cervical stenosis 12/07/17-patient seen and examined; reports some improvement of DIGGS or neck pain. Afebrile.Lumbar Drain with good output 12/08/17-patient seen and examined, stable and no complaints, and no acute event overnight 12/09/17-patient seen and examined, reports improvement of back pain and patient did ambulate with assistance of PT yesterday in the hallway. Objective Vitals Vital Signs Date Time Temp Pulse Resp B/P (MAP) Pulse Ox O2 Delivery O2 Flow Rate FiO2 12/09/17 08:04 98.1 61 20 124/62 (82) 99 12/09/17 04:45 98.0 64 16 120/58 (78) 98 12/09/17 00:00 97.0 66 17 117/67 (84) 97 12/08/17 20:20 98.1 69 16 125/59 (81) 98 12/08/17 15:35 98.1 64 20 121/57 (78) 99 12/08/17 12:12 98.1 20 20 158/69 (98) 96 I/O 12/08/17 12/08/17 12/08/17 12/09/17 12/09/17 12/09/17 07:00 15:00 23:00 07:00 15:00 23:00 Intake Total 921 ml 1200 ml 800 ml Output Total 80 ml 80 ml 580 ml 780 ml 500 ml Balance 841 ml -80 ml 620 ml 20 ml -500 ml Intake Oral 1200 ml 800 ml IV Total 921 ml Output Urine Total 500 ml 700 ml 500 ml Drainage Total 80 ml 80 ml 80 ml 80 ml # Voids 4 # Bowel Movements 0 0 Result Diagram: 12/05/17 1056 Imaging Last Impressions Lumbar Puncture Fluoroscopy 12/06/17 0600 Signed Impressions: Service Date/Time: Wednesday, December 06, 2017 11:42 - CONCLUSION: 1. Uncomplicated lumbar drain placement as above. 2. Difficulty expressing CSF despite well-positioned needle at the L3-4 level. Suspect spinal stenosis at this level. Consider lumbar MRI examination as clinically appropriate. Dennis Alegre MD Head CT 12/03/17 0000 Signed Impressions: Service Date/Time: Sunday, December 03, 2017 21:19 - CONCLUSION: Prominent but stable ventricles. Normal pressure hydrocephalus should be excluded clinically. Pierce Roche MD FACR Cervical Spine MRI 12/03/17 0000 Signed Impressions: Service Date/Time: Sunday, December 03, 2017 22:34 - CONCLUSION: Moderate spinal stenosis as described above. The signal intensity in the cervical cord is normal. The most significant stenosis is at the C3-C4 and C4-C5 levels. Pierce Roche MD FACR Cervical Spine CT 12/03/17 0000 Signed Impressions: Service Date/Time: Sunday, December 03, 2017 21:19 - CONCLUSION: Significant degenerative changes and uncinate ridging. Spinal stenosis is severe from C4-C7. MRI may be of benefit. Pierce Roche MD FACR Objective Remarks GENERAL: NAD SKIN: Warm and dry. HEAD: Normocephalic. EYES: No scleral icterus. No injection or drainage. NECK: Supple, trachea midline. No JVD or lymphadenopathy. CARDIOVASCULAR: Regular rate and rhythm without murmurs, gallops, or rubs. RESPIRATORY: Breath sounds equal bilaterally. No accessory muscle use. GASTROINTESTINAL: Abdomen soft, non-tender, nondistended. MUSCULOSKELETAL: No cyanosis, or edema. BACK: Nontender without obvious deformity. No CVA tenderness. lumbar drain in place Procedures none A/P Problem List: (1) Intractable pain ICD Code: R52 - Pain, unspecified (2) Cervical spinal stenosis ICD Code: M48.02 - Spinal stenosis, cervical region Status: Acute (3) Hydrocephalus ICD Code: G91.9 - Hydrocephalus, unspecified (4) DM (diabetes mellitus) ICD Code: E11.9 - Type 2 diabetes mellitus without complications (5) Hypokalemia ICD Code: E87.6 - Hypokalemia Assessment and Plan 72-year-old man with 1. Intractable pain and Cervical Spine Stenosis: Improving CT C-spine w/ significant spinal stenosis C4-C7, MRI C-spine with similar findings, stenosis most significant at C3-C4 and C4-C5, Temporary lumbar drain placement 12/06/17 Management per NSG Continue w/ analgesics/antiemetics/pain as needed Continue with IVF hydration 2. Hydrocephalus: CT Head w/ prominent ventricles, possible normal pressure hydrocephalus Management as in above PT for eval/tx. 3. DM: Sliding scale w/ Accu-Cheks. 4. DVT Prophylaxis: SCD/Teds. 5. Hypokalemia:Resolved Status post oral replacement. 6. Hypertension: Continue lisinopril. 7. Seizure disorder: Continue Lamictal. 8 chronic systolic heart failure. Not an exacerbation. Continue PRAKASH inhibitor and diuretics. 9. Depression: Continue Zoloft. Aftab Orellana MD Dec 09, 2017 10:13
--- NOTE | 2017-12-09 10:35 | HHI.NSPN ---
(Aftab Silverio) History Chief Complaint: Unsteady gait urinary urgency with incontinence. (Aftab Silverio) Interval History 72-year-old gentleman with a two-year history of unsteady gait with frequent falls along with the urinary urgency and incontinence. He denies any significant short-term memory loss her dementia. He relates that he was admitted a month ago for his unsteadiness and falls and went to rehabilitation and has been in assisted living facility for the last 3 days. Yesterday he had the severe neck pain and spasms prompting him to come to the emergency room for further evaluation. He has a chronic neck pain and low back pain with a remote history of a 2 lumbar laminectomies when he states his L3 to L5 levels. Workup included a CT scan of the head which reveals a moderate ventriculomegaly and concern for normal-pressure hydrocephalus. He also had a CT of cervical spine a subsequent MRI scan which reveals moderate cervical stenosis involving C3-4 and C4-5 level although no cord compression along with multilevel degenerative changes. 12/05/17: Pt awake and alert. Resting in bed. We discussed a temporary lumbar spinal drain and he agrees with that. He complains of unsteady gait and urinary urgency and incontinence but no terrell incontinence. 12/07/17: Pt had lumbar spinal drain placed by radiology yesterday. He states he had headache last night but okay this morning. He states he is drinking fluids. No IV maintenance running. 12/08/17: Pt with lumbar drain in place. He states he felt a little more steady with walking today with PT. He states his headaches are improved. 12/09/17: Pt denies headache. No n/v. (Aftab Silverio) Review of Systems General: Negative for: fever, chills, insomnia Respiratory: Negative for: shortness of breath, cough, sputum Cardiovascular: Negative for: chest pain Gastrointestinal: Negative for: nausea, vomitting, diarrhea, constipation ( Aftab Silverio) Exam Results Vital Signs Date Time Temp Pulse Resp B/P (MAP) Pulse Ox O2 Delivery O2 Flow Rate FiO2 12/09/17 08:04 98.1 61 20 124/62 (82) 99 Intake and Output 12/09/17 12/09/17 12/10/17 08:00 16:00 00:00 Intake Total 800 ml Output Total 780 ml 500 ml Balance 20 ml -500 ml (Aftab Silverio) Physical Examination General: Pt resting in bed in NAD. Eyes: Pupils equal. Sclera anicteric Resp: CTA bilaterally Heart: NSR no murmurs Abd: Soft positive bs. Skin: No cyanosis or erythema. Muscle: Moves all 4 extremities with good strength Neuro: Pt awake and alert. Pupils 3mm bilaterally reactive bilaterally. Follows commands well. Speech clear and appropriate. Lumbar spinal drain in place. (Aftab Silverio) Lab, Micro, Other Results Last Impressions Lumbar Puncture Fluoroscopy 12/06/17 0600 Signed Impressions: Service Date/Time: Wednesday, December 06, 2017 11:42 - CONCLUSION: 1. Uncomplicated lumbar drain placement as above. 2. Difficulty expressing CSF despite well-positioned needle at the L3-4 level. Suspect spinal stenosis at this level. Consider lumbar MRI examination as clinically appropriate. Dennis Alegre MD Head CT 12/03/17 0000 Signed Impressions: Service Date/Time: Sunday, December 03, 2017 21:19 - CONCLUSION: Prominent but stable ventricles. Normal pressure hydrocephalus should be excluded clinically. Pierce Roche MD FACR Cervical Spine MRI 12/03/17 0000 Signed Impressions: Service Date/Time: Sunday, December 03, 2017 22:34 - CONCLUSION: Moderate spinal stenosis as described above. The signal intensity in the cervical cord is normal. The most significant stenosis is at the C3-C4 and C4-C5 levels. Pierce Roche MD FACR Cervical Spine CT 12/03/17 0000 Signed Impressions: Service Date/Time: Sunday, December 03, 2017 21:19 - CONCLUSION: Significant degenerative changes and uncinate ridging. Spinal stenosis is severe from C4-C7. MRI may be of benefit. Pierce Roche MD FACR 12/09/17 12/09/17 12/10/17 15:00 23:00 07:00 Output Total 500 ml Balance -500 ml Output Urine Total 500 ml (Aftab Silverio) Medical Decision Making Impression and Plan 1. 72 year-old gentleman with a 2 year history of progressively worsening gait with falls and urinary urgency and incontinence. CT scan of the head and clinical exam consistent with the possibility of normal pressure hydrocephalus. 2. Acute and chronic neck pain with a multilevel cervical stenosis and a moderate range although no myelopathy. 3. Congestive heart failure with the limited ejection fraction 25-30%. 4. Diabetes mellitus. 5. Hypertension. P: D/C lumbar drain after PT this morning. Discussed with PT and RN. Place steri strip at exit site of drain. Pt will be on bedrest for 6 hours after drain removed. (Aftab Silverio) Attending Statement The exam, history, and the medical decision-making described in the above note were completed with the assistance of the mid-level provider. I reviewed and agree with the findings presented. I attest that I had a [id number] encounter with the patient on the same day, and personally performed and documented my assessment and findings in the medical record. (Tim Acharya MD) Aftab Silverio Dec 09, 2017 10:35 Tim Acharya MD Dec 09, 2017 18:59
[2017-12-09 11:33] VITALS: BP 106/59; PULSE 70; RESP 20; TEMP 98.4; O2SAT 95
[2017-12-09] MEDS: SODIUM CHLOR 0.9% 1000 ML INJ 1,000 ML IV SCH (12:55)
[2017-12-09 15:01] VITALS: BP 109/56; PULSE 60; RESP 20; TEMP 98.5; O2SAT 96
[2017-12-09] MEDS: fentaNYL 25 MCG/HR PATCH T-DERMAL SCH (17:25)
[2017-12-09 20:00] VITALS: BP 122/63; PULSE 62; RESP 18; TEMP 98.1; O2SAT 98
[2017-12-09] MEDS: ATORVASTATIN 40 MG TAB PO SCH (21:17)
[2017-12-10] VITALS: BP 119/59; PULSE 64; RESP 18; TEMP 97.8; O2SAT 97
[2017-12-10 04:00] VITALS: BP 134/66; PULSE 56; RESP 18; TEMP 97.2; O2SAT 97
[2017-12-10] MEDS: SODIUM CHLOR 0.9% 1000 ML INJ 1,000 ML IV SCH (05:40)
[2017-12-10 08:00] VITALS: BP 121/58; PULSE 55; RESP 18; TEMP 97.3; O2SAT 98
[2017-12-10] MEDS: FINASTERIDE 5 MG TAB PO SCH (08:33)
[2017-12-10] MEDS: TOLTERODINE TARTRATE 2 MG CAP LA PO SCH (08:33)
[2017-12-10] MEDS: PRIMIDONE 250 MG TAB PO SCH (08:33)
[2017-12-10] MEDS: lamoTRIgine 100 MG TAB PO SCH (08:33)
[2017-12-10] MEDS: LISINOPRIL 5 MG TAB PO SCH (08:33)
[2017-12-10] MEDS: FUROSEMIDE 20 MG TAB PO SCH (08:34)
[2017-12-10] MEDS: DOCUSATE SODIUM 50 MG/SENNA 8.6 MG TAB PO SCH (08:34)
[2017-12-10] MEDS: SODIUM CHLORIDE 0.9% FLUSH 10 ML FLUSH IV FLUSH SCH (08:34)
[2017-12-10] MEDS: SERTRALINE HCL 100 MG TAB PO SCH (08:34)
--- NOTE | 2017-12-10 10:00 | HHI.NSPN ---
(Aftab Silverio) History Chief Complaint: Unsteady gait urinary urgency with incontinence. (Aftab Silverio) Interval History 72-year-old gentleman with a two-year history of unsteady gait with frequent falls along with the urinary urgency and incontinence. He denies any significant short-term memory loss her dementia. He relates that he was admitted a month ago for his unsteadiness and falls and went to rehabilitation and has been in assisted living facility for the last 3 days. Yesterday he had the severe neck pain and spasms prompting him to come to the emergency room for further evaluation. He has a chronic neck pain and low back pain with a remote history of a 2 lumbar laminectomies when he states his L3 to L5 levels. Workup included a CT scan of the head which reveals a moderate ventriculomegaly and concern for normal-pressure hydrocephalus. He also had a CT of cervical spine a subsequent MRI scan which reveals moderate cervical stenosis involving C3-4 and C4-5 level although no cord compression along with multilevel degenerative changes. 12/05/17: Pt awake and alert. Resting in bed. We discussed a temporary lumbar spinal drain and he agrees with that. He complains of unsteady gait and urinary urgency and incontinence but no terrell incontinence. 12/07/17: Pt had lumbar spinal drain placed by radiology yesterday. He states he had headache last night but okay this morning. He states he is drinking fluids. No IV maintenance running. 12/08/17: Pt with lumbar drain in place. He states he felt a little more steady with walking today with PT. He states his headaches are improved. 12/09/17: Pt denies headache. No n/v. 12/10/17: Pt denies headache. He states he is ready to go home. States gait has some improvement. (Aftab Silverio) Review of Systems General: Negative for: fever, chills, insomnia Respiratory: Negative for: shortness of breath, cough, sputum Cardiovascular: Negative for: chest pain Gastrointestinal: Negative for: nausea, vomitting, diarrhea, constipation ( Aftab Silverio) Exam Results Vital Signs Date Time Temp Pulse Resp B/P (MAP) Pulse Ox O2 Delivery O2 Flow Rate FiO2 12/10/17 08:00 97.3 55 18 121/58 (79) 98 Intake and Output 12/10/17 12/10/17 12/11/17 08:00 16:00 00:00 Intake Total 702 ml Balance 702 ml (Aftab Silverio) Physical Examination General: Pt resting in bed in NAD. Eyes: Pupils equal. Sclera anicteric Resp: CTA bilaterally Heart: NSR no murmurs Abd: Soft positive bs. Skin: No cyanosis or erythema. Muscle: Moves all 4 extremities with good strength Neuro: Pt awake and alert. Pupils 3mm bilaterally reactive bilaterally. Follows commands well. Speech clear and appropriate. (Aftab Silverio) Lab, Micro, Other Results Last Impressions Lumbar Puncture Fluoroscopy 12/06/17 0600 Signed Impressions: Service Date/Time: Wednesday, December 06, 2017 11:42 - CONCLUSION: 1. Uncomplicated lumbar drain placement as above. 2. Difficulty expressing CSF despite well-positioned needle at the L3-4 level. Suspect spinal stenosis at this level. Consider lumbar MRI examination as clinically appropriate. Dennis Alegre MD Head CT 12/03/17 0000 Signed Impressions: Service Date/Time: Sunday, December 03, 2017 21:19 - CONCLUSION: Prominent but stable ventricles. Normal pressure hydrocephalus should be excluded clinically. Pierce Roche MD FACR Cervical Spine MRI 12/03/17 0000 Signed Impressions: Service Date/Time: Sunday, December 03, 2017 22:34 - CONCLUSION: Moderate spinal stenosis as described above. The signal intensity in the cervical cord is normal. The most significant stenosis is at the C3-C4 and C4-C5 levels. Pierce Roche MD FACR Cervical Spine CT 12/03/17 0000 Signed Impressions: Service Date/Time: Sunday, December 03, 2017 21:19 - CONCLUSION: Significant degenerative changes and uncinate ridging. Spinal stenosis is severe from C4-C7. MRI may be of benefit. Pierce Roche MD FACR 12/10/17 12/10/17 12/11/17 15:00 23:00 07:00 Intake Total 702 ml Balance 702 ml IV Total 702 ml # Voids 1 # Bowel Movements 1 (Aftab Silverio) Medical Decision Making Impression and Plan 1. 72 year-old gentleman with a 2 year history of progressively worsening gait with falls and urinary urgency and incontinence. CT scan of the head and clinical exam consistent with the possibility of normal pressure hydrocephalus. 2. Acute and chronic neck pain with a multilevel cervical stenosis and a moderate range although no myelopathy. 3. Congestive heart failure with the limited ejection fraction 25-30%. 4. Diabetes mellitus. 5. Hypertension. P: Neurosurgically stable to discharge home and follow up in 4 weeks. Encouraged ambulation short distance. Pt will focus on if his gait worsens over next few weeks also if improvement in his urinary urgency. discussed not heavy lifting, pushing, or pulling. Pt has rolling walker at home. (Aftab Silverio) Attending Statement The exam, history, and the medical decision-making described in the above note were completed with the assistance of the mid-level provider. I reviewed and agree with the findings presented. I attest that I had a [id number] encounter with the patient on the same day, and personally performed and documented my assessment and findings in the medical record. (Tim Acharya MD) Aftab Silverio Dec 10, 2017 10:00 Tim Acharya MD Dec 10, 2017 13:24
--- NOTE | 2017-12-10 10:01 | HHI.PR ---
Subjective Remarks Follow-up cervical stenosis 12/07/17-patient seen and examined; reports some improvement of DIGGS or neck pain. Afebrile.Lumbar Drain with good output 12/08/17-patient seen and examined, stable and no complaints, and no acute event overnight 12/09/17-patient seen and examined, reports improvement of back pain and patient did ambulate with assistance of PT yesterday in the hallway. 12/10/17-patient seen and examined, lumbar drain was removed yesterday patient able to ambulate without any back pain. Denies any headache this morning. States he is looking for discharge to [facility]. Objective Vitals Vital Signs Date Time Temp Pulse Resp B/P (MAP) Pulse Ox O2 Delivery O2 Flow Rate FiO2 12/10/17 08:00 97.3 55 18 121/58 (79) 98 12/10/17 04:00 97.2 56 18 134/66 (88) 97 12/10/17 00:00 97.8 64 18 119/59 (79) 97 12/09/17 20:00 98.1 62 18 122/63 (82) 98 12/09/17 15:01 98.5 60 20 109/56 (73) 96 12/09/17 11:33 98.4 70 20 106/59 (75) 95 I/O 12/09/17 12/09/17 12/09/17 12/10/17 12/10/17 12/10/17 07:00 15:00 23:00 07:00 15:00 23:00 Intake Total 800 ml 720 ml 702 ml Output Total 780 ml 700 ml Balance 20 ml -700 ml 720 ml 702 ml Intake Oral 800 ml 720 ml IV Total 702 ml Output Urine Total 700 ml 700 ml Drainage Total 80 ml # Voids 1 # Bowel Movements 0 2 1 Imaging Last Impressions Lumbar Puncture Fluoroscopy 12/06/17 0600 Signed Impressions: Service Date/Time: Wednesday, December 06, 2017 11:42 - CONCLUSION: 1. Uncomplicated lumbar drain placement as above. 2. Difficulty expressing CSF despite well-positioned needle at the L3-4 level. Suspect spinal stenosis at this level. Consider lumbar MRI examination as clinically appropriate. Dennis Alegre MD Head CT 12/03/17 0000 Signed Impressions: Service Date/Time: Sunday, December 03, 2017 21:19 - CONCLUSION: Prominent but stable ventricles. Normal pressure hydrocephalus should be excluded clinically. Pierce Roche MD FACR Cervical Spine MRI 12/03/17 0000 Signed Impressions: Service Date/Time: Sunday, December 03, 2017 22:34 - CONCLUSION: Moderate spinal stenosis as described above. The signal intensity in the cervical cord is normal. The most significant stenosis is at the C3-C4 and C4-C5 levels. Pierce Roche MD FACR Cervical Spine CT 12/03/17 0000 Signed Impressions: Service Date/Time: Sunday, December 03, 2017 21:19 - CONCLUSION: Significant degenerative changes and uncinate ridging. Spinal stenosis is severe from C4-C7. MRI may be of benefit. Pierce Roche MD FACR Objective Remarks GENERAL: NAD SKIN: Warm and dry. HEAD: Normocephalic. EYES: No scleral icterus. No injection or drainage. NECK: Supple, trachea midline. No JVD or lymphadenopathy. CARDIOVASCULAR: Regular rate and rhythm without murmurs, gallops, or rubs. RESPIRATORY: Breath sounds equal bilaterally. No accessory muscle use. GASTROINTESTINAL: Abdomen soft, non-tender, nondistended. MUSCULOSKELETAL: No cyanosis, or edema. BACK: Nontender without obvious deformity. No CVA tenderness. Procedures none A/P Problem List: (1) Intractable pain ICD Code: R52 - Pain, unspecified (2) Cervical spinal stenosis ICD Code: M48.02 - Spinal stenosis, cervical region Status: Acute (3) Hydrocephalus ICD Code: G91.9 - Hydrocephalus, unspecified (4) DM (diabetes mellitus) ICD Code: E11.9 - Type 2 diabetes mellitus without complications (5) Hypokalemia ICD Code: E87.6 - Hypokalemia Assessment and Plan 72-year-old man with 1. Intractable pain and Cervical Spine Stenosis: Improved CT C-spine w/ significant spinal stenosis C4-C7, MRI C-spine with similar findings, stenosis most significant at C3-C4 and C4-C5, Temporary lumbar drain placement 12/06/17 and removed 12/09/17 Management per NSG Continue w/ analgesics/antiemetics/pain as needed d/c IVF hydration 2. Hydrocephalus: CT Head w/ prominent ventricles, possible normal pressure hydrocephalus Management as in above PT for eval/tx. 3. DM: Sliding scale w/ Accu-Cheks. 4. DVT Prophylaxis: SCD/Teds. 5. Hypokalemia:Resolved Status post oral replacement. 6. Hypertension: Continue lisinopril. 7. Seizure disorder: Continue Lamictal. 8 chronic systolic heart failure. Not an exacerbation. Continue PRAKASH inhibitor and diuretics. 9. Depression: Continue Zoloft. Aftab Orellana MD Dec 10, 2017 10:01
[2017-12-10] MEDS ORDERED: FENT25T T-DERMAL (10:03)
--- NOTE | 2017-12-10 10:06 | HHI.FF ---
Face to Face Verification Diagnosis: (1) Cervical spinal stenosis (2) Intractable pain (3) Recurrent falls Physical Therapy Order: Evaluate and Treat Home Health Nursing Order: Signs/symptoms of disease process I have seen patient Lucien Berry on 12/10/17. My clinical findings support the need for the requested home health care services because: Deconditioned w/ increased weakness I certify that my clinical findings support that this patient is homebound because: Unsteady gait/balance Poor cardiac reserve Aftab Orellana MD Dec 10, 2017 10:06
--- NOTE | 2017-12-10 10:09 | HHI.DS ---
Discharge Summary Admission Date Dec 06, 2017 at 11:42 Discharge Date: Dec 10, 2017 Admitting Diagnosis (1) Intractable pain ICD Code: R52 - Pain, unspecified (2) Cervical spinal stenosis ICD Code: M48.02 - Spinal stenosis, cervical region Status: Acute (3) Hydrocephalus ICD Code: G91.9 - Hydrocephalus, unspecified (4) DM (diabetes mellitus) ICD Code: E11.9 - Type 2 diabetes mellitus without complications (5) Hypokalemia ICD Code: E87.6 - Hypokalemia Procedures none Brief History - From Admission This is a 72-year-old male with a PMH of HTN, DM, CHF (Echo 10/10/2017 w/ EF 25- 30%) and Seizure Disorder who was sent to the ER from [facility] with complaints of neck pain starting earlier today. Denies any injury/trauma. Pain is severe, 10 /10, constant, non-radiating, no associated numbness or weakness. Of note, pt reports some gait instability and recurrent falls for which he is being evaluated, however no etiology uncovered. States he ambulates w/ walker at baseline, no recent changes. On arrival, BP 118/76, HR 84, O2 sat 97% on RA, Afebrile. CBC unremarkable. Chemistry essentially unremarkable. CT Head with prominent but stable ventricles, normal pressure hydrocephalus should be excluded. CT Cervical spine with significant degenerative changes, spinal stenosis severe from C4-C7, recommendation for MRI. MRI C-spine with moderate spinal stenosis, worse at C3-C4 and C4-C5. S/p Toradol, Morphine x2, Norflex and Zofran in ER w/ minimal improvement. Imaging Last Impressions Lumbar Puncture Fluoroscopy 12/06/17 0600 Signed Impressions: Service Date/Time: Wednesday, December 06, 2017 11:42 - CONCLUSION: 1. Uncomplicated lumbar drain placement as above. 2. Difficulty expressing CSF despite well-positioned needle at the L3-4 level. Suspect spinal stenosis at this level. Consider lumbar MRI examination as clinically appropriate. Dennis Alegre MD Head CT 12/03/17 0000 Signed Impressions: Service Date/Time: Sunday, December 03, 2017 21:19 - CONCLUSION: Prominent but stable ventricles. Normal pressure hydrocephalus should be excluded clinically. Pierce Roche MD FACR Cervical Spine MRI 12/03/17 0000 Signed Impressions: Service Date/Time: Sunday, December 03, 2017 22:34 - CONCLUSION: Moderate spinal stenosis as described above. The signal intensity in the cervical cord is normal. The most significant stenosis is at the C3-C4 and C4-C5 levels. Pierce Roche MD FACR Cervical Spine CT 12/03/17 0000 Signed Impressions: Service Date/Time: Sunday, December 03, 2017 21:19 - CONCLUSION: Significant degenerative changes and uncinate ridging. Spinal stenosis is severe from C4-C7. MRI may be of benefit. Pierce Roche MD FACR PE at Discharge GENERAL: NAD SKIN: Warm and dry. HEAD: Normocephalic. EYES: No scleral icterus. No injection or drainage. NECK: Supple, trachea midline. No JVD or lymphadenopathy. CARDIOVASCULAR: Regular rate and rhythm without murmurs, gallops, or rubs. RESPIRATORY: Breath sounds equal bilaterally. No accessory muscle use. GASTROINTESTINAL: Abdomen soft, non-tender, nondistended. MUSCULOSKELETAL: No cyanosis, or edema. BACK: Nontender without obvious deformity. No CVA tenderness. Hospital Course While in hospital, patient was treated for 1. Intractable pain and Cervical Spine Stenosis: Improved CT C-spine w/ significant spinal stenosis C4-C7, MRI C-spine with similar findings, stenosis most significant at C3-C4 and C4-C5, Temporary lumbar drain placement 12/06/17 and removed 12/09/17 Management per NSG Pain management was provided w/ analgesics/antiemetics/pain as needed 2. Hydrocephalus: CT Head w/ prominent ventricles, possible normal pressure hydrocephalus Management as in above PT for eval/tx. 3. DM: Sliding scale w/ Accu-Cheks. 4. DVT Prophylaxis: SCD/Teds. 5. Hypokalemia:Resolved Status post oral replacement. 6. Hypertension: Treated with lisinopril. 7. Seizure disorder: Treated with Lamictal. 8 chronic systolic heart failure. Not an exacerbation. Treated with PRAKASH inhibitor and diuretics. 9. Depression: Treated with Zoloft. Pt Condition on Discharge: Good Discharge Disposition: [facility] with [facility] Discharge Time: > 30 minutes Discharge Instructions DIET: Follow Instructions for: Heart Healthy Diet, Diabetic Diet Activities you can perform: Regular-No Restrictions Follow up Referrals: Neurosurgery with Tim Acharya MD PCP Follow-up - 2-3 Days New Medications: Fentanyl Patch 72 HR (Duragesic Patch 72 HR) 25 Mch/Hr Patch 1 PATCH T-DERMAL Q3D for Pain Management, #2 PATCH Continued Medications: Atorvastatin (Atorvastatin) 40 Mg Tab 40 MG PO HS for Cholesterol Management, #30 TAB Finasteride (Proscar) 5 Mg Tab 5 MG PO DAILY for Manage Prostate Problems, #30 TAB 0 Refills Do not crush. Furosemide (Furosemide) 20 Mg Tab 20 MG PO DAILY, #30 TAB 0 Refills Lamotrigine (Lamotrigine) 100 Mg Tab 100 MG PO DAILY for Control Seizures, #30 TAB 0 Refills Lisinopril (Lisinopril) 2.5 Mg Tab 2.5 MG PO DAILY, #30 TAB 0 Refills Metformin (Metformin) 500 Mg Tab 500 MG PO BIDPC for Blood Sugar Management, #60 TAB 0 Refills Primidone (Primidone) 250 Mg Tablet Sennosides-Docusate Sodium (Gnp Senna Plus 8.6-50 mg) 8.6 Mg-50 Mg Tab 1 TAB PO BID for Constipation, #60 TAB Sertraline (Sertraline) 100 Mg Tab 100 MG PO BID, #30 TAB 0 Refills Aftab Orellana MD Dec 10, 2017 10:09
[2017-12-10 12:00] VITALS: BP 107/53; PULSE 62; RESP 18; TEMP 98.2; O2SAT 94
== END 2017-12-10 15:35 | DRG 57 ==
LOC: NEPD 20:10 → NEDA 22:07 → INTOOBSV 22:07 → NEPGCP 22:40 → N05B 12-06 11:06 → OBSVTOIN 12-06 11:42 → N05A 12-06 14:21
PROVIDERS: ADMIT Hospitalist; ATTEND Hospitalist
PROC: 009U30Z Drainage of Spinal Canal with Drainage Device, Percutaneous Approach (ICD-10-PCS; principal; 2017-12-06)
PROC: B01BYZZ Fluoroscopy of Spinal Cord using Other Contrast (ICD-10-PCS; 2017-12-06)
DX: G91.2 (Idiopathic) normal pressure hydrocephalus (principal); I11.0 Hypertensive heart disease with heart failure; I50.22 Chronic systolic (congestive) heart failure; I42.9 Cardiomyopathy, unspecified; M48.02 Spinal stenosis, cervical region; E11.9 Type 2 diabetes mellitus without complications; N39.41 Urge incontinence; G40.909 Epilepsy, unspecified, not intractable, without status epilepticus; E87.6 Hypokalemia; E78.5 Hyperlipidemia, unspecified; R29.6 Repeated falls; F32.9 Major depressive disorder, single episode, unspecified; Z79.84 Long term (current) use of oral hypoglycemic drugs
CPT/HCPCS: 63741; 70450; 72125; 72141; 77003; 80048; 80053; 82948; 85025; 85610; 85730; 96372; 96374; 96375; 99152; 99153; C1755; G0378; G8987-GP; G8988-GP; J0690; J1885; J2250; J2270; J2360; J3010; J7030

== ENCOUNTER 2017-12-22 12:19 | Inpatient (IN) | payer MEDICARE, OTHER ==
[2017-12-22] VITALS (9 sets, daily range): BP systolic 98–143; BP diastolic 54–90; PULSE 54–83; RESP 16–21; TEMP 97.5; O2SAT 96–100
[~2017-12-22] VITALS: Ht 177.8 cm; Wt 83.5 kg
[~2017-12-22 12:19] MED LIST changes: +FENT25T T-DERMAL; -OXYB5TAB PO; +PRIM250T; -PRIM50TA5 PO
--- NOTE | 2017-12-22 12:34 | PD ---
HPI Chief Complaint: Syncope/Near-Syncope Time Seen by Provider: 12:31 Travel History International Travel<30 days: No Contact w/Intl Traveler<30days: No History of Present Illness HPI Patient is a 72-year-old male presenting to emergency department for evaluation of a near syncopal episode. Patient was attempting to have a bowel movement when he suddenly felt weak and as if he was going to pass out. Patient denies any chest pain but states he became nauseated and diaphoretic. He does report a dull headache, headache is consistent with what he has had in the past. He denies any visual changes, abdominal pain, vomiting, fever, chills. Patient states that he was recently in the hospital, and feels worse needed when he was discharged. He states he "feels wiped out". He reports that he had physical therapy in his home on Wednesday. Symptom onset was sudden, symptoms are moderate in nature. There are no alleviating factors. Patient symptoms are exacerbated with any activity. PFSH Past Medical History Depression: Yes Cardiovascular Problems: Yes (Nonischemic cardiomyopathy ) High Cholesterol: Yes Congestive Heart Failure: Yes COPD: Yes Diabetes: Yes Hypertension: Yes Kidney Stones: Yes Immunizations Current: Yes Seizures: Yes Past Surgical History Body Medical Devices: r/ knee replacement Genitourinary Surgery: Yes (LITHOTRIPSY X 2) Other Surgery: Yes (BOTH HANDS TRIGGER FINGER SURGERY) Social History Alcohol Use: Yes (SEVERAL X WEEKLY) Tobacco Use: No (NEVER) Substance Use: No Allergies-Medications (Allergen,Severity, Reaction): Coded Allergies: No Known Allergies (Verified Adverse Reaction, Unknown, 12/22/17) Reported Meds & Prescriptions Reported Meds & Active Scripts Active Gnp Senna Plus 8.6-50 mg (Sennosides-Docusate Sodium) 8.6 Mg-50 Mg Tab 1 Tab PO BID Reported Amphetamine-Dextroamphetamine 20 Mg Tab 20 Mg PO BID Avoid late evening doses. Space doses at least 4 to 6 hours if more than once/day dosing. Clonazepam 1 Mg Tab 1 Mg PO HS Primidone 250 Mg Tablet Sertraline (Sertraline HCl) 100 Mg Tab 100 Mg PO BID Lamotrigine 100 Mg Tab 100 Mg PO DAILY Lisinopril 2.5 Mg Tab 2.5 Mg PO DAILY Metformin (Metformin HCl) 500 Mg Tab 500 Mg PO BIDPC Furosemide 20 Mg Tab 20 Mg PO DAILY Proscar (Finasteride) 5 Mg Tab 5 Mg PO DAILY Do not crush. Review of Systems Except as stated in HPI: all other systems reviewed are Neg HENT: Positive: Headaches, Lightheadedness, No: Neck Pain Cardiovascular: Positive: Diaphoresis, No: Chest Pain or Discomfort Respiratory: No: Shortness of Breath Gastrointestinal: Positive: Nausea, No: Vomiting, Abdominal Pain Musculoskeletal: No: Myalgias Neurologic: Positive: Weakness, Dizziness, Syncope (Near-syncope), Headache Psychiatric: No: Suicidal Ideations Physical Exam Narrative GENERAL: Well-developed, well-nourished, alert elderly gentleman. Presenting in no acute distress. SKIN: Warm and dry. Pale HEAD: Atraumatic. Normocephalic. EYES: Pupils equal and round. No scleral icterus. No injection or drainage. ENT: No nasal bleeding or discharge. Mucous membranes pink and moist. NECK: Trachea midline. No JVD. CARDIOVASCULAR: Regular rate and rhythm. RESPIRATORY: No accessory muscle use. Clear to auscultation. Breath sounds equal bilaterally. GASTROINTESTINAL: Abdomen soft, non-tender, nondistended. Hepatic and splenic margins not palpable. MUSCULOSKELETAL: Extremities without clubbing, cyanosis, or edema. No obvious deformities. NEUROLOGICAL: Awake and alert. No obvious cranial nerve deficits. Motor grossly within normal limits. Five out of 5 muscle strength in the arms and legs. Normal speech. PSYCHIATRIC: Appropriate mood and affect; insight and judgment normal. Data Data Last Documented VS Vital Signs Date Time Temp Pulse Resp B/P (MAP) Pulse Ox O2 Delivery O2 Flow Rate FiO2 12/22/17 14:23 91 18 98/54 (69) 12/22/17 12:27 97.5 100 Orders Orders Electrocardiogram (12/22/17 12:31) Complete Blood Count With Diff (12/22/17 12:31) Comprehensive Metabolic Panel (12/22/17 12:31) Magnesium (Mg) (12/22/17 12:31) Ckmb (Isoenzyme) Profile (12/22/17 12:31) Troponin I (12/22/17 12:31) Urinalysis - C+S If Indicated (12/22/17 12:31) Ecg Monitoring (12/22/17 12:31) Iv Access Insert/Monitor (12/22/17 12:31) Oximetry (12/22/17 12:31) Sodium Chloride 0.9% Flush (Ns Flush) (12/22/17 12:45) Lamictal (Lamotrigine) (12/22/17 12:31) Ct Brain W/O Iv Contrast(Rout) (12/22/17 ) Orthostatic Vital Signs (12/22/17 13:42) Urine Culture (12/22/17 14:05) Ceftriaxone Inj (Rocephin Inj) (12/22/17 15:45) Place In Observation (12/22/17 ) Vital Signs (Adult) Q4H (12/22/17 15:38) Activity Oob With Assistance (12/22/17 15:38) Auto Driver / Telemetry .CONTINUOUS (12/22/17 15:38) Diet 1800 Ada Cons Carb (12/22/17 Dinner) Diet Heart Healthy (12/22/17 Dinner) Sodium Chloride 0.9% Flush (Ns Flush) (12/22/17 15:45) Sodium Chloride 0.9% Flush (Ns Flush) (12/22/17 21:00) Basic Metabolic Panel (Bmp) (12/23/17 06:00) Complete Blood Count With Diff (12/23/17 06:00) Pt Request For Service (12/22/17 15:38) Case Management Consult (12/22/17 15:38) Naloxone Inj (Narcan Inj) (12/22/17 15:45) Ceftriaxone Inj (Rocephin Inj) (12/22/17 15:45) Bedside Glucose ANDER.CSUGAR (12/22/17 15:40) Blood Glucose Goal (Criteria) (12/22/17 15:40) Hypoglycemia 70 Mg/Dl Or < (12/22/17 15:40) Notify Dr: Other (12/22/17 15:40) Dextrose 50% In Argelia (Vial) Inj (D50w (Vi (12/22/17 15:45) Glucagon Inj (Glucagon Inj) (12/22/17 15:45) Insulin Aspart Supplemtl Scale (Novolog (12/22/17 17:00) Admit Order (Ed Use Only) (12/22/17 15:39) Labs Laboratory Tests Test 12/22/17 12:50 12/22/17 13:25 12/22/17 14:05 White Blood Count 7.6 TH/MM3 Red Blood Count 4.87 MIL/MM3 Hemoglobin 15.2 GM/DL Hematocrit 44.2 % Mean Corpuscular Volume 90.7 FL Mean Corpuscular Hemoglobin 31.2 PG Mean Corpuscular Hemoglobin Concent 34.4 % Red Cell Distribution Width 12.8 % Platelet Count 201 TH/MM3 Mean Platelet Volume 8.8 FL Neutrophils (%) (Auto) 78.4 % Lymphocytes (%) (Auto) 13.7 % Monocytes (%) (Auto) 6.5 % Eosinophils (%) (Auto) 0.8 % Basophils (%) (Auto) 0.6 % Neutrophils # (Auto) 5.9 TH/MM3 Lymphocytes # (Auto) 1.0 TH/MM3 Monocytes # (Auto) 0.5 TH/MM3 Eosinophils # (Auto) 0.1 TH/MM3 Basophils # (Auto) 0.0 TH/MM3 CBC Comment DIFF FINAL Differential Comment Blood Urea Nitrogen 14 MG/DL Creatinine 0.81 MG/DL Random Glucose 144 MG/DL Total Protein 6.8 GM/DL Albumin 3.6 GM/DL Calcium Level 8.7 MG/DL Magnesium Level 1.8 MG/DL Alkaline Phosphatase 108 U/L Aspartate Amino Transf (AST/SGOT) 33 U/L Alanine Aminotransferase (ALT/SGPT) 28 U/L Total Bilirubin 0.5 MG/DL Sodium Level 139 MEQ/L Potassium Level 5.2 MEQ/L Chloride Level 104 MEQ/L Carbon Dioxide Level 26.2 MEQ/L Anion Gap 9 MEQ/L Estimat Glomerular Filtration Rate 94 ML/MIN Total Creatine Kinase 80 U/L Troponin I LESS THAN 0.02 NG/ML Urine Color YELLOW Urine Turbidity HAZY Urine pH 5.5 Urine Specific [place] 1.013 Urine Protein NEG mg/dL Urine Glucose (UA) NEG mg/dL Urine Ketones NEG mg/dL Urine Occult Blood NEG Urine Nitrite POS Urine Bilirubin NEG Urine Urobilinogen LESS THAN 2.0 MG/DL Urine Leukocyte Esterase LARGE Urine RBC 8 /hpf Urine WBC 47 /hpf Urine Bacteria OCC /hpf Urine Hyaline Casts 5 /lpf Microscopic Urinalysis Comment CULTURE INDICATED MDM Medical Decision Making Medical Screen Exam Complete: Yes Emergency Medical Condition: Yes Medical Record Reviewed: Yes Interpretation(s) Last Impressions Head CT 12/22/17 0000 Signed Impressions: Service Date/Time: Friday, December 22, 2017 12:53 - CONCLUSION: Persistent ventriculomegaly. No evidence of hemorrhage, edema, mass or mass effect. No new lesion is seen since the 12/03/17 exam. Froy Feliciano MD Laboratory Tests Test 12/22/17 12:50 12/22/17 13:25 12/22/17 14:05 White Blood Count 7.6 TH/MM3 Red Blood Count 4.87 MIL/MM3 Hemoglobin 15.2 GM/DL Hematocrit 44.2 % Mean Corpuscular Volume 90.7 FL Mean Corpuscular Hemoglobin 31.2 PG Mean Corpuscular Hemoglobin Concent 34.4 % Red Cell Distribution Width 12.8 % Platelet Count 201 TH/MM3 Mean Platelet Volume 8.8 FL Neutrophils (%) (Auto) 78.4 % Lymphocytes (%) (Auto) 13.7 % Monocytes (%) (Auto) 6.5 % Eosinophils (%) (Auto) 0.8 % Basophils (%) (Auto) 0.6 % Neutrophils # (Auto) 5.9 TH/MM3 Lymphocytes # (Auto) 1.0 TH/MM3 Monocytes # (Auto) 0.5 TH/MM3 Eosinophils # (Auto) 0.1 TH/MM3 Basophils # (Auto) 0.0 TH/MM3 CBC Comment DIFF FINAL Differential Comment Blood Urea Nitrogen 14 MG/DL Creatinine 0.81 MG/DL Random Glucose 144 MG/DL Total Protein 6.8 GM/DL Albumin 3.6 GM/DL Calcium Level 8.7 MG/DL Magnesium Level 1.8 MG/DL Alkaline Phosphatase 108 U/L Aspartate Amino Transf (AST/SGOT) 33 U/L Alanine Aminotransferase (ALT/SGPT) 28 U/L Total Bilirubin 0.5 MG/DL Sodium Level 139 MEQ/L Potassium Level 5.2 MEQ/L Chloride Level 104 MEQ/L Carbon Dioxide Level 26.2 MEQ/L Anion Gap 9 MEQ/L Estimat Glomerular Filtration Rate 94 ML/MIN Total Creatine Kinase 80 U/L Troponin I LESS THAN 0.02 NG/ML Urine Color YELLOW Urine Turbidity HAZY Urine pH 5.5 Urine Specific [place] 1.013 Urine Protein NEG mg/dL Urine Glucose (UA) NEG mg/dL Urine Ketones NEG mg/dL Urine Occult Blood NEG Urine Nitrite POS Urine Bilirubin NEG Urine Urobilinogen LESS THAN 2.0 MG/DL Urine Leukocyte Esterase LARGE Urine RBC 8 /hpf Urine WBC 47 /hpf Urine Bacteria OCC /hpf Urine Hyaline Casts 5 /lpf Microscopic Urinalysis Comment CULTURE INDICATED Vital Signs Date Time Temp Pulse Resp B/P (MAP) Pulse Ox O2 Delivery O2 Flow Rate FiO2 12/22/17 14:23 91 18 98/54 (69) 12/22/17 14:11 79 20 111/66 (81) 12/22/17 14:09 72 16 135/69 (91) 12/22/17 12:27 97.5 70 16 126/57 (80) 100 Vital Signs Date Time Temp Pulse Resp B/P (MAP) Pulse Ox O2 Delivery O2 Flow Rate FiO2 12/22/17 12:27 97.5 70 16 126/57 (80) 100 Differential Diagnosis Vasovagal syncope versus cardiogenic syncope versus metabolic abnormality versus deconditioning versus medication side effects versus arrhythmia versus other Narrative Course Patient is a 72-year-old male presenting for evaluation of a near syncopal episode. Patient's vital signs are stable, he is alert and oriented, he has no focal deficits. Labs and imaging ordered and pending. Upon review of medical records patient was admitted from 12/03/17 until 12/10/17 during that time. He was admitted due to weakness and falls, he was evaluated by Dr. Acharya. Patient underwent a lumbar drainage for likely normal pressure hydrocephalus. The drain was removed on 09 December. He was also evaluated by cardiology during that admission. Patient's ejection fraction between 25 and 30%. According to cardiology notes patient has well compensated nonischemic cardiomyopathy and was determined to be an intermediate risk for any surgical procedures. At this time we will repeat CT of the brain to assess for increased dilation of the ventricles despite the lumbar drain during his last admission. CT of the brain shows persistent ventriculomegaly. CBC with no acute findings Chemistry with potassium of 5.2, slight hemolysis noted. Cardiac enzymes are negative 1 set Urinalysis is nitrite positive, consistent with a urinary tract infection. Rocephin 2 g IV 1 dose ordered. Orthostatic vital signs are positive. Discussed findings as well as plan of care with my attending physician. Patient will be admitted at this time. Dr. Stratton accepted admission, admit orders placed. Patient and family advised on findings and are agreeable to plan of care. Diagnosis Primary Impression: Near syncope Additional Impressions: UTI (urinary tract infection) Qualified Codes: N39.0 - Urinary tract infection, site not specified; R31.9 - Hematuria, unspecified Generalized weakness Admitting Information Admitting Physician Requests: Admit Condition: Stable Caryn Cannon RATE INSERTER Dec 22, 2017 12:33
[2017-12-22] MEDS ORDERED: SODIUM CHLORIDE 0.9% FLUSH 10 ML FLUSH IVF PRN (12:45)
[2017-12-22] MEDS ORDERED: CLON1TAB PO (12:52)
[2017-12-22] MEDS ORDERED: AMPH1TAB66 PO (12:52)
[2017-12-22 13:08] LABS: AUTOMATED NEUTROPHIL # 5.9 TH/MM3 (1.8-7.7); BASOPHIL % 0.6 % (0.0-2.0); EOSINOPHIL # 0.1 TH/MM3 (0-0.4); EOSINOPHIL % 0.8 % (0.0-4.0); HEMATOCRIT 44.2 % (39.0-51.0); HEMOGLOBIN 15.2 GM/DL (13.0-17.0); LYMPH % 13.7 % (9.0-44.0); MEAN CELL VOLUME 90.7 FL (80.0-100.0); MEAN CORPUSCULAR HEMOGLOBIN 31.2 PG (27.0-34.0); MEAN CORPUSCULAR HGB CONC 34.4 % (32.0-36.0); MEAN PLATELET VOLUME 8.8 FL (7.0-11.0); MONO % 6.5 % (0.0-8.0); MONOCYTE # 0.5 TH/MM3 (0-0.9); NEUT % 78.4 % (16.0-70.0); PLATELET COUNT 201 TH/MM3 (150-450); RED BLOOD COUNT 4.87 MIL/MM3 (4.50-5.90); RED CELL DISTRIBUTION WIDTH 12.8 % (11.6-17.2); WHITE BLOOD COUNT 7.6 TH/MM3 (4.0-11.0)
--- NOTE | 2017-12-22 13:11 | RADRPT ---
EXAM DATE/TIME: 12/22/2017 12:53 [facility] COMPARISON: CT BRAIN W/O CONTRAST, December 03, 2017, 21:19. INDICATIONS : Near syncope with dizziness and lightheadedness. RADIATION DOSE: 37.42 CTDIvol (mGy) MEDICAL HISTORY : Cardiovascular disease. SURGICAL HISTORY : None. ENCOUNTER: Initial ACUITY: 1 day PAIN SCALE: 0/10 LOCATION: cranial TECHNIQUE: Multiple contiguous axial images were obtained of the head. Using automated exposure control and adj ustment of the mA and/or kV according to patient size, radiation dose was kept as low as reasonably a chievable to obtain optimal diagnostic quality images. DICOM format image data is available electro nically for review and comparison. FINDINGS: CEREBRUM: The ventricles remain enlarged.. No evidence of midline shift, mass lesion, hemorrhage or acute infa rction. No extra-axial fluid collections are seen. POSTERIOR FOSSA: The cerebellum and brainstem are intact. The 4th ventricle is midline. The cerebellopontine angle i s unremarkable. EXTRACRANIAL: The visualized portion of the orbits is intact. SKULL: The calvaria is intact. No evidence of skull fracture. CONCLUSION: Persistent ventriculomegaly. No evidence of hemorrhage, edema, mass or mass effect. No new lesion is seen since the 12/03/17 exam. Froy Feliciano MD on December 22, 2017 at 13:08 Board Certified Radiologist. This report was verified electronically.
[2017-12-22 13:32] LABS: ALBUMIN 3.6 GM/DL (3.4-5.0); ALKALINE PHOSPHATASE 108 U/L (45-117); ALT (GPT) 28 U/L (12-78); AST (GOT) 33 U/L (15-37); BICARBONATE 26.2 MEQ/L (21.0-32.0); BLOOD UREA NITROGEN 14 MG/DL (7-18); CALCIUM 8.7 MG/DL (8.5-10.1); CHLORIDE 104 MEQ/L (98-107); CREATININE 0.81 MG/DL (0.60-1.30); GLOMERULAR FILTRATION RATE 94 ML/MIN (>89); GLUCOSE,RANDOM 144 MG/DL (74-106); MAGNESIUM 1.8 MG/DL (1.5-2.5); SODIUM (NA) 139 MEQ/L (136-145); TOTAL BILIRUBIN ADULT 0.5 MG/DL (0.2-1.0); TOTAL PROTEIN 6.8 GM/DL (6.4-8.2); TROPONIN I LESS THAN 0.02 NG/ML (0.02-0.05)
[2017-12-22 15:23] LABS: BACTERIA, URINE OCC /hpf; BILIRUBIN, URINE NEG (NEG); BLOOD, URINE NEG (NEG); GLUCOSE,URINE NEG (NEG); HYALINE CAST, URINE 5 /lpf (RARE); KETONE, URINE NEG (NEG); NITRITE,URINE POS (NEG); PH, URINE 5.5 (5.0-8.5); URINE COLOR YELLOW (YELLW/STRAW); URINE LEUKOCYTE ESTERASE LARGE (NEG)
[2017-12-22] MEDS ORDERED: DEXTROSE 50% IN WATER 50 ML VIAL(D50) IV PUSH PRN ×2 (15:45→19:45)
[2017-12-22] MEDS ORDERED: GLUCAGON 1 MG/ML VIAL OTHER PRN ×2 (15:45→19:45)
[2017-12-22] MEDS ORDERED: cefTRIAXone INJ 2,000 MG in SODIUM CHLORIDE 0.9% INJ 100 ML IV ONE (15:45)
[2017-12-22] MEDS ORDERED: NALOXONE HCL 0.4 MG/ML AMP IV PUSH PRN (15:45)
[2017-12-22] MEDS ORDERED: SODIUM CHLORIDE 0.9% FLUSH 10 ML FLUSH IV FLUSH PRN (15:45)
[2017-12-22] MEDS: INSULIN ASPART SUPPLEMENTAL SCALE SQ SCH ×3 (17:00→21:00)
--- NOTE | 2017-12-22 19:42 | HHI.HP ---
[facility] Service [facility] Primary Care Physician Sherita Ramos MD Admission Diagnosis ORTHOSTATIC HYPOTENSION, NEAR SYNCOPE, UTI Diagnoses: Travel History International Travel<30 Days: No Contact w/Intl Traveler <30 Da: No Traveled to Known Affected Are: No Sepsis Criteria Criteria Outcome: Meets sepsis criteria History of Present Illness pt reported he almost passed out in his apt in his bathroom around 2p.m today he used his walker to get there stated he just has not been improving since he has been discharged whole body weak no premonitory symptoms no syncope had lumbar drain placed in last admission was told if no improvement, to come back for shunt in ER< significant orthostatic hypotension denies recent changes in meds lives at [facility] alone, has aide coming to help him a few hours a day, meals provided but reports decreased appetite since illness denies other sympotms on ROS Review of Systems Except as stated in HPI: all other systems reviewed are Neg Past Family Social History Past Medical History htn dm chf- ef 25% kidney stones NPH- s/p lumbar drain BPH Past Surgical History lithotripisies lumbar drain knee replacement right 2016 trigger finger sx duputrens contracture laminectomy Allergies: Coded Allergies: No Known Allergies (Verified Adverse Reaction, Unknown, 12/22/17) Family History father- skin cancer- ear mother- heart murmur grandmother from mother side - cardiomyopathy- at 100 Social History never smoked no etoh abuse or drug abuse lives at [facility] Physical Exam Vital Signs Vital Signs Date Time Temp Pulse Resp B/P (MAP) Pulse Ox O2 Delivery O2 Flow Rate FiO2 12/22/17 17:00 73 21 143/65 (91) 97 12/22/17 16:00 69 18 127/90 (102) 98 12/22/17 14:23 91 18 98/54 (69) 12/22/17 14:11 79 20 111/66 (81) 12/22/17 14:09 72 16 135/69 (91) 12/22/17 12:27 97.5 70 16 126/57 (80) 100 Physical Exam GENERAL: This is a well-nourished, well-developed patient, in no apparent distress. SKIN: No rashes, ecchymoses or lesions. Cool and dry. HEAD: Atraumatic. Normocephalic. No temporal or scalp tenderness. EYES: No scleral icterus. No injection or drainage. ENT: Nose without bleeding, purulent drainage or septal hematoma. Airway patent. NECK: Trachea midline. No JVD . Supple, nontender, no meningeal signs. CARDIOVASCULAR: Regular rate and rhythm without murmurs, gallops, or rubs. RESPIRATORY: Clear to auscultation. Breath sounds equal bilaterally. No wheezes , rales, or rhonchi. GASTROINTESTINAL: Abdomen soft, non-tender, nondistended. No guarding. MUSCULOSKELETAL: Extremities without clubbing, cyanosis, or edema. No joint tenderness, effusion, or edema noted. No calf tenderness. NEUROLOGICAL: Awake and alert. Motor and sensory grossly within normal limitsNormal speech. Laboratory Laboratory Tests Test 12/22/17 12:50 12/22/17 14:05 12/22/17 16:40 White Blood Count 7.6 Red Blood Count 4.87 Hemoglobin 15.2 Hematocrit 44.2 Mean Corpuscular Volume 90.7 Mean Corpuscular Hemoglobin 31.2 Mean Corpuscular Hemoglobin Concent 34.4 Red Cell Distribution Width 12.8 Platelet Count 201 Mean Platelet Volume 8.8 Neutrophils (%) (Auto) 78.4 Lymphocytes (%) (Auto) 13.7 Monocytes (%) (Auto) 6.5 Eosinophils (%) (Auto) 0.8 Basophils (%) (Auto) 0.6 Neutrophils # (Auto) 5.9 Lymphocytes # (Auto) 1.0 Monocytes # (Auto) 0.5 Eosinophils # (Auto) 0.1 Basophils # (Auto) 0.0 CBC Comment DIFF FINAL Differential Comment Blood Urea Nitrogen 14 Creatinine 0.81 Random Glucose 144 Total Protein 6.8 Albumin 3.6 Calcium Level 8.7 Magnesium Level 1.8 Alkaline Phosphatase 108 Aspartate Amino Transf (AST/SGOT) 33 Alanine Aminotransferase (ALT/SGPT) 28 Total Bilirubin 0.5 Sodium Level 139 Potassium Level 5.2 Chloride Level 104 Carbon Dioxide Level 26.2 Anion Gap 9 Estimat Glomerular Filtration Rate 94 Total Creatine Kinase 80 Troponin I LESS THAN 0.02 Urine Color YELLOW Urine Turbidity HAZY Urine pH 5.5 Urine Specific [place] 1.013 Urine Protein NEG Urine Glucose (UA) NEG Urine Ketones NEG Urine Occult Blood NEG Urine Nitrite POS Urine Bilirubin NEG Urine Urobilinogen LESS THAN 2.0 Urine Leukocyte Esterase LARGE Urine RBC 8 Urine WBC 47 Urine Bacteria OCC Urine Hyaline Casts 5 Microscopic Urinalysis Comment CULTURE INDICATED Date/Time Source Procedure Growth Status 12/22/17 14:05 Urine Clean Catch Urine Culture Pending Received Result Diagram: 12/22/17 1250 12/22/17 1250 Caprini VTE Risk Assessment Caprini VTE Risk Assessment: Mod/High Risk (score >= 2) Caprini Risk Assessment Model Point Value = 1 Point Value = 2 Point Value = 3 Point Value = 5 Age 41-60 Minor surgery BMI > 25 kg/m2 Swollen legs Varicose veins or History of unexplained or recurrent spontaneous Oral contraceptives or hormone replacement Sepsis (< 1 month) Serious lung disease, including pneumonia (< 1 month) Abnormal pulmonary function Acute myocardial infarction Congestive heart failure (< 1 month) History of inflammatory bowel disease Medical patient at bed rest Age 61-74 Arthroscopic surgery Major open surgery (> 45 min) Laparoscopic surgery (> 45 min) Malignancy Confined to bed (> 72 hours) Immobilizing plaster cast Central venous access Age >= 75 History of VTE Family history of VTE Factor V Leiden Prothrombin [id number] Lupus anticoagulant Anticardiolipin antibodies Elevated serum homocysteine Heparin-induced thrombocytopenia Other congenital or acquired thrombophilia Stroke (< 1 month) Elective arthroplasty Hip, pelvis, or leg fracture Acute spinal cord injury (< 1 month) Prophylaxis Regimen Total Risk Factor Score Risk Level Prophylaxis Regimen 0-1 Low Early ambulation 2 Moderate Order ONE of the following: *Sequential Compression Device (SCD) *Heparin 5000 units SQ BID 3-4 Higher Order ONE of the following medications: *Heparin 5000 units SQ TID *Enoxaparin/Lovenox 40 mg SQ daily (WT < 150 kg, CrCl > 30 mL/min) *Enoxaparin/Lovenox 30 mg SQ daily (WT < 150 kg, CrCl > 10-29 mL/min) *Enoxaparin/Lovenox 30 mg SQ BID (WT < 150 kg, CrCl > 30 mL/min) AND/OR *Sequential Compression Device (SCD) 5 or more Highest Order ONE of the following medications: *Heparin 5000 units SQ TID (Preferred with Epidurals) *Enoxaparin/Lovenox 40 mg SQ daily (WT < 150 kg, CrCl > 30 mL/min) *Enoxaparin/Lovenox 30 mg SQ daily (WT < 150 kg, CrCl > 10-29 mL/min) *Enoxaparin/Lovenox 30 mg SQ BID (WT < 150 kg, CrCl > 30 mL/min) AND *Sequential Compression Device (SCD) Assessment and Plan Assessment and Plan Impression: orthostatic hypotension general weakness - partly secondary to above, but more likely due to NPH NPH not improving with lumbar drain UTI Plan: ct imaging reviewed po hydration hold bp meds consult neurosx for possible GRE[employer]ENDANT shunt ct rocephin for now for UTI will follow cx however , if true UTI, might not be a good time to place GREEN FEED ATTENDANT shunt yet- pt is explained of this resume home meds Discussed Condition With patient, ER Martita Gordon MD Dec 22, 2017 19:42
[2017-12-22] MEDS: DEXTROAMPHETAMINE/AMPHETAMINE 20 MG TAB PO SCH (21:00)
[2017-12-22] MEDS: SODIUM CHLORIDE 0.9% FLUSH 10 ML FLUSH IV FLUSH SCH (21:13)
[2017-12-22] MEDS: clonazePAM 1 MG TAB PO SCH (21:13)
[2017-12-22] MEDS: SERTRALINE HCL 100 MG TAB PO SCH (21:22)
[2017-12-23] VITALS (12 sets, daily range): BP systolic 98–136; BP diastolic 54–83; PULSE 48–78; RESP 16–18; TEMP 97.5–98.3; O2SAT 92–100
[2017-12-23 04:19] LABS: AUTOMATED NEUTROPHIL # 5.7 TH/MM3 (1.8-7.7); BASOPHIL # 0.1 TH/MM3 (0-0.2); BASOPHIL % 0.6 % (0.0-2.0); EOSINOPHIL # 0.1 TH/MM3 (0-0.4); EOSINOPHIL % 1.2 % (0.0-4.0); HEMATOCRIT 41.4 % (39.0-51.0); HEMOGLOBIN 14.3 GM/DL (13.0-17.0); LYMPH % 21.7 % (9.0-44.0); LYMPHOCYTE # 1.8 TH/MM3 (1.0-4.8); MEAN CELL VOLUME 90.3 FL (80.0-100.0); MEAN CORPUSCULAR HEMOGLOBIN 31.3 PG (27.0-34.0); MEAN CORPUSCULAR HGB CONC 34.6 % (32.0-36.0); MEAN PLATELET VOLUME 8.4 FL (7.0-11.0); MONO % 7.7 % (0.0-8.0); MONOCYTE # 0.6 TH/MM3 (0-0.9); NEUT % 68.8 % (16.0-70.0); PLATELET COUNT 171 TH/MM3 (150-450); RED BLOOD COUNT 4.58 MIL/MM3 (4.50-5.90); RED CELL DISTRIBUTION WIDTH 12.6 % (11.6-17.2); WHITE BLOOD COUNT 8.3 TH/MM3 (4.0-11.0)
[2017-12-23 04:33] LABS: BICARBONATE 25.6 MEQ/L (21.0-32.0); CALCIUM 8.7 MG/DL (8.5-10.1); CREATININE 0.7 MG/DL (0.60-1.30); MAGNESIUM 1.7 MG/DL (1.5-2.5)
[2017-12-23] MEDS: INSULIN ASPART SUPPLEMENTAL SCALE SQ SCH ×5 (08:00→19:47)
--- NOTE | 2017-12-23 09:57 | HHI.PR ---
Subjective Remarks Follow up on patient with NPH. Patient seen and examined. Patient states he is doing ok at present lying in bed. He denies any fever or chills. He denies any dizziness or headache. He denies any chest pain or dyspnea. He denies any nausea, vomiting or abdominal pain. He denies any dysuria or diarrhea. He states since he has been discharged he has gotten worse with increasing weakness and unsteadiness. He has fallen 3 times. He reports frequent urination. He denies any confusion. Objective Vitals Vital Signs Date Time Temp Pulse Resp B/P (MAP) Pulse Ox O2 Delivery O2 Flow Rate FiO2 12/23/17 07:53 97.5 50 18 136/54 (81) 96 12/23/17 05:18 98.3 73 18 115/61 (79) 97 12/23/17 04:16 78 12/23/17 01:34 97.6 78 16 107/66 (80) 98 12/23/17 00:28 78 12/22/17 22:26 83 12/22/17 22:16 78 12/22/17 21:45 12/22/17 20:00 75 16 113/85 (94) 96 Room Air 12/22/17 17:00 73 21 143/65 (91) 97 12/22/17 16:00 69 18 127/90 (102) 98 12/22/17 14:23 91 18 98/54 (69) 12/22/17 14:11 79 20 111/66 (81) 12/22/17 14:09 72 16 135/69 (91) 12/22/17 12:27 97.5 70 16 126/57 (80) 100 I/O 12/22/17 12/22/17 12/22/17 12/23/17 12/23/17 12/23/17 07:00 15:00 23:00 07:00 15:00 23:00 Intake Total 100 ml Output Total 300 ml 280 ml Balance -300 ml 100 ml -280 ml Intake IV Total 100 ml Output Urine Total 300 ml 280 ml # Voids 2 Result Diagram: 12/23/17 0405 12/23/17 0405 Imaging Last Impressions Head CT 12/22/17 0000 Signed Impressions: Service Date/Time: Friday, December 22, 2017 12:53 - CONCLUSION: Persistent ventriculomegaly. No evidence of hemorrhage, edema, mass or mass effect. No new lesion is seen since the 12/03/17 exam. Froy Feliciano MD Objective Remarks GENERAL: This is a well-nourished, well-developed elderly male patient , in no apparent distress. Awake and alert. Lying in bed. SKIN: No rashes, ecchymoses or lesions. Cool and dry. HEAD: Atraumatic. Normocephalic. No temporal or scalp tenderness. EYES: Pupils equal round and reactive. Extraocular motions intact. No scleral icterus. No injection or drainage. ENT: Nose without bleeding or purulent drainage. Airway patent. MMM. NECK: Trachea midline. No JVD or lymphadenopathy. CARDIOVASCULAR: Regular rate and rhythm without murmurs, gallops, or rubs. RESPIRATORY: Clear to auscultation. Breath sounds equal bilaterally. No wheezes , rales, or rhonchi. GASTROINTESTINAL: Abdomen soft, non-tender, nondistended. No hepato-splenomegaly , or palpable masses. No guarding. MUSCULOSKELETAL: Extremities without clubbing, cyanosis, or edema. No joint tenderness, effusion, or edema noted. No calf tenderness. NEUROLOGICAL: Awake and alert. Cranial nerves II through XII intact. Motor and sensory grossly within normal limits. Five out of 5 muscle strength in all muscle groups. Normal speech. Medications and IVs Current Medications Medications (Trade) Dose Ordered Sig/Regino Route Start Time Stop Time Status Last Admin (NS Flush) 2 ml UNSCH PRN IV FLUSH 12/22/17 15:45 (NS Flush) 2 ml BID IV FLUSH 12/22/17 21:00 12/22/17 21:13 (Narcan Inj) 0.4 mg UNSCH PRN IV PUSH 12/22/17 15:45 Ceftriaxone Sodium 1000 mg/ Sodium Chloride 100 ml @ 200 mls/hr Q24H IV 12/23/17 15:00 (D50w (Vial) Inj) 50 ml UNSCH PRN IV PUSH 12/22/17 15:45 (Glucagon Inj) 1 mg UNSCH PRN OTHER 12/22/17 15:45 (NovoLOG SUPPLEMENTAL SCALE) 1 ACHS SLIDING SCALE SQ 12/22/17 17:00 (D50w (Vial) Inj) 50 ml UNSCH PRN IV PUSH 12/22/17 19:45 (Glucagon Inj) 1 mg UNSCH PRN OTHER 12/22/17 19:45 (NovoLOG SUPPLEMENTAL SCALE) 1 ACHS SLIDING SCALE SQ 12/22/17 21:00 (Adderall) 20 mg BID PO 12/22/17 21:00 (KlonoPIN) 1 mg HS PO 12/22/17 21:00 12/22/17 21:13 (Proscar) 5 mg DAILY PO 12/23/17 09:00 (Lasix) 20 mg DAILY PO 12/23/17 09:00 (LaMICtal) 100 mg DAILY PO 12/23/17 09:00 (Zoloft) 100 mg BID PO 12/22/17 21:00 12/22/17 21:22 A/P Assessment and Plan 72yo male with HTN, DM, chronic neck pain 2/2 DDD cervical spine with ventriculomegaly and concern for NPH s/p lumbar drain last admission admitted with complaints of progressive weakness, recurrent falls and unsteady gait. NPH s/p lumbar drain, worsening with increased weakness, recurrent falls and unsteady gait CT head reveals persistent ventriculomegaly -Neurosurgery consulted, appreciate recommendations -fall precautions -PT eval/tx UTI, on IV Ceftriaxone -follow up on final urine cx results Orthostatic hypotension -orthostatic BP measurements dropped 37mmHg changing from supine to standing -ACEI on hold -discussed slow transitions -please apply JAVIER calvert on while in bed prior to getting patient up -fall precautions -only treat standing blood pressures Chronic systolic heart failure, not in acute exacerbation Echo 10/10/17 EF 25-30% Patient appears euvolemic -continue on po Lasix if standing BP allows -continue to monitor for signs of fluid overload Diabetes mellitus Blood sugars controlled -continue on heart healthy diabetic diet -continue to hold home Metformin -accuchecks and low dose ISS 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
[2017-12-23] MEDS: SERTRALINE HCL 100 MG TAB PO SCH ×2 (10:45→19:47)
[2017-12-23] MEDS: SODIUM CHLORIDE 0.9% FLUSH 10 ML FLUSH IV FLUSH SCH ×2 (10:45→19:48)
[2017-12-23] MEDS: DEXTROAMPHETAMINE/AMPHETAMINE 20 MG TAB PO SCH ×2 (10:45→19:47)
[2017-12-23] MEDS: lamoTRIgine 100 MG TAB PO SCH (10:45)
[2017-12-23] MEDS: FINASTERIDE 5 MG TAB PO SCH (10:45)
[2017-12-23] MEDS: FUROSEMIDE 20 MG TAB PO SCH (15:28)
[2017-12-23] MEDS: cefTRIAXone INJ 1,000 MG in SODIUM CHLORIDE 0.9% INJ 100 ML IV SCH (15:57)
--- NOTE | 2017-12-23 16:33 | EKG ---
Date Performed: 12/22/2017 Time Performed: 13:10:02 PTAGE: 72 years EKG: Sinus rhythm WITH FREQUENT VENTRICULAR PREMATURE COMPLEXES MODERATE INTRAVENTRICULAR CONDUCTION DELAY NONSPECIFIC T-WAVE ABNORMALITY ABNORMAL ECG PREVIOUS TRACING : 10/30/2017 13.07 Since the previous tracing, no significant change noted DOCTOR: Matthew Muller Interpretating Date/Time 12/23/2017 16:28:41
--- NOTE | 2017-12-23 17:10 | HHI.NSPN ---
History Interval History 72-year-old gentleman with a two-year history of unsteady gait with frequent falls along with the urinary urgency and incontinence. He denies any significant short-term memory loss her dementia. He relates that he was admitted a month ago for his unsteadiness and falls and went to rehabilitation and has been in assisted living facility for the last 3 days. Yesterday he had the severe neck pain and spasms prompting him to come to the emergency room for further evaluation. He has a chronic neck pain and low back pain with a remote history of a 2 lumbar laminectomies when he states his L3 to L5 levels. Workup included a CT scan of the head which reveals a moderate ventriculomegaly and concern for normal-pressure hydrocephalus. He also had a CT of cervical spine a subsequent MRI scan which reveals moderate cervical stenosis involving C3-4 and C4-5 level although no cord compression along with multilevel degenerative changes. 12/05/17: Pt awake and alert. Resting in bed. We discussed a temporary lumbar spinal drain and he agrees with that. He complains of unsteady gait and urinary urgency and incontinence but no terrell incontinence. 12/07/17: Pt had lumbar spinal drain placed by radiology yesterday. He states he had headache last night but okay this morning. He states he is drinking fluids. No IV maintenance running. 12/08/17: Pt with lumbar drain in place. He states he felt a little more steady with walking today with PT. He states his headaches are improved. 12/09/17: Pt denies headache. No n/v. 12/10/17: Pt denies headache. He states he is ready to go home. States gait has some improvement. 12/23/17: Presented to the emergency room with syncopal episodes and orthostatic hypotension along with bradycardia. He relates that he had some improvement of his gait with the temporary lumbar spinal drainage a couple weeks ago but then his symptoms recurred. Exam Results Vital Signs Date Time Temp Pulse Resp B/P (MAP) Pulse Ox O2 Delivery O2 Flow Rate FiO2 12/23/17 16:19 97.9 77 18 104/60 (75) 95 12/22/17 20:00 Room Air Intake and Output 12/23/17 12/23/17 12/24/17 08:00 16:00 00:00 Output Total 280 ml Balance -280 ml Physical Examination GENERAL: This is a well-nourished, well-developed patient, in no apparent distress. SKIN: No rashes, ecchymoses or lesions. Cool and dry. HEAD: Atraumatic. Normocephalic. No temporal or scalp tenderness. EYES: Pupils equal round and reactive. Extraocular motions intact. No scleral icterus. No injection or drainage. ENT: Nose without bleeding, purulent drainage or septal hematoma. Throat without erythema, tonsillar hypertrophy or exudate. Uvula midline. Airway patent. NECK: Trachea midline. No JVD or lymphadenopathy. Supple, nontender, no meningeal signs. CARDIOVASCULAR: Regular rate and rhythm without murmurs, gallops, or rubs. RESPIRATORY: Clear to auscultation. Breath sounds equal bilaterally. No wheezes , rales, or rhonchi. GASTROINTESTINAL: Abdomen soft, non-tender, nondistended. No hepato-splenomegaly , or palpable masses. No guarding. MUSCULOSKELETAL: Extremities without clubbing, cyanosis, or edema. No joint tenderness, effusion, or edema noted. No calf tenderness. Negative Homans sign bilaterally. NEUROLOGICAL: Awake and alert. Cranial nerves II through XII intact. Motor and sensory grossly within normal limits. Five out of 5 muscle strength in all muscle groups. Normal speech. Gait is very magnetic and wide-based and unsteady. Lab, Micro, Other Results Last Impressions Head CT 12/22/17 0000 Signed Impressions: Service Date/Time: Friday, December 22, 2017 12:53 - CONCLUSION: Persistent ventriculomegaly. No evidence of hemorrhage, edema, mass or mass effect. No new lesion is seen since the 12/03/17 exam. Froy Feliciano MD Laboratory Tests Test 12/22/17 23:09 12/23/17 04:05 White Blood Count 8.3 Red Blood Count 4.58 Hemoglobin 14.3 Hematocrit 41.4 Mean Corpuscular Volume 90.3 Mean Corpuscular Hemoglobin 31.3 Mean Corpuscular Hemoglobin Concent 34.6 Red Cell Distribution Width 12.6 Platelet Count 171 Mean Platelet Volume 8.4 Neutrophils (%) (Auto) 68.8 Lymphocytes (%) (Auto) 21.7 Monocytes (%) (Auto) 7.7 Eosinophils (%) (Auto) 1.2 Basophils (%) (Auto) 0.6 Neutrophils # (Auto) 5.7 Lymphocytes # (Auto) 1.8 Monocytes # (Auto) 0.6 Eosinophils # (Auto) 0.1 Basophils # (Auto) 0.1 CBC Comment DIFF FINAL Differential Comment Blood Urea Nitrogen 14 Creatinine 0.70 Random Glucose 114 Calcium Level 8.7 Magnesium Level 1.7 Sodium Level 138 Potassium Level 3.6 Chloride Level 103 Carbon Dioxide Level 25.6 Anion Gap 9 Estimat Glomerular Filtration Rate 111 Date/Time Source Procedure Growth Status 12/22/17 14:05 Urine Clean Catch Urine Culture - Preliminary IMMATURE GROWTH - REINCUBATE Resulted Medical Decision Making Impression and Plan Possible normal pressure hydrocephalus with some improvement of his gait with temporary lumbar spinal drainage. He may benefit from ventriculoperitoneal shunt placement once his bradycardia and orthostatic hypotension issues have resolved. Normal-pressure hydrocephalus does not contribute to syncope or orthostatic hypotension. He has been previously cleared by cardiology for any surgical intervention but I do not believe that the anesthesiologist will proceed with anesthesia for surgery unless the bradycardic and orthostatic hypotension issues are resolved. Perhaps a cardiology reevaluation would be of benefit the patient is certainly eager to speak with his tattooer Dr. Garza. Would also recommend physical therapy and rehabilitation to prevent further deconditioning along with gait training. Tim Acharya MD Dec 23, 2017 17:10
[2017-12-23] MEDS: clonazePAM 1 MG TAB PO SCH (19:47)
[2017-12-24] VITALS (8 sets, daily range): BP systolic 102–125; BP diastolic 58–70; PULSE 52–82; RESP 16–21; TEMP 97.5–98.8; O2SAT 94–97
[2017-12-24] MEDS: INSULIN ASPART SUPPLEMENTAL SCALE SQ SCH ×4 (08:00→21:00)
--- NOTE | 2017-12-24 09:19 | PD.CONS ---
HPI Service cardiology Consult Requested By Reason for Consult orthostatic hypotension and bradycardia Primary Care Physician Sheriat Ramos MD History of Present Illness 72 yo WM with non-ischemic cardiomyopathy (EF 25-30% in 10/17), diabetes, depression, BPH and recent diagnosis of normal pressure hydrocephalus with temporary lumbar drain in place who presents with progressive weakness, unsteady gait and near syncope. He lives alone in an [place] and has had progressive weakness and fatigue over the past 6 months with several hospitalizations. Last admission a temporary lumbar drain was placed which initially improved his symptoms but over this past week they have worsened. He denies chest pain, sob or palpitations. He does admit to frequent nausea. Cardiac catheterization in 03/2017 showed mild non-obstructing coronary artery disease. Review of telemetry reveals frequent PVCs, HRs have been between 50- 70bpm. Orthostatic BPs are positive. UA positive for UTI. (Thuy Vasquez) Review of Systems Consitutional: DENIES: Fever, Chills, Weight gain, Weight loss Respiratory: DENIES: Cough, Snoring, Shortness of breath, Wheezing, Sputum production Cardiovascular: DENIES: Chest pain, Palpitations, Tachycardia Gastrointestinal: DENIES: Vomiting, Change in bowel habits, Reflux, Bloody stools, Melena (Thuy Vasquez) Past Family Social History Allergies: Coded Allergies: No Known Allergies (Verified Adverse Reaction, Unknown, 12/22/17) Past Medical History htn dm chf- ef 25% kidney stones NPH- s/p lumbar drain BPH Past Surgical History lithotripisies lumbar drain knee replacement right 2016 trigger finger sx duputrens contracture laminectomy Reported Medications Reported Meds & Active Scripts Active Gnp Senna Plus 8.6-50 mg (Sennosides-Docusate Sodium) 8.6 Mg-50 Mg Tab 1 Tab PO BID Reported Amphetamine-Dextroamphetamine 20 Mg Tab 20 Mg PO BID Avoid late evening doses. Space doses at least 4 to 6 hours if more than once/day dosing. Clonazepam 1 Mg Tab 1 Mg PO HS Primidone 250 Mg Tablet Sertraline (Sertraline HCl) 100 Mg Tab 100 Mg PO BID Lamotrigine 100 Mg Tab 100 Mg PO DAILY Lisinopril 2.5 Mg Tab 2.5 Mg PO DAILY Metformin (Metformin HCl) 500 Mg Tab 500 Mg PO BIDPC Furosemide 20 Mg Tab 20 Mg PO DAILY Proscar (Finasteride) 5 Mg Tab 5 Mg PO DAILY Do not crush. Active Ordered Medications Current Medications Medications (Trade) Dose Ordered Sig/Regino Route Start Time Stop Time Status Last Admin (NS Flush) 2 ml UNSCH PRN IV FLUSH 12/22/17 15:45 (NS Flush) 2 ml BID IV FLUSH 12/22/17 21:00 12/23/17 19:48 (Narcan Inj) 0.4 mg UNSCH PRN IV PUSH 12/22/17 15:45 Ceftriaxone Sodium 1000 mg/ Sodium Chloride 100 ml @ 200 mls/hr Q24H IV 12/23/17 15:00 12/23/17 15:57 (D50w (Vial) Inj) 50 ml UNSCH PRN IV PUSH 12/22/17 19:45 (Glucagon Inj) 1 mg UNSCH PRN OTHER 12/22/17 19:45 (NovoLOG SUPPLEMENTAL SCALE) 1 ACHS SLIDING SCALE SQ 12/22/17 21:00 (Adderall) 20 mg BID PO 12/22/17 21:00 12/23/17 19:47 (KlonoPIN) 1 mg HS PO 12/22/17 21:00 12/23/17 19:47 (Proscar) 5 mg DAILY PO 12/23/17 09:00 12/23/17 10:45 (Lasix) 20 mg DAILY PO 12/23/17 09:00 (LaMICtal) 100 mg DAILY PO 12/23/17 09:00 12/23/17 10:45 (Zoloft) 100 mg BID PO 12/22/17 21:00 12/23/17 19:47 Family History father- skin cancer- ear mother- heart murmur grandmother from mother side - cardiomyopathy- at [facility] Social History never smoked no etoh abuse or drug abuse lives at [facility] (Thuy Vasquez) Physical Exam Vital Signs Vital Signs Date Time Temp Pulse Resp B/P (MAP) Pulse Ox O2 Delivery O2 Flow Rate FiO2 12/24/17 08:22 98.6 52 18 108/70 (83) 95 103/64 (77) 110/59 (76) 12/24/17 04:12 71 12/24/17 04:11 97.5 64 16 114/64 (81) 94 12/24/17 00:52 97.9 52 16 102/59 (73) 95 12/23/17 21:50 97.9 76 16 111/63 (79) 96 12/23/17 16:19 97.9 77 18 104/60 (75) 95 12/23/17 15:15 74 12/23/17 12:26 97.7 54 18 118/65 (82) 96 12/23/17 09:52 48 113/59 (77) 100 98/57 (71) 12/23/17 09:35 97.7 73 18 127/83 (98) 92 Physical Exam GENERAL: SKIN: Warm and dry. HEAD: Atraumatic. Normocephalic. EYES: Pupils equal and round. No scleral icterus. No injection or drainage. ENT: No nasal bleeding or discharge. NECK: Trachea midline. No JVD. CARDIOVASCULAR: Regular rate and rhythm. frequent ectopic beats, no murmur RESPIRATORY: No accessory muscle use. Clear to auscultation. Breath sounds equal bilaterally. GASTROINTESTINAL: Abdomen soft, non-tender, nondistended. Hepatic and splenic margins not palpable. MUSCULOSKELETAL: Extremities without clubbing, cyanosis, or edema. NEUROLOGICAL: Awake and alert. No obvious cranial nerve deficits. Normal speech. PSYCHIATRIC: Appropriate mood and affect; insight and judgment normal. Laboratory Date/Time Source Procedure Growth Status 12/22/17 14:05 Urine Clean Catch Urine Culture - Preliminary IMMATURE GROWTH - REINCUBATE Resulted (Thuy Vasquez) Result Diagram: 12/23/17 0405 12/23/17 0405 Imaging Last [address] 12/22/17 0000 Signed Impressions: Service Date/Time: Friday, December 22, 2017 12:53 - CONCLUSION: Persistent ventriculomegaly. No evidence of hemorrhage, edema, mass or mass effect. No new lesion is seen since the 12/03/17 exam. Froy Feliciano MD (Thuy Vasquez) Assessment and Plan Problem List: (1) CHF (congestive heart failure) ICD Codes: I50.9 - Heart failure, unspecified (2) Generalized weakness ICD Codes: R53.1 - Weakness (3) Orthostatic hypotension ICD Codes: I95.1 - Orthostatic hypotension (4) Cardiomyopathy ICD Codes: I42.9 - Cardiomyopathy, unspecified Assessment and Plan 72 yo WM with non-ischemic cardiomyopathy (EF 25-30% in 10/17), diabetes, depression, BPH and recent diagnosis of normal pressure hydrocephalus with temporary lumbar drain in place who presents with progressive weakness, unsteady gait and near syncope. He lives alone in an [facility] and has had progressive weakness and fatigue over the past 6 months with several hospitalizations. Cardiac catheterization in 03/2017 showed mild non-obstructing coronary artery disease. Review of telemetry reveals frequent PVCs, HRs have been between 50-70bpm. Orthostatic BPs are positive. UA positive for UTI. NICM- EF 25-30%, patient has refused ICD in the past but today says he's open to discussing it again. appears well compensated SBP and pulse will not allow addition of ACEi or bb orthostatic hypotension- encourage hydration. consider holding diuretic bradycardia- HR ranging 48-70bpm, review of tele shows frequent PVCs but no prolonged pauses. will continue to monitor. no AV juan r blocking agents. NPH- neurosurgery considering PUNCHER shunt UTI- antibiotic generalized weakness- will require PT/rehab for deconditioning and gait strengthening (Thuy Vasquez) Assessment and Plan presyncope - unclear etiology tele - PVCs and NSVT known NICM EP input +/- ICD (Froy Garza MD) Thuy Vasquez Dec 24, 2017 09:19 Froy Garza MD Dec 24, 2017 14:44
--- NOTE | 2017-12-24 09:23 | HHI.PR ---
Subjective Remarks Follow up on patient with NPH. Patient seen and examined. Patient's blood pressure is little bit better today. He is still very unsteady. He denies any fever chills. Denies any dizziness, headache or vision changes. Denies any chest pain or shortness of breath. Denies any nausea, vomiting or abdominal pain. PT is recommending rehab at discharge. Objective Vitals Vital Signs Date Time Temp Pulse Resp B/P (MAP) Pulse Ox O2 Delivery O2 Flow Rate FiO2 12/24/17 08:22 98.6 52 18 108/70 (83) 95 103/64 (77) 110/59 (76) 12/24/17 04:12 71 12/24/17 04:11 97.5 64 16 114/64 (81) 94 12/24/17 00:52 97.9 52 16 102/59 (73) 95 12/23/17 21:50 97.9 76 16 111/63 (79) 96 12/23/17 16:19 97.9 77 18 104/60 (75) 95 12/23/17 15:15 74 12/23/17 12:26 97.7 54 18 118/65 (82) 96 12/23/17 09:52 48 113/59 (77) 100 98/57 (71) 12/23/17 09:35 97.7 73 18 127/83 (98) 92 I/O 12/23/17 12/23/17 12/23/17 12/24/17 12/24/17 12/24/17 07:00 15:00 23:00 07:00 15:00 23:00 Output Total 280 ml Balance -280 ml Output Urine Total 280 ml Result Diagram: 12/23/17 0405 12/23/17 0405 Imaging Last Impressions Head CT 12/22/17 0000 Signed Impressions: Service Date/Time: Friday, December 22, 2017 12:53 - CONCLUSION: Persistent ventriculomegaly. No evidence of hemorrhage, edema, mass or mass effect. No new lesion is seen since the 12/03/17 exam. Froy Feliciano MD Objective Remarks GENERAL: This is a well-nourished, well-developed elderly male patient , in no apparent distress. Awake and alert. Appears unsteady sitting up in bed. SKIN: No rashes, ecchymoses or lesions. Cool and dry. HEAD: Atraumatic. Normocephalic. EYES: Pupils equal round and reactive. Extraocular motions intact. No scleral icterus. No injection or drainage. ENT: Nose without bleeding or purulent drainage. Airway patent. MMM. NECK: Trachea midline. No JVD or lymphadenopathy. CARDIOVASCULAR: Regular rate and rhythm without murmurs, gallops, or rubs. RESPIRATORY: Clear to auscultation. Breath sounds equal bilaterally. No wheezes , rales, or rhonchi. GASTROINTESTINAL: Abdomen soft, non-tender, nondistended. No hepato-splenomegaly , or palpable masses. No guarding. MUSCULOSKELETAL: Extremities without clubbing, cyanosis, or edema. No joint tenderness, effusion, or edema noted. No calf tenderness. NEUROLOGICAL: Awake and alert. Cranial nerves II through XII grossly intact. Motor and sensory grossly within normal limits. No focal neurologic findings appreciated. Normal speech. PSYCHIATRIC: Flat affect. Somewhat depressed mood. Medications and IVs Current Medications Medications (Trade) Dose Ordered Sig/Regino Route Start Time Stop Time Status Last Admin (NS Flush) 2 ml UNSCH PRN IV FLUSH 12/22/17 15:45 (NS Flush) 2 ml BID IV FLUSH 12/22/17 21:00 12/23/17 19:48 (Narcan Inj) 0.4 mg UNSCH PRN IV PUSH 12/22/17 15:45 Ceftriaxone Sodium 1000 mg/ Sodium Chloride 100 ml @ 200 mls/hr Q24H IV 12/23/17 15:00 12/23/17 15:57 (D50w (Vial) Inj) 50 ml UNSCH PRN IV PUSH 12/22/17 19:45 (Glucagon Inj) 1 mg UNSCH PRN OTHER 12/22/17 19:45 (NovoLOG SUPPLEMENTAL SCALE) 1 ACHS SLIDING SCALE SQ 12/22/17 21:00 (Adderall) 20 mg BID PO 12/22/17 21:00 12/23/17 19:47 (KlonoPIN) 1 mg HS PO 12/22/17 21:00 12/23/17 19:47 (Proscar) 5 mg DAILY PO 12/23/17 09:00 12/23/17 10:45 (Lasix) 20 mg DAILY PO 12/23/17 09:00 (LaMICtal) 100 mg DAILY PO 12/23/17 09:00 12/23/17 10:45 (Zoloft) 100 mg BID PO 12/22/17 21:00 12/23/17 19:47 A/P Assessment and Plan 72yo male with HTN, DM, chronic neck pain 2/2 DDD cervical spine with ventriculomegaly and concern for NPH s/p lumbar drain last admission admitted with complaints of progressive weakness, recurrent falls and unsteady gait. NPH s/p lumbar drain, worsening with increased weakness, recurrent falls and unsteady gait CT head reveals persistent ventriculomegaly Patient remains very unsteady, PT recommends rehab at discharge -Neurosurgery following, appreciate assistance. Patient could possibly benefit from ventriculoperitoneal shunt placement once his bradycardia and orthostatic hypotension resolved. -fall precautions -continue with PT UTI, on IV Ceftriaxone -Urine culture shows immature growth, re-incubate -Continue on IV ceftriaxone Orthostatic hypotension Orthostatic BP measurements dropped 37mmHg changing from supine to standing 12/24 BP improved but still low, orthostatics negative today -continue to hold ACEI -discussed slow transitions -please apply JAVIER hose on while in bed prior to getting patient up -fall precautions -only treat standing blood pressures Bradycardia TSH 2.970 10/09/17 -Consult patient's osteologist Dr. 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
[2017-12-24] MEDS: FUROSEMIDE 20 MG TAB PO SCH (09:53)
[2017-12-24] MEDS: lamoTRIgine 100 MG TAB PO SCH (09:53)
[2017-12-24] MEDS: SODIUM CHLORIDE 0.9% FLUSH 10 ML FLUSH IV FLUSH SCH ×2 (09:53→21:37)
[2017-12-24] MEDS: SERTRALINE HCL 100 MG TAB PO SCH ×2 (09:53→21:38)
[2017-12-24] MEDS: FINASTERIDE 5 MG TAB PO SCH (09:53)
[2017-12-24] MEDS: DEXTROAMPHETAMINE/AMPHETAMINE 20 MG TAB PO SCH ×2 (09:53→21:00)
[2017-12-24] MEDS: HEPARIN SODIUM - SQ 10,000 UNITS/ML VIAL SQ SCH ×2 (14:51→21:39)
[2017-12-24] MEDS: cefTRIAXone INJ 1,000 MG in SODIUM CHLORIDE 0.9% INJ 100 ML IV SCH (14:52)
--- NOTE | 2017-12-24 20:07 | MB ---
cc: Pamela Maurer MD, Hanscy MD Khanna,Tim Moore,Anant Moore,Sherita MILLER DATE: 12/24/2017 REASON FOR CONSULTATION: Nonsustained ventricular tachyarrhythmia, bradycardia and heart failure. I was called by Dr. Garza about Mr. Berry. HISTORY OF PRESENT ILLNESS: This is a 72-year-old gentleman with nonischemic cardiomyopathy, depression, normal pressure hydrocephalus, progressive weakness, episode of near syncope, EF low since the past couple of years who was admitted to the emergency room due to hypotension and bradycardia. During hospitalization, he developed some episode of nonsustained ventricular tachycardia and at the same time bradyarrhythmia. I was consulted for evaluation and management. The chart was reviewed. The patient was evaluated. HISTORY: None reported. SOCIAL HISTORY: Negative for smoking and drinking. FAMILY HISTORY: Noncontributory to his current medical condition. MEDICATIONS: 1. Clonazepam. 2. Primidone 250 mg a day. 3. Zoloft 100 mg twice a day. 4. Lisinopril 2.5 mg a day. 5. Metformin 500 mg twice a day. 6. Lasix 20 mg a day. 7. Proscar 5 mg a day. 8. Dextroamphetamine 20 mg twice a day. REVIEW OF SYSTEMS: He referred no chest pain currently, some shortness of breath and dizziness. No fever. PHYSICAL EXAMINATION: GENERAL: Alert, fully oriented. VITAL SIGNS: Blood pressure 122/65, pulse 74, respiratory rate 18 LUNGS: Ventilated. CARDIOVASCULAR: S1, S2. No gallop. No murmur. ABDOMEN: Soft. No mass. No bruits. EXTREMITIES: No edema. CARDIOLOGY STUDIES: Electrocardiogram indicated sinus rhythm and PVCs. Diffuse ST changes. LABORATORY DATA: Hemoglobin 14.2, white blood cell 8.3. Potassium 3.6, creatinine 0.70. Troponin less than 0.02. TSH 2.45. ASSESSMENT AND RECOMMENDATIONS: Mr. BERRY has ejection fraction of 25% for over a 6-month period. He has severe bradycardia. He had episode of nonsustained ventricular tachycardia also. I had a long conversation with Dr. Garza as well as the patient. The gentleman is going to need pacing support. Also, he will need sudden prevention. He will need a dual chamber defibrillator. The risks, the nature and the benefits of the procedure are clearly stated to him. Risks include pneumothorax, cardiac perforation, stroke and even . He understood and agreed to proceed. Procedure will be scheduled for Wednesday. Shared consent of the decision was taken to the patient. I explained to the patient the need and the indication for the pacemaker defibrillator. Procedure will be performed Wednesday. MD SERINA Miranda/ , 07:45 PM , 08:06 PM
[2017-12-24] MEDS: clonazePAM 1 MG TAB PO SCH (21:38)
[2017-12-25] VITALS (23 sets, daily range): BP systolic 105–127; BP diastolic 58–80; PULSE 68–85; RESP 16–21; TEMP 97.8–98.7; O2SAT 94–98
[2017-12-25] MEDS ORDERED: MELATONIN 5 MG TAB PO ONE (01:00)
[2017-12-25] MEDS: MORPHINE SULFATE 2 MG/ML SYRINGE IV PUSH PRN ×3 (01:14→08:58)
[2017-12-25] MEDS: HEPARIN SODIUM - SQ 10,000 UNITS/ML VIAL SQ SCH ×3 (05:54→20:54)
[2017-12-25] MEDS: INSULIN ASPART SUPPLEMENTAL SCALE SQ SCH ×2 (08:00→12:00)
[2017-12-25] MEDS: SODIUM CHLORIDE 0.9% FLUSH 10 ML FLUSH IV FLUSH SCH ×2 (09:00→20:54)
[2017-12-25] MEDS: FINASTERIDE 5 MG TAB PO SCH (09:01)
[2017-12-25] MEDS: FUROSEMIDE 20 MG TAB PO SCH (09:01)
[2017-12-25] MEDS: SERTRALINE HCL 100 MG TAB PO SCH ×2 (09:01→20:53)
[2017-12-25] MEDS: lamoTRIgine 100 MG TAB PO SCH (09:02)
[2017-12-25] MEDS ORDERED: ACETAMINOPHEN/HYDROcodone 325 MG/5 MG TAB PO PRN (12:00)
[2017-12-25] MEDS ORDERED: MORPHINE SULFATE 2 MG/ML SYRINGE IV PUSH PRN (12:15)
--- NOTE | 2017-12-25 12:15 | HHI.PR ---
Subjective Remarks The patient was resting comfortably in bed. He stated that his pain was not quite controlled. He has been constipated for a week. He is complaining of left sided rib pain. No other acute complaints. Discussed with nursing. Objective Vitals Vital Signs Date Time Temp Pulse Resp B/P (MAP) Pulse Ox O2 Delivery O2 Flow Rate FiO2 12/25/17 09:00 68 12/25/17 08:00 73 12/25/17 08:00 97.8 73 16 122/59 (80) 96 12/25/17 07:00 75 12/25/17 06:02 74 12/25/17 05:59 76 12/25/17 04:46 73 12/25/17 03:54 98.7 81 20 116/80 (92) 97 12/25/17 03:54 74 12/25/17 02:31 77 12/25/17 01:30 78 12/25/17 00:25 77 12/24/17 23:00 82 12/24/17 23:00 98.4 71 21 125/61 (82) 97 12/24/17 20:15 98.8 70 16 107/58 (74) 97 12/24/17 17:58 97.5 74 18 105/60 (75) 97 I/O 12/24/17 12/24/17 12/24/17 12/25/17 12/25/17 12/25/17 07:00 15:00 23:00 07:00 15:00 23:00 Intake Total 720 ml 240 ml Output Total 1200 ml 150 ml Balance -480 ml 90 ml Intake Oral 720 ml 240 ml Output Urine Total 1200 ml 150 ml # Voids 4 2 Result Diagram: 12/23/17 0405 12/23/17 0405 Imaging Last Impressions Head CT 12/22/17 0000 Signed Impressions: Service Date/Time: Friday, December 22, 2017 12:53 - CONCLUSION: Persistent ventriculomegaly. No evidence of hemorrhage, edema, mass or mass effect. No new lesion is seen since the 12/03/17 exam. Froy Feliciano MD Objective Remarks GENERAL: Resting in bed. SKIN: No rashes, ecchymoses or lesions. Cool and dry. HEAD: Atraumatic. Normocephalic. EYES: Pupils equal round and reactive. Extraocular motions intact. No scleral icterus. No injection or drainage. ENT: Nose without bleeding or purulent drainage. Airway patent. MMM. NECK: Trachea midline. No JVD or lymphadenopathy. CARDIOVASCULAR: Regular rate and rhythm without murmurs, gallops, or rubs. RESPIRATORY: Clear to auscultation. Breath sounds equal bilaterally. No wheezes , rales, or rhonchi. GASTROINTESTINAL: Abdomen soft, non-tender, nondistended. No hepato-splenomegaly , or palpable masses. No guarding. MUSCULOSKELETAL: Extremities without clubbing, cyanosis, or edema. No joint tenderness, effusion, or edema noted. No rib tenderness. NEUROLOGICAL: Awake and alert. Cranial nerves II through XII grossly intact. Motor and sensory grossly within normal limits. No focal neurologic findings appreciated. Normal speech. PSYCHIATRIC: Mood and affect appropriate. Medications and IVs Current Medications Medications (Trade) Dose Ordered Sig/Regino Route Start Time Stop Time Status Last Admin (NS Flush) 2 ml UNSCH PRN IV FLUSH 12/22/17 15:45 (NS Flush) 2 ml BID IV FLUSH 12/22/17 21:00 12/25/17 09:00 (Narcan Inj) 0.4 mg UNSCH PRN IV PUSH 12/22/17 15:45 Ceftriaxone Sodium 1000 mg/ Sodium Chloride 100 ml @ 200 mls/hr Q24H IV 12/23/17 15:00 12/24/17 14:52 (D50w (Vial) Inj) 50 ml UNSCH PRN IV PUSH 12/22/17 19:45 (Glucagon Inj) 1 mg UNSCH PRN OTHER 12/22/17 19:45 (NovoLOG SUPPLEMENTAL SCALE) 1 ACHS SLIDING SCALE SQ 12/22/17 21:00 (Adderall) 20 mg BID PO 12/22/17 21:00 12/24/17 09:53 (KlonoPIN) 1 mg HS PO 12/22/17 21:00 12/24/17 21:38 (Proscar) 5 mg DAILY PO 12/23/17 09:00 12/25/17 09:01 (Lasix) 20 mg DAILY PO 12/23/17 09:00 12/25/17 09:01 (LaMICtal) 100 mg DAILY PO 12/23/17 09:00 12/25/17 09:02 (Zoloft) 100 mg BID PO 12/22/17 21:00 12/25/17 09:01 (Heparin Inj) 5,000 units Q8HR SQ 12/24/17 14:00 12/25/17 05:54 (Morphine Inj) 2 mg Q3H PRN IV PUSH 12/25/17 01:00 12/25/17 08:58 (Ivelisse-Colace) 1 tab BID PO 12/25/17 12:00 (Miralax) 17 gm DAILY PO 12/25/17 12:00 A/P Assessment and Plan 72yo male with HTN, DM, chronic neck pain 2/2 DDD cervical spine with ventriculomegaly and concern for NPH s/p lumbar drain last admission admitted with complaints of progressive weakness, recurrent falls and unsteady gait. NPH s/p lumbar drain, worsening with increased weakness, recurrent falls and unsteady gait CT head reveals persistent ventriculomegaly Patient remains very unsteady, PT recommends rehab at discharge -Neurosurgery following, appreciate assistance. Patient could possibly benefit from ventriculoperitoneal shunt placement once his bradycardia and orthostatic hypotension resolved. -fall precautions -continue with PT UTI, on IV Ceftriaxone -Urine culture growing staph epidermidis -Continue on IV ceftriaxone Orthostatic hypotension Orthostatic BP measurements dropped 37mmHg changing from supine to standing 12/24 BP improved but still low, orthostatics negative today -continue to hold ACEI -discussed slow transitions -please apply JAVIER hose on while in bed prior to getting patient up -fall precautions Bradycardia TSH 2.970 10/09/17 -Consult patient's nursing support worker Dr. Garza, appreciate recommendations -EP consult appreciated. Plan for pacemaker placement on Wednesday. 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 - CXR pending. Constipation No bowel movement in about a week. - Pericolace and Miralax. DVT prophylaxis -bilateral SCD/JAVIER hose -Heparin sq Sayess,Ezequiel. DO Dec 25, 2017 12:15
--- NOTE | 2017-12-25 12:17 | RADRPT ---
EXAM DATE/TIME: 12/25/2017 11:59 [facility] COMPARISON: CHEST SINGLE AP, October 30, 2017, 13:37. INDICATIONS : Rib fracture. Patient states he fell and complains of left lower rib pain. MEDICAL HISTORY : Cardiovascular disease. SURGICAL HISTORY : None. ENCOUNTER: Subsequent ACUITY: 1 week PAIN SCORE: 9/10 LOCATION: Bilateral chest FINDINGS: A single view of the chest demonstrates the lungs to be symmetrically aerated without evidence of mas s, infiltrate or effusion. The cardiomediastinal contours are unremarkable. Osseous structures are intact. CONCLUSION: No acute disease. Christopher Plasencia MD on December 25, 2017 at 12:14 Board Certified Radiologist. This report was verified electronically.
[2017-12-25] MEDS: cefTRIAXone INJ 1,000 MG in SODIUM CHLORIDE 0.9% INJ 100 ML IV SCH (13:20)
[2017-12-25] MEDS: POLYETHYLENE GLYCOL 17 GM PKG PO SCH (13:21)
[2017-12-25] MEDS: DOCUSATE SODIUM 50 MG/SENNA 8.6 MG TAB PO SCH ×2 (13:21→20:53)
[2017-12-25] MEDS: DEXTROAMPHETAMINE/AMPHETAMINE 20 MG TAB PO SCH ×2 (13:22→20:56)
[2017-12-25] MEDS: ACETAMINOPHEN/HYDROcodone 325 MG/7.5 MG TAB PO PRN ×2 (13:22→20:53)
--- NOTE | 2017-12-25 19:09 | ECHRPT ---
Indication: CHEST PAIN CONCLUSIONS Moderately dilated left ventricle. Mild concentric left ventricular hypertrophy. The left ventricular systolic function is severely reduced with an estimated ejection fraction in th e range of 20-25%. The left atrial size is moderately dilated. The right atrial size is mildly dilated. [id number] mitral valve regurgitation. Aortic valve sclerosis is present. No tricuspid regurgitation. BP: 123 / 64 HR: 74 Rhythm: Sinus, PVCs, PACs MEASUREMENTS (Male / Female) Normal Values Technical Quality:Fair 2D ECHO LV Diastolic Diameter PLAX 7.0 cm 4.2 - 5.9 / 3.9 - 5.3 cm LV Systolic Diameter PLAX 6.5 cm IVS Diastolic Thickness 1.3 cm 0.6 - 1.0 / 0.6 - 0.9 cm LVPW Diastolic Thickness 1.0 cm 0.6 - 1.0 / 0.6 - 0.9 cm LV Relative Wall Thickness 0.3 LVOT Diameter 2.2 cm Aortic Root Diameter 3.0 cm LA Systolic Diameter LX 3.0 cm 3.0 - 4.0 / 2.7 - 3.8 cm DOPPLER AV Peak Velocity 95.1 cm/s AV Peak Gradient 3.6 mmHg AV Mean Gradient 2.0 mmHg AV Velocity Time Integral 18.0 cm LVOT Peak Velocity 53.4 cm/s LVOT Peak Gradient 1.1 mmHg LVOT Velocity Time Integral 10.2 cm AV Area Cont Eq vti 2.2 cm AV Area Cont Eq pk 2.1 cm Mitral E Point Velocity 25.2 cm/s Mitral A Point Velocity 42.7 cm/s Mitral E to A Ratio 0.6 LV E' Lateral Velocity 5.2 cm/s Mitral E to LV E' Lateral Ratio 4.9 LV E' Septal Velocity 4.9 cm/s Mitral E to LV E' Septal Ratio 5.2 PV Peak Velocity 43.6 cm/s PV Peak Gradient 0.8 mmHg FINDINGS LEFT VENTRICLE Moderately dilated left ventricle. Mild concentric left ventricular hypertrophy. The left ventricular systolic function is severely reduced with an estimated ejection fraction in th e range of 20-25%. RIGHT VENTRICLE Normal right ventricular size and systolic function. LEFT ATRIUM The left atrial size is moderately dilated. RIGHT ATRIUM The right atrial size is mildly dilated. ATRIAL SEPTUM The interatrial septum not well visualized. AORTA The aortic root and proximal ascending aorta are not well visualized. MITRAL VALVE [id number] mitral valve regurgitation. AORTIC VALVE Aortic valve sclerosis is present. TRICUSPID VALVE No tricuspid regurgitation. PULMONARY VALVE The pulmonary valve is not well visualized. VESSELS The inferior vena cava was not well visualized. PERICARDIUM No pericardial effusion. Matthew Muller MD, FACC, [facility] (Electronically Signed) Final Date:25 December 2017 19:08
[2017-12-25] MEDS: clonazePAM 1 MG TAB PO SCH (20:53)
[2017-12-26] VITALS (22 sets, daily range): BP systolic 110–138; BP diastolic 59–78; PULSE 66–90; RESP 18–20; TEMP 97.8–98.6; O2SAT 93–98
[2017-12-26] MEDS: HEPARIN SODIUM - SQ 10,000 UNITS/ML VIAL SQ SCH ×3 (05:51→20:33)
[2017-12-26] MEDS: POLYETHYLENE GLYCOL 17 GM PKG PO SCH (08:56)
[2017-12-26] MEDS: FINASTERIDE 5 MG TAB PO SCH (08:56)
[2017-12-26] MEDS: lamoTRIgine 100 MG TAB PO SCH (08:56)
[2017-12-26] MEDS: FUROSEMIDE 20 MG TAB PO SCH (08:57)
[2017-12-26] MEDS: DEXTROAMPHETAMINE/AMPHETAMINE 20 MG TAB PO SCH (08:57)
[2017-12-26] MEDS: SERTRALINE HCL 100 MG TAB PO SCH ×2 (08:57→20:33)
[2017-12-26] MEDS: DOCUSATE SODIUM 50 MG/SENNA 8.6 MG TAB PO SCH ×2 (09:00→20:33)
[2017-12-26] MEDS: SODIUM CHLORIDE 0.9% FLUSH 10 ML FLUSH IV FLUSH SCH ×2 (09:00→20:33)
--- NOTE | 2017-12-26 12:16 | HHI.PR ---
Subjective Remarks The pt had just had a bowel movement. He complains of chronic pain. He had a hard time sleeping last night. He says he can't have the procedure tomorrow because of his UTI. Discussed with nursing. Objective Vitals Vital Signs Date Time Temp Pulse Resp B/P (MAP) Pulse Ox O2 Delivery O2 Flow Rate FiO2 12/26/17 06:03 68 12/26/17 05:03 67 12/26/17 04:12 80 12/26/17 03:43 66 12/26/17 03:43 98.4 75 19 138/67 (90) 98 12/26/17 02:23 68 12/26/17 01:05 70 12/26/17 00:36 72 12/25/17 23:15 74 12/25/17 23:15 98.7 77 20 124/64 (84) 95 12/25/17 22:33 85 12/25/17 21:30 82 12/25/17 20:30 80 12/25/17 19:30 78 12/25/17 19:30 98.4 76 21 127/59 (81) 96 12/25/17 17:00 79 12/25/17 16:00 97.9 75 16 105/58 (74) 98 12/25/17 16:00 79 12/25/17 15:00 75 12/25/17 14:30 16 12/25/17 14:00 75 12/25/17 13:00 75 I/O 12/25/17 12/25/17 12/25/17 12/26/17 12/26/17 12/26/17 07:00 15:00 23:00 07:00 15:00 23:00 Intake Total 240 ml 100 ml 600 ml 240 ml Output Total 150 ml 125 ml Balance 90 ml 100 ml 600 ml 115 ml Intake Oral 240 ml 600 ml 240 ml IV Total 100 ml Output Urine Total 150 ml 125 ml # Voids 2 4 3 # Bowel Movements 0 0 Result Diagram: 12/23/1740412/23/17404 Imaging Last Impressions Chest X-Ray 12/25/17 0000 Signed Impressions: Service Date/Time: Monday, December 25, 2017 11:59 - CONCLUSION: No acute disease. Christopher Plasencia MD Head CT 12/22/17 0000 Signed Impressions: Service Date/Time: Friday, December 22, 2017 12:53 - CONCLUSION: Persistent ventriculomegaly. No evidence of hemorrhage, edema, mass or mass effect. No new lesion is seen since the 12/03/17 exam. Froy Feliciano MD Objective Remarks GENERAL: Resting in bed. SKIN: No rashes, ecchymoses or lesions. Cool and dry. HEAD: Atraumatic. Normocephalic. EYES: Pupils equal round and reactive. Extraocular motions intact. No scleral icterus. No injection or drainage. ENT: Nose without bleeding or purulent drainage. Airway patent. MMM. NECK: Trachea midline. No JVD or lymphadenopathy. CARDIOVASCULAR: Regular rate and rhythm without murmurs, gallops, or rubs. RESPIRATORY: Clear to auscultation. Breath sounds equal bilaterally. No wheezes , rales, or rhonchi. GASTROINTESTINAL: Abdomen soft, non-tender, nondistended. No hepato-splenomegaly , or palpable masses. No guarding. MUSCULOSKELETAL: Extremities without clubbing, cyanosis, or edema. No joint tenderness, effusion, or edema noted. No rib tenderness. NEUROLOGICAL: Awake and alert. Cranial nerves II through XII grossly intact. Motor and sensory grossly within normal limits. No focal neurologic findings appreciated. Normal speech. PSYCHIATRIC: Mood and affect appropriate. Medications and IVs Current Medications Medications (Trade) Dose Ordered Sig/Regino Route Start Time Stop Time Status Last Admin (NS Flush) 2 ml UNSCH PRN IV FLUSH 12/22/17 15:45 (NS Flush) 2 ml BID IV FLUSH 12/22/17 21:00 12/26/17 09:00 (Narcan Inj) 0.4 mg UNSCH PRN IV PUSH 12/22/17 15:45 Ceftriaxone Sodium 1000 mg/ Sodium Chloride 100 ml @ 200 mls/hr Q24H IV 12/23/17 15:00 12/25/17 13:20 (D50w (Vial) Inj) 50 ml UNSCH PRN IV PUSH 12/22/17 19:45 (Glucagon Inj) 1 mg UNSCH PRN OTHER 12/22/17 19:45 (Adderall) 20 mg BID PO 12/22/17 21:00 12/26/17 08:57 (KlonoPIN) 1 mg HS PO 12/22/17 21:00 12/25/17 20:53 (Proscar) 5 mg DAILY PO 12/23/17 09:00 12/26/17 08:56 (Lasix) 20 mg DAILY PO 12/23/17 09:00 12/26/17 08:57 (LaMICtal) 100 mg DAILY PO 12/23/17 09:00 12/26/17 08:56 (Zoloft) 100 mg BID PO 12/22/17 21:00 12/26/17 08:57 (Heparin Inj) 5,000 units Q8HR SQ 12/24/17 14:00 12/26/17 05:51 (Ivelisse-Colace) 1 tab BID PO 12/25/17 12:00 12/26/17 09:00 (Miralax) 17 gm DAILY PO 12/25/17 12:00 12/26/17 08:56 (Morphine Inj) 2 mg Q4H PRN IV PUSH 12/25/17 12:15 ([place] 5-325 Mg) 1 tab Q4H PRN PO 12/25/17 12:00 ([place] 7.5-325 Mg) 1 tab Q4H PRN PO 12/25/17 12:00 12/25/17 20:53 A/P Assessment and Plan 72yo male with HTN, DM, chronic neck pain 2/2 DDD cervical spine with ventriculomegaly and concern for NPH s/p lumbar drain last admission admitted with complaints of progressive weakness, recurrent falls and unsteady gait. NPH s/p lumbar drain, worsening with increased weakness, recurrent falls and unsteady gait CT head reveals persistent ventriculomegaly Patient remains very unsteady, PT recommends rehab at discharge -Neurosurgery following, appreciate assistance. Patient could possibly benefit from ventriculoperitoneal shunt placement once his bradycardia and orthostatic hypotension resolved. -fall precautions -continue with PT UTI, on IV Ceftriaxone -Urine culture growing staph epidermidis -Continue on IV ceftriaxone (started 12/22) Orthostatic hypotension Orthostatic BP measurements dropped 37mmHg changing from supine to standing 12/24 BP improved but still low, orthostatics negative today -continue to hold ACEI -discussed slow transitions -apply JAVIER hose -fall precautions Bradycardia TSH 2.970 10/09/17 -Consult patient's sales product manager Dr. Garza, appreciate recommendations -EP consult appreciated. Plan for pacemaker placement on Wednesday. May be postponed s/t UTI. Will follow with cardiology. Chronic systolic heart failure, not in acute exacerbation Echo 10/10/17 EF 25-30% Patient appears euvolemic -continue on po Lasix if standing BP allows -continue to monitor for signs of fluid overload. Euvolemic at this time. 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 CXR unremarkable. - pain control as needed. Constipation No bowel movement in about a week. - Pericolace and Miralax. Resolved. DVT prophylaxis -bilateral SCD/JAVIER hose -Heparin sq Anant Moore DO Dec 26, 2017 12:16
--- NOTE | 2017-12-26 12:21 | PD.CARD.PN ---
Subjective Subjective Remarks Follow up for Dr. Maurer No complaints other than weakness Objective Medications Current Medications Medications (Trade) Dose Ordered Sig/Regino Route Start Time Stop Time Status Last Admin (NS Flush) 2 ml UNSCH PRN IV FLUSH 12/22/17 15:45 (NS Flush) 2 ml BID IV FLUSH 12/22/17 21:00 12/26/17 09:00 (Narcan Inj) 0.4 mg UNSCH PRN IV PUSH 12/22/17 15:45 Ceftriaxone Sodium 1000 mg/ Sodium Chloride 100 ml @ 200 mls/hr Q24H IV 12/23/17 15:00 12/25/17 13:20 (D50w (Vial) Inj) 50 ml UNSCH PRN IV PUSH 12/22/17 19:45 (Glucagon Inj) 1 mg UNSCH PRN OTHER 12/22/17 19:45 (Adderall) 20 mg BID PO 12/22/17 21:00 12/26/17 08:57 (KlonoPIN) 1 mg HS PO 12/22/17 21:00 12/25/17 20:53 (Proscar) 5 mg DAILY PO 12/23/17 09:00 12/26/17 08:56 (Lasix) 20 mg DAILY PO 12/23/17 09:00 12/26/17 08:57 (LaMICtal) 100 mg DAILY PO 12/23/17 09:00 12/26/17 08:56 (Zoloft) 100 mg BID PO 12/22/17 21:00 12/26/17 08:57 (Heparin Inj) 5,000 units Q8HR SQ 12/24/17 14:00 12/26/17 05:51 (Ivelisse-Colace) 1 tab BID PO 12/25/17 12:00 12/26/17 09:00 (Miralax) 17 gm DAILY PO 12/25/17 12:00 12/26/17 08:56 (Morphine Inj) 2 mg Q4H PRN IV PUSH 12/25/17 12:15 ([place] 5-325 Mg) 1 tab Q4H PRN PO 12/25/17 12:00 ([place] 7.5-325 Mg) 1 tab Q4H PRN PO 12/25/17 12:00 12/25/17 20:53 (KCl) 20 meq ONCE ONCE PO 12/26/17 12:15 12/26/17 12:16 UNV (Ambien) 5 mg HS PRN PO 12/26/17 12:15 UNV Vital Signs / I&O Vital Signs Date Time Temp Pulse Resp B/P (MAP) Pulse Ox O2 Delivery O2 Flow Rate FiO2 12/26/17 06:03 68 12/26/17 05:03 67 12/26/17 04:12 80 12/26/17 03:43 66 12/26/17 03:43 98.4 75 19 138/67 (90) 98 12/26/17 02:23 68 12/26/17 01:05 70 12/26/17 00:36 72 12/25/17 23:15 74 12/25/17 23:15 98.7 77 20 124/64 (84) 95 12/25/17 22:33 85 12/25/17 21:30 82 12/25/17 20:30 80 12/25/17 19:30 78 12/25/17 19:30 98.4 76 21 127/59 (81) 96 12/25/17 17:00 79 12/25/17 16:00 97.9 75 16 105/58 (74) 98 12/25/17 16:00 79 12/25/17 15:00 75 12/25/17 14:30 16 12/25/17 14:00 75 12/25/17 13:00 75 I/O 12/25/17 12/25/17 12/25/17 12/26/17 12/26/17 12/26/17 07:00 15:00 23:00 07:00 15:00 23:00 Intake Total 240 ml 100 ml 600 ml 240 ml Output Total 150 ml 125 ml Balance 90 ml 100 ml 600 ml 115 ml Intake Oral 240 ml 600 ml 240 ml IV Total 100 ml Output Urine Total 150 ml 125 ml # Voids 2 4 3 # Bowel Movements 0 0 Physical Exam GENERAL: NAD, AAOx3 SKIN: Warm and dry. HEAD: Atraumatic. Normocephalic. EYES: Pupils equal and round. No scleral icterus. No injection or drainage. ENT: No nasal bleeding or discharge. Mucous membranes pink and moist. NECK: Trachea midline. No JVD. CARDIOVASCULAR: Regular rate and rhythm. RESPIRATORY: No accessory muscle use. Clear to auscultation. Breath sounds equal bilaterally. GASTROINTESTINAL: Abdomen soft, non-tender, nondistended. Hepatic and splenic margins not palpable. MUSCULOSKELETAL: Extremities without clubbing, cyanosis, or edema. No obvious deformities. NEUROLOGICAL: Awake and alert. No obvious cranial nerve deficits. Motor grossly within normal limits. Five out of 5 muscle strength in the arms and legs. Normal speech. PSYCHIATRIC: Appropriate mood and affect; insight and judgment normal. Assessment and Plan Problem List: (1) CHF (congestive heart failure) ICD Codes: I50.9 - Heart failure, unspecified (2) Generalized weakness ICD Codes: R53.1 - Weakness (3) Orthostatic hypotension ICD Codes: I95.1 - Orthostatic hypotension (4) Cardiomyopathy ICD Codes: I42.9 - Cardiomyopathy, unspecified Assessment and Plan 1) Chronic systolic heart failure, cardiomyopathy with EF of 20-25% Plan for ICD but await ID evaluation 2) UTI Evaluation by ID, once ok'd from their standpoint Dr. Maurer will consider ICD 3) Bradycardia As above 4) Dr. Maurer will follow up this week for further recommendations Michael Mccarthy DO Dec 26, 2017 12:21
[2017-12-26] MEDS ORDERED: POTASSIUM CHLORIDE 20 MEQ CONTROLLED RELEASE TAB PO ONE (13:00)
[2017-12-26] MEDS: cefTRIAXone INJ 1,000 MG in SODIUM CHLORIDE 0.9% INJ 100 ML IV SCH (15:36)
[2017-12-26] MEDS ORDERED: ONDANSETRON HCL 4 MG/2 ML VIAL ONE (15:44)
[2017-12-26] MEDS: clonazePAM 1 MG TAB PO SCH (20:33)
[2017-12-26] MEDS: ZOLPIDEM TARTRATE 5 MG TAB PO PRN (20:36)
--- NOTE | 2017-12-26 23:26 | PD.ID.CON ---
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 He is in need for a pacemeaker He was noted to have abnormal UA with + urine culture for Staph epi + h/ BPH, but according to pt is asymptomatic Review of Systems Except as stated in HPI: all other systems reviewed are Neg Past Family Social History Allergies: Coded Allergies: No Known Allergies (Verified Adverse Reaction, Unknown, 12/22/17) Past Medical History htn dm chf- ef 25% kidney stones NPH- s/p lumbar drain BPH Past Surgical History lithotripisies lumbar drain knee replacement right 2016 trigger finger sx duputrens contracture laminectomy Active Ordered Medications Medications where reviewed in EMR Antibiotics Include: CFTX Family History father- skin cancer- ear mother- heart murmur grandmother from mother side - cardiomyopathy- at 100 Social History never smoked no etoh abuse or drug abuse [facility] Physical Exam Vital Signs Vital Signs Date Time Temp Pulse Resp B/P (MAP) Pulse Ox O2 Delivery O2 Flow Rate FiO2 12/26/17 20:00 79 12/26/17 18:00 82 12/26/17 17:00 78 12/26/17 16:00 78 12/26/17 15:00 76 12/26/17 15:00 98.2 70 20 120/62 (81) 98 12/26/17 14:00 74 12/26/17 13:00 72 12/26/17 12:00 90 12/26/17 11:00 70 12/26/17 11:00 98.3 70 20 126/63 (84) 97 12/26/17 10:00 66 12/26/17 09:00 74 12/26/17 08:00 78 12/26/17 07:00 80 12/26/17 07:00 97.8 80 18 124/60 (81) 98 12/26/17 06:03 68 12/26/17 05:03 67 12/26/17 04:12 80 12/26/17 03:43 66 12/26/17 03:43 98.4 75 19 138/67 (90) 98 4/29/18 02:23 68 12/26/17 01:05 70 12/26/17 00:36 72 Physical Exam CONSTITUTIONAL/GENERAL: This is an adequately nourished patient, in no apparent distress. TUBES/LINES/DRAINS: SKIN: No jaundice, rashes, or lesions. Skin temperature appropriate. Not diaphoretic. HEAD: Atraumatic. Normocephalic. EYES: Pupils equal and round and reactive. Extraocular motions intact. No scleral icterus. No injection or drainage. Fundi not examined. ENT: Hearing grossly normal. Nose without bleeding or purulent drainage. Throat without visible erythema, exudates, masses, or lesions. NECK: Trachea midline. Supple, nontender. No palpable thyroid enlargement or nodularity. CARDIOVASCULAR: irregular rhythm, bradicardia without murmurs, gallops, or rubs. No JVD. Peripheral pulses symmetric. RESPIRATORY/CHEST: Symmetric, unlabored respirations. Clear to auscultation. Breath sounds equal bilaterally. No wheezes, rales, or rhonchi. GASTROINTESTINAL: Abdomen soft, non-tender, nondistended. No hepato-splenomegaly , or palpable masses. No guarding. Bowel sounds present. GENITOURINARY: Without palpable bladder distension. MUSCULOSKELETAL: Extremities without clubbing, cyanosis, or edema. No joint tenderness or effusion noted. No calf tenderness. No mottling or clubbing. LYMPHATICS: No palpable cervical or supraclavicular adenopathy. NEUROLOGICAL: Awake and alert. Motor and sensory grossly within normal limits. Follows commands. Clear speech. Moves all extremities. PSYCHIATRIC: No obvious anxiety/depression. no apparent hallucinations or other psychotic thought process. Laboratory Date/Time Source Procedure Growth Status 12/22/17 14:05 Urine Clean Catch Urine Culture - Final Staphylococcus Epidermidis Complete Result Diagram: 12/23/17 0405 12/23/17 0405 Imaging Last Impressions Chest X-Ray 12/25/17 0000 Signed Impressions: Service Date/Time: Monday, December 25, 2017 11:59 - CONCLUSION: No acute disease. Christopher Plasencia MD Head CT 12/22/17 0000 Signed Impressions: Service Date/Time: Friday, December 22, 2017 12:53 - CONCLUSION: Persistent ventriculomegaly. No evidence of hemorrhage, edema, mass or mass effect. No new lesion is seen since the 12/03/17 exam. Froy Feliciano MD Assessment and Plan Assessment and Plan Symptomatic bradicardia requiring pacemaker placement UTI vsStaph cristino bacteriuria - coag neg staph is unusual organsim for UTI and probably contaminantNo e/o systemic infection (normal WBC, no fver, no other c/o) - Staph epi is a normal coloniser of skin rechk UA, C+S OK to proceed with pacer placement from ID standpoint Discussed Condition With Dr Fabio Muller,Holley Garcia MD Dec 26, 2017 23:26
[2017-12-26] MEDS: ACETAMINOPHEN/HYDROcodone 325 MG/7.5 MG TAB PO PRN (23:46)
[2017-12-27] VITALS (22 sets, daily range): BP systolic 118–138; BP diastolic 61–76; PULSE 68–104; RESP 14–20; TEMP 97.5–98.5; O2SAT 95–99
[2017-12-27] MEDS: ACETAMINOPHEN/HYDROcodone 325 MG/7.5 MG TAB PO PRN ×3 (04:06→16:23)
[2017-12-27 04:21] LABS: BICARBONATE 29.9 MEQ/L (21.0-32.0); CREATININE 0.76 MG/DL (0.60-1.30)
[2017-12-27] MEDS: HEPARIN SODIUM - SQ 10,000 UNITS/ML VIAL SQ SCH ×3 (05:54→21:00)
[2017-12-27] MEDS: SERTRALINE HCL 100 MG TAB PO SCH ×2 (08:02→20:58)
[2017-12-27] MEDS: lamoTRIgine 100 MG TAB PO SCH (08:02)
[2017-12-27] MEDS: FUROSEMIDE 20 MG TAB PO SCH (08:02)
[2017-12-27] MEDS: FINASTERIDE 5 MG TAB PO SCH (08:02)
[2017-12-27] MEDS: DOCUSATE SODIUM 50 MG/SENNA 8.6 MG TAB PO SCH ×2 (08:02→20:59)
[2017-12-27] MEDS: DEXTROAMPHETAMINE/AMPHETAMINE 20 MG TAB PO SCH (08:03)
[2017-12-27] MEDS ORDERED: POVIDONE IODINE 5% (ANTISEPSIS KIT) 4 APPLICATIONS EACH NARE SCH (09:00)
[2017-12-27] MEDS ORDERED: MUPIROCIN 2% OINT 1 APPLIC/GM SYR NASAL SCH (09:00)
[2017-12-27] MEDS ORDERED: CHLORHEXIDINE GLUCONATE 2 % 1 PACK (2 CLOTHS) TOP SCH (09:00)
[2017-12-27] MEDS ORDERED: VANCOMYCIN INJ 1,000 MG in SODIUM CHLOR 0.9% 250 ML INJ 250 ML IV SCH (09:00)
[2017-12-27] MEDS ORDERED: ceFAZolin 2 GM PREMIX 50 ML IV SCH (09:00)
[2017-12-27] MEDS ORDERED: HEPARIN SODIUM - IV 10,000 UNITS/10 ML VIAL ONE (11:41)
[2017-12-27] MEDS ORDERED: VANCOMYCIN 500 MG VIAL ONE (11:41)
[2017-12-27] MEDS ORDERED: LIDOCAINE HCL 2% 20 ML VIAL ONE (11:41)
[2017-12-27] MEDS ORDERED: VANCOMYCIN HCL 1000 MG VIAL ONE (11:41)
[2017-12-27] MEDS ORDERED: ceFAZolin INJ 1,000 MG VIAL ONE (11:42)
[2017-12-27] MEDS ORDERED: SODIUM CHLOR 0.9% 250 ML INJ 250 ML ONE (11:42)
[2017-12-27] MEDS ORDERED: MIDAZOLAM HCL 2 MG/2 ML VIAL ONE (11:44)
[2017-12-27] MEDS ORDERED: LIDOCAINE HCL 1% PF 5 ML SYRINGE OTHER ONE (12:00)
[2017-12-27] MEDS ORDERED: ceFAZolin INJ 1,000 MG VIAL IV ONE (12:00)
[2017-12-27] MEDS ORDERED: PROPOFOL 200 MG/20 ML AMP IV ONE (12:00)
--- NOTE | 2017-12-27 12:22 | HHI.PR ---
Subjective Remarks The patient was working with physical therapy. He was very weak. He was anticipating his pacemaker placement later. He had a bowel movement yesterday. No acute concerns. Objective Vitals Vital Signs Date Time Temp Pulse Resp B/P (MAP) Pulse Ox O2 Delivery O2 Flow Rate FiO2 12/27/17 07:38 72 12/27/17 07:38 97.5 72 14 122/63 (82) 95 12/27/17 06:00 85 12/27/17 05:00 76 12/27/17 04:00 97.5 86 20 118/71 (87) 96 12/27/17 04:00 86 12/27/17 03:00 79 12/27/17 01:00 83 12/27/17 00:00 82 12/26/17 23:00 98.1 82 20 126/78 (94) 93 12/26/17 23:00 82 12/26/17 20:00 79 12/26/17 19:00 98.6 79 20 110/59 (76) 94 12/26/17 18:00 82 12/26/17 17:00 78 12/26/17 16:00 78 12/26/17 15:00 76 12/26/17 15:00 98.2 70 20 120/62 (81) 98 12/26/17 14:00 74 12/26/17 13:00 72 I/O 12/26/17 12/26/17 12/26/17 12/27/17 12/27/17 12/27/17 07:00 15:00 23:00 07:00 15:00 23:00 Intake Total 240 ml 820 ml 480 ml Output Total 125 ml 900 ml 800 ml Balance 115 ml -80 ml -320 ml Intake Oral 240 ml 720 ml 480 ml IV Total 100 ml Output Urine Total 125 ml 900 ml 800 ml # Voids 3 4 # Bowel Movements 0 1 0 Result Diagram: 12/23/17 0405 12/27/17 0357 Imaging Last Impressions Chest X-Ray 12/25/17 0000 Signed Impressions: Service Date/Time: Monday, December 25, 2017 11:59 - CONCLUSION: No acute disease. Christopher Plasencia MD Head CT 12/22/17 0000 Signed Impressions: Service Date/Time: Friday, December 22, 2017 12:53 - CONCLUSION: Persistent ventriculomegaly. No evidence of hemorrhage, edema, mass or mass effect. No new lesion is seen since the 12/03/17 exam. Froy Feliciano MD Objective Remarks GENERAL: Resting in a chair. SKIN: No rashes, ecchymoses or lesions. Cool and dry. HEAD: Atraumatic. Normocephalic. EYES: Pupils equal round and reactive. Extraocular motions intact. No scleral icterus. No injection or drainage. ENT: Nose without bleeding or purulent drainage. Airway patent. MMM. NECK: Trachea midline. No JVD or lymphadenopathy. CARDIOVASCULAR: Regular rate and rhythm without murmurs, gallops, or rubs. RESPIRATORY: Clear to auscultation. Breath sounds equal bilaterally. No wheezes , rales, or rhonchi. GASTROINTESTINAL: Abdomen soft, non-tender, nondistended. No hepato-splenomegaly , or palpable masses. No guarding. MUSCULOSKELETAL: Extremities without clubbing, cyanosis, or edema. No joint tenderness, effusion, or edema noted. No rib tenderness. NEUROLOGICAL: Awake and alert. Cranial nerves II through XII grossly intact. Motor and sensory grossly within normal limits. No focal neurologic findings appreciated. Normal speech. PSYCHIATRIC: Mood and affect appropriate. Medications and IVs Current Medications Medications (Trade) Dose Ordered Sig/Regino Route Start Time Stop Time Status Last Admin (NS Flush) 2 ml UNSCH PRN IV FLUSH 12/22/17 15:45 (NS Flush) 2 ml BID IV FLUSH 12/22/17 21:00 12/26/17 20:33 (Narcan Inj) 0.4 mg UNSCH PRN IV PUSH 12/22/17 15:45 Ceftriaxone Sodium 1000 mg/ Sodium Chloride 100 ml @ 200 mls/hr Q24H IV 12/23/17 15:00 12/26/17 15:36 (D50w (Vial) Inj) 50 ml UNSCH PRN IV PUSH 12/22/17 19:45 (Glucagon Inj) 1 mg UNSCH PRN OTHER 12/22/17 19:45 (KlonoPIN) 1 mg HS PO 12/22/17 21:00 12/26/17 20:33 (Proscar) 5 mg DAILY PO 12/23/17 09:00 12/27/17 08:02 (Lasix) 20 mg DAILY PO 12/23/17 09:00 12/27/17 08:02 (LaMICtal) 100 mg DAILY PO 12/23/17 09:00 12/27/17 08:02 (Zoloft) 100 mg BID PO 12/22/17 21:00 12/27/17 08:02 (Heparin Inj) 5,000 units Q8HR SQ 12/24/17 14:00 12/27/17 05:54 (Ivelisse-Colace) 1 tab BID PO 12/25/17 12:00 12/27/17 08:02 (Miralax) 17 gm DAILY PO 12/25/17 12:00 12/26/17 08:56 (Morphine Inj) 2 mg Q4H PRN IV PUSH 12/25/17 12:15 (Magdalena 5-325 Mg) 1 tab Q4H PRN PO 12/25/17 12:00 (Magdalena 7.5-325 Mg) 1 tab Q4H PRN PO 12/25/17 12:00 12/27/17 08:04 (Ambien) 5 mg HS PRN PO 12/26/17 12:15 12/26/17 20:36 (Adderall) 20 mg DAILY PO 12/27/17 09:00 12/27/17 08:03 Cefazolin Sodium/ Dextrose 50 ml @ 100 mls/hr FOOD QUALITY TECHNICIAN IV 12/27/17 09:00 12/30/17 08:59 12/27/17 12:03 Vancomycin HCl 1000 mg/Sodium Chloride 250 ml @ 250 mls/hr FOOD QUALITY TECHNICIAN IV 12/27/17 09:00 12/31/17 08:59 12/27/17 12:03 (Betadine 5% Antisepsis Kit) 1 applic FOOD QUALITY TECHNICIAN EACH NARE 12/27/17 09:00 12/31/17 08:59 12/27/17 11:15 (Bactroban Nasal 2% Oint) 1 applic FOOD QUALITY TECHNICIAN NASAL 12/27/17 09:00 12/31/17 08:59 (Chlorhexidine 2% Cloth) 3 pack FOOD QUALITY TECHNICIAN TOP 12/27/17 09:00 12/31/17 08:59 A/P Assessment and Plan 72yo male with HTN, DM, chronic neck pain 2/2 DDD cervical spine with ventriculomegaly and concern for NPH s/p lumbar drain last admission admitted with complaints of progressive weakness, recurrent falls and unsteady gait. NPH S/p lumbar drain, worsening with increased weakness, recurrent falls and unsteady gait, CT head reveals persistent ventriculomegaly. Patient remains very unsteady, PT recommends rehab at discharge - Neurosurgery following, appreciate assistance. Patient could possibly benefit from ventriculoperitoneal shunt placement once his bradycardia and orthostatic hypotension resolve. - fall precautions. - continue with PT. Add OT. UTI ID consult appreciated. Urine culture growing staph epidermidis. Likely contaminant. - Continue on IV ceftriaxone (started 12/22). - repeat UA. Orthostatic hypotension Orthostatic BP measurements dropped 37mmHg changing from supine to standing - continue to hold ACEI - discussed slow transitions - apply JAVIER hose - fall precautions Bradycardia TSH 2.970 10/09/17. Consulted patient's teacher adult education Dr. Garza, appreciate recommendations. EP consult appreciated. - Plan for pacemaker placement today. Chronic systolic heart failure, not in acute exacerbation Echo 10/10/17 EF 25-30% Patient appears euvolemic. - continue on po Lasix if standing BP allows. - continue to monitor for signs of fluid overload. Euvolemic at this time. 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 CXR unremarkable. - pain control as needed. Constipation No bowel movement in about a week. - Pericolace and Miralax. Resolved. DVT prophylaxis -bilateral SCD/JAVIER hose -Heparin sq Discharge Planning Needs cardiology clearance, possible neurosurgical intervention prior to d/c to SNF Anant Moore DO Dec 27, 2017 12:22
--- NOTE | 2017-12-27 12:58 | PD.CARD ---
DUAL CHAMBER DEFIB IMPLANT PROCEDURE DATE: Dec 27, 2017 NYHA Classification: Class II (Mild) Prevention: Primary Dual Chamber Defib Mr. Berry is a 72-year-old male with congestive heart failure, non ischemic cardiomyopathy, ejection fraction 25%, on medical management for over 6 months, refers dual-chamber defibrillator implantation and pacing support. The risks, the nature and the benefit of the procedure were clearly stated to his . The risks include pneumothorax, cardiac perforation, stroke, and even . He understood and agreed to proceed. PROCEDURE After written informed consent was obtained, the patient waxs brought to the EP lab he was prepared and draped in the usual sterile fashion. Conscious sedation was initiated and maintained throughout the procedure by the anesthesiologist. Once sedation was verified, the left infraclavicular area was anesthetized with 2% Xylocaine. Using modified Seldinger technique and simultaneous contrast injection via the left antecubital vein, the left subclavian vein was cannulated on two occasions and two guidewires were advanced. Peripheral venography showed minimal irregularity. Then, using #11 blade scalpel, a 3 centimeter incision was made two fingerbreadths below the clavicle. Dissection was then taken down to deep fascial layer using Bovie cautery and blunt dissection. Into the inferomedial direction, a device pocket was dissected. Then the wires were dissected into the pocket. A 2-0 Vicryl suture was placed around the wires to prevent back-bleeding. At this point, over the lateral wire, a 9-Samoan dilator and introducer was advanced. As the dilator and wire were removed, an active fixation right ventricular pacing, sensing and defibrillatory lead was advanced. After adequate pacing and sensing thresholds were obtained, the lead was secured in the pocket using #2 Ethibond suture. Then, over the remaining wire, a 7-Samoan dilator introducer was advanced. As the dilator and wire were removed, an active fixation right atrial pacing and sensing lead was advanced. After adequate pacing and sensing thresholds were obtained, the lead was secured in the pocket using #2 Ethibond suture. At that point, the pocket was copiously irrigated with antibiotic solution. The leads were connected to the generator and placed in the pocket I did proceed with wound closure. The deep fascial layer was approximated using 2-0 Vicryl suture in a continuous fashion. The subcutaneous layer was approximated using 2-0 Vicryl suture in a continuous fashion. The subcuticular layer was approximated with 2-0 Vicryl suture in a continuous fashion. Dermabond adhesive was applied to the wound followed by a sterile pressure dressing. There was no complication. The patient tolerated procedure. Blood loss minimal. IMPLANTED HARDWARE The implanted defibrillator generator is a Medtronic model number [id number], serial number [id number]. The right atrial pacing and sensing lead is a Med[employer]onic model number 4076-52, serial number [id number]. The right ventricular pacing, sensing defibrillatory lead is a Med[employer]onic model number 6935M-65. Serial # [id number]. THRESHOLDS The right atrial pacing threshold in bipolar mode was 1.5 volts at 0.4 milliseconds. Lead impedance 665 ohms and P wave at 3.4 millivolts. The right ventricular pacing threshold in bipolar mode was 0.75 volts at 0.4 milliseconds. Lead impedance 420 ohms and R wave at 5.9 millivolts. SETTINGS The device set in a DDD-600 upper limit 120 beats per minute. Defibrillatory portion for two zones, one zone for ventricular tachycardia between 160 to 240 beats per minute. Initial therapy consists of one burst of ATP, one ramp, 81%, 10 pulse, 10 second decremental, followed by a 20, then 25 and all subsequent shocks at 34-joules defibrillatory shock. The second zone for ventricular fibrillation above 240 beats, first therapy at 25 and all subsequent shocks at 35-joules defibrillatory shock. CONCLUSIONS Successful defibrillator implantation. COMMENT AND RECOMMENDATIONS The patient will be transferred to telemetry unit. He will be observed. Pamela Maurer MD Dec 27, 2017 12:58
[2017-12-27] MEDS ORDERED: SODIUM CHLORIDE 0.9% FLUSH 10 ML FLUSH IV FLUSH PRN (13:00)
[2017-12-27] MEDS ORDERED: TEMAZEPAM 15 MG CAP PO PRN (13:00)
--- NOTE | 2017-12-27 13:00 | CATHPROC ---
Patient Name: THONG TYLER Study #: [id number] Initial MD: Pamela Maurer Date of : 1945 Study Date: 12/27/2017 Cardiac Catheterization Report 12/27/2017 1:00:44 PM Financial #: [id number] 1 of 9 Patient Name: THONG TYLER Study #: [id number] Initial MD: Pamela Maurer Date of : 1945 Study Date: 12/27/2017 Entire Case Report Patient Information Patient Name THONG TYLER Date of 1945 Age 72 years Financial # [id number] Gender M AlternateID Lab Number 2 Room Number 460 Height (in) 46.4 Height (cm) 117.8 BSA 1.51 Weight (lbs) 187.0 Weight (kg) 85.0 Patient Address/Phone Number Home Address [facility] Home Phone Number [phone] [place] [id number] Study Information Study Number Admission Scheduled Start Study Start [id number] Dec 22 2017 3:44PM 12/27/2017 Dec 27 2017 11:33AM [facility] [facility] Cardiac Pacer/ICD Admit Source Facility Department Other [facility] - Water System Operator Physician and Clinical Staff Initial Pamela Kasper Other cathlab, cathlab Other Anesthesia, COOLER ROOM WORKER Recorder Jannet Bell ,BSN Recorder Kathie Huitron RN Scrub Georgina Colorado RT(R) Procedures Performed Procedure Lead Insertion 12/27/2017 1:00:44 PM Financial #: [id number] 2 of 9 Patient Name: THONG TYLER Study #: [id number] Initial MD: Pamela Maurer Date of : 1945 Study Date: 12/27/2017 Equipment Time Grinder Gear Description Size Mfg Part Number Used/Scraped DERMABOND, ADHESIVE SKIN [id number] 11:35 CORDIS/PACER * Used GLUE MINI *[id number] TP-1103 11:35 MEDLINE [employer] SUTURE, STRIP PLUS 1/2" * Used *[id number] 11:35 MEDLINE PACER DENSON, LIMB * 2530 *[id number] Used [id number] 11:35 MEDLINE PACER PACK, PACER CUSTOM * Used *[id number] 11:52 [employer] MEDICAL PACER SAFE SHEATH, FR7, 13CM FR 7 CLS-1007 Used 11:53 [employer] MEDICAL PACER SAFE SHEATH, FR9, 13CM FR 9 CLS-1009 Used 11:49 Needle Sponge Count 2 22 Used 11:55 Needle Sponge Count 30 1 Used 11:55 Needle Sponge Count 4 4 Used SUTURE, 0 ETHIBOND [CT1] (CX21D), 8pk SUTURE, 2-0 VICRYL [CT1] ([id number]) SUTURE, 2-0 VICRYL [CT1] (PJQ471Q) [id number] 11:35 [employer],WARM AIR CCL * Used *[id number] [facility], ELECTROSURGICAL 11:35 * [id number] *[id number] Used SURGICAL GROUNDING ORANGE DEFIBRILLATOR, EVERA MRI XT 12:47 [employer] DDE-DDDR [id number] Used DR LEAD, CAPSURE FIX NOVUS, 4076-52CM 12:35 [employer] 52CM Used 52CM *[id number] LEAD, SPRINT QUATTRO SECURE [id number] 12:32 [employer] 62CM Used S 62CM *[id number] [id number] 11:35 [employer]UL. / * Used *81331 Equipment Model, Serial, Lot Number and Expiration Data Description Model Number Serial Number Lot Number Expiration Date LEAD, CAPSURE FIX NOVUS, 52CM 4076-52 [id number] 07-29-2019 LEAD, SPRINT QUATTRO SECURE S 6935-62 [id number] 10-14-2019 62CM Insurance Information Insurance Payor Medicare Third Democrat Third Democrat Number MEDICARE A B MCRAB 12/27/2017 1:00:44 PM Financial #: [id number] Patient Name: THONG TYLER Study #: [id number] Initial MD: Pamela Maurer Date of : 1945 Study Date: 12/27/2017 History: Current Medications Medication Dosage/Unit Route Frequency Last Date/Time Taken LISINOPRIL Glucophage History: Allergies Allergy Reaction No Known Allergies History: Risk Factors Family History of Hypertension Dyslipidemia Previous AR Previous Heart Failure Premature CAD Yes Yes No No Yes Prior Valve Prior PCI Prior CABG Surgery No No No Cerebrovascular Peripheral Artery Chronic Lung On Dialysis Diabetes Diabetes Therapy Disease Disease Disease No No No No Yes Oral History: CV Disease Selection Items Cardiomyopathy nonischemic History: Stress Tests Stress or Imaging Studies Performed No History: Other Disease Selection Items CHF Depression HTN History: Other Current Smoker No Labs Hgb (g/dl) Hct (%) RBC (MIL/MM3) WBC (l/cumm) Platelets (thousands) 11.60-17.00 35.00-51.00 4.00-5.90 4.00-11.00 150.00-450.00 14.3 41.4 4.5 8.3 171 Glucose (mg/dl) BUN (mg/dl) Creatinine (mg/dl) BUN:Creatinine (1:x) 74.00-106.00 7.00-18.00 0.50-1.30 10.00-20.00 123 15 0.7 21.4 12/27/2017 1:00:44 PM Financial #: [id number] 4 of Patient Name: THONG TYLER Study #: [id number] Initial MD: Pamela Maurer Date of : 1945 Study Date: 8 Na (meq/l) K (meq/l) Cl (meq/l) CO2 (mmol/L) Ca (mg/dl) 136.00-145.00 3.50-5.10 98.00-107.00 21.00-32.00 8.50-10.10 138 4.3 103 29.9 9 Medication Medication Total Dose (Bolus/Oral) Medication Total Dosage/Unit 2% XYLOCAINE 50 mL Medications (Bolus/Oral) Medication Time Given Dosage/Unit Administered By Reason 2% XYLOCAINE 12/27/2017 12:23:46 PM 50 mL Pamela Maurer 50 mL 2% XYLOCAINE given in lab by Anesthesia, COOLER ROOM WORKER in Left Upper Chest via Subcutaneous. Ordered by Pamela Maurer. Medication (Drip) Medication Time Given Dosage/Unit Concentration/Unit Diluent (ml) Solution ANCEF 12/27/2017 12:03:04 PM 2 g 2 g ANCEF given in lab by Anesthesia, COOLER ROOM WORKER via Peripheral IV. Ordered by Pamela Maurer. IV Solutions 12/27/2017 11:33:18 AM 0 mL (IV) 500 NaCl .9 IV Solutions given in lab by Anesthesia, COOLER ROOM WORKER in Right Forearm via Peripheral IV. Pump/Drip Flow = 20 ml/hr using NaCl .9. Ordered by Pamela Maurer. IV Solutions 12/27/2017 11:33:19 AM 0 mL (IV) 500 NaCl .9 IV Solutions given in lab by Anesthesia, COOLER ROOM WORKER in Left Forearm via Peripheral IV. Pump/Drip Flow = 20 ml/hr using NaCl .9. Ordered by Pamela Maurer. VANCOMYCIN DRIP 12/27/2017 12:03:53 PM 1 g 1 g VANCOMYCIN DRIP given in lab by Anesthesia, COOLER ROOM WORKER via Peripheral IV. Ordered by Pamela Maurer. 12/27/2017 1:00:44 PM Financial #: [id number] 5 of 9 Patient Name: THONG TYLER Study #: [id number] Initial MD: Pamela Maurer Date of : 1945 Study Date: 12/27/2017 Initial Case Assessment Cardiovascular HR NIBP 80 122/75 Edema Present Skin color Skin None Normal Warm Dry Circulatory - Lower Extremities Color Lower Right Color Lower Left Normal Normal Neurological State Oriented to time-place- Alert Moves all extremities person Respiration - General Respiration Rate SpO2 (%) (B/min) 15 95 Final Case Assessment Cardiovascular HR NIBP Chest Pain 77 117/67 0 Edema Present Skin color Skin None Normal Warm Dry Circulatory - Lower Extremities Color Lower Right Color Lower Left Normal Normal Neurological State Lethargic Moves all extremities Respiration - General Respiration Rate SpO2 (%) O2 (lpm) (B/min) 16 100 4 Chronological Log Time Study Chronological Log 11:32:57 Patient arrived via Bed. 11:32:58 Patient Name, D.O.B, / Arm[place] Verified By R.N. 11:32:58 Consent signed by the physician and the patient and verified by the Water System Operator staff. 12/27/2017 1:00:44 PM Financial #: [id number] 6 of 9 Patient Name: THONG TYLER Study #: [id number] Initial MD: Pamela Maurer Date of : 1945 Study Date: 12/27/2017 11:33:05 Anesthesia at bedside. Assumes care of patient. 11:33:06 Presedation assessment performed by Water System Operator RN. 11:33:08 Patient has been NPO for More than 6Hrs. 11:33:08 NO Skin Breakdown- 11:33:12 Patient Warmer Placed on the Table. 11:33:13 Disposable Defibrillator Pads Placed On Patient. 11:33:14 Ray Prominences Protected 11:33:16 A # 20 IV was noted in the Forearm (right). Grade = 0 11:33:17 A # 20 IV was noted in the Forearm (left). Grade = 0 IV Solutions given in lab by Anesthesia, COOLER ROOM WORKER in Right Forearm via Peripheral IV. Pump/Drip Jose w = 20 ml/hr using 11:33:18 NaCl .9. Ordered by Pamela Maurer. IV Solutions given in lab by Anesthesia, COOLER ROOM WORKER in Left Forearm via Peripheral IV. Pump/Drip Flow = 20 ml/hr using NaCl 11:33:19 .9. Ordered by Pamela Maurer. 11:33:20 History and physical on the chart or being dictated. 11:33:24 Bovie ground pad applied to: RIGHT UPPER THIGH 11:33:43 2% CHLORHEXIDINE GLUCONATE WASH AND NASAL SWIPE DONE PRIOR TO PROCEDURE. 11:33:45 Pre-procedure assessment data was performed with the previous procedure. 11:35:59 Pre-op and post- op instructions given; patient acknowledges understanding of instructions. 11:46:14 Upper Chest Prepped Times Two. Assessment: Initial Case, HR=80 BPM, LJPE=737/75 mmhg, Edema=None, Color=Normal, Skin = Warm, D ry Lower Right Extremities: Color=Normal 11:46:52 Lower Left Extremities: Color=Normal Neurological: State=Alert, Ox3, [place] Respiration: Resp=15 B/min, SpO2=95 % First Sponge And Instrument Count Done by Georgina Colorado, RT(R). 11:48:34 Hypo's: 4, Sponges: 30, Bovie/scratch: 2 Sutures: 10, Blades: 1, Instruments: 26, Syveck Patches: 0 11:56:47 Anesthesiologist at bedside. LMA inserted 12:03:04 2 g ANCEF given in lab by Anesthesia, COOLER ROOM WORKER via Peripheral IV. Ordered by Pamela Maurer. 12:03:53 1 g VANCOMYCIN DRIP given in lab by Anesthesia, COOLER ROOM WORKER via Peripheral IV. Ordered by Angel Maurer. 12:08:23 MD arrived. 12:18:05 AM out. MM in. Time Out. Correct patient, procedure, procedure equipment, site and side verified with physicia n present. Time 12:23:00 concurred by MD, individual staff and COOLER ROOM WORKER. Time Out #2 - Consents verified, patient in correct position, all results are labled and displa yed, safety precautions 12::22 taken, antibiotics administered. Time out concurred by MD, individual staff and COOLER ROOM WORKER in procedu re 12:23:38 Case Start 50 mL 2% XYLOCAINE given in lab by Anesthesia, COOLER ROOM WORKER in Left Upper Chest via Subcutaneous. Order ed by Erasto, 12:23:46 Pamela. 12:26:23 Surgical Incision Made. 12:29:37 Vascular access was obtained in the Subclav. Vein (Lft. 12:29:46 A SAFE SHEATH, FR9, 13CM FR 9 was advanced into the Subclav. Vein (Lft using the Modified S eldinger technique. 12/27/2017 1:00:44 PM Financial #: [id number] Patient Name: THONG TYLER Study #: [id number] Initial MD: Pamela Maurer Date of : 1945 Study Date: 12/27/2017 12:30:07 A LEAD, SPRINT QUATTRO SECURE S 62CM 62CM was inserted and positioned in the RV. 12:31:47 Lead placement verified under fluoroscopy 12:32:00 The RV lead impedance and threshold being tested. 12:33:10 The RV lead was sutured to the fascia. 12:33:57 Vascular access was obtained in the Subclav. Vein (Lft. 12:34:01 A SAFE SHEATH, FR7, 13CM FR 7 was advanced into the Subclav. Vein (Lft using the Modified S eldinger technique. 12:34:58 A LEAD, CAPSURE FIX NOVUS, 52CM 52CM was inserted and positioned in the RA. 12:36:59 The Atrial lead impedance and threshold is being tested. 12:40:40 Pocket flushed with antibiotic solution 12:46:21 A DEFIBRILLATOR, EVERA MRI XT DR DDE-DDDR was connected and placed in the pocket. Second Sponge And Instrument Count Done by Georgina Colorado RT(R). 12:47:09 Hypo's: 4, Sponges: 30, Bovie/scratch: 2 Sutures: 10, Blades: 1, Instruments:, Syveck Patches: 12:47:58 The pocket was closed. 12:51:32 Implant Procedure was performed. 12:51:38 A ICD Implant . (Dual) 12:52:43 PACU called. Spoke to 12:52:52 PACU called. Spoke to Rabia 12:53:47 Bedside Report will be given. 12:54:06 Steri-strips and a sterile dressing applied to site. 12:54:31 Pt extubated. 12:54:51 Case End 12:54:58 No case complications noted. 12:54:59 Cine recording checked. Final Sponge And Instrument Count Done by Georgina Colorado RT(R). 12:55:21 Hypo's: 4, Sponges: 30, Bovie/scratch: 2 Sutures: 10, Blades: 1, Instruments: 26, Syveck Patches: 0 Assessment: Final Case, HR=77 BPM, GAVF=122/67 mmhg, Chest Pain=0, Edema=None, Color=Normal, Sk in = Warm, Dry Lower Right Extremities: Color=Normal 12:56:15 Lower Left Extremities: Color=Normal Neurological: State=Lethargic, [place] Respiration: Resp=16 B/min, OqW9=230 %, O2=4 lpm 12:58:25 Implantable Device card placed in patient's chart. 12:58:33 A sling was placed on the affected arm. 13:05:[address] [facility] 12/27/2017 1:00:44 PM Financial #: [id number] Patient Name: THONG TYLER Study #: [id number] Initial MD: Pamela Maurer Date of : 1945 Study Date: 12/27/2017 End Study - Contrast Media Used In Study Contrast Total Opened (mL) Total Used (mL) Total Wasted (mL) Omnipaque 0 0 0 End Study - Maximum Contrast Load Max Contrast Load (mL) 607.1 End Study - Radiation Exposure Fluoro Time (minutes) 3.6 End Study - Patient Disposition Complications Transferred To Interventional Outcome No Telemetry Bed successful 12/27/2017 1:00:44 PM Financial #: [id number]
[2017-12-27] MEDS ORDERED: DO NOT ADM ANY ANTICOAGULANT DRUGS PRN (13:14)
[2017-12-27] MEDS ORDERED: ONDANSETRON HCL 4 MG/2 ML VIAL IV PUSH PRN (14:00)
[2017-12-27] MEDS ORDERED: *morphine SULFATE 4 MG/ML PERIprocedure ONLY ONE (14:07)
--- NOTE | 2017-12-27 14:16 | RADRPT ---
EXAM DATE/TIME: 12/27/2017 14:31 [facility] COMPARISON: CHEST SINGLE AP, December 25, 2017, 11:59. INDICATIONS : Evaluate for pneumothorax. MEDICAL HISTORY : Cardiomyopathy. SURGICAL HISTORY : Total knee replacement, right. Lithotripsy, right. ENCOUNTER: Subsequent ACUITY: 4 - 6 days PAIN SCORE: 0/10 LOCATION: chest FINDINGS: Portable expiratory view of the chest demonstrates mildly enlarged cardiac silhouette. Left chest wal l cardiac pacing device size AICD remains present. Lungs are underinflated and with atelectasis at th e lung bases. No pleural effusion or pneumothorax is identified. The bones and soft tissues demonstra te no acute finding. CONCLUSION: 1. No pneumothorax is identified. 2. Stable mildly enlarged cardiac silhouette. Samuel Bruno MD on December 27, 2017 at 14:12 Board Certified Radiologist. This report was verified electronically.
[2017-12-27] MEDS: cefTRIAXone INJ 1,000 MG in SODIUM CHLORIDE 0.9% INJ 100 ML IV SCH (16:12)
--- NOTE | 2017-12-27 19:19 | EKG ---
Date Performed: 12/27/2017 Time Performed: 10:58:54 PTAGE: 72 years EKG: Sinus rhythm with frequent PVCs. POSSIBLE Inferior infarct - age undetermined Nonspecific T wave changes Abnorma l ECG No significant change from prior electrocardiogram. PREVIOUS TRACING : 12/22/2017 13.10 DOCTOR: Hussain Shah Interpretating Date/Time 12/27/2017 19:18:14
--- NOTE | 2017-12-27 20:16 | EKG ---
Date Performed: 12/27/2017 Time Performed: 13:52:02 PTAGE: 72 years EKG: Sinus rhythm WITH OCCASIONAL VENTRICULAR PREMATURE COMPLEXES MODERATE INTRAVENTRICULAR CONDUCTION DELAY NONSPECIF IC ST & T-WAVE ABNORMALITY BORDERLINE ECG PREVIOUS TRACING : 12/22/2017 13.10 Since the previous tracing, no significant change noted DOCTOR: Leroy Flowers Interpretating Date/Time 12/27/2017 20:14:33
[2017-12-27] MEDS ORDERED: MORPHINE SULFATE 4 MG/ML INJ IV PUSH PRN (20:45)
[2017-12-27] MEDS: ceFAZolin 2 GM PREMIX 50 ML IV SCH (20:58)
[2017-12-27] MEDS: clonazePAM 1 MG TAB PO SCH (20:58)
[2017-12-27] MEDS: ZOLPIDEM TARTRATE 5 MG TAB PO PRN (20:58)
[2017-12-27] MEDS: SODIUM CHLORIDE 0.9% FLUSH 10 ML FLUSH IV FLUSH SCH (20:59)
[2017-12-28] VITALS (25 sets, daily range): BP systolic 107–138; BP diastolic 57–77; PULSE 73–92; RESP 16–20; TEMP 97.9–98.3; O2SAT 94–98
[2017-12-28] MEDS: HEPARIN SODIUM - SQ 10,000 UNITS/ML VIAL SQ SCH ×3 (05:02→20:45)
[2017-12-28] MEDS: ceFAZolin 2 GM PREMIX 50 ML IV SCH ×2 (05:03→12:54)
[2017-12-28] MEDS: POLYETHYLENE GLYCOL 17 GM PKG PO SCH (09:00)
[2017-12-28] MEDS: DEXTROAMPHETAMINE/AMPHETAMINE 20 MG TAB PO SCH (09:18)
[2017-12-28] MEDS: FUROSEMIDE 20 MG TAB PO SCH (09:18)
[2017-12-28] MEDS: DOCUSATE SODIUM 50 MG/SENNA 8.6 MG TAB PO SCH ×2 (09:19→20:44)
[2017-12-28] MEDS: lamoTRIgine 100 MG TAB PO SCH (09:19)
[2017-12-28] MEDS: FINASTERIDE 5 MG TAB PO SCH (09:19)
[2017-12-28] MEDS: SERTRALINE HCL 100 MG TAB PO SCH ×2 (09:19→20:44)
[2017-12-28] MEDS: ACETAMINOPHEN/CODEINE 300 MG/30 MG TAB PO PRN ×2 (09:20→12:52)
[2017-12-28] MEDS: SODIUM CHLORIDE 0.9% FLUSH 10 ML FLUSH IV FLUSH SCH ×3 (09:20→20:45)
[2017-12-28] MEDS ORDERED: ACET1TAB94 PO (15:29)
[2017-12-28] MEDS ORDERED: AMBI5TAB PO (15:29)
[2017-12-28] MEDS ORDERED: POLY17S PO (15:29)
[2017-12-28] MEDS ORDERED: PERI PO (15:29)
[2017-12-28] MEDS ORDERED: AMPH1TAB66 PO (15:29)
[2017-12-28] MEDS ORDERED: CEFU1TAB18 PO (15:29)
[2017-12-28] MEDS ORDERED: CLON1TAB PO (15:29)
--- NOTE | 2017-12-28 15:34 | HHI.PR ---
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 AND PT NEEDS REHAB AT SNF HAS NOT BE ACCEPTED AT SNF CAN GO TO REHAB ONCE ACCEPTED AM LABS Objective Vitals Vital Signs Date Time Temp Pulse Resp B/P (MAP) Pulse Ox O2 Delivery O2 Flow Rate FiO2 12/28/17 07:16 73 12/28/17 07:16 98.1 73 16 138/64 (88) 98 12/28/17 06:00 76 12/28/17 05:00 80 12/28/17 04:00 98.3 76 16 128/60 (82) 96 12/28/17 04:00 76 12/28/17 03:00 80 12/28/17 02:00 82 12/28/17 01:00 87 12/28/17 00:00 98.2 86 16 118/61 (80) 95 12/28/17 00:00 86 12/27/17 23:00 76 12/27/17 22:00 78 12/27/17 21:00 80 12/27/17 21:00 98.5 68 16 130/61 (84) 99 12/27/17 20:00 68 12/27/17 18:00 77 12/27/17 17:00 76 12/27/17 16:00 76 12/27/17 15:32 71 12/27/17 15:32 97.8 71 16 135/65 (88) 98 12/27/17 15:30 138/71 (93) I/O 12/27/17 12/27/17 12/27/17 12/28/17 12/28/17 12/28/17 07:00 15:00 23:00 07:00 15:00 23:00 Intake Total 480 ml 10 ml 1490 ml 360 ml Output Total 800 ml 950 ml 500 ml Balance -320 ml 10 ml 540 ml -140 ml Intake Oral 480 ml 10 ml 440 ml 360 ml IV Total 1050 ml Output Urine Total 800 ml 950 ml 500 ml # Bowel Movements 0 0 0 Result Diagram: 12/27/17 0357 Other Results Laboratory Tests Test 12/27/17 03:57 Blood Urea Nitrogen 15 MG/DL Creatinine 0.76 MG/DL Random Glucose 123 MG/DL Calcium Level 9.0 MG/DL Magnesium Level 2.0 MG/DL Sodium Level 138 MEQ/L Potassium Level 4.3 MEQ/L Chloride Level 101 MEQ/L Carbon Dioxide Level 29.9 MEQ/L Anion Gap 7 MEQ/L Estimat Glomerular Filtration Rate 101 ML/MIN Imaging Last Impressions Chest X-Ray 12/27/17 0000 Signed Impressions: Service Date/Time: Wednesday, December 27, 2017 14:31 - CONCLUSION: 1. No pneumothorax is identified. 2. Stable mildly enlarged cardiac silhouette. Samuel Bruno MD Head CT 12/22/17 0000 Signed Impressions: Service Date/Time: Friday, December 22, 2017 12:53 - CONCLUSION: Persistent ventriculomegaly. No evidence of hemorrhage, edema, mass or mass effect. No new lesion is seen since the 12/03/17 exam. Froy Feliciano MD Objective Remarks GENERAL: SKIN: Warm and dry. HEAD: Atraumatic. Normocephalic. EYES: Pupils equal and round. No scleral icterus. No injection or drainage. ENT: No nasal bleeding or discharge. Mucous membranes pink and moist. NECK: Trachea midline. No JVD. CARDIOVASCULAR: Regular rate and rhythm. RESPIRATORY: No accessory muscle use. Clear to auscultation. Breath sounds equal bilaterally. GASTROINTESTINAL: Abdomen soft, non-tender, nondistended. Hepatic and splenic margins not palpable. MUSCULOSKELETAL: Extremities without clubbing, cyanosis, or edema. No obvious deformities. NEUROLOGICAL: Awake and alert. No obvious cranial nerve deficits. Motor grossly within normal limits. Five out of 5 muscle strength in the arms and legs. Normal speech. PSYCHIATRIC: Appropriate mood and affect; insight and judgment normal. Procedures DUAL CHAMBER DEFIB IMPLANT PROCEDURE DATE: Dec 27, 2017 NYHA Classification: Class II (Mild) Prevention: Primary Dual Chamber Defib Mr. Berry is a 72-year-old male with congestive heart failure, non ischemic cardiomyopathy, ejection fraction 25%, on medical management for over 6 months, refers dual-chamber defibrillator implantation and pacing support. The risks, the nature and the benefit of the procedure were clearly stated to his . The risks include pneumothorax, cardiac perforation, stroke, and even . He understood and agreed to proceed. PROCEDURE After written informed consent was obtained, the patient waxs brought to the EP lab he was prepared and draped in the usual sterile fashion. Conscious sedation was initiated and maintained throughout the procedure by the anesthesiologist. Once sedation was verified, the left infraclavicular area was anesthetized with 2% Xylocaine. Using modified Seldinger technique and simultaneous contrast injection via the left antecubital vein, the left subclavian vein was cannulated on two occasions and two guidewires were advanced. Peripheral venography showed minimal irregularity. Then, using #11 blade scalpel, a 3 centimeter incision was made two fingerbreadths below the clavicle. Dissection was then taken down to deep fascial layer using Bovie cautery and blunt dissection. Into the inferomedial direction, a device pocket was dissected. Then the wires were dissected into the pocket. A 2-0 Vicryl suture was placed around the wires to prevent back-bleeding. At this point, over the lateral wire, a 9-Malaysian dilator and introducer was advanced. As the dilator and wire were removed, an active fixation right ventricular pacing, sensing and defibrillatory lead was advanced. After adequate pacing and sensing thresholds were obtained, the lead was secured in the pocket using #2 Ethibond suture. Then, over the remaining wire, a 7-Malaysian dilator introducer was advanced. As the dilator and wire were removed, an active fixation right atrial pacing and sensing lead was advanced. After adequate pacing and sensing thresholds were obtained, the lead was secured in the pocket using #2 Ethibond suture. At that point, the pocket was copiously irrigated with antibiotic solution. The leads were connected to the generator and placed in the pocket I did proceed with wound closure. The deep fascial layer was approximated using 2-0 Vicryl suture in a continuous fashion. The subcutaneous layer was approximated using 2-0 Vicryl suture in a continuous fashion. The subcuticular layer was approximated with 2-0 Vicryl suture in a continuous fashion. Dermabond adhesive was applied to the wound followed by a sterile pressure dressing. There was no complication. The patient tolerated procedure. Blood loss minimal. IMPLANTED HARDWARE The implanted defibrillator generator is a Medtronic model number AMHM4Q1, serial number [id number]. The right atrial pacing and sensing lead is a Medtronic model number 4076-52, serial number [id number]. The right ventricular pacing, sensing defibrillatory lead is a Medtronic model number 6935M-65. Serial # [id number]. THRESHOLDS The right atrial pacing threshold in bipolar mode was 1.5 volts at 0.4 milliseconds. Lead impedance 665 ohms and P wave at 3.4 millivolts. The right ventricular pacing threshold in bipolar mode was 0.75 volts at 0.4 milliseconds. Lead impedance 420 ohms and R wave at 5.9 millivolts. SETTINGS The device set in a DDD-600 upper limit 120 beats per minute. Defibrillatory portion for two zones, one zone for ventricular tachycardia between 160 to 240 beats per minute. Initial therapy consists of one burst of ATP, one ramp, 81%, 10 pulse, 10 second decremental, followed by a 20, then 25 and all subsequent shocks at 34-joules defibrillatory shock. The second zone for ventricular fibrillation above 240 beats, first therapy at 25 and all subsequent shocks at 35-joules defibrillatory shock. CONCLUSIONS Successful defibrillator implantation. COMMENT AND RECOMMENDATIONS The patient will be transferred to telemetry unit. He will be observed. Medications and IVs Current Medications Sodium Chloride (NS Flush) 2 ml UNSCH PRN IVF FLUSH AFTER USING IV ACCESS Last administered on 12/22/17at 13:09; Start 12/22/17 at 12:45; Stop 12/22/17 at 16:02 ; Status DC Ceftriaxone Sodium 2000 mg/ Sodium Chloride 100 ml @ 200 mls/hr ONCE ONCE IV Last administered on 12/22/17at 16:32; Start 12/22/17 at 15:45; Stop 12/22/17 at 16:14; Status DC Sodium Chloride (NS Flush) 2 ml UNSCH PRN IV FLUSH FLUSH AFTER USING IV ACCESS ; Start 12/22/17 at 15:45 Sodium Chloride (NS Flush) 2 ml BID IV FLUSH Last administered on 12/28/17at 09: 20; Start 12/22/17 at 21:00 Naloxone HCl (Narcan Inj) 0.4 mg UNSCH PRN IV PUSH SEE LABEL COMMENTS; Start at 15:45 Ceftriaxone Sodium 1000 mg/ Sodium Chloride 100 ml @ 200 mls/hr Q24H IV Last administered on 12/27/17at 16:12; Start 12/23/17 at 15:00 Dextrose (D50w (Vial) Inj) 50 ml UNSCH PRN IV PUSH HYPOGLYCEMIA-SEE COMMENTS; Start 12/22/17 at 15:45; Stop 12/23/17 at 10:53; Status DC Glucagon (Glucagon Inj) 1 mg UNSCH PRN OTHER HYPOGLYCEMIA-SEE COMMENTS; Start 12/22/17 at 15:45; Stop 12/23/17 at 10:53; Status DC Insulin Aspart (NovoLOG SUPPLEMENTAL SCALE) 1 ACHS SLIDING SCALE SQ ; Start at 17:00; Stop 12/23/17 at 10:53; Status DC Dextrose (D50w (Vial) Inj) 50 ml UNSCH PRN IV PUSH HYPOGLYCEMIA-SEE COMMENTS; Start 12/22/17 at 19:45 Glucagon (Glucagon Inj) 1 mg UNSCH PRN OTHER HYPOGLYCEMIA-SEE COMMENTS; Start 12/22/17 at 19:45 Insulin Aspart (NovoLOG SUPPLEMENTAL SCALE) 1 ACHS SLIDING SCALE SQ ; Start at 21:00; Stop 12/25/17 at 16:02; Status DC Amphetamine/ Dextroamphetamine (Adderall) 20 mg BID PO Last administered on at 08:57; Start 12/22/17 at 21:00; Stop 12/26/17 at 14:26; Status DC Clonazepam (KlonoPIN) 1 mg HS PO Last administered on 12/27/17 20:58; Start at 21:00 Finasteride (Proscar) 5 mg DAILY PO Last administered on 12/28/17 09:19; Start 12/23/17 at 09:00 Furosemide (Lasix) 20 mg DAILY PO Last administered on 12/28/17 09:18; Start at 09:00 Lamotrigine (LaMICtal) 100 mg DAILY PO Last administered on 12/28/17 09:19; Start 12/23/17 at 09:00 Sertraline HCl (Zoloft) 100 mg BID PO Last administered on 12/28/17 09:19; Start 12/22/17 at 21:00 Heparin Sodium (Porcine) (Heparin Inj) 5,000 units Q8HR SQ Last administered on 12/28/17at 12:53; Start 12/24/17 at 14:00 Morphine Sulfate (Morphine Inj) 2 mg Q3H PRN IV PUSH pain>5 Last administered on 12/25/17at 08:58; Start 12/25/17 at 01:00; Stop 12/25/17 at 12:04; Status DC Melatonin (Melatonin) 5 mg ONCE ONCE PO Last administered on 12/25/17at 01:14; Start 12/25/17 at 01:00; Stop 12/25/17 at 01:02; Status DC Senna/Docusate Sodium (Ivelisse-Colace) 1 tab BID PO Last administered on 12/28/17at 09:19; Start 12/25/17 at 12:00 Polyethylene Glycol (Miralax) 17 gm DAILY PO Last administered on 12/26/17at 08: 56; Start 12/25/17 at 12:00 Morphine Sulfate (Morphine Inj) 2 mg Q4H PRN IV PUSH breakthrough pain; Start 12/25/17 at 12:15; Stop 12/27/17 at 20:32; Status DC Acetaminophen/ Hydrocodone Bitart ([place] 5-325 Mg) 1 tab Q4H PRN PO pain 3-5 ; Start 12/25/17 at 12:00; Stop 12/27/17 at 17:15; Status DC Acetaminophen/ Hydrocodone Bitart ([place] 7.5-325 Mg) 1 tab Q4H PRN PO pain 6- 10 Last administered on 12/27/17at 16:23; Start 12/25/17 at 12:00; Stop 12/27/17 at 17:15; Status DC Potassium Chloride (KCl) 20 meq ONCE ONCE PO Last administered on 12/26/17at 12 :55; Start 12/26/17 at 13:00; Stop 12/26/17 at 13:01; Status DC Zolpidem Tartrate (Ambien) 5 mg HS PRN PO insomnia Last administered on at 20:58; Start 12/26/17 at 12:15 Amphetamine/ Dextroamphetamine (Adderall) 20 mg DAILY PO Last administered on at 09:18; Start 12/27/17 at 09:00 Ondansetron HCl (Zofran Inj) 4 mg STK-MED ONCE .ROUTE ; Start 12/26/17 at 15:44 ; Stop 12/26/17 at 15:45; Status DC Cefazolin Sodium/ Dextrose 50 ml @ 100 mls/hr SOW FARM MANAGER IV Last administered on 12/27/17at 12:03; Start 12/27/17 at 09:00; Stop 12/30/17 at 08:59 Vancomycin HCl 1000 mg/Sodium Chloride 250 ml @ 250 mls/hr SOW FARM MANAGER IV Last administered on 12/27/17at 12:03; Start 12/27/17 at 09:00; Stop 12/31/17 at 08:59 Povidone Iodine (Betadine 5% Antisepsis Kit) 1 applic SOW FARM MANAGER EACH NARE Last administered on 12/27/17at 11:15; Start 12/27/17 at 09:00; Stop 12/31/17 at 08:59 Mupirocin (Bactroban Nasal 2% Oint) 1 applic SOW FARM MANAGER NASAL ; Start 12/27/17 at 09:00; Stop 12/31/17 at 08:59 Chlorhexidine Gluconate (Chlorhexidine 2% Cloth) 3 pack SOW FARM MANAGER TOP ; Start at 09:00; Stop 12/31/17 at 08:59 Lidocaine HCl (Xylocaine 2% Inj) 40 ml STK-MED ONCE .ROUTE ; Start 12/27/17 at 11:41; Stop 12/27/17 at 11:42; Status DC Vancomycin HCl (Vancomycin Inj) 1,000 mg STK-MED ONCE .ROUTE ; Start 12/27/17 at 11:41; Stop 12/27/17 at 11:42; Status DC Vancomycin HCl (Vancomycin Inj) 500 mg STK-MED ONCE .ROUTE ; Start 12/27/17 at 11:41; Stop 12/27/17 at 11:42; Status DC Heparin Sodium (Porcine) (Heparin Inj) 10,000 units STK-MED ONCE .ROUTE ; Start 12/27/17 at 11:41; Stop 12/27/17 at 11:42; Status DC Cefazolin Sodium (Ancef Inj) 2,000 mg STK-MED ONCE .ROUTE ; Start 12/27/17 at 11 :42; Stop 12/27/17 at 11:43; Status DC Sodium Chloride 250 ml @ As Directed STK-MED ONCE .ROUTE ; Start 12/27/17 at 11 :42; Stop 12/27/17 at 11:43; Status DC Fentanyl Citrate (fentaNYL INJ) 100 mcg STK-MED ONCE .ROUTE ; Start 12/27/17 at 11:44; Stop 12/27/17 at 11:45; Status DC Midazolam HCl (Versed Inj) 2 mg STK-MED ONCE .ROUTE ; Start 12/27/17 at 11:44; Stop 12/27/17 at 11:45; Status DC Cefazolin Sodium/ Dextrose 50 ml @ 100 mls/hr Q8H IV Last administered on at 12:54; Start 12/27/17 at 20:00; Stop 12/28/17 at 12:29; Status DC Temazepam (Restoril) 15 mg HS PRN PO SLEEP; Start 12/27/17 at 13:00 Ondansetron HCl (Zofran Inj) 4 mg Q4H PRN IV PUSH NAUSEA; Start 12/27/17 at 14: 00 Acetaminophen/ Codeine Phosphate (Tylenol-Codeine #3) 1 tab Q4H PRN PO PAIN SCALE 1 TO 5 Last administered on 12/28/17at 09:20; Start 12/27/17 at 13:00 Acetaminophen/ Codeine Phosphate (Tylenol-Codeine #3) 2 tab Q4H PRN PO PAIN SCALE 6 TO 10 Last administered on 12/28/17at 12:52; Start 12/27/17 at 13:00 Sodium Chloride (NS Flush) 2 ml BID IV FLUSH ; Start 12/27/17 at 21:00 Sodium Chloride (NS Flush) 2 ml UNSCH PRN IV FLUSH FLUSH AFTER USING IV ACCESS ; Start 12/27/17 at 13:00 Miscellaneous Information ([facility] Nursing Information) ALL NURSING DEPARTME... 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 NPH S/p lumbar drain, worsening with increased weakness, recurrent falls and unsteady gait, CT head reveals persistent ventriculomegaly. Patient remains very unsteady, PT recommends rehab at discharge - Neurosurgery following, appreciate assistance. Patient could possibly benefit from ventriculoperitoneal shunt placement once his bradycardia and orthostatic hypotension resolve. - fall precautions. - continue with PT. Add OT. UTI ID consult appreciated. Urine culture growing staph epidermidis. Likely contaminant. - Continue on IV ceftriaxone (started 12/22). - repeat UA. Orthostatic hypotension Orthostatic BP measurements dropped 37mmHg changing from supine to standing - continue to hold ACEI - discussed slow transitions - apply JAVIER hose - fall precautions Bradycardia TSH 2.970 10/09/17. Consulted patient's office services associate Dr. Garza, appreciate recommendations. EP consult appreciated. - Plan for pacemaker placement today. SP PACER/AICD 4-30 Chronic systolic heart failure, not in acute exacerbation Echo 10/10/17 EF 25-30% Patient appears euvolemic. - continue on po Lasix if standing BP allows. - continue to monitor for signs of fluid overload. Euvolemic at this time. 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 CXR unremarkable. - pain control as needed. Constipation No bowel movement in about a week. - Pericolace and Miralax. Resolved. DVT prophylaxis -bilateral SCD/JAVIER hose -Heparin sq Discharge Planning [facility] Pierce Serrano DO December 28, 2017 15:34
[2017-12-28] MEDS: cefTRIAXone INJ 1,000 MG in SODIUM CHLORIDE 0.9% INJ 100 ML IV SCH (16:17)
--- NOTE | 2017-12-28 16:30 | HHI.PR ---
Subjective Remarks Feeling ok Objective Vital Signs Date Time Temp Pulse Resp B/P (MAP) Pulse Ox O2 Delivery O2 Flow Rate FiO2 12/28/17 07:16 73 12/28/17 07:16 98.1 73 16 138/64 (88) 98 12/28/17 06:00 76 12/28/17 05:00 80 12/28/17 04:00 98.3 76 16 128/60 (82) 96 12/28/17 04:00 76 12/28/17 03:00 80 12/28/17 02:00 82 12/28/17 01:00 87 12/28/17 00:00 98.2 86 16 118/61 (80) 95 12/28/17 00:00 86 12/27/17 23:00 76 12/27/17 22:00 78 12/27/17 21:00 80 12/27/17 21:00 98.5 68 16 130/61 (84) 99 12/27/17 20:00 68 12/27/17 18:00 77 12/27/17 17:00 76 I/O 12/27/17 12/27/17 12/27/17 12/28/17 12/28/17 12/28/17 07:00 15:00 23:00 07:00 15:00 23:00 Intake Total 480 ml 10 ml 1490 ml 360 ml Output Total 800 ml 950 ml 500 ml Balance -320 ml 10 ml 540 ml -140 ml Intake Oral 480 ml 10 ml 440 ml 360 ml IV Total 1050 ml Output Urine Total 800 ml 950 ml 500 ml # Bowel Movements 0 0 0 Result Diagram: 12/27/17 0357 Imaging Alert, fully oriented lungs: ventilated heart: s1, S2 regular, no gallop abdomen: soft, no mass Ext: no edema Last Impressions Chest X-Ray 12/27/17 0000 Signed Impressions: Service Date/Time: Wednesday, December 27, 2017 14:31 - CONCLUSION: 1. No pneumothorax is identified. 2. Stable mildly enlarged cardiac silhouette. Samuel Bruno MD Head CT 12/22/17 0000 Signed Impressions: Service Date/Time: Friday, December 22, 2017 12:53 - CONCLUSION: Persistent ventriculomegaly. No evidence of hemorrhage, edema, mass or mass effect. No new lesion is seen since the 12/03/17 exam. Froy Feliciano MD Current Medications Medications (Trade) Dose Ordered Sig/Regino Route Start Time Stop Time Status Last Admin (NS Flush) 2 ml UNSCH PRN IV FLUSH 12/22/17 15:45 (NS Flush) 2 ml BID IV FLUSH 12/22/17 21:00 12/28/17 09:20 (Narcan Inj) 0.4 mg UNSCH PRN IV PUSH 12/22/17 15:45 Ceftriaxone Sodium 1000 mg/ Sodium Chloride 100 ml @ 200 mls/hr Q24H IV 12/23/17 15:00 12/28/17 16:17 (D50w (Vial) Inj) 50 ml UNSCH PRN IV PUSH 12/22/17 19:45 (Glucagon Inj) 1 mg UNSCH PRN OTHER 12/22/17 19:45 (KlonoPIN) 1 mg HS PO 12/22/17 21:00 12/27/17 20:58 (Proscar) 5 mg DAILY PO 12/23/17 09:00 12/28/17 09:19 (Lasix) 20 mg DAILY PO 12/23/17 09:00 12/28/17 09:18 (LaMICtal) 100 mg DAILY PO 12/23/17 09:00 12/28/17 09:19 (Zoloft) 100 mg BID PO 12/22/17 21:00 12/28/17 09:19 (Heparin Inj) 5,000 units Q8HR SQ 12/24/17 14:00 12/28/17 12:53 (Ivelisse-Colace) 1 tab BID PO 12/25/17 12:00 12/28/17 09:19 (Miralax) 17 gm DAILY PO 12/25/17 12:00 12/26/17 08:56 (Ambien) 5 mg HS PRN PO 12/26/17 12:15 12/27/17 20:58 (Adderall) 20 mg DAILY PO 12/27/17 09:00 12/28/17 09:18 Cefazolin Sodium/ Dextrose 50 ml @ 100 mls/hr SMALL CRAFT OPERATOR IV 12/27/17 09:00 12/30/17 08:59 12/27/17 12:03 Vancomycin HCl 1000 mg/Sodium Chloride 250 ml @ 250 mls/hr SMALL CRAFT OPERATOR IV 12/27/17 09:00 12/31/17 08:59 12/27/17 12:03 (Betadine 5% Antisepsis Kit) 1 applic SMALL CRAFT OPERATOR EACH NARE 12/27/17 09:00 12/31/17 08:59 12/27/17 11:15 (Bactroban Nasal 2% Oint) 1 applic SMALL CRAFT OPERATOR NASAL 12/27/17 09:00 12/31/17 08:59 (Chlorhexidine 2% Cloth) 3 pack SMALL CRAFT OPERATOR TOP 12/27/17 09:00 12/31/17 08:59 (Restoril) 15 mg HS PRN PO 12/27/17 13:00 (Zofran Inj) 4 mg Q4H PRN IV PUSH 12/27/17 14:00 (Tylenol-Codeine #3) 1 tab Q4H PRN PO 12/27/17 13:00 12/28/17 09:20 (Tylenol-Codeine #3) 2 tab Q4H PRN PO 12/27/17 13:00 12/28/17 12:52 (NS Flush) 2 ml BID IV FLUSH 12/27/17 21:00 (NS Flush) 2 ml UNSCH PRN IV FLUSH 12/27/17 13:00 (Morphine Inj) 2 mg Q4H PRN IV PUSH 12/27/17 20:45 Assessment and Plan Problem List: (1) Cardiac defibrillator in situ ICD Codes: Z95.810 - Presence of automatic (implantable) cardiac defibrillator Plan: SP dual ICd insertion Doing better In bed Clean surgical wound Can be DH when ok with the managing team Follow up with me in 3 weeks (2) CHF (congestive heart failure) ICD Codes: I50.9 - Heart failure, unspecified Plan: On optimal medical management (3) Near syncope ICD Codes: R55 - Syncope and collapse Status: Acute Plan: AV pacing No new episode reported Pamela Maurer MD December 28, 2017 16:30
[2017-12-28] MEDS: clonazePAM 1 MG TAB PO SCH (20:44)
[2017-12-29] VITALS (22 sets, daily range): BP systolic 103–123; BP diastolic 58–68; PULSE 68–86; RESP 16–18; TEMP 97.3–98.2; O2SAT 95–97
[2017-12-29 05:16] LABS: AUTOMATED NEUTROPHIL # 3.8 TH/MM3 (1.8-7.7); BASOPHIL % 0.4 % (0.0-2.0); EOSINOPHIL # 0.1 TH/MM3 (0-0.4); HEMATOCRIT 39.2 % (39.0-51.0); HEMOGLOBIN 13.6 GM/DL (13.0-17.0); LYMPH % 27.1 % (9.0-44.0); LYMPHOCYTE # 1.7 TH/MM3 (1.0-4.8); MEAN CELL VOLUME 89.8 FL (80.0-100.0); MEAN CORPUSCULAR HEMOGLOBIN 31.1 PG (27.0-34.0); MEAN CORPUSCULAR HGB CONC 34.7 % (32.0-36.0); MEAN PLATELET VOLUME 8.3 FL (7.0-11.0); MONO % 9.2 % (0.0-8.0); MONOCYTE # 0.6 TH/MM3 (0-0.9); NEUT % 61.3 % (16.0-70.0); PLATELET COUNT 164 TH/MM3 (150-450); RED BLOOD COUNT 4.37 MIL/MM3 (4.50-5.90); RED CELL DISTRIBUTION WIDTH 12.5 % (11.6-17.2); WHITE BLOOD COUNT 6.2 TH/MM3 (4.0-11.0)
[2017-12-29 05:42] LABS: ALBUMIN 3.1 GM/DL (3.4-5.0); ALT (GPT) 29 U/L (12-78); AST (GOT) 19 U/L (15-37); BICARBONATE 27.3 MEQ/L (21.0-32.0); BLOOD UREA NITROGEN 14 MG/DL (7-18); CALCIUM 8.9 MG/DL (8.5-10.1); CHLORIDE 103 MEQ/L (98-107); CREATININE 0.65 MG/DL (0.60-1.30); GLOMERULAR FILTRATION RATE 121 ML/MIN (>89); GLUCOSE,RANDOM 115 MG/DL (74-106); MAGNESIUM 1.9 MG/DL (1.5-2.5); SODIUM (NA) 138 MEQ/L (136-145)
[2017-12-29 05:51] LABS: ALKALINE PHOSPHATASE 98 U/L (45-117); TOTAL BILIRUBIN ADULT 0.3 MG/DL (0.2-1.0); TOTAL PROTEIN 6.5 GM/DL (6.4-8.2)
[2017-12-29] MEDS: HEPARIN SODIUM - SQ 10,000 UNITS/ML VIAL SQ SCH ×3 (06:18→21:35)
[2017-12-29] MEDS: POLYETHYLENE GLYCOL 17 GM PKG PO SCH (08:09)
[2017-12-29] MEDS: SERTRALINE HCL 100 MG TAB PO SCH ×2 (08:09→21:36)
[2017-12-29] MEDS: FINASTERIDE 5 MG TAB PO SCH (08:09)
[2017-12-29] MEDS: DOCUSATE SODIUM 50 MG/SENNA 8.6 MG TAB PO SCH ×2 (08:10→21:36)
[2017-12-29] MEDS: SODIUM CHLORIDE 0.9% FLUSH 10 ML FLUSH IV FLUSH SCH ×4 (08:10→21:00)
[2017-12-29] MEDS: FUROSEMIDE 20 MG TAB PO SCH (08:10)
[2017-12-29] MEDS: DEXTROAMPHETAMINE/AMPHETAMINE 20 MG TAB PO SCH (08:10)
[2017-12-29] MEDS: lamoTRIgine 100 MG TAB PO SCH (08:10)
[2017-12-29] MEDS: ACETAMINOPHEN/CODEINE 300 MG/30 MG TAB PO PRN ×2 (08:13→21:36)
[2017-12-29] MEDS: cefTRIAXone INJ 1,000 MG in SODIUM CHLORIDE 0.9% INJ 100 ML IV SCH (14:05)
[2017-12-29 15:31] LABS: HEMOGLOBIN A1C 5.3 % (4.3-6.0)
--- NOTE | 2017-12-29 18:53 | HHI.PR ---
Subjective Remarks Follow-up for UTI No fever, no overnight events, no suprapubic pain. No chest pain or shortness of breath. No further cardiac events. Objective Vitals Vital Signs Date Time Temp Pulse Resp B/P (MAP) Pulse Ox O2 Delivery O2 Flow Rate FiO2 12/29/17 18:05 78 12/29/17 17:01 71 12/29/17 16:14 81 12/29/17 15:09 98.2 68 18 113/58 (76) 95 12/29/17 15:09 83 12/29/17 14:22 86 12/29/17 13:02 85 12/29/17 12:11 85 12/29/17 11:25 97.7 74 18 112/68 (83) 96 12/29/17 11:25 86 12/29/17 10:09 77 12/29/17 09:10 84 12/29/17 09:09 16 12/29/17 08:23 97.8 74 18 103/68 (80) 95 12/29/17 08:23 86 12/29/17 06:00 77 12/29/17 05:48 77 12/29/17 04:00 80 12/29/17 03:30 98.0 74 16 120/68 (85) 95 12/29/17 03:00 75 12/29/17 02:00 78 12/29/17 01:00 82 12/29/17 00:00 80 12/28/17 23:00 80 12/28/17 23:00 98.3 78 16 113/69 (84) 96 12/28/17 22:00 82 12/28/17 21:00 82 12/28/17 20:00 82 12/28/17 19:30 98.3 82 17 115/57 (76) 94 12/28/17 19:00 78 I/O 12/28/17 12/28/17 12/28/17 12/29/17 12/29/17 12/29/17 07:00 15:00 23:00 07:00 15:00 23:00 Intake Total 360 ml 1240 ml 240 ml 460 ml Output Total 500 ml 600 ml 400 ml 550 ml Balance -140 ml 640 ml -160 ml -90 ml Intake Oral 360 ml 1040 ml 240 ml 360 ml IV Total 200 ml 100 ml Output Urine Total 500 ml 600 ml 400 ml 550 ml # Voids 1 # Bowel Movements 0 0 0 2 Result Diagram: 12/29/17 0445 12/29/17 0445 Objective Remarks SKIN: Warm and dry. CARDIOVASCULAR: Regular rate and rhythm. RESPIRATORY: No accessory muscle use. Clear to auscultation. Breath sounds equal bilaterally. GASTROINTESTINAL: Abdomen soft, non-tender, nondistended. Hepatic and splenic margins not palpable. MUSCULOSKELETAL: Extremities without clubbing, cyanosis, or edema. No obvious deformities. NEUROLOGICAL: Awake and alert. No obvious cranial nerve deficits. Procedures DUAL CHAMBER DEFIB IMPLANT PROCEDURE DATE: Dec 27, 2017 NYHA Classification: Class II (Mild) Prevention: Primary Dual Chamber Defib Mr. Berry is a 72-year-old male with congestive heart failure, non ischemic cardiomyopathy, ejection fraction 25%, on medical management for over 6 months, refers dual-chamber defibrillator implantation and pacing support. The risks, the nature and the benefit of the procedure were clearly stated to his . The risks include pneumothorax, cardiac perforation, stroke, and even . He understood and agreed to proceed. PROCEDURE After written informed consent was obtained, the patient waxs brought to the EP lab he was prepared and draped in the usual sterile fashion. Conscious sedation was initiated and maintained throughout the procedure by the anesthesiologist. Once sedation was verified, the left infraclavicular area was anesthetized with 2% Xylocaine. Using modified Seldinger technique and simultaneous contrast injection via the left antecubital vein, the left subclavian vein was cannulated on two occasions and two guidewires were advanced. Peripheral venography showed minimal irregularity. Then, using #11 blade scalpel, a 3 centimeter incision was made two fingerbreadths below the clavicle. Dissection was then taken down to deep fascial layer using Bovie cautery and blunt dissection. Into the inferomedial direction, a device pocket was dissected. Then the wires were dissected into the pocket. A 2-0 Vicryl suture was placed around the wires to prevent back-bleeding. At this point, over the lateral wire, a 9-Maldivian dilator and introducer was advanced. As the dilator and wire were removed, an active fixation right ventricular pacing, sensing and defibrillatory lead was advanced. After adequate pacing and sensing thresholds were obtained, the lead was secured in the pocket using #2 Ethibond suture. Then, over the remaining wire, a 7-Maldivian dilator introducer was advanced. As the dilator and wire were removed, an active fixation right atrial pacing and sensing lead was advanced. After adequate pacing and sensing thresholds were obtained, the lead was secured in the pocket using #2 Ethibond suture. At that point, the pocket was copiously irrigated with antibiotic solution. The leads were connected to the generator and placed in the pocket I did proceed with wound closure. The deep fascial layer was approximated using 2-0 Vicryl suture in a continuous fashion. The subcutaneous layer was approximated using 2-0 Vicryl suture in a continuous fashion. The subcuticular layer was approximated with 2-0 Vicryl suture in a continuous fashion. Dermabond adhesive was applied to the wound followed by a sterile pressure dressing. There was no complication. The patient tolerated procedure. Blood loss minimal. IMPLANTED HARDWARE The implanted defibrillator generator is a Medtronic model number [id number], serial number [id number]. The right atrial pacing and sensing lead is a Medtronic model number 4076-52, serial number [id number]. The right ventricular pacing, sensing defibrillatory lead is a Medtronic model number 6935M-65. Serial # [id number]. THRESHOLDS The right atrial pacing threshold in bipolar mode was 1.5 volts at 0.4 milliseconds. Lead impedance 665 ohms and P wave at 3.4 millivolts. The right ventricular pacing threshold in bipolar mode was 0.75 volts at 0.4 milliseconds. Lead impedance 420 ohms and R wave at 5.9 millivolts. SETTINGS The device set in a DDD-600 upper limit 120 beats per minute. Defibrillatory portion for two zones, one zone for ventricular tachycardia between 160 to 240 beats per minute. Initial therapy consists of one burst of ATP, one ramp, 81%, 10 pulse, 10 second decremental, followed by a 20, then 25 and all subsequent shocks at 34-joules defibrillatory shock. The second zone for ventricular fibrillation above 240 beats, first therapy at 25 and all subsequent shocks at 35-joules defibrillatory shock. CONCLUSIONS Successful defibrillator implantation. COMMENT AND RECOMMENDATIONS The patient will be transferred to telemetry unit. He will be observed. A/P Assessment and Plan 72yo male with HTN, DM, chronic neck pain 2/2 DDD cervical spine with ventriculomegaly and concern for NPH s/p lumbar drain last admission admitted with complaints of progressive weakness, recurrent falls and unsteady gait. NPH S/p lumbar drain, worsening with increased weakness, recurrent falls and unsteady gait, CT head reveals persistent ventriculomegaly. Patient remains very unsteady, PT recommends rehab at discharge - Neurosurgery following, appreciate assistance. Patient could possibly benefit from ventriculoperitoneal shunt placement once his bradycardia and orthostatic hypotension resolve. - fall precautions. - continue with PT. Add OT. UTI ID consult appreciated. Urine culture growing staph epidermidis. Likely contaminant. - Continue on IV ceftriaxone (started 12/22). Repeat urinalysis per infectious disease. Orthostatic hypotension Orthostatic BP measurements dropped 37mmHg changing from supine to standing - continue to hold ACEI - discussed slow transitions - apply JAVIER hose - fall precautions Bradycardia TSH 2.970 10/09/17. Consulted patient's inspector firearms Dr. Garza, appreciate recommendations. EP consult appreciated. -Status post pacemaker placement, follow-up with cardiology in 3 weeks. Chronic systolic heart failure, not in acute exacerbation Echo 10/10/17 EF 25-30% Patient appears euvolemic. - continue on po Lasix if standing BP allows. - continue to monitor for signs of fluid overload. Euvolemic at this time. 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 CXR unremarkable. - pain control as needed. Constipation No bowel movement in about a week. - Pericolace and Miralax. Resolved. DVT prophylaxis -bilateral SCD/JAVIER hose -Heparin sq Discharge Planning Discharge toSNF when ready Kamari Renee MD December 29, 2017 18:53
[2017-12-29] MEDS: clonazePAM 1 MG TAB PO SCH (21:36)
[2017-12-30] VITALS (19 sets, daily range): BP systolic 109–138; BP diastolic 52–65; PULSE 61–84; RESP 16–20; TEMP 97.3–98.7; O2SAT 0–98
[2017-12-30] MEDS: HEPARIN SODIUM - SQ 10,000 UNITS/ML VIAL SQ SCH ×3 (06:09→21:19)
[2017-12-30] MEDS: lamoTRIgine 100 MG TAB PO SCH (08:31)
[2017-12-30] MEDS: DEXTROAMPHETAMINE/AMPHETAMINE 20 MG TAB PO SCH (08:31)
[2017-12-30] MEDS: DOCUSATE SODIUM 50 MG/SENNA 8.6 MG TAB PO SCH ×2 (08:31→21:19)
[2017-12-30] MEDS: FINASTERIDE 5 MG TAB PO SCH (08:31)
[2017-12-30] MEDS: FUROSEMIDE 20 MG TAB PO SCH (08:31)
[2017-12-30] MEDS: SERTRALINE HCL 100 MG TAB PO SCH ×2 (08:31→21:19)
[2017-12-30] MEDS: POLYETHYLENE GLYCOL 17 GM PKG PO SCH (08:32)
[2017-12-30] MEDS: SODIUM CHLORIDE 0.9% FLUSH 10 ML FLUSH IV FLUSH SCH ×4 (08:32→21:18)
--- NOTE | 2017-12-30 09:53 | HHI.PR ---
Subjective Remarks Follow-up UTI, weakness. The patient states that he feels much weaker today than he did yesterday. Denies dyspnea. Reports pain "all over", but denies chest pain. Objective Vitals Vital Signs Date Time Temp Pulse Resp B/P (MAP) Pulse Ox O2 Delivery O2 Flow Rate FiO2 12/30/17 08:00 74 12/30/17 07:15 61 12/30/17 07:15 97.9 64 18 138/63 (88) 98 12/30/17 05:00 66 12/30/17 05:00 67 16 125/60 (81) 98 12/30/17 04:22 97.3 68 16 12/30/17 04:21 68 12/30/17 03:00 68 12/30/17 00:00 97.3 68 16 131/63 (85) 97 12/30/17 00:00 68 12/29/17 22:00 78 12/29/17 20:00 78 12/29/17 19:00 97.3 78 18 123/61 (81) 97 12/29/17 18:05 78 12/29/17 17:01 71 12/29/17 16:14 81 12/29/17 15:09 98.2 68 18 113/58 (76) 95 12/29/17 15:09 83 12/29/17 14:22 86 12/29/17 13:02 85 12/29/17 12:11 85 12/29/17 11:25 97.7 74 18 112/68 (83) 96 12/29/17 11:25 86 12/29/17 10:09 77 I/O 12/29/17 12/29/17 12/29/17 12/30/17 12/30/17 12/30/17 07:00 15:00 23:00 07:00 15:00 23:00 Intake Total 240 ml 460 ml 360 ml Output Total 400 ml 550 ml Balance -160 ml -90 ml 360 ml Intake Oral 240 ml 360 ml 360 ml IV Total 100 ml Output Urine Total 400 ml 550 ml # Voids 3 # Bowel Movements 0 2 0 Result Diagram: 12/29/17 0445 12/29/17 0445 Imaging Last Impressions Chest X-Ray 12/27/17 0000 Signed Impressions: Service Date/Time: Wednesday, December 27, 2017 14:31 - CONCLUSION: 1. No pneumothorax is identified. 2. Stable mildly enlarged cardiac silhouette. Samuel Bruno MD Head CT 12/22/17 0000 Signed Impressions: Service Date/Time: Friday, December 22, 2017 12:53 - CONCLUSION: Persistent ventriculomegaly. No evidence of hemorrhage, edema, mass or mass effect. No new lesion is seen since the 12/03/17 exam. Froy Feliciano MD Objective Remarks General: No acute distress. Sitting up in a chair. Heart: Regular rate and rhythm. No murmur. Lungs: Clear to auscultation bilaterally. No wheezes, rales, or rhonchi. Breathing is nonlabored. Abdomen: Soft, nontender, nondistended. Extremities: No lower extremity edema. Left upper extremity in sling. Psych: Alert and oriented. Neuro: Normal speech. No focal deficits noted. Procedures 12/27/17 AICD placement Urinary Catheter: No Vascular Central Line Catheter: No A/P Assessment and Plan 1. Bradycardia: Status post pacemaker placement. Appreciate cardiology recommendations. Follow-up as outpatient. 2. NPH: Status post lumbar drain. Patient having increased weakness, recurrent falls, and unsteady gait. Appreciate neurosurgery recommendations. May require EMBEDDER shunt placement. Continue PT/OT. Will request reevaluation by neurosurgery now that bradycardia and orthostatic hypotension have improved. 3. UTI: Appreciate infectious disease recommendations. Urine culture growing staph epidermidis, likely contaminant. Continue Rocephin. 4. Orthostatic hypotension: Improved. PRAKASH inhibitor on hold. Continue JAVIER hose, fall precautions. 5. Chronic systolic congestive heart failure: Echocardiogram from 10/10/17 shows ejection fraction of 25-30%. Continue Lasix. Monitor for signs of fluid overload. 6. Diabetes mellitus: Monitor Accu-Cheks and cover with sliding scale insulin. Metformin on hold. 7. Degenerative disc disease, cervical spine: Patient has chronic neck pain. This is stable. 8. Seizure disorder: Continue lamotrigine. Serum level is subtherapeutic. Seizure precautions. 9. Constipation: Continue bowel regimen. 10. DVT prophylaxis: SCDs, JAVIER hose, subcutaneous heparin. Discharge Planning Plan is for discharge to SNF when medically stable. Walter Dobbins MD December 30, 2017 09:53
[2017-12-30] MEDS: ACETAMINOPHEN/CODEINE 300 MG/30 MG TAB PO PRN (11:48)
[2017-12-30] MEDS: cefTRIAXone INJ 1,000 MG in SODIUM CHLORIDE 0.9% INJ 100 ML IV SCH (13:44)
[2017-12-30 17:11] LABS: BILIRUBIN, URINE NEG (NEG); BLOOD, URINE NEG (NEG); GLUCOSE,URINE NEG (NEG); KETONE, URINE NEG (NEG); MUCUS URINE FEW /lpf (OCC); NITRITE,URINE NEG (NEG); PH, URINE 5.5 (5.0-8.5); URINE COLOR YELLOW (YELLW/STRAW); URINE LEUKOCYTE ESTERASE NEG (NEG)
[2017-12-30] MEDS: clonazePAM 1 MG TAB PO SCH (21:19)
[2017-12-31] VITALS (9 sets, daily range): BP systolic 118–123; BP diastolic 59–65; PULSE 62–70; RESP 14–18; TEMP 97.5–97.7; O2SAT 97–98
[2017-12-31 04:39] LABS: BASOPHIL % 0.6 % (0.0-2.0); EOSINOPHIL # 0.2 TH/MM3 (0-0.4); EOSINOPHIL % 3.2 % (0.0-4.0); HEMOGLOBIN 13.6 GM/DL (13.0-17.0); LYMPH % 34.8 % (9.0-44.0); LYMPHOCYTE # 1.9 TH/MM3 (1.0-4.8); MEAN CELL VOLUME 89.4 FL (80.0-100.0); MEAN CORPUSCULAR HEMOGLOBIN 31.3 PG (27.0-34.0); MEAN PLATELET VOLUME 7.7 FL (7.0-11.0); MONO % 7.8 % (0.0-8.0); MONOCYTE # 0.4 TH/MM3 (0-0.9); NEUT % 53.6 % (16.0-70.0); PLATELET COUNT 176 TH/MM3 (150-450); RED BLOOD COUNT 4.36 MIL/MM3 (4.50-5.90); RED CELL DISTRIBUTION WIDTH 12.2 % (11.6-17.2); WHITE BLOOD COUNT 5.6 TH/MM3 (4.0-11.0)
[2017-12-31 05:09] LABS: BICARBONATE 27.1 MEQ/L (21.0-32.0); CALCIUM 8.8 MG/DL (8.5-10.1); CREATININE 0.7 MG/DL (0.60-1.30)
[2017-12-31] MEDS: HEPARIN SODIUM - SQ 10,000 UNITS/ML VIAL SQ SCH (06:29)
--- NOTE | 2017-12-31 08:03 | HHI.DCPOC ---
Discharge Care Plan Diagnosis: (1) Cardiac defibrillator in situ (2) Cardiomyopathy (3) CHF (congestive heart failure) (4) Orthostatic hypotension (5) Generalized weakness (6) Near syncope (7) UTI (urinary tract infection) (8) Hyperlipidemia (9) Hypertension (10) Hydrocephalus (11) DM (diabetes mellitus) (12) Intractable pain (13) Hypokalemia Goals to Promote Your Health * To prevent worsening of your condition and complications * To maintain your health at the optimal level Directions to Meet Your Goals Take your medications as prescribed Follow your dietary instruction Follow activity as directed Keep your appointments as scheduled Take your immunizations and boosters as scheduled If your symptoms worsen call your PCP, if no PCP go to Urgent Care Center or Emergency Room Smoking is Dangerous to Your Health. Avoid second hand smoke Call the 24-hour hour crisis hotline for domestic abuse at Walter Dobbins MD December 31, 2017 08:03
--- NOTE | 2017-12-31 08:05 | HHI.DS ---
cc: RichardSherita Discharge Summary Admission Date Dec 27, 2017 at 09:37 Discharge Date: December 31, 2017 Admitting Diagnosis ORTHOSTATIC HYPOTENSION, NEAR SYNCOPE, UTI (1) UTI (urinary tract infection) ICD Code: N39.0 - Urinary tract infection, site not specified Status: Acute (2) Near syncope ICD Code: R55 - Syncope and collapse Status: Acute (3) Generalized weakness ICD Code: R53.1 - Weakness (4) Orthostatic hypotension ICD Code: I95.1 - Orthostatic hypotension (5) CHF (congestive heart failure) ICD Code: I50.9 - Heart failure, unspecified (6) Cardiomyopathy ICD Code: I42.9 - Cardiomyopathy, unspecified (7) Cardiac defibrillator in situ ICD Code: Z95.810 - Presence of automatic (implantable) cardiac defibrillator (8) Hypokalemia ICD Code: E87.6 - Hypokalemia (9) Hydrocephalus ICD Code: G91.9 - Hydrocephalus, unspecified (10) Hyperlipidemia ICD Code: E78.5 - Hyperlipidemia, unspecified (11) Hypertension ICD Code: I10 - Essential (primary) hypertension (12) DM (diabetes mellitus) ICD Code: E11.9 - Type 2 diabetes mellitus without complications (13) Intractable pain ICD Code: R52 - Pain, unspecified Procedures 12/27/17 AICD placement Brief History - From Admission pt reported he almost passed out in his apt in his bathroom around 2p.m today he used his walker to get there stated he just has not been improving since he has been discharged whole body weak no premonitory symptoms no syncope had lumbar drain placed in last admission was told if no improvement, to come back for shunt in ER< significant orthostatic hypotension denies recent changes in meds lives at [facility] alone, has aide coming to help him a few hours a day, meals provided but reports decreased appetite since illness denies other sympotms on ROS CBC/BMP: 12/31/17 0417 12/31/17 0417 Significant Findings Laboratory Tests Test 12/29/17 04:45 12/30/17 16:30 12/31/17 04:17 Red Blood Count 4.37 MIL/MM3 (4.50-5.90) 4.36 MIL/MM3 (4.50-5.90) Monocytes (%) (Auto) 9.2 % (0.0-8.0) Random Glucose 115 MG/DL (74-106) 107 MG/DL (74-106) Albumin 3.1 GM/DL (3.4-5.0) Thyroid Stimulating Hormone 3rd Gen 4.210 uIU/ML (0.358-3.740) Urine Mucus FEW /lpf (OCC) Blood Urea Nitrogen 20 MG/DL (7-18) Imaging Last Impressions Chest X-Ray 12/27/17 0000 Signed Impressions: Service Date/Time: Wednesday, December 27, 2017 14:31 - CONCLUSION: 1. No pneumothorax is identified. 2. Stable mildly enlarged cardiac silhouette. Samuel Bruno MD Head CT 12/22/17 0000 Signed Impressions: Service Date/Time: Friday, December 22, 2017 12:53 - CONCLUSION: Persistent ventriculomegaly. No evidence of hemorrhage, edema, mass or mass effect. No new lesion is seen since the 12/03/17 exam. Froy Feliciano MD PE at Discharge General: No acute distress. Heart: Regular rate and rhythm. No murmur. Lungs: Clear to auscultation bilaterally. No wheezes, rales, or rhonchi. Breathing is nonlabored. Abdomen: Soft, nontender, nondistended. Extremities: No lower extremity edema. Left upper extremity in sling. Psych: Alert and oriented. Neuro: Normal speech. No focal deficits noted. Pt update on day of discharge The patient states that he feels much better today. Strength is a little better. No chest pain, dyspnea. Hospital Course Patient was admitted for further evaluation and management of orthostatic hypotension and generalized weakness. Neurosurgery was consulted for further evaluation of NPH. He was noted to have significant bradycardia. Cardiology was consulted. Pacemaker was placed. Patient remained weak, but heart rate improved and patient no longer had orthostatic hypotension. Physical therapy and Occupational Therapy worked with the patient during the hospitalization. He was cleared for discharge by cardiology and neurosurgery. He was felt to be stable for discharge to detention facility. Pt Condition on Discharge: Stable Discharge Disposition: Discharge to SNF Discharge Time: > 30 minutes Discharge Instructions DIET: Follow Instructions for: Heart Healthy Diet Activities you can perform: Weight Bearing as Jennifer Other Activity Instructions: PACEMAKER/AICD RESTRICTIONS Follow up Referrals: Cardiology - 1 Week with Pamela Maurer MD Neurosurgery with Tim Acharya MD PCP Follow-up - 1 Week New Medications: Cefuroxime (Ceftin) 250 Mg Tab 250 MG PO BID for Infection, #14 TAB Acetaminophen-Codeine (Acetaminophen-Codeine) 300-30 mg Tab 2 TAB PO Q4H PRN for PAIN SCALE 6 TO 10, #30 TAB Polyethylene Glycol 3350 Powder (Polyethylene Glycol 3350 Powder) 17 Gram Pow 17 GM PO DAILY for Bowel Management, #1 BOTTLE Zolpidem (Ambien) 5 Mg Tab 5 MG PO HS PRN for insomnia, #30 TAB Changed Medications: Sennosides-Docusate Sodium (Gnp Senna Plus 8.6-50 mg) 8.6 Mg-50 Mg Tab 2 TAB PO BID for Constipation, #120 TAB (Changed from: 1 TAB; 60) Continued Medications: Amphetamine-Dextroamphetamine (Amphetamine-Dextroamphetamine) 20 Mg Tab 20 MG PO BID for Hyperactivity Control, #60 TAB 0 Refills (This prescription has been renewed) Avoid late evening doses. Space doses at least 4 to 6 hours if more than once/day dosing. Clonazepam (Clonazepam) 1 Mg Tab 1 MG PO HS for Insomnia, #30 TAB 0 Refills (This prescription has been renewed) Finasteride (Proscar) 5 Mg Tab 5 MG PO DAILY for Manage Prostate Problems, #30 TAB 0 Refills Do not crush. Furosemide (Furosemide) 20 Mg Tab 20 MG PO DAILY, #30 TAB 0 Refills Lamotrigine (Lamotrigine) 100 Mg Tab 100 MG PO DAILY for Control Seizures, #30 TAB 0 Refills Lisinopril (Lisinopril) 2.5 Mg Tab 2.5 MG PO DAILY, #30 TAB 0 Refills Metformin (Metformin) 500 Mg Tab 500 MG PO BIDPC for Blood Sugar Management, #60 TAB 0 Refills Primidone (Primidone) 250 Mg Tablet Sertraline (Sertraline) 100 Mg Tab 100 MG PO BID, #30 TAB 0 Refills Walter Dobbins MD December 31, 2017 08:05
[2017-12-31] MEDS: SERTRALINE HCL 100 MG TAB PO SCH (09:40)
[2017-12-31] MEDS: lamoTRIgine 100 MG TAB PO SCH (09:40)
[2017-12-31] MEDS: FINASTERIDE 5 MG TAB PO SCH (09:40)
[2017-12-31] MEDS: FUROSEMIDE 20 MG TAB PO SCH (09:40)
[2017-12-31] MEDS: DOCUSATE SODIUM 50 MG/SENNA 8.6 MG TAB PO SCH (09:40)
[2017-12-31] MEDS: POLYETHYLENE GLYCOL 17 GM PKG PO SCH (09:40)
[2017-12-31] MEDS: DEXTROAMPHETAMINE/AMPHETAMINE 20 MG TAB PO SCH (09:40)
[2017-12-31] MEDS: SODIUM CHLORIDE 0.9% FLUSH 10 ML FLUSH IV FLUSH SCH (09:41)
== END 2017-12-31 14:24 | DRG 227 ==
LOC: NEPC 12:19 → INTOOBSV 15:44 → NEDA 15:44 → NEPHCDU 22:07 → HCPC 12-24 22:33 → OBSVTOIN 12-27 09:37
PROVIDERS: ADMIT Family Medicine; ATTEND Family Medicine
PROC: 02HK3KZ Insertion of Defibrillator Lead into Right Ventricle, Percutaneous Approach (ICD-10-PCS; 2017-12-27)
PROC: 02H63KZ Insertion of Defibrillator Lead into Right Atrium, Percutaneous Approach (ICD-10-PCS; 2017-12-27)
PROC: 0JH608Z Insertion of Defibrillator Generator into Chest Subcutaneous Tissue and Fascia, Open Approach (ICD-10-PCS; principal; 2017-12-27 12:00)
DX: I47.2 Ventricular tachycardia (principal); G91.2 (Idiopathic) normal pressure hydrocephalus; I42.9 Cardiomyopathy, unspecified; I11.0 Hypertensive heart disease with heart failure; I50.22 Chronic systolic (congestive) heart failure; M48.02 Spinal stenosis, cervical region; N39.0 Urinary tract infection, site not specified; J44.9 Chronic obstructive pulmonary disease, unspecified; E11.9 Type 2 diabetes mellitus without complications; G40.909 Epilepsy, unspecified, not intractable, without status epilepticus; R53.1 Weakness; I95.1 Orthostatic hypotension; Z96.651 Presence of right artificial knee joint; I25.10 Atherosclerotic heart disease of native coronary artery without angina pectoris; I49.3 Ventricular premature depolarization; E78.5 Hyperlipidemia, unspecified; E87.6 Hypokalemia; F32.9 Major depressive disorder, single episode, unspecified; G89.29 Other chronic pain; K59.00 Constipation, unspecified; M50.30 Other cervical disc degeneration, unspecified cervical region; N40.1 Benign prostatic hyperplasia with lower urinary tract symptoms; N39.41 Urge incontinence; R29.6 Repeated falls; M54.5 Low back pain; Z79.84 Long term (current) use of oral hypoglycemic drugs
CPT/HCPCS: 33249; 70450; 71045; 80048; 80053; 80175; 81001; 82550; 82948; 83036; 83735; 84100; 84439; 84443; 84484; 85025; 87077; 87086; 87186; 93005; 93306; 94150; C1721; C1777; C1898; J0690; J0696; J1644; J2250; J2270; J2405; J3010; J3370; J7050

== ENCOUNTER → 2018-02-08 | Outpatient (CLI) | payer MEDICARE, OTHER ==
[~2018-02-08] MED LIST changes: +ACET1TAB94 PO; +AMBI5TAB PO; +AMPH1TAB66 PO; -ATOR40TA16 PO; +CARV3.12 PO; +CEFU1TAB18 PO; +CLON1TAB PO; -FENT25T T-DERMAL; +GELFOAM SIZE 100 ONE; +GENTAMICIN SULFATE 80 MG/2 ML VIAL ONE; +POLY17S PO; -PRIM250T; +PRIM250T PO; +THROMBIN (TOPICAL) 5,000 UNIT VIAL ONE; +TRAZ50TA12 PO
[2018-02-08 13:03] LABS: AUTOMATED NEUTROPHIL # 5.6 TH/MM3 (1.8-7.7); BASOPHIL % 0.5 % (0.0-2.0); EOSINOPHIL # 0.2 TH/MM3 (0-0.4); EOSINOPHIL % 2.2 % (0.0-4.0); HEMATOCRIT 42.1 % (39.0-51.0); HEMOGLOBIN 14.8 GM/DL (13.0-17.0); LYMPH % 15.4 % (9.0-44.0); LYMPHOCYTE # 1.2 TH/MM3 (1.0-4.8); MEAN CELL VOLUME 87.1 FL (80.0-100.0); MEAN CORPUSCULAR HEMOGLOBIN 30.6 PG (27.0-34.0); MEAN CORPUSCULAR HGB CONC 35.1 % (32.0-36.0); MEAN PLATELET VOLUME 8.1 FL (7.0-11.0); MONO % 9.4 % (0.0-8.0); MONOCYTE # 0.7 TH/MM3 (0-0.9); NEUT % 72.5 % (16.0-70.0); PLATELET COUNT 199 TH/MM3 (150-450); RED BLOOD COUNT 4.83 MIL/MM3 (4.50-5.90); RED CELL DISTRIBUTION WIDTH 12.7 % (11.6-17.2); WHITE BLOOD COUNT 7.7 TH/MM3 (4.0-11.0)
[2018-02-08 13:13] LABS: PROTHROMBIN TIME - PATIENT 10.6 SEC (9.8-11.6)
[2018-02-08 13:27] LABS: ALT (GPT) 16 U/L (12-78); AST (GOT) 13 U/L (15-37); BICARBONATE 26.9 MEQ/L (21.0-32.0); BLOOD UREA NITROGEN 19 MG/DL (7-18); CALCIUM 9.2 MG/DL (8.5-10.1); CHLORIDE 100 MEQ/L (98-107); CREATININE 0.79 MG/DL (0.60-1.30); GLOMERULAR FILTRATION RATE 97 ML/MIN (>89); GLUCOSE,FASTING 100 MG/DL (74-99); SODIUM (NA) 136 MEQ/L (136-145)
[2018-02-08 13:29] LABS: ALKALINE PHOSPHATASE 156 U/L (45-117); TOTAL BILIRUBIN ADULT 0.5 MG/DL (0.2-1.0); TOTAL PROTEIN 7.4 GM/DL (6.4-8.2)
== END ==
LOC: CPRE 12:04
PROVIDERS: ATTEND Neurological Surgery
DX: Z01.812 Encounter for preprocedural laboratory examination (principal); R29.6 Repeated falls
CPT/HCPCS: 36415; 80053; 85025; 85610; 85730; J1580

== ENCOUNTER 2018-02-09 05:50 | Inpatient (IN) | payer MEDICARE, OTHER ==
[~2018-02-09] VITALS: Ht 177.8 cm; Wt 82.2 kg
[~2018-02-09 05:50] MED LIST changes: -GELFOAM SIZE 100 ONE; -GENTAMICIN SULFATE 80 MG/2 ML VIAL ONE; -THROMBIN (TOPICAL) 5,000 UNIT VIAL ONE
[2018-02-09] MEDS ORDERED: LACTATED RINGER'S 1000 ML IV PRN (06:30)
[2018-02-09] MEDS ORDERED: POVIDONE IODINE 5% (ANTISEPSIS KIT) 4 APPLICATIONS EACH NARE PRN (06:30)
[2018-02-09] MEDS ORDERED: CHLORHEXIDINE GLUCONATE 2 % 1 PACK (2 CLOTHS) TOPICAL PRN (06:30)
[2018-02-09] MEDS ORDERED: METOPROLOL TARTRATE 25 MG TAB PO PRN (06:30)
[2018-02-09] MEDS ORDERED: SODIUM CHLORID 0.9% 500 ML IV PRN (06:30)
[2018-02-09] MEDS ORDERED: VANCOMYCIN 1 GM/200 ML PREMIX ON-CALL IV SCH (06:30)
[2018-02-09] MEDS ORDERED: BUPIVACAINE/EPINEPHRINE 0.5% PF 30 ML VIAL ONE (06:59)
[2018-02-09] MEDS ORDERED: NS + KCL 20 MEQ INJ 1,000 ML IV SCH (10:50)
[2018-02-09] MEDS ORDERED: DO NOT ADM ANY ANTICOAGULANT DRUGS PRN (10:58)
[2018-02-09] MEDS ORDERED: MAGNESIUM HYDROXIDE SUSP 30 ML CUP PO PRN (11:00)
[2018-02-09] MEDS ORDERED: LACTULOSE SYRUP 20 GM/30 ML CUP PO PRN (11:00)
[2018-02-09] MEDS ORDERED: SENNOSIDES 8.6 MG TAB PO PRN (11:00)
[2018-02-09] MEDS ORDERED: LORazepam 2 MG/ML VIAL IV PUSH PRN (11:00)
[2018-02-09] MEDS ORDERED: POTASSIUM CHLOR 20 MEQ PREMIX 100 ML IV PRN (11:00)
[2018-02-09] MEDS ORDERED: GLUCAGON 1 MG/ML VIAL OTHER PRN ×2 (11:00→12:45)
[2018-02-09] MEDS ORDERED: SODIUM CHLORIDE 0.9% FLUSH 10 ML FLUSH IV FLUSH PRN (11:00)
[2018-02-09] MEDS ORDERED: MAGNESIUM SULFATE INJ 2 GM in SODIUM CHLORIDE 0.9% INJ 100 ML IV PRN (11:00)
[2018-02-09] MEDS ORDERED: MENTHOL LOZENGE BUCCAL PRN (11:00)
[2018-02-09] MEDS ORDERED: MORPHINE SULFATE 4 MG/ML INJ IV PUSH PRN (11:00)
[2018-02-09] MEDS ORDERED: ACETAMINOPHEN 325 MG TAB PO PRN (11:00)
[2018-02-09] MEDS ORDERED: RESP: ALBUTEROL 2.5 MG/3 ML NEB (PRN) NEB (11:00)
[2018-02-09] MEDS ORDERED: ZOLPIDEM TARTRATE 5 MG TAB PO PRN (11:00)
[2018-02-09] MEDS ORDERED: cloNIDine HCL 0.1 MG TAB PO PRN ×2 (11:00→12:45)
[2018-02-09] MEDS ORDERED: ALUMINUM/MAGNESIUM/SIMETH 30 ML CUP PO PRN (11:00)
[2018-02-09] MEDS ORDERED: PROMETHAZINE INJ 25 MG/ML VIAL IM PRN (11:00)
[2018-02-09] MEDS ORDERED: METOCLOPRAMIDE HCL 10 MG/2 ML VIAL IVS PRN (11:00)
[2018-02-09] MEDS ORDERED: BISACODYL 10 MG SUPP RECTAL PRN (11:00)
[2018-02-09] MEDS ORDERED: DEXTROSE 50% IN WATER 50 ML VIAL(D50) IV PUSH PRN ×2 (11:00→12:45)
--- NOTE | 2018-02-09 11:06 | PD.OP ---
Richard Magallon MD Stephen Minor, MD Operative Report Date of Surgery: Feb 09, 2018 Preoperative Diagnosis: Normal-pressure hydrocephalus Postoperative Diagnosis: Same Procedure: Right frontal ventriculoperitoneal shunt placement with Codman programmable valve Anesthesia: General endotracheal by Misty green Surgeon: Tim Acharya MD Fan Engine Engineer(s): Kylee Dixon Operation and Findings: Following administration of general endotracheal anesthesia, patient was placed in a supine position and a Wood catheter placed along with sequential compression devices. Vancomycin 1 g was and administered intravenously. The head secured in donut and turned 30 to the left side and a shoulder roll placed in the right side and all pressure points adequately padded. The right frontal parietal occipital anterior neck and chest and abdomen area was shaved and prepped with a Betadine solution and Chloraprep. Draping with Ioban also undertaken along with the usual sterile draping. Using landmarks of 11 cm behind the nasion and 3 cm right of the midline a curvilinear right frontal incision was made after infiltrating the skin was 0.5% Marcaine with epinephrine solution. A noni hole was made with an automatic operations consultant and the underlying dura cauterized with bipolar cautery and opened in a cruciate format. Right subcostal abdominal incision site was then infiltrated with 0.5% Marcaine with epinephrine solution and incision made extending down through the anterior fascia of the rectus sheath and then the posterior fascia also incised and the peritoneal wall identified and also incised in a 3-0 silk pursestring suture was been placed around the opening. A subcutaneous tunnel was then created between the frontal and the abdominal incision site with a small interim incision in the neck and the bactiseal Codman peritoneal catheter was then tunneled through. The catheter was connected to a Lexym Codman programmable valve set at 100 mm a water setting with the anti-siphon device. The ventricular catheter was then passed the 6 cm in depth and clear CSF encountered and this was then connected to the proximal reservoir valve with a 2 -0 silk tie. Good distal CSF flow run off was noted from the peritoneal catheter which was then dropped into the peritoneum and the pursestring suture was tied along with the approximation of the anterior rectus sheath with 3-0 Vicryl interposition and 3-0 Vicryl subcuticular cyst also place an interrupted fashion and final skin closure with yoshi. Incision sites were irrigated with the saline solution prior to closure. The right frontal and small neck incision areas were then also approximated with 3-0 Vicryl galeal stitches and yoshi. Sterile dressings then applied and the patient extubated and taken recovery room. There were no intraoperative complications and all sponge and needle, was correct at the end of the procedure. Estimated blood loss less than 25 cc. Tim Acharya MD Feb 09, 2018 11:06
[2018-02-09] MEDS: ACETAMINOPHEN/HYDROcodone 325 MG/10 MG TAB PO PRN ×3 (11:52→20:24)
[2018-02-09] MEDS ORDERED: PROPOFOL 200 MG/20 ML AMP IV ONE (12:00)
[2018-02-09] MEDS ORDERED: LIDOCAINE HCL 1% PF 5 ML SYRINGE OTHER ONE (12:00)
[2018-02-09] MEDS ORDERED: INSULIN NovoLIN REGULAR SUPPLEMENTAL SCALE SQ SCH (12:00)
[2018-02-09] MEDS ORDERED: ROCURONIUM INJ 50 MG/5 ML SYRINGE IV PUSH ONE (12:00)
[2018-02-09] MEDS ORDERED: CALCIUM GLUCONATE INJ 1 GM in SODIUM CHLORIDE 0.9% INJ 100 ML IV PRN (12:00)
[2018-02-09] MEDS ORDERED: NEOSTIGMINE 5 MG/5 ML SYRINGE IV PUSH ONE (12:00)
[2018-02-09] MEDS ORDERED: GLYCOPYRROLATE 1 MG/5 ML SYRINGE IV PUSH ONE (12:00)
[2018-02-09] MEDS ORDERED: ONDANSETRON HCL 4 MG/2 ML VIAL IV ONE (12:00)
[2018-02-09] MEDS ORDERED: PHENYLEPH/NS 1000 MCG/10 ML SYR IV ONE (12:00)
[2018-02-09] MEDS ORDERED: LACTATED RINGER'S 1000 ML INJ 1,000 ML IV ONE (12:00)
[2018-02-09 12:35] LABS: AUTOMATED NEUTROPHIL # 3.6 TH/MM3 (1.8-7.7); BASOPHIL % 0.5 % (0.0-2.0); EOSINOPHIL # 0.1 TH/MM3 (0-0.4); EOSINOPHIL % 2.6 % (0.0-4.0); HEMATOCRIT 37.1 % (39.0-51.0); HEMOGLOBIN 12.7 GM/DL (13.0-17.0); LYMPH % 22.2 % (9.0-44.0); LYMPHOCYTE # 1.2 TH/MM3 (1.0-4.8); MEAN CELL VOLUME 87.3 FL (80.0-100.0); MEAN CORPUSCULAR HEMOGLOBIN 29.9 PG (27.0-34.0); MEAN CORPUSCULAR HGB CONC 34.2 % (32.0-36.0); MONO % 11.2 % (0.0-8.0); MONOCYTE # 0.6 TH/MM3 (0-0.9); NEUT % 63.5 % (16.0-70.0); PLATELET COUNT 172 TH/MM3 (150-450); RED BLOOD COUNT 4.25 MIL/MM3 (4.50-5.90); RED CELL DISTRIBUTION WIDTH 12.8 % (11.6-17.2); WHITE BLOOD COUNT 5.6 TH/MM3 (4.0-11.0)
[2018-02-09 12:50] LABS: BICARBONATE 25.9 MEQ/L (21.0-32.0); CALCIUM 8.6 MG/DL (8.5-10.1); CREATININE 0.61 MG/DL (0.60-1.30); MAGNESIUM 1.7 MG/DL (1.5-2.5)
[2018-02-09] MEDS: SODIUM CHLOR 0.9% 1000 ML INJ 1,000 ML IV SCH (14:29)
--- NOTE | 2018-02-09 16:09 | PD.CONS ---
[facility] Request[facility] By DR KENYON JOSEPH MD Reason for Consult MEDICAL MANAGEMENT Primary Care Physician Sherita Ramos MD Diagnoses: (1) DM (diabetes mellitus) (2) Hypertension (3) Hyperlipidemia (4) Hydrocephalus (5) Cardiac defibrillator in situ (6) Cardiomyopathy (7) Generalized weakness History of Present Illness Patient is a 72-year-old male who underwent a right frontal ventriculoperitoneal shunt placement with a Codman programmable valve by Dr. Joseph today for normal pressure hydrocephalus. Patient was noted to have normal pressure hydrocephalus. And therefore elected to have the PRESCHOOL EDUCATION DIRECTOR shunt placement. We have been asked to help with regarding medical management has a past medical history that is significant for chronic neck pain, tremors, seizures, nonischemic cardiomyopathy, congestive heart failure, cardiac surgery with an AICD placement and pacemaker, hypercholesterolemia, hypertension, respiratory disorders including COPD, history of kidney stones with lithotripsy 2, cervical stenosis, right knee replacement, history of laminectomy 2, right knee replacement, diabetes, psychiatric problems including depression and anxiety, still drinking alcoholic beverages. History of bilateral hand trigger finger surgery we have been asked to help regarding medical management will be available for any other issues that may arise and will get a.m. labs Review of Systems Constitutional: DENIES: Diaphoretic episodes, Fatigue, Fever, Weight gain, Weight loss, Chills, Dizziness, Change in appetite, Night Sweats Endocrine: DENIES: Heat/cold intolerance, Polydipsia, Polyuria, Polyphagia Eyes: DENIES: Blurred vision, Diplopia, Eye inflammation, Eye pain, Vision loss , Photosensitivity, Double Vision Ears, nose, mouth, throat: DENIES: Tinnitus, Hearing loss, Vertigo, Nasal discharge, Oral lesions, Throat pain, Hoarseness, Ear Pain, Running Nose, Epistaxis, Sinus Pain, Toothache, Odynophagia Respiratory: DENIES: Apneas, Cough, Snoring, Wheezing, Hemoptysis, Sputum production, Shortness of breath Cardiovascular: COMPLAINS OF: Syncope, DENIES: Chest pain, Palpitations, Dyspnea on Exertion, PND, Lower Extremity Edema, Orthopnea, Claudication Gastrointestinal: DENIES: Abdominal pain, Black stools, Bloody stools, Constipation, Diarrhea, Nausea, Vomiting, Difficulty Swallowing, Anorexia Genitourinary: DENIES: Sexual dysfunction, Urinary frequency, Urinary incontinence, Urgency, Hematuria, Dysuria, Nocturia, Penile Discharge Musculoskeletal: DENIES: Joint pain, Muscle aches, Stiffness, Joint Swelling, Back pain, Neck pain Integumentary: DENIES: Abnormal pigmentation, Nail changes, Pruritus, Rash Hematologic/lymphatic: DENIES: Bruising, Lymphadenopathy Immunologic/allergic: DENIES: Eczema, Urticaria Neurologic: COMPLAINS OF: Abnormal gait, Localized weakness, Seizures, Tremor, Poor Balance, DENIES: Headache, Paresthesias, Speech Problems Psychiatric: COMPLAINS OF: Anxiety, Confusion, Depression, DENIES: Mood changes , Hallucinations, Agitation, Suicidal Ideation, Homicidal Ideation, Delusions Except as stated in HPI: all other systems reviewed are Neg Past Family Social History Allergies: Coded Allergies: No Known Allergies (Verified Adverse Reaction, Unknown, 02/09/18) Past Medical History Neck pain Tremors History of fainting spells Seizures Ischemic cardiomyopathy History of congestive heart failure History of AICD pacemaker [employer] Hyperlipidemia Hypertension COPD History of kidney stones with lithotripsy 2 History of cervical stenosis history of right knee replacement History of laminectomy 2 Diabetes mellitus Anxiety and depression Alcohol use Bilateral hand trigger finger surgery Past Surgical History History of AICD pacemaker [employer]tronics History of kidney stones with lithotripsy 2 history of right knee replacement History of laminectomy 2 Bilateral hand trigger finger surgery Reported Medications Reported Meds & Active Scripts Active Polyethylene Glycol 3350 Powder (Polyethylene Glycol) 17 Gram Pow 17 Gm PO DAILY Ambien (Zolpidem Tartrate) 5 Mg Tab 5 Mg PO HS PRN Amphetamine-Dextroamphetamine 20 Mg Tab 20 Mg PO BID Avoid late evening doses. Space doses at least 4 to 6 hours if more than once/day dosing. Clonazepam 1 Mg Tab 1 Mg PO HS Reported Carvedilol 3.125 Mg Tab 3.125 Mg PO BID Trazodone (Trazodone HCl) 50 Mg Tab 50 Mg PO HS Primidone 250 Mg Tablet 250 Mg PO BID Sertraline (Sertraline HCl) 100 Mg Tab 100 Mg PO BID Lamotrigine 100 Mg Tab 100 Mg PO DAILY Lisinopril 2.5 Mg Tab 2.5 Mg PO DAILY Metformin (Metformin HCl) 500 Mg Tab 500 Mg PO BIDPC Furosemide 20 Mg Tab 20 Mg PO DAILY Proscar (Finasteride) 5 Mg Tab 5 Mg PO DAILY Do not crush. Active Ordered Medications Current Medications Lactated Ringer's 1,000 ml @ 30 mls/hr Q24H PRN IV SEE LABEL COMMENTS Last administered on 02/09/18at 07:29; Start 02/09/18 at 06:30; Stop 02/12/18 at 06:29 Sodium Chloride 500 ml @ 30 mls/hr [id number] PRN IV SEE LABEL COMMENTS; Start at 06:30; Stop 02/12/18 at 06:29 Metoprolol Tartrate (Lopressor) 25 mg LOAN SERVICING SPECIALIST PRN PO SEE LABEL COMMENTS; Start 02/09/18 at 06:30; Stop 02/12/18 at 06:29 Povidone Iodine (Betadine 5% Antisepsis Kit) 1 applic LOAN SERVICING SPECIALIST PRN EACH NARE SEE LABEL COMMENTS; Start 02/09/18 at 06:30; Stop 02/12/18 at 06:29 Chlorhexidine Gluconate (Chlorhexidine 2% Cloth) 3 pack LOAN SERVICING SPECIALIST PRN TOPICAL SEE LABEL COMMENTS Last administered on 02/09/18at 07:29; Start 02/09/18 at 06:30 ; Stop 02/12/18 at 06:29 Sodium Chloride 1,000 ml @ 30 mls/hr Q24H IV Last administered on 02/09/18at 14 :29; Start 02/09/18 at 06:30 Vancomycin/Sodium Chloride 200 ml @ 200 mls/hr LOAN SERVICING SPECIALIST IV ; Start 02/09/18 at 06:30; Stop 02/12/18 at 06:29 Bupivacaine HCl/ Epinephrine Bitart (Sensorcaine-Epinephrine Pf 0.5% Inj) 30 ml STK-MED ONCE .ROUTE Last administered on 02/09/18at 09:16; Start 02/09/18 at 06: 59; Stop 02/09/18 at 07:00; Status DC Amphetamine/ Dextroamphetamine (Adderall) 20 mg BID PO ; Start 02/09/18 at 21:00 Carvedilol (Coreg) 3.125 mg BID PO ; Start 02/09/18 at 21:00 Clonazepam (KlonoPIN) 1 mg HS PO ; Start 02/09/18 at 21:00 Finasteride (Proscar) 5 mg DAILY PO ; Start 02/10/18 at 09:00 Furosemide (Lasix) 20 mg DAILY PO ; Start 02/10/18 at 09:00 Lamotrigine (LaMICtal) 100 mg DAILY PO ; Start 02/10/18 at 09:00 Polyethylene Glycol (Miralax) 17 gm DAILY PO ; Start 02/10/18 at 09:00 Primidone (Mysoline) 250 mg BID PO ; Start 02/09/18 at 21:00 Sertraline HCl (Zoloft) 100 mg BID PO ; Start 02/09/18 at 21:00 Trazodone HCl (Desyrel) 50 mg HS PO ; Start 02/09/18 at 21:00 Zolpidem Tartrate (Ambien) 5 mg HS PRN PO insomnia; Start 02/09/18 at 11:00 Lisinopril (Prinivil) 2.5 mg DAILY PO ; Start 02/10/18 at 09:00 Dextrose (D50w (Vial) Inj) 50 ml UNSCH PRN IV PUSH HYPOGLYCEMIA-SEE COMMENTS; Start 02/09/18 at 11:00; Stop 02/09/18 at 12:42; Status DC Glucagon (Glucagon Inj) 1 mg UNSCH PRN OTHER HYPOGLYCEMIA-SEE COMMENTS; Start 02/09/18 at 11:00; Stop 02/09/18 at 12:42; Status DC Insulin Human Regular (NovoLIN R SUPPLEMENTAL SCALE) 1 ACHS SLIDING SCALE SQ ; Start 02/09/18 at 12:00; Stop 02/09/18 at 12:42; Status DC Potassium Chloride/Sodium Chloride 1,000 ml @ 100 mls/hr Q10H IV Last administered on 02/09/18at 10:50; Start 02/09/18 at 10:50; Stop 02/09/18 at 20:49 Sodium Chloride (NS Flush) 2 ml UNSCH PRN IV FLUSH FLUSH AFTER USING IV ACCESS ; Start 02/09/18 at 11:00 Sodium Chloride (NS Flush) 2 ml BID IV FLUSH ; Start 02/09/18 at 21:00 Cefazolin Sodium 1000 mg/Sodium Chloride 100 ml @ 200 mls/hr Q8H IV Last administered on 02/09/18at 13:00; Start 02/09/18 at 13:00; Stop 02/10/18 at 05:29 Lorazepam (Ativan Inj) 1 mg Q1H PRN IV PUSH SEIZURES; Start 02/09/18 at 11:00 Al Hydrox/Mg Hydrox/Simethicone (Mag-Al Plus Susp Liq) 30 ml Q6H PRN PO DYSPEPSIA; Start 02/09/18 at 11:00 Pantoprazole Sodium (Protonix) 40 mg DAILY PO ; Start 02/10/18 at 09:00 Metoclopramide HCl (Reglan Inj) 10 mg Q8H PRN IVS n/v if phenergan ineffective Last administered on 02/09/18at 12:00; Start 02/09/18 at 11:00 Promethazine HCl (Phenergan Inj) 25 mg Q4H PRN IM NAUSEA OR VOMITING; Start at 11:00 Calcium Gluconate 1 gm/Sodium Chloride 110 ml @ 110 mls/hr UNSCH PRN IV SEE LABEL COMMENTS; Start 02/09/18 at 12:00 Potassium Chloride 100 ml @ 50 mls/hr UNSCH PRN IV POTASSIUM LESS THAN 4; Start 02/09/18 at 11:00 Magnesium Sulfate 2 gm/Sodium Chloride 104 ml @ 100 mls/hr UNSCH PRN IV MAGNESIUM LESS THAN 2; Start 02/09/18 at 11:00 Acetaminophen/ Hydrocodone Bitart ([place] 10-325 Mg) 1 tab Q4H PRN PO PAIN SCALE 1 TO 5; Start 02/09/18 at 11:00 Acetaminophen/ Hydrocodone Bitart ([place] 10-325 Mg) 2 tab Q4H PRN PO PAIN SCALE 6 TO 10 Last administered on 02/09/18at 11:52; Start 02/09/18 at 11:00 Morphine Sulfate (Morphine Inj) 2 mg Q2H PRN IV PUSH breakthrough pain> 6; Start 02/09/18 at 11:00 Clonidine (Catapres) 0.1 mg Q6H PRN PO SYS BP GREATER THAN 170 MMHG; Start at 11:00 Acetaminophen (Tylenol) 650 mg Q4H PRN PO TEMPERATURE > 101.5 F; Start at 11:00 Menthol (Vincent Radha) 1 lozenge UNSCH PRN BUCCAL SORE THROAT; Start 02/09/18 at 11:00 Albuterol Sulfate (Albuterol Neb) 2.5 mg Q4HR NEB PRN NEB WHEEZING; Start 02/09 at 11:00 Senna/Docusate Sodium (Ivelisse-Colace) 1 tab BID PO ; Start 02/09/18 at 21:00 Magnesium Hydroxide (Milk Of Magnesia Liq) 30 ml Q12H PRN PO Mild constipation ; Start 02/09/18 at 11:00 Sennosides (Senokot) 17.2 mg Q12H PRN PO Moderate constipation; Start 02/09/18 at 11:00 Bisacodyl (Dulcolax Supp) 10 mg DAILY PRN RECTAL SEVERE CONSITIPATION; Start at 11:00 Lactulose (Lactulose Liq) 30 ml DAILY PRN PO SEVERE CONSITIPATION; Start at 11:00 Fentanyl Citrate (fentaNYL INJ) 200 mcg STK-MED ONCE .ROUTE ; Start 02/09/18 at 11:07; Stop 02/09/18 at 11:08; Status DC Miscellaneous Information ([facility] Information) ALL NURSING DEPARTME... UNSCH PRN .XX SEE LABEL COMMENTS; Start 02/09/18 at 10:58; Stop 02/10/18 at 10: 57 Clonidine (Catapres) 0.1 mg Q4H PRN PO SBP>160, DBP>90; Start 02/09/18 at 12:45 Insulin Aspart (NovoLOG SUPPLEMENTAL SCALE) 1 ACHS SLIDING SCALE SQ ; Start at 17:00 Dextrose (D50w (Vial) Inj) 50 ml UNSCH PRN IV PUSH HYPOGLYCEMIA-SEE COMMENTS; Start 02/09/18 at 12:45 Glucagon (Glucagon Inj) 1 mg UNSCH PRN OTHER HYPOGLYCEMIA-SEE COMMENTS; Start 02/09/18 at 12:45 Family History Hypertension and diabetes Social History Denies any tobacco abuse denies any illicit drug use Drinks alcohol couple times a week Physical Exam Vital Signs Vital Signs Date Time Temp Pulse Resp B/P (MAP) Pulse Ox O2 Delivery O2 Flow Rate FiO2 02/09/18 13:00 67 16 119/57 (77) 100 Nasal Cannula 2 02/09/18 12:00 64 16 134/60 (84) 100 Nasal Cannula 2 02/09/18 11:30 67 16 139/57 (84) 98 Nasal Cannula 2 02/09/18 11:15 68 16 128/59 (82) 100 Nasal Cannula 2 02/09/18 11:00 97.6 72 16 156/65 (95) 99 Nasal Cannula 2 02/09/18 07:10 97.3 71 16 127/56 (79) 99 Physical Exam GENERAL: This is a well-nourished, well-developed patient, in no apparent distress. SKIN: No rashes, ecchymoses or lesions. Cool and dry. HEAD: Atraumatic. Normocephalic. No temporal or scalp tenderness. Has the right -sided PRESCHOOL EDUCATION DIRECTOR shunt and valve in place EYES: Pupils equal round and reactive. Extraocular motions intact. No scleral icterus. No injection or drainage. ENT: Nose without bleeding, purulent drainage or septal hematoma. Throat without erythema, tonsillar hypertrophy or exudate. Uvula midline. Airway patent. NECK: Trachea midline. No JVD or lymphadenopathy. Supple, nontender, no meningeal signs. CARDIOVASCULAR: Regular rate and rhythm without murmurs, gallops, or rubs. S1- S2 no S3 or S4 has the AICD in place RESPIRATORY: Clear to auscultation. Breath sounds equal bilaterally. No wheezes , rales, or rhonchi. GASTROINTESTINAL: Abdomen soft, non-tender, nondistended. No hepato-splenomegaly , or palpable masses. No guarding. MUSCULOSKELETAL: Extremities without clubbing, cyanosis, or edema. No joint tenderness, effusion, or edema noted. No calf tenderness. Negative Homans sign bilaterally. NEUROLOGICAL: Awake and alert. Cranial nerves II through XII intact. Motor and sensory grossly within normal limits. 4out of 5 muscle strength in all muscle groups. Normal speech. Insight and judgment is good Mood and behavior is appropriate Laboratory Laboratory Tests Test 02/09/18 11:49 White Blood Count 5.6 Red Blood Count 4.25 Hemoglobin 12.7 Hematocrit 37.1 Mean Corpuscular Volume 87.3 Mean Corpuscular Hemoglobin 29.9 Mean Corpuscular Hemoglobin Concent 34.2 Red Cell Distribution Width 12.8 Platelet Count 172 Mean Platelet Volume 8.0 Neutrophils (%) (Auto) 63.5 Lymphocytes (%) (Auto) 22.2 Monocytes (%) (Auto) 11.2 Eosinophils (%) (Auto) 2.6 Basophils (%) (Auto) 0.5 Neutrophils # (Auto) 3.6 Lymphocytes # (Auto) 1.2 Monocytes # (Auto) 0.6 Eosinophils # (Auto) 0.1 Basophils # (Auto) 0.0 CBC Comment DIFF FINAL Differential Comment Blood Urea Nitrogen 16 Creatinine 0.61 Random Glucose 108 Calcium Level 8.6 Magnesium Level 1.7 Sodium Level 138 Potassium Level 4.1 Chloride Level 101 Carbon Dioxide Level 25.9 Anion Gap 11 Estimat Glomerular Filtration Rate 130 Result Diagram: 02/09/18 1149 02/09/18 1149 Assessment and Plan Problem List: (1) Cardiac defibrillator in situ ICD Code: Z95.810 - Presence of automatic (implantable) cardiac defibrillator (2) DM (diabetes mellitus) ICD Code: E11.9 - Type 2 diabetes mellitus without complications (3) Cardiomyopathy ICD Code: I42.9 - Cardiomyopathy, unspecified (4) Hypertension ICD Code: I10 - Essential (primary) hypertension (5) Hyperlipidemia ICD Code: E78.5 - Hyperlipidemia, unspecified (6) Hydrocephalus ICD Code: G91.9 - Hydrocephalus, unspecified (7) Generalized weakness ICD Code: R53.1 - Weakness Assessment and Plan Status post PRESCHOOL EDUCATION DIRECTOR shunt by neurosurgery today Continue pain control per them PT and OT to eval and treat Hypertension resume home medications Hyperlipidemia resume home medications Diabetes mellitus sliding scale coverage with Accu-Cheks before meals and at bedtime History of ischemic cardiomyopathy monitor fluid status COPD monitor respiratory status History of kidney stones monitor urine output Depression and anxiety continue on home medications Normal pressure hydrocephalus continue on physical therapy and occupational therapy and monitor status post PRESCHOOL EDUCATION DIRECTOR shunt History of alcohol use will monitor for signs of withdrawal GI prophylaxis And DVT prophylaxis is limited by neurosurgery A.m. labs Code Status Full code Discussed Condition With RN and patient Pierce Serrano DO Feb 09, 2018 16:09
[2018-02-09 16:11] VITALS: BP 123/60; PULSE 59; RESP 19; TEMP 97.3; O2SAT 98
[2018-02-09] MEDS: INSULIN ASPART SUPPLEMENTAL SCALE SQ SCH ×2 (16:43→20:34)
--- NOTE | 2018-02-09 18:35 | RADRPT ---
EXAM DATE: 02/09/2018 6:24 PM EDT AGE/SEX: 72 years / Male INDICATIONS: Post op,INFORMATION AND REFERRAL DIRECTOR shunt. CLINICAL DATA: This is the patient's initial encounter. Patient reports that signs and symptoms have been present for 1 day and indicates a pain score of 2/10. MEDICAL/SURGICAL HISTORY: Cardiovascular disease. Hypertension. . INFORMATION AND REFERRAL DIRECTOR shunt RADIATION DOSE: 47.69 CTDI (mGy) COMPARISON: [facility] [place]/O [place]AST, 12/22/2017. . TECHNIQUE: CT of the head without contrast. Using automated exposure control and adjustment of the mA and/or kV according to patient size, radiation dose was kept as low as reasonably achievable to ob tain optimal diagnostic quality images. FINDINGS: Right frontal INFORMATION AND REFERRAL DIRECTOR shunt is present with shunt tubing extending just across midline into the body of th e left lateral ventricle. Ventricular configuration is notable for slight decrease in ventricular dil atation. Persistent mild ventricular asymmetry. No evidence of hemorrhage or other complication. Brai n is otherwise stable and benign. CONCLUSION: 1. Satisfactory appearance post INFORMATION AND REFERRAL DIRECTOR shunt Electronically signed by: Samuel Rm MD 02/09/2018 6:33 PM EDT
[2018-02-09 20:00] VITALS: BP 140/64; PULSE 74; RESP 17; TEMP 98.1; O2SAT 96
[2018-02-09] MEDS: PRIMIDONE 250 MG TAB PO SCH (20:24)
[2018-02-09] MEDS: CARVEDILOL 3.125 MG TAB PO SCH (20:25)
[2018-02-09] MEDS: DOCUSATE SODIUM 50 MG/SENNA 8.6 MG TAB PO SCH (20:25)
[2018-02-09] MEDS: clonazePAM 1 MG TAB PO SCH (20:26)
[2018-02-09] MEDS: traZODone HCL 50 MG TAB PO SCH (20:26)
[2018-02-09] MEDS: SERTRALINE HCL 100 MG TAB PO SCH (20:26)
[2018-02-09] MEDS: SODIUM CHLORIDE 0.9% FLUSH 10 ML FLUSH IV FLUSH SCH (20:27)
[2018-02-09] MEDS: DEXTROAMPHETAMINE/AMPHETAMINE 20 MG TAB PO SCH (20:27)
[2018-02-10] VITALS: BP 115/57; PULSE 65; RESP 17; TEMP 98.3; O2SAT 95
[2018-02-10] MEDS: ACETAMINOPHEN/HYDROcodone 325 MG/10 MG TAB PO PRN ×3 (00:35→14:08)
[2018-02-10] MEDS: SODIUM CHLOR 0.9% 1000 ML INJ 1,000 ML IV SCH (05:28)
[2018-02-10 06:58] LABS: AST (GOT) 12 U/L (15-37); BLOOD UREA NITROGEN 11 MG/DL (7-18); CALCIUM 8.6 MG/DL (8.5-10.1); CHLORIDE 101 MEQ/L (98-107); CREATININE 0.66 MG/DL (0.60-1.30); GLOMERULAR FILTRATION RATE 119 ML/MIN (>89); GLUCOSE,RANDOM 104 MG/DL (74-106); MAGNESIUM 1.7 MG/DL (1.5-2.5); SODIUM (NA) 136 MEQ/L (136-145)
[2018-02-10 07:10] LABS: AUTOMATED NEUTROPHIL # 5.5 TH/MM3 (1.8-7.7); BASOPHIL % 0.4 % (0.0-2.0); EOSINOPHIL # 0.2 TH/MM3 (0-0.4); EOSINOPHIL % 2.2 % (0.0-4.0); HEMATOCRIT 35.5 % (39.0-51.0); HEMOGLOBIN 12.3 GM/DL (13.0-17.0); LYMPH % 9.2 % (9.0-44.0); LYMPHOCYTE # 0.6 TH/MM3 (1.0-4.8); MEAN CELL VOLUME 87.3 FL (80.0-100.0); MEAN CORPUSCULAR HEMOGLOBIN 30.1 PG (27.0-34.0); MEAN CORPUSCULAR HGB CONC 34.5 % (32.0-36.0); MEAN PLATELET VOLUME 8.2 FL (7.0-11.0); MONO % 10.5 % (0.0-8.0); MONOCYTE # 0.7 TH/MM3 (0-0.9); NEUT % 77.7 % (16.0-70.0); PLATELET COUNT 183 TH/MM3 (150-450); RED BLOOD COUNT 4.07 MIL/MM3 (4.50-5.90); RED CELL DISTRIBUTION WIDTH 12.7 % (11.6-17.2)
[2018-02-10 07:13] LABS: ALKALINE PHOSPHATASE 121 U/L (45-117); ALT (GPT) 17 U/L (12-78); FREE T4 1.12 NG/DL (0.76-1.46); PHOSPHORUS 2.9 MG/DL (2.5-4.9); TOTAL BILIRUBIN ADULT 0.4 MG/DL (0.2-1.0); TOTAL PROTEIN 5.9 GM/DL (6.4-8.2)
[2018-02-10 08:00] VITALS: BP 117/57; PULSE 73; RESP 18; TEMP 98.4; O2SAT 95
[2018-02-10] MEDS: INSULIN ASPART SUPPLEMENTAL SCALE SQ SCH ×4 (08:00→21:00)
[2018-02-10] MEDS: SODIUM CHLORIDE 0.9% FLUSH 10 ML FLUSH IV FLUSH SCH ×2 (09:00→21:00)
[2018-02-10] MEDS: DOCUSATE SODIUM 50 MG/SENNA 8.6 MG TAB PO SCH ×3 (09:00→21:58)
[2018-02-10] MEDS: POLYETHYLENE GLYCOL 17 GM PKG PO SCH ×2 (09:00→09:17)
[2018-02-10] MEDS: LISINOPRIL 5 MG TAB PO SCH (09:15)
[2018-02-10] MEDS: PANTOPRAZOLE SOD 40 MG DELAYED RELEASE TAB PO SCH (09:15)
[2018-02-10] MEDS: FINASTERIDE 5 MG TAB PO SCH (09:17)
[2018-02-10] MEDS: SERTRALINE HCL 100 MG TAB PO SCH ×2 (09:17→21:58)
[2018-02-10] MEDS: lamoTRIgine 100 MG TAB PO SCH (09:17)
[2018-02-10] MEDS: FUROSEMIDE 20 MG TAB PO SCH (09:17)
[2018-02-10] MEDS: PRIMIDONE 250 MG TAB PO SCH ×2 (09:17→21:58)
[2018-02-10] MEDS: CARVEDILOL 3.125 MG TAB PO SCH ×2 (09:17→21:58)
[2018-02-10] MEDS: DEXTROAMPHETAMINE/AMPHETAMINE 20 MG TAB PO SCH ×3 (11:04→21:58)
--- NOTE | 2018-02-10 11:05 | HHI.NSPN ---
(Aftab Silverio) History Chief Complaint: Mild incisional pain. (Aftab Silverio) Interval History 02/10/18: Pt underwent a right frontal ventriculoperitoneal shunt placement with Codman programmable valve on 02/09/18. He has mild incisional pain. No n/ v. He has not been out of bed with PT yet. He denies urinary incontinence. (Aftab Silverio) Review of Systems General: Negative for: fever, chills, insomnia Respiratory: Negative for: shortness of breath, cough, sputum Cardiovascular: Negative for: chest pain Gastrointestinal: Negative for: nausea, vomitting, diarrhea, constipation ( Aftab Silverio) Exam Results Vital Signs Date Time Temp Pulse Resp B/P (MAP) Pulse Ox O2 Delivery O2 Flow Rate FiO2 02/10/18 08:00 98.4 73 18 117/57 (77) 95 02/09/18 13:00 Nasal Cannula 2 Intake and Output 02/10/18 02/10/18 02/10/18 07:59 15:59 23:59 Intake Total 1007 ml Balance 1007 ml (Aftab Silverio) Physical Examination General: Pt awake and alert resting in bed in NAD. Eyes: Pupils equal. Sclera anicteric. Resp: CTA bilaterally. Heart: NSR no murmurs. Abd: Soft positive bs. Abdominal incision bandaged without any signs of complication. Skin: Incisions are clean and dry. Muscle: Moves all 4 extremities with generalized weakness. Neuro: Pt awake and alert. Pupils equal and reactive. He follows commands well. (Aftab Silverio) Lab, Micro, Other Results Last Impressions Head CT 02/09/18 0000 Signed Impressions: CONCLUSION: 1. Satisfactory appearance post OPHTHALMIC SURGICAL ASSISTANT shunt Laboratory Tests Test 02/09/18 11:49 02/10/18 05:40 White Blood Count 5.6 TH/MM3 7.0 TH/MM3 Red Blood Count 4.25 MIL/MM3 4.07 MIL/MM3 Hemoglobin 12.7 GM/DL 12.3 GM/DL Hematocrit 37.1 % 35.5 % Mean Corpuscular Volume 87.3 FL 87.3 FL Mean Corpuscular Hemoglobin 29.9 PG 30.1 PG Mean Corpuscular Hemoglobin Concent 34.2 % 34.5 % Red Cell Distribution Width 12.8 % 12.7 % Platelet Count 172 TH/MM3 183 TH/MM3 Mean Platelet Volume 8.0 FL 8.2 FL Neutrophils (%) (Auto) 63.5 % 77.7 % Lymphocytes (%) (Auto) 22.2 % 9.2 % Monocytes (%) (Auto) 11.2 % 10.5 % Eosinophils (%) (Auto) 2.6 % 2.2 % Basophils (%) (Auto) 0.5 % 0.4 % Neutrophils # (Auto) 3.6 TH/MM3 5.5 TH/MM3 Lymphocytes # (Auto) 1.2 TH/MM3 0.6 TH/MM3 Monocytes # (Auto) 0.6 TH/MM3 0.7 TH/MM3 Eosinophils # (Auto) 0.1 TH/MM3 0.2 TH/MM3 Basophils # (Auto) 0.0 TH/MM3 0.0 TH/MM3 CBC Comment DIFF FINAL DIFF FINAL Differential Comment Blood Urea Nitrogen 16 MG/DL 11 MG/DL Creatinine 0.61 MG/DL 0.66 MG/DL Random Glucose 108 MG/DL 104 MG/DL Calcium Level 8.6 MG/DL 8.6 MG/DL Magnesium Level 1.7 MG/DL 1.7 MG/DL Sodium Level 138 MEQ/L 136 MEQ/L Potassium Level 4.1 MEQ/L 4.2 MEQ/L Chloride Level 101 MEQ/L 101 MEQ/L Carbon Dioxide Level 25.9 MEQ/L 25.0 MEQ/L Anion Gap 11 MEQ/L 10 MEQ/L Estimat Glomerular Filtration Rate 130 ML/MIN 119 ML/MIN Total Protein 5.9 GM/DL Albumin 3.0 GM/DL Phosphorus Level 2.9 MG/DL Alkaline Phosphatase 121 U/L Aspartate Amino Transf (AST/SGOT) 12 U/L Alanine Aminotransferase (ALT/SGPT) 17 U/L Total Bilirubin 0.4 MG/DL Free Thyroxine 1.12 NG/DL Thyroid Stimulating Hormone 3rd Gen 1.960 uIU/ML (Aftab Silverio) Medical Decision Making Impression and Plan A: 72 y/o M s/p OPHTHALMIC SURGICAL ASSISTANT shunt for NPH. P: Continue to monitor Pt evaluation. Pt will need rehab placement as he has been very immobile (Aftab Silverio) Attending Statement The exam, history, and the medical decision-making described in the above note were completed with the assistance of the mid-level provider. I reviewed and agree with the findings presented. I attest that I had a [id number] encounter with the patient on the same day, and personally performed and documented my assessment and findings in the medical record. (Tim Acharya MD) Aftab Silverio Feb 10, 2018 11:05 Tim Acharya MD Feb 10, 2018 13:16
--- NOTE | 2018-02-10 11:21 | HHI.PR ---
Subjective Remarks Patient is a 72-year-old male who underwent a right frontal ventriculoperitoneal shunt placement with a Codman programmable valve by Dr. Acharya today for normal pressure hydrocephalus. Patient was noted to have normal pressure hydrocephalus. And therefore elected to have the MANAGER CREATIVE SERVICES shunt placement. We have been asked to help with regarding medical management has a past medical history that is significant for chronic neck pain, tremors, seizures, nonischemic cardiomyopathy, congestive heart failure, cardiac surgery with an AICD placement and pacemaker, hypercholesterolemia, hypertension, respiratory disorders including COPD, history of kidney stones with lithotripsy 2, cervical stenosis, right knee replacement, history of laminectomy 2, right knee replacement, diabetes, psychiatric problems including depression and anxiety, still drinking alcoholic beverages. History of bilateral hand trigger finger surgery we have been asked to help regarding medical management will be available for any other issues that may arise and will get a.m. labs - HAD SURGERY YESTERDAY HAS NOT GOTTEN OUT OF BED YET DW RN AND PT NEEDS PT AND OT DW RN AND PT Objective Vitals Vital Signs Date Time Temp Pulse Resp B/P (MAP) Pulse Ox O2 Delivery O2 Flow Rate FiO2 02/10/18 08:00 98.4 73 18 117/57 (77) 95 02/10/18 00:00 98.3 65 17 115/57 (76) 95 02/09/18 20:00 98.1 74 17 140/64 (89) 96 02/09/18 16:11 97.3 59 19 123/60 (81) 98 02/09/18 13:00 67 16 119/57 (77) 100 Nasal Cannula 2 02/09/18 12:00 64 16 134/60 (84) 100 Nasal Cannula 2 02/09/18 11:30 67 16 139/57 (84) 98 Nasal Cannula 2 I/O 02/09/18 02/09/18 02/09/18 02/10/18 02/10/18 02/10/18 07:00 15:00 23:00 07:00 15:00 23:00 Intake Total 1100 ml 100 ml 1007 ml Output Total 325 ml 200 ml Balance 775 ml -100 ml 1007 ml Intake IV Total 1100 ml 100 ml 1007 ml Output Urine Total 300 ml 200 ml Estimated Blood Loss 25 ml Result Diagram: 02/10/18 0540 02/10/18 0540 Other Results Laboratory Tests Test 02/09/18 11:49 02/10/18 05:40 White Blood Count 5.6 TH/MM3 7.0 TH/MM3 Red Blood Count 4.25 MIL/MM3 4.07 MIL/MM3 Hemoglobin 12.7 GM/DL 12.3 GM/DL Hematocrit 37.1 % 35.5 % Mean Corpuscular Volume 87.3 FL 87.3 FL Mean Corpuscular Hemoglobin 29.9 PG 30.1 PG Mean Corpuscular Hemoglobin Concent 34.2 % 34.5 % Red Cell Distribution Width 12.8 % 12.7 % Platelet Count 172 TH/MM3 183 TH/MM3 Mean Platelet Volume 8.0 FL 8.2 FL Neutrophils (%) (Auto) 63.5 % 77.7 % Lymphocytes (%) (Auto) 22.2 % 9.2 % Monocytes (%) (Auto) 11.2 % 10.5 % Eosinophils (%) (Auto) 2.6 % 2.2 % Basophils (%) (Auto) 0.5 % 0.4 % Neutrophils # (Auto) 3.6 TH/MM3 5.5 TH/MM3 Lymphocytes # (Auto) 1.2 TH/MM3 0.6 TH/MM3 Monocytes # (Auto) 0.6 TH/MM3 0.7 TH/MM3 Eosinophils # (Auto) 0.1 TH/MM3 0.2 TH/MM3 Basophils # (Auto) 0.0 TH/MM3 0.0 TH/MM3 CBC Comment DIFF FINAL DIFF FINAL Differential Comment Blood Urea Nitrogen 16 MG/DL 11 MG/DL Creatinine 0.61 MG/DL 0.66 MG/DL Random Glucose 108 MG/DL 104 MG/DL Calcium Level 8.6 MG/DL 8.6 MG/DL Magnesium Level 1.7 MG/DL 1.7 MG/DL Sodium Level 138 MEQ/L 136 MEQ/L Potassium Level 4.1 MEQ/L 4.2 MEQ/L Chloride Level 101 MEQ/L 101 MEQ/L Carbon Dioxide Level 25.9 MEQ/L 25.0 MEQ/L Anion Gap 11 MEQ/L 10 MEQ/L Estimat Glomerular Filtration Rate 130 ML/MIN 119 ML/MIN Total Protein 5.9 GM/DL Albumin 3.0 GM/DL Phosphorus Level 2.9 MG/DL Alkaline Phosphatase 121 U/L Aspartate Amino Transf (AST/SGOT) 12 U/L Alanine Aminotransferase (ALT/SGPT) 17 U/L Total Bilirubin 0.4 MG/DL Free Thyroxine 1.12 NG/DL Thyroid Stimulating Hormone 3rd Gen 1.960 uIU/ML Imaging Last Impressions Head CT 02/09/18 0000 Signed Impressions: CONCLUSION: 1. Satisfactory appearance post MANAGER [employer]AT[employer] shunt Objective Remarks GENERAL: Awake alert and oriented talkative and cooperative SKIN: Warm and dry. Has MANAGER [employer]ATIVE [employer] shunt on right side of head HEAD: Atraumatic. Normocephalic. MANAGER [employer] shunt on right side of head EYES: Pupils equal and round. No scleral icterus. No injection or drainage. ENT: No nasal bleeding or discharge. Mucous membranes pink and moist. NECK: Trachea midline. No JVD. CARDIOVASCULAR: Regular rate and rhythm. S1-S2 no S3 or S4 RESPIRATORY: No accessory muscle use. Clear to auscultation. Breath sounds equal bilaterally. GASTROINTESTINAL: Abdomen soft, non-tender, nondistended. Hepatic and splenic margins not palpable. MUSCULOSKELETAL: Extremities without clubbing, cyanosis, or edema. No obvious deformities. NEUROLOGICAL: Awake and alert. No obvious cranial nerve deficits. Motor grossly within normal limits. 4 out of 5 muscle strength in the arms and legs. Normal speech. MANAGER [employer]ATIVE [employer] shunt on right side of head PSYCHIATRIC: Appropriate mood and affect; insight and judgment normal. Procedures Date of Surgery: Feb 09, 2018 Preoperative Diagnosis: Normal-pressure hydrocephalus Postoperative Diagnosis: Same Procedure: Right frontal ventriculoperitoneal shunt placement with Codman programmable valve Anesthesia: General endotracheal by Misty green Surgeon: Tim Acharya MD Machine Accountant(s): Kylee Dixon Operation and Findings: Following administration of general endotracheal anesthesia, patient was placed in a supine position and a Wood catheter placed along with sequential compression devices. Vancomycin 1 g was and administered intravenously. The head secured in donut and turned 30 to the left side and a shoulder roll placed in the right side and all pressure points adequately padded. The right frontal parietal occipital anterior neck and chest and abdomen area was shaved and prepped with a Betadine solution and Chloraprep. Draping with Ioban also undertaken along with the usual sterile draping. Using landmarks of 11 cm behind the nasion and 3 cm right of the midline a curvilinear right frontal incision was made after infiltrating the skin was 0.5% Marcaine with epinephrine solution. A noni hole was made with an automatic information assurance manager and the underlying dura cauterized with bipolar cautery and opened in a cruciate format. Right subcostal abdominal incision site was then infiltrated with 0.5% Marcaine with epinephrine solution and incision made extending down through the anterior fascia of the rectus sheath and then the posterior fascia also incised and the peritoneal wall identified and also incised in a 3-0 silk pursestring suture was been placed around the opening. A subcutaneous tunnel was then created between the frontal and the abdominal incision site with a small interim incision in the neck and the bactiseal Codman peritoneal catheter was then tunneled through. The catheter was connected to a Text A Cab programmable valve set at 100 mm a water setting with the anti-siphon device. The ventricular catheter was then passed the 6 cm in depth and clear CSF encountered and this was then connected to the proximal reservoir valve with a 2 -0 silk tie. Good distal CSF flow run off was noted from the peritoneal catheter which was then dropped into the peritoneum and the pursestring suture was tied along with the approximation of the anterior rectus sheath with 3-0 Vicryl interposition and 3-0 Vic[address] subcut[address] cyst also place an interrupted fashion and final skin closure with yoshi. Incision sites were irrigated with the saline solution prior to closure. The right frontal and small neck incision areas were then also approximated with 3-0 Vicryl galeal stitches and yoshi. Sterile dressings then applied and the patient extubated and taken recovery room. There were no intraoperative complications and all sponge and needle, was correct at the end of the procedure. Estimated blood loss less than 25 cc. Tim Acharya MD Feb 09, 2018 11:06 Medications and IVs Current Medications Lactated Ringer's 1,000 ml @ 30 mls/hr Q24H PRN IV SEE LABEL COMMENTS Last administered on 02/09/18at 07:29; Start 02/09/18 at 06:30; Stop 02/12/18 at 06:29 Sodium Chloride 500 ml @ 30 mls/hr [id number] PRN IV SEE LABEL COMMENTS; Start at 06:30; Stop 02/12/18 at 06:29 Metoprolol Tartrate (Lopressor) 25 mg SEWER AND DRAIN TECHNICIAN PRN PO SEE LABEL COMMENTS; Start 02/09/18 at 06:30; Stop 02/12/18 at 06:29 Povidone Iodine (Betadine 5% Antisepsis Kit) 1 applic SEWER AND DRAIN TECHNICIAN PRN EACH NARE SEE LABEL COMMENTS; Start 02/09/18 at 06:30; Stop 02/12/18 at 06:29 Chlorhexidine Gluconate (Chlorhexidine 2% Cloth) 3 pack SEWER AND DRAIN TECHNICIAN PRN TOPICAL SEE LABEL COMMENTS Last administered on 02/09/18at 07:29; Start 02/09/18 at 06:30 ; Stop 02/12/18 at 06:29 Sodium Chloride 1,000 ml @ 30 mls/hr Q24H IV Last administered on 02/10/18at 05 :28; Start 02/09/18 at 06:30 Vancomycin/Sodium Chloride 200 ml @ 200 mls/hr SEWER AND DRAIN TECHNICIAN IV ; Start 02/09/18 at 06:30; Stop 02/12/18 at 06:29 Bupivacaine HCl/ Epinephrine Bitart (Sensorcaine-Epinephrine Pf 0.5% Inj) 30 ml STK-MED ONCE .ROUTE Last administered on 02/09/18at 09:16; Start 02/09/18 at 06: 59; Stop 02/09/18 at 07:00; Status DC Amphetamine/ Dextroamphetamine (Adderall) 20 mg BID PO Last administered on at 11:04; Start 02/09/18 at 21:00 Carvedilol (Coreg) 3.125 mg BID PO Last administered on 02/10/18at 09:17; Start 02/09/18 at 21:00 Clonazepam (KlonoPIN) 1 mg HS PO Last administered on 02/09/18at 20:26; Start at 21:00 Finasteride (Proscar) 5 mg DAILY PO Last administered on 02/10/18at 09:17; Start 02/10/18 at 09:00 Furosemide (Lasix) 20 mg DAILY PO Last administered on 02/10/18 09:17; Start 02/10/18 at 09:00 Lamotrigine (LaMICtal) 100 mg DAILY PO Last administered on 02/10/18at 09:17; Start 02/10/18 at 09:00 Polyethylene Glycol (Miralax) 17 gm DAILY PO ; Start 02/10/18 at 09:00 Primidone (Mysoline) 250 mg BID PO Last administered on 02/10/18at 09:17; Start 02/09/18 at 21:00 Sertraline HCl (Zoloft) 100 mg BID PO Last administered on 02/10/18at 09:17; Start 02/09/18 at 21:00 Trazodone HCl (Desyrel) 50 mg HS PO Last administered on 02/09/18at 20:26; Start 02/09/18 at 21:00 Zolpidem Tartrate (Ambien) 5 mg HS PRN PO insomnia; Start 02/09/18 at 11:00 Lisinopril (Prinivil) 2.5 mg DAILY PO Last administered on 02/10/18at 09:15; Start 02/10/18 at 09:00 Dextrose (D50w (Vial) Inj) 50 ml UNSCH PRN IV PUSH HYPOGLYCEMIA-SEE COMMENTS; Start 02/09/18 at 11:00; Stop 02/09/18 at 12:42; Status DC Glucagon (Glucagon Inj) 1 mg UNSCH PRN OTHER HYPOGLYCEMIA-SEE COMMENTS; Start 02/09/18 at 11:00; Stop 02/09/18 at 12:42; Status DC Insulin Human Regular (NovoLIN R SUPPLEMENTAL SCALE) 1 ACHS SLIDING SCALE SQ ; Start 02/09/18 at 12:00; Stop 02/09/18 at 12:42; Status DC Potassium Chloride/Sodium Chloride 1,000 ml @ 100 mls/hr Q10H IV Last administered on 02/09/18at 10:50; Start 02/09/18 at 10:50; Stop 02/09/18 at 20:49 ; Status DC Sodium Chloride (NS Flush) 2 ml UNSCH PRN IV FLUSH FLUSH AFTER USING IV ACCESS ; Start 02/09/18 at 11:00 Sodium Chloride (NS Flush) 2 ml BID IV FLUSH ; Start 02/09/18 at 21:00 Cefazolin Sodium 1000 mg/Sodium Chloride 100 ml @ 200 mls/hr Q8H IV Last administered on 02/10/18at 05:28; Start 02/09/18 at 13:00; Stop 02/10/18 at 05:29 ; Status DC Lorazepam (Ativan Inj) 1 mg Q1H PRN IV PUSH SEIZURES; Start 02/09/18 at 11:00 Al Hydrox/Mg Hydrox/Simethicone (Mag-Al Plus Susp Liq) 30 ml Q6H PRN PO DYSPEPSIA; Start 02/09/18 at 11:00 Pantoprazole Sodium (Protonix) 40 mg DAILY PO Last administered on 02/10/18at 09 :15; Start 02/10/18 at 09:00 Metoclopramide HCl (Reglan Inj) 10 mg Q8H PRN IVS n/v if phenergan ineffective Last administered on 02/09/18at 12:00; Start 02/09/18 at 11:00 Promethazine HCl (Phenergan Inj) 25 mg Q4H PRN IM NAUSEA OR VOMITING; Start at 11:00 Calcium Gluconate 1 gm/Sodium Chloride 110 ml @ 110 mls/hr UNSCH PRN IV SEE LABEL COMMENTS; Start 02/09/18 at 12:00 Potassium Chloride 100 ml @ 50 mls/hr UNSCH PRN IV POTASSIUM LESS THAN 4; Start 02/09/18 at 11:00 Magnesium Sulfate 2 gm/Sodium Chloride 104 ml @ 100 mls/hr UNSCH PRN IV MAGNESIUM LESS THAN 2; Start 02/09/18 at 11:00 Acetaminophen/ Hydrocodone Bitart ([place] 10-325 Mg) 1 tab Q4H PRN PO PAIN SCALE 1 TO 5 Last administered on 02/10/18at 04:17; Start 02/09/18 at 11:00 Acetaminophen/ Hydrocodone Bitart ([place] 10-325 Mg) 2 tab Q4H PRN PO PAIN SCALE 6 TO 10 Last administered on 02/09/18at 11:52; Start 02/09/18 at 11:00 Morphine Sulfate (Morphine Inj) 2 mg Q2H PRN IV PUSH breakthrough pain> 6; Start 02/09/18 at 11:00 Clonidine (Catapres) 0.1 mg Q6H PRN PO SYS BP GREATER THAN 170 MMHG; Start at 11:00 Acetaminophen (Tylenol) 650 mg Q4H PRN PO TEMPERATURE > 101.5 F; Start at 11:00 Menthol ([place] Radha) 1 lozenge UNSCH PRN BUCCAL SORE THROAT; Start 02/09/18 at 11:00 Albuterol Sulfate (Albuterol Neb) 2.5 mg Q4HR NEB PRN NEB WHEEZING; Start 02/09 at 11:00 Senna/Docusate Sodium (Ivelisse-Colace) 1 tab BID PO Last administered on at 20:25; Start 02/09/18 at 21:00 Magnesium Hydroxide (Milk Of Magnesia Liq) 30 ml Q12H PRN PO Mild constipation ; Start 02/09/18 at 11:00 Sennosides (Senokot) 17.2 mg Q12H PRN PO Moderate constipation; Start 02/09/18 at 11:00 Bisacodyl (Dulcolax Supp) 10 mg DAILY PRN RECTAL SEVERE CONSITIPATION; Start at 11:00 Lactulose (Lactulose Liq) 30 ml DAILY PRN PO SEVERE CONSITIPATION; Start at 11:00 Fentanyl Citrate (fentaNYL INJ) 200 mcg STK-MED ONCE .ROUTE ; Start 02/09/18 at 11:07; Stop 02/09/18 at 11:08; Status DC Miscellaneous Information ([facility] Nursing Information) ALL NURSING DEPARTME... UNSCH PRN .XX SEE LABEL COMMENTS; Start 02/09/18 at 10:58; Stop 02/10/18 at 10: 57; Status DC Clonidine (Catapres) 0.1 mg Q4H PRN PO SBP>160, DBP>90; Start 02/09/18 at 12:45 Insulin Aspart (NovoLOG SUPPLEMENTAL SCALE) 1 ACHS SLIDING SCALE SQ ; Start at 17:00 Dextrose (D50w (Vial) Inj) 50 ml UNSCH PRN IV PUSH HYPOGLYCEMIA-SEE COMMENTS; Start 02/09/18 at 12:45 Glucagon (Glucagon Inj) 1 mg UNSCH PRN OTHER HYPOGLYCEMIA-SEE COMMENTS; Start 02/09/18 at 12:45 Lactated Ringer's 1,000 ml @ As Directed STK-MED ONCE IV ; Start 02/09/18 at 12 :00; Stop 02/10/18 at 10:25; Status DC Lidocaine HCl (Xylocaine-Mpf 1% Inj) 5 ml STK-MED ONCE OTHER ; Start 02/09/18 at 12:00; Stop 02/10/18 at 10:25; Status DC Rocuronium [place] (Zemuron Inj) 50 mg STK-MED ONCE IV PUSH ; Start 02/09/18 at 12:00; Stop 02/10/18 at 10:25; Status DC Neostigmine Methylsulfate (Prostigmine Inj) 5 mg STK-MED ONCE IV PUSH ; Start at 12:00; Stop 02/10/18 at 10:25; Status DC Glycopyrrolate (Robinul Inj) 1 mg STK-MED ONCE IV PUSH ; Start 02/09/18 at 12:00 ; Stop 02/10/18 at 10:25; Status DC Phenylephrine HCl (Neosynephrine/ NS 1000 Mcg/10ml Syr) 2,000 mcg STK-MED ONCE IV ; Start 02/09/18 at 12:00; Stop 02/10/18 at 10:25; Status DC Ondansetron HCl (Zofran Inj) 4 mg STK-MED ONCE IV ; Start 02/09/18 at 12:00; Stop 02/10/18 at 10:25; Status DC Propofol (Diprivan 200 Mg/20 ml Inj) 200 mg STK-MED ONCE IV ; Start 02/09/18 at 12:00; Stop 02/10/18 at 10:25; Status DC A/P Problem List: (1) Cardiac defibrillator in situ ICD Code: Z95.810 - Presence of automatic (implantable) cardiac defibrillator (2) DM (diabetes mellitus) ICD Code: E11.9 - Type 2 diabetes mellitus without complications (3) Cardiomyopathy ICD Code: I42.9 - Cardiomyopathy, unspecified (4) Hypertension ICD Code: I10 - Essential (primary) hypertension (5) Hyperlipidemia ICD Code: E78.5 - Hyperlipidemia, unspecified (6) Hydrocephalus ICD Code: G91.9 - Hydrocephalus, unspecified (7) Generalized weakness ICD Code: R53.1 - Weakness Assessment and Plan Status post MANAGER CREATIVE [employer] shunt by neurosurgery today Continue pain control per them PT and OT to eval and treat Hypertension resume home medications Hyperlipidemia resume home medications Diabetes mellitus sliding scale coverage with Accu-Cheks before meals and at bedtime History of ischemic cardiomyopathy monitor fluid status COPD monitor respiratory status History of kidney stones monitor urine output Depression and anxiety continue on home medications Normal pressure hydrocephalus continue on physical therapy and occupational therapy and monitor status post MANAGER CREATIVE SERVICES shunt History of alcohol use will monitor for signs of withdrawal GI prophylaxis And DVT prophylaxis is limited by neurosurgery A.m. labs Discharge Planning Pending neurosurgical clearance Pierce Serrano DO Feb 10, 2018 11:21
[2018-02-10 12:00] VITALS: BP 119/56; PULSE 67; RESP 18; TEMP 97.8; O2SAT 96
[2018-02-10 16:00] VITALS: BP_SYST 117; BP_SYST 99; BP_DIAS 57; PULSE 64; PULSE 67; RESP 18; TEMP 97.6; TEMP 98.4; O2SAT 92; O2SAT 95
[2018-02-10 17:24] LABS: HEMOGLOBIN A1C 5.4 % (4.3-6.0)
[2018-02-10] MEDS ORDERED: diphenhydrAMINE HCL 25 MG CAP PO PRN (19:30)
[2018-02-10 20:00] VITALS: BP 131/60; PULSE 62; RESP 18; TEMP 98.2; O2SAT 98
[2018-02-10] MEDS: clonazePAM 1 MG TAB PO SCH (21:57)
[2018-02-10] MEDS: traZODone HCL 50 MG TAB PO SCH (21:58)
[2018-02-11] VITALS: BP 121/57; PULSE 65; RESP 18; TEMP 98.7; O2SAT 96
[2018-02-11 04:00] VITALS: BP 115/58; PULSE 68; RESP 18; TEMP 98.4; O2SAT 97
[2018-02-11] MEDS: ACETAMINOPHEN/HYDROcodone 325 MG/10 MG TAB PO PRN (05:38)
[2018-02-11] MEDS: SODIUM CHLOR 0.9% 1000 ML INJ 1,000 ML IV SCH (05:38)
[2018-02-11 08:00] VITALS: BP 116/60; PULSE 66; RESP 18; TEMP 98.1; O2SAT 96
[2018-02-11] MEDS: INSULIN ASPART SUPPLEMENTAL SCALE SQ SCH ×2 (08:00→12:00)
[2018-02-11] MEDS: SODIUM CHLORIDE 0.9% FLUSH 10 ML FLUSH IV FLUSH SCH (09:00)
[2018-02-11] MEDS: DOCUSATE SODIUM 50 MG/SENNA 8.6 MG TAB PO SCH (09:00)
[2018-02-11] MEDS: POLYETHYLENE GLYCOL 17 GM PKG PO SCH (09:00)
[2018-02-11] MEDS: SERTRALINE HCL 100 MG TAB PO SCH (09:01)
[2018-02-11] MEDS: lamoTRIgine 100 MG TAB PO SCH (09:01)
[2018-02-11] MEDS: PRIMIDONE 250 MG TAB PO SCH (09:01)
[2018-02-11] MEDS: FINASTERIDE 5 MG TAB PO SCH (09:01)
[2018-02-11] MEDS: CARVEDILOL 3.125 MG TAB PO SCH (09:01)
[2018-02-11] MEDS: FUROSEMIDE 20 MG TAB PO SCH (09:01)
[2018-02-11] MEDS: PANTOPRAZOLE SOD 40 MG DELAYED RELEASE TAB PO SCH (09:01)
[2018-02-11] MEDS: DEXTROAMPHETAMINE/AMPHETAMINE 20 MG TAB PO SCH (09:01)
[2018-02-11] MEDS: LISINOPRIL 5 MG TAB PO SCH (09:02)
--- NOTE | 2018-02-11 11:55 | HHI.NSPN ---
(Aftab Silverio) History Chief Complaint: Mild incisional pain. (Aftab Silverio) Interval History 02/10/18: Pt underwent a right frontal ventriculoperitoneal shunt placement with Codman programmable valve on 02/09/18. He has mild incisional pain. No n/ v. He has not been out of bed with PT yet. He denies urinary incontinence. 02/11/18: Pt awake and alert. Mild frontal headache. No n/v. No paresthesias in face or extremities. Very limited mobility status. (Aftab Silverio) Review of Systems General: Negative for: fever, chills, insomnia Respiratory: Negative for: shortness of breath, cough, sputum Cardiovascular: Negative for: chest pain Gastrointestinal: Negative for: nausea, vomitting, diarrhea, constipation ( Aftab Silverio) Exam Results Vital Signs Date Time Temp Pulse Resp B/P (MAP) Pulse Ox O2 Delivery O2 Flow Rate FiO2 02/11/18 08:00 98.1 66 18 116/60 (78) 96 02/09/18 13:00 Nasal Cannula 2 (Aftab Silverio) Physical Examination General: Pt awake and alert resting in bed in NAD. Eyes: Pupils equal. Sclera anicteric. Resp: CTA bilaterally. Heart: NSR no murmurs. Abd: Soft positive bs. Abdominal incision bandaged without any signs of complication. Skin: Incisions are clean and dry. Muscle: Moves all 4 extremities with generalized weakness. Neuro: Pt awake and alert. He has a flat affect which is his baseline. Pupils equal and reactive. He follows commands well. Answers questions appropriately. Memory is poor does not recall working with PT at all. (Aftab Silverio) Lab, Micro, Other Results Last Impressions Head CT 02/09/18 0000 Signed Impressions: CONCLUSION: 1. Satisfactory appearance post SSIS DEVELOPER shunt (Aftab Silverio) Medical Decision Making Impression and Plan A: 72 y/o M s/p SSIS DEVELOPER shunt for NPH. P: Continue to monitor Rehab placement, pt with very limited mobility status. (Aftab Silverio) Attending Statement The exam, history, and the medical decision-making described in the above note were completed with the assistance of the mid-level provider. I reviewed and agree with the findings presented. I attest that I had a [id number] encounter with the patient on the same day, and personally performed and documented my assessment and findings in the medical record. (Tim Acharya MD) Aftab Silverio Feb 11, 2018 11:55 Tim Acharya MD Feb 11, 2018 12:07
[2018-02-11 12:23] VITALS: BP 132/63; PULSE 82; RESP 18; TEMP 97.9; O2SAT 93
--- NOTE | 2018-02-11 12:41 | HHI.PR ---
Subjective Remarks Patient is a 72-year-old male who underwent a right frontal ventriculoperitoneal shunt placement with a Codman programmable valve by Dr. Acharya today for normal pressure hydrocephalus. Patient was noted to have normal pressure hydrocephalus. And therefore elected to have the CORK FLOOR INSTALLER shunt placement. We have been asked to help with regarding medical management has a past medical history that is significant for chronic neck pain, tremors, seizures, nonischemic cardiomyopathy, congestive heart failure, cardiac surgery with an AICD placement and pacemaker, hypercholesterolemia, hypertension, respiratory disorders including COPD, history of kidney stones with lithotripsy 2, cervical stenosis, right knee replacement, history of laminectomy 2, right knee replacement, diabetes, psychiatric problems including depression and anxiety, still drinking alcoholic beverages. History of bilateral hand trigger finger surgery we have been asked to help regarding medical management will be available for any other issues that may arise and will get a.m. labs 02-10 HAD SURGERY YESTERDAY HAS NOT GOTTEN OUT OF BED YET DW RN AND PT NEEDS PT AND OT DW RN AND PT 02-11 PATIENT STATES HE IS GOING TO REHAB AT [facility] TODAY NEEDS PT AND OT AND AGGRESSIVE TREATMENT OK TO DISCHARGE FROM MEDICAL PERSPECTIVE Objective Vitals Vital Signs Date Time Temp Pulse Resp B/P (MAP) Pulse Ox O2 Delivery O2 Flow Rate FiO2 02/11/18 12:23 97.9 82 18 132/63 (86) 93 02/11/18 08:00 98.1 66 18 116/60 (78) 96 02/11/18 04:00 98.4 68 18 115/58 (77) 97 02/11/18 00:00 98.7 65 18 121/57 (78) 96 02/10/18 20:00 98.2 62 18 131/60 (83) 98 02/10/18 16:00 98.4 67 18 117/57 (77) 95 I/O 02/10/18 02/10/18 02/10/18 02/11/18 02/11/18 02/11/18 07:00 15:00 23:00 07:00 15:00 23:00 Intake Total 1007 ml Output Total 100 ml 400 ml Balance 1007 ml -100 ml -400 ml Intake IV Total 1007 ml Output Urine Total 100 ml 400 ml # Voids 1 # Bowel Movements 0 Result Diagram: 02/10/18 0540 02/10/18 0540 Other Results Laboratory Tests Test 02/09/18 11:49 02/10/18 05:40 White Blood Count 5.6 TH/MM3 7.0 TH/MM3 Red Blood Count 4.25 MIL/MM3 4.07 MIL/MM3 Hemoglobin 12.7 GM/DL 12.3 GM/DL Hematocrit 37.1 % 35.5 % Mean Corpuscular Volume 87.3 FL 87.3 FL Mean Corpuscular Hemoglobin 29.9 PG 30.1 PG Mean Corpuscular Hemoglobin Concent 34.2 % 34.5 % Red Cell Distribution Width 12.8 % 12.7 % Platelet Count 172 TH/MM3 183 TH/MM3 Mean Platelet Volume 8.0 FL 8.2 FL Neutrophils (%) (Auto) 63.5 % 77.7 % Lymphocytes (%) (Auto) 22.2 % 9.2 % Monocytes (%) (Auto) 11.2 % 10.5 % Eosinophils (%) (Auto) 2.6 % 2.2 % Basophils (%) (Auto) 0.5 % 0.4 % Neutrophils # (Auto) 3.6 TH/MM3 5.5 TH/MM3 Lymphocytes # (Auto) 1.2 TH/MM3 0.6 TH/MM3 Monocytes # (Auto) 0.6 TH/MM3 0.7 TH/MM3 Eosinophils # (Auto) 0.1 TH/MM3 0.2 TH/MM3 Basophils # (Auto) 0.0 TH/MM3 0.0 TH/MM3 CBC Comment DIFF FINAL DIFF FINAL Differential Comment Blood Urea Nitrogen 16 MG/DL 11 MG/DL Creatinine 0.61 MG/DL 0.66 MG/DL Random Glucose 108 MG/DL 104 MG/DL Calcium Level 8.6 MG/DL 8.6 MG/DL Magnesium Level 1.7 MG/DL 1.7 MG/DL Sodium Level 138 MEQ/L 136 MEQ/L Potassium Level 4.1 MEQ/L 4.2 MEQ/L Chloride Level 101 MEQ/L 101 MEQ/L Carbon Dioxide Level 25.9 MEQ/L 25.0 MEQ/L Anion Gap 11 MEQ/L 10 MEQ/L Estimat Glomerular Filtration Rate 130 ML/MIN 119 ML/MIN Total Protein 5.9 GM/DL Albumin 3.0 GM/DL Phosphorus Level 2.9 MG/DL Alkaline Phosphatase 121 U/L Aspartate Amino Transf (AST/SGOT) 12 U/L Alanine Aminotransferase (ALT/SGPT) 17 U/L Total Bilirubin 0.4 MG/DL Hemoglobin A1c 5.4 % Free Thyroxine 1.12 NG/DL Thyroid Stimulating Hormone 3rd Gen 1.960 uIU/ML Imaging Last Impressions Head CT 02/09/18 0000 Signed Impressions: CONCLUSION: 1. Satisfactory appearance post CORK FLOOR INSTALLER shunt Objective Remarks GENERAL: Awake alert and oriented talkative and cooperative SKIN: Warm and dry. Has CORK FLOOR INSTALLER shunt on right side of head HEAD: Atraumatic. Normocephalic. CORK FLOOR INSTALLER shunt on right side of head EYES: Pupils equal and round. No scleral icterus. No injection or drainage. ENT: No nasal bleeding or discharge. Mucous membranes pink and moist. NECK: Trachea midline. No JVD. CARDIOVASCULAR: Regular rate and rhythm. S1-S2 no S3 or S4 RESPIRATORY: No accessory muscle use. Clear to auscultation. Breath sounds equal bilaterally. GASTROINTESTINAL: Abdomen soft, non-tender, nondistended. Hepatic and splenic margins not palpable. MUSCULOSKELETAL: Extremities without clubbing, cyanosis, or edema. No obvious deformities. NEUROLOGICAL: Awake and alert. No obvious cranial nerve deficits. Motor grossly within normal limits. 4 out of 5 muscle strength in the arms and legs. Normal speech. CORK FLOOR INSTALLER shunt on right side of head PSYCHIATRIC: Appropriate mood and affect; insight and judgment normal. Procedures Date of Surgery: Feb 09, 2018 Preoperative Diagnosis: Normal-pressure hydrocephalus Postoperative Diagnosis: Same Procedure: Right frontal ventriculoperitoneal shunt placement with Codman programmable valve Anesthesia: General endotracheal by Misty green Surgeon: Tim Acharya MD Retort Feeder Ground Bone(s): Kylee Dixon Operation and Findings: Following administration of general endotracheal anesthesia, patient was placed in a supine position and a Wood catheter placed along with sequential compression devices. Vancomycin 1 g was and administered intravenously. The head secured in donut and turned 30 to the left side and a shoulder roll placed in the right side and all pressure points adequately padded. The right frontal parietal occipital anterior neck and chest and abdomen area was shaved and prepped with a Betadine solution and Chloraprep. Draping with Ioban also undertaken along with the usual sterile draping. Using landmarks of 11 cm behind the nasion and 3 cm right of the midline a curvilinear right frontal incision was made after infiltrating the skin was 0.5% Marcaine with epinephrine solution. A noni hole was made with an automatic mixing tank operator and the underlying dura cauterized with bipolar cautery and opened in a cruciate format. Right subcostal abdominal incision site was then infiltrated with 0.5% Marcaine with epinephrine solution and incision made extending down through the anterior fascia of the rectus sheath and then the posterior fascia also incised and the peritoneal wall identified and also incised in a 3-0 silk pursestring suture was been placed around the opening. A subcutaneous tunnel was then created between the frontal and the abdominal incision site with a small interim incision in the neck and the bactiseal Codman peritoneal catheter was then tunneled through. The catheter was connected to a Galenea programmable valve set at 100 mm a water setting with the anti-siphon device. The ventricular catheter was then passed the 6 cm in depth and clear CSF encountered and this was then connected to the proximal reservoir valve with a 2 -0 silk tie. Good distal CSF flow run off was noted from the peritoneal catheter which was then dropped into the peritoneum and the pursestring suture was tied along with the approximation of the anterior rectus sheath with 3-0 Vicryl interposition and 3-0 Vic[address] subcut[address] cyst also place an interrupted fashion and final skin closure with yoshi. Incision sites were irrigated with the saline solution prior to closure. The right frontal and small neck incision areas were then also approximated with 3-0 Vicryl galeal stitches and yoshi. Sterile dressings then applied and the patient extubated and taken recovery room. There were no intraoperative complications and all sponge and needle, was correct at the end of the procedure. Estimated blood loss less than 25 cc. Tim Acharya MD Feb 09, 2018 11:06 Medications and IVs Current Medications Lactated Ringer's 1,000 ml @ 30 mls/hr Q24H PRN IV SEE LABEL COMMENTS Last administered on 02/09/18at 07:29; Start 02/09/18 at 06:30; Stop 02/12/18 at 06:29 Sodium Chloride 500 ml @ 30 mls/hr [id number] PRN IV SEE LABEL COMMENTS; Start at 06:30; Stop 02/12/18 at 06:29 Metoprolol Tartrate (Lopressor) 25 mg FOXING PAINTER PRN PO SEE LABEL COMMENTS; Start 02/09/18 at 06:30; Stop 02/12/18 at 06:29 Povidone Iodine (Betadine 5% Antisepsis Kit) 1 applic FOXING PAINTER PRN EACH NARE SEE LABEL COMMENTS; Start 02/09/18 at 06:30; Stop 02/12/18 at 06:29 Chlorhexidine Gluconate (Chlorhexidine 2% Cloth) 3 pack FOXING PAINTER PRN TOPICAL SEE LABEL COMMENTS Last administered on 02/09/18at 07:29; Start 02/09/18 at 06:30 ; Stop 02/12/18 at 06:29 Sodium Chloride 1,000 ml @ 30 mls/hr Q24H IV Last administered on 02/11/18at 05 :38; Start 02/09/18 at 06:30 Vancomycin/Sodium Chloride 200 ml @ 200 mls/hr FOXING PAINTER IV ; Start 02/09/18 at 06:30; Stop 02/12/18 at 06:29 Bupivacaine HCl/ Epinephrine Bitart (Sensorcaine-Epinephrine Pf 0.5% Inj) 30 ml STK-MED ONCE .ROUTE Last administered on 02/09/18at 09:16; Start 02/09/18 at 06: 59; Stop 02/09/18 at 07:00; Status DC Amphetamine/ Dextroamphetamine (Adderall) 20 mg BID PO Last administered on at 09:01; Start 02/09/18 at 21:00 Carvedilol (Coreg) 3.125 mg BID PO Last administered on 02/11/18at 09:01; Start 02/09/18 at 21:00 Clonazepam (KlonoPIN) 1 mg HS PO Last administered on 02/10/18at 21:57; Start at 21:00 Finasteride (Proscar) 5 mg DAILY PO Last administered on 02/11/18at 09:01; Start 02/10/18 at 09:00 Furosemide (Lasix) 20 mg DAILY PO Last administered on 02/11/18 09:01; Start 02/10/18 at 09:00 Lamotrigine (LaMICtal) 100 mg DAILY PO Last administered on 02/11/18at 09:01; Start 02/10/18 at 09:00 Polyethylene Glycol (Miralax) 17 gm DAILY PO ; Start 02/10/18 at 09:00 Primidone (Mysoline) 250 mg BID PO Last administered on 02/11/18at 09:01; Start 02/09/18 at 21:00 Sertraline HCl (Zoloft) 100 mg BID PO Last administered on 02/11/18at 09:01; Start 02/09/18 at 21:00 Trazodone HCl (Desyrel) 50 mg HS PO Last administered on 02/10/18at 21:58; Start 02/09/18 at 21:00 Zolpidem Tartrate (Ambien) 5 mg HS PRN PO insomnia; Start 02/09/18 at 11:00 Lisinopril (Prinivil) 2.5 mg DAILY PO Last administered on 02/11/18at 09:02; Start 02/10/18 at 09:00 Dextrose (D50w (Vial) Inj) 50 ml UNSCH PRN IV PUSH HYPOGLYCEMIA-SEE COMMENTS; Start 02/09/18 at 11:00; Stop 02/09/18 at 12:42; Status DC Glucagon (Glucagon Inj) 1 mg UNSCH PRN OTHER HYPOGLYCEMIA-SEE COMMENTS; Start 02/09/18 at 11:00; Stop 02/09/18 at 12:42; Status DC Insulin Human Regular (NovoLIN R SUPPLEMENTAL SCALE) 1 ACHS SLIDING SCALE SQ ; Start 02/09/18 at 12:00; Stop 02/09/18 at 12:42; Status DC Potassium Chloride/Sodium Chloride 1,000 ml @ 100 mls/hr Q10H IV Last administered on 02/09/18at 10:50; Start 02/09/18 at 10:50; Stop 02/09/18 at 20:49 ; Status DC Sodium Chloride (NS Flush) 2 ml UNSCH PRN IV FLUSH FLUSH AFTER USING IV ACCESS ; Start 02/09/18 at 11:00 Sodium Chloride (NS Flush) 2 ml BID IV FLUSH ; Start 02/09/18 at 21:00 Cefazolin Sodium 1000 mg/Sodium Chloride 100 ml @ 200 mls/hr Q8H IV Last administered on 02/10/18at 05:28; Start 02/09/18 at 13:00; Stop 02/10/18 at 05:29 ; Status DC Lorazepam (Ativan Inj) 1 mg Q1H PRN IV PUSH SEIZURES; Start 02/09/18 at 11:00 Al Hydrox/Mg Hydrox/Simethicone (Mag-Al Plus Susp Liq) 30 ml Q6H PRN PO DYSPEPSIA; Start 02/09/18 at 11:00 Pantoprazole Sodium (Protonix) 40 mg DAILY PO Last administered on 02/11/18at 09 :01; Start 02/10/18 at 09:00 Metoclopramide HCl (Reglan Inj) 10 mg Q8H PRN IVS n/v if phenergan ineffective Last administered on 02/09/18at 12:00; Start 02/09/18 at 11:00 Promethazine HCl (Phenergan Inj) 25 mg Q4H PRN IM NAUSEA OR VOMITING; Start at 11:00 Calcium Gluconate 1 gm/Sodium Chloride 110 ml @ 110 mls/hr UNSCH PRN IV SEE LABEL COMMENTS; Start 02/09/18 at 12:00 Potassium Chloride 100 ml @ 50 mls/hr UNSCH PRN IV POTASSIUM LESS THAN 4; Start 02/09/18 at 11:00 Magnesium Sulfate 2 gm/Sodium Chloride 104 ml @ 100 mls/hr UNSCH PRN IV MAGNESIUM LESS THAN 2; Start 02/09/18 at 11:00 Acetaminophen/ Hydrocodone Bitart ([place] 10-325 Mg) 1 tab Q4H PRN PO PAIN SCALE 1 TO 5 Last administered on 02/11/18at 05:38; Start 02/09/18 at 11:00 Acetaminophen/ Hydrocodone Bitart ([place] 10-325 Mg) 2 tab Q4H PRN PO PAIN SCALE 6 TO 10 Last administered on 02/10/18at 14:08; Start 02/09/18 at 11:00 Morphine Sulfate (Morphine Inj) 2 mg Q2H PRN IV PUSH breakthrough pain> 6 Last administered on 02/10/18at 16:25; Start 02/09/18 at 11:00 Clonidine (Catapres) 0.1 mg Q6H PRN PO SYS BP GREATER THAN 170 MMHG; Start at 11:00 Acetaminophen (Tylenol) 650 mg Q4H PRN PO TEMPERATURE > 101.5 F; Start at 11:00 Menthol ([place] Radha) 1 lozenge UNSCH PRN BUCCAL SORE THROAT; Start 02/09/18 at 11:00 Albuterol Sulfate (Albuterol Neb) 2.5 mg Q4HR NEB PRN NEB WHEEZING; Start 02/09 at 11:00 Senna/Docusate Sodium (Ivelisse-Colace) 1 tab BID PO Last administered on at 21:58; Start 02/09/18 at 21:00 Magnesium Hydroxide (Milk Of Magnesia Liq) 30 ml Q12H PRN PO Mild constipation ; Start 02/09/18 at 11:00 Sennosides (Senokot) 17.2 mg Q12H PRN PO Moderate constipation; Start 02/09/18 at 11:00 Bisacodyl (Dulcolax Supp) 10 mg DAILY PRN RECTAL SEVERE CONSITIPATION; Start at 11:00 Lactulose (Lactulose Liq) 30 ml DAILY PRN PO SEVERE CONSITIPATION; Start at 11:00 Fentanyl Citrate (fentaNYL INJ) 200 mcg STK-MED ONCE .ROUTE ; Start 02/09/18 at 11:07; Stop 02/09/18 at 11:08; Status DC Miscellaneous Information ([facility] [place] [facility] ALL NURSING DEPARTME... UNSCH PRN .XX SEE LABEL COMMENTS; Start 02/09/18 at 10:58; Stop 02/10/18 at 10: 57; Status DC Clonidine (Catapres) 0.1 mg Q4H PRN PO SBP>160, DBP>90; Start 02/09/18 at 12:45 Insulin Aspart (NovoLOG SUPPLEMENTAL SCALE) 1 ACHS SLIDING SCALE SQ ; Start at 17:00 Dextrose (D50w (Vial) Inj) 50 ml UNSCH PRN IV PUSH HYPOGLYCEMIA-SEE COMMENTS; Start 02/09/18 at 12:45 Glucagon (Glucagon Inj) 1 mg UNSCH PRN OTHER HYPOGLYCEMIA-SEE COMMENTS; Start 02/09/18 at 12:45 Lactated Ringer's 1,000 ml @ As Directed STK-MED ONCE IV ; Start 02/09/18 at 12 :00; Stop 02/10/18 at 10:25; Status DC Lidocaine HCl (Xylocaine-Mpf 1% Inj) 5 ml STK-MED ONCE OTHER ; Start 02/09/18 at 12:00; Stop 02/10/18 at 10:25; Status DC Rocuronium [place] (Zemuron Inj) 50 mg STK-MED ONCE IV PUSH ; Start 02/09/18 at 12:00; Stop 02/10/18 at 10:25; Status DC Neostigmine Methylsulfate (Prostigmine Inj) 5 mg STK-MED ONCE IV PUSH ; Start at 12:00; Stop 02/10/18 at 10:25; Status DC Glycopyrrolate (Robinul Inj) 1 mg STK-MED ONCE IV PUSH ; Start 02/09/18 at 12:00 ; Stop 02/10/18 at 10:25; Status DC Phenylephrine HCl (Neosynephrine/ NS 1000 Mcg/10ml Syr) 2,000 mcg STK-MED ONCE IV ; Start 02/09/18 at 12:00; Stop 02/10/18 at 10:25; Status DC Ondansetron HCl (Zofran Inj) 4 mg STK-MED ONCE IV ; Start 02/09/18 at 12:00; Stop 02/10/18 at 10:25; Status DC Propofol (Diprivan 200 Mg/20 ml Inj) 200 mg STK-MED ONCE IV ; Start 02/09/18 at 12:00; Stop 02/10/18 at 10:25; Status DC Diphenhydramine HCl (Benadryl) 25 mg Q4H PRN PO ITCHING; Start 02/10/18 at 19: 30 A/P Problem List: (1) Cardiac defibrillator in situ ICD Code: Z95.810 - Presence of automatic (implantable) cardiac defibrillator (2) DM (diabetes mellitus) ICD Code: E11.9 - Type 2 diabetes mellitus without complications (3) Cardiomyopathy ICD Code: I42.9 - Cardiomyopathy, unspecified (4) Hypertension ICD Code: I10 - Essential (primary) hypertension (5) Hyperlipidemia ICD Code: E78.5 - Hyperlipidemia, unspecified (6) Hydrocephalus ICD Code: G91.9 - Hydrocephalus, unspecified (7) Generalized weakness ICD Code: R53.1 - Weakness Assessment and Plan Status post CORK FLOOR INSTALLER shunt by neurosurgery Continue pain control per them PT and OT to eval and treat Hypertension resume home medications Hyperlipidemia resume home medications Diabetes mellitus sliding scale coverage with Accu-Cheks before meals and at bedtime History of ischemic cardiomyopathy monitor fluid status COPD monitor respiratory status History of kidney stones monitor urine output Depression and anxiety continue on home medications Normal pressure hydrocephalus continue on physical therapy and occupational therapy and monitor status post CORK FLOOR INSTALLER shunt History of alcohol use will monitor for signs of withdrawal GI prophylaxis And DVT prophylaxis is limited by neurosurgery OK FOR DC TO REHAB AT [facility] BARB RN AND PT Discharge Planning MEDICALLY CLEARED FOR DISCHARGE Pierce Serrano DO Feb 11, 2018 12:41
== END 2018-02-11 15:35 | DRG 32 ==
LOC: HSDI 05:50 → N05B 14:07
PROVIDERS: ADMIT Neurological Surgery; ATTEND Neurological Surgery
PROC: 00160J6 Bypass Cerebral Ventricle to Peritoneal Cavity with Synthetic Substitute, Open Approach (ICD-10-PCS; principal; 2018-02-09 08:34)
DX: G91.2 (Idiopathic) normal pressure hydrocephalus (principal); I50.22 Chronic systolic (congestive) heart failure; I11.0 Hypertensive heart disease with heart failure; J44.9 Chronic obstructive pulmonary disease, unspecified; E11.9 Type 2 diabetes mellitus without complications; E78.5 Hyperlipidemia, unspecified; M48.02 Spinal stenosis, cervical region; I25.5 Ischemic cardiomyopathy; F32.9 Major depressive disorder, single episode, unspecified; R53.1 Weakness; F41.9 Anxiety disorder, unspecified; Z79.84 Long term (current) use of oral hypoglycemic drugs; Z95.810 Presence of automatic (implantable) cardiac defibrillator; Z96.651 Presence of right artificial knee joint
CPT/HCPCS: 70450; 80048; 80053; 82948; 83036; 83735; 84100; 84439; 84443; 85025; 94150; J0690; J2270; J2370; J2405; J2710; J2765; J3010; J3480; J7030; J7120